=== PATIENT | male | born 1955 | race Asian ===

== ENCOUNTER 2017-03-20 09:06 | Outpatient (CLI) | payer MEDICARE, MEDICAID ==
--- NOTE | 2017-03-20 12:24 | CT ---
CT ABDOMEN WITH CONTRAST: Comparison: 03-24-13 History: Abdominal distention, right upper quadrant abdominal pain. Technique: Multiple contiguous axial images were obtained in a CT of the abdomen only with contrast. PO contrast was administered. Coronal reformats were performed. FINDINGS: The gallbladder is not overly distended but there are subtle stranding changes surrounding the gallbl adder. No calcified gallstones are seen in the gallbladder. The spleen is massively enlarged measurin g 24 cm in size. No focal liver lesions are seen. The kidneys, adrenal glands, and pancreas are unrem arkable. No free air or free fluid are seen in the abdomen. Scattered diverticula are seen in the colon. The small bowel and appendix are unremarkable. No abdomi nal adenopathy is seen. Degenerative changes are seen in the spine. The visualized inferior thorax and abdominal soft tissues are unremarkable. IMPRESSION: 1. There are possible stranding changes found in the gallbladder which could be secondary to acute ch olecystitis. A right upper quadrant abdominal ultrasound is recommended for further evaluation. 2. Massive splenomegaly. 3. Diverticulosis. POS: [facility]
[2017-03-20] MEDS ORDERED: ISOVUE-370 76%-LOCM 1 ML ONE (16:02)
== END 2017-03-20 09:07 | disposition home or self-care (01) ==
LOC: CT 09:06
PROVIDERS: ATTEND Internal Medicine Gastroenterology
DX: D56.8 Other thalassemias (principal); K74.60 Unspecified cirrhosis of liver; R10.11 Right upper quadrant pain; D50.0 Iron deficiency anemia secondary to blood loss (chronic); R16.1 Splenomegaly, not elsewhere classified; K57.30 Diverticulosis of large intestine without perforation or abscess without bleeding
CPT/HCPCS: 74160

== ENCOUNTER 2018-12-02 16:20 | Inpatient (IN) | payer MEDICARE, MEDICAID ==
[2018-12-02 17:23] LABS: Hemoglobin 7.8 g/dL (14.0-18.0); Mean Corpuscular HGB CONC 35.1 g/dL (32.0-36.0); Mean Corpuscular Hemoglobin 18.9 pg (27.0-31.0); Mean Corpuscular Volume 53.8 fL (78.0-98.0); RBC Distribution Width 19.2 % (11.5-14.5); Red Blood Cell (RBC) Count 4.13 mill/uL (4.70-6.10); White Blood Cell (WBC) Count 9.5 thou/uL (4.8-10.8)
[2018-12-02] MEDS ORDERED: Lidocaine 1% w/Epinephrine 1:100K 20 ML VIAL ONE (17:31)
[2018-12-02 17:36] LABS: Bilirubin Negative (Negative); Blood, Urine Negative (Negative); Clarity Clear (Clear); Glucose, Urine (Dipstick) Normal (Negative); Leukocyte Negative Leu/uL (Negative); Nitrite Negative (Negative); Protein, Urine (Dipstick) 20 mg/dL (Neg-Trace); Urobilinogen 6 mg/dL (Less than 2)
[2018-12-02 17:38] LABS: Anisocytosis SLIGHT = 6-15 cells (100X) (0-5/hpf); Band 1 % (5-11); Eosinophils 1 % (0-10); Hypochromia MODERATE=16-30 cells (100X) (0-5/hpf); Lymphocytes 31 % (21-51); MDiff Complete? YES; Mean Platelet Volume 7.2 fL (7.4-10.4); Microcytosis MODERATE=15-30 cells (100X) (0-5/hpf); Monocytes 5 % (0-10); Neutrophil 62 % (42-75); Platelet Count 99 thou/uL (130-400); Platelet Morphology Comment Appears Decreased; Poikilocytosis SLIGHT = 6-15 cells (100X) (0-5/hpf); Target Cells MODERATE= 6-15 cells (100X) (0-1/hpf)
[2018-12-02 17:47] LABS: ALT (SGPT) 16 U/L (8-55); AST (SGOT) 27 U/L (5-34); Albumin 3.1 g/dL (3.4-4.8); Alkaline Phosphatase 108 U/L (40-110); Anion Gap 11 mmol/L (10-20); BUN (Urea Nitrogen) 11 mg/dL (8.4-25.7); Bilirubin, Total 3.4 mg/dL (0.2-1.2); Calc. Creatinine Clearance 0 mL/min (70-130); Calcium 8.2 mg/dL (7.8-10.44); Carbon Dioxide 20 mmol/L (23-31); Chloride 104 mmol/L (98-107); Estimated GFR-MDRD Greater than 90; Globulin 3.5 g/dL (2.4-3.5); Glucose 182 mg/dL (80-115); Potassium 4.5 mmol/L (3.5-5.1); Protein, Total 6.6 g/dL (5.8-8.1); Sodium 130 mmol/L (136-145)
[2018-12-02 18:59] LABS: RBC Count-Automated (BF) 550 /cumm; WBC/Nucleated-Auto (BF) 356 uL
[2018-12-02 19:03] LABS: BF Color Yellow; Body Fluid Source Peritoneal Fluid; Clarity Clear (Clear); Tube # 1
[2018-12-02 19:37] LABS: BF Segmented Neutrophils 1 %; Cell Count Non Hematic 84 %; Lymphocytes 15 %
[2018-12-02] MEDS ORDERED: cefTRIAXone\\ROCEPHIN 2 GM VIAL ONE (20:10)
[2018-12-02] MEDS ORDERED: Ondansetron PF 4 MG/2 ML Vial IVP PRN (22:14)
[2018-12-02] MEDS ORDERED: Sodium Chloride 0.9% 1,000 ML IV SCH (22:14)
[2018-12-02] MEDS ORDERED: Ondansetron ODT 4 MG TAB SL PRN (22:14)
[2018-12-02] MEDS ORDERED: Dextrose 50% Abboject 50 ML SYRINGE SLOW IVP PRN (23:39)
[2018-12-02] MEDS ORDERED: Dextrose 5% in Water 1,000 ML IV PRN (23:39)
[2018-12-02] MEDS ORDERED: Acetaminophen 325 MG TAB PO PRN (23:40)
[2018-12-03] MEDS: cefOXitin 2 GM in Sodium Chloride 0.9% 100 ML IVPB SCH ×2 (01:52→09:52)
--- NOTE | 2018-12-03 02:50 | HP ---
CHIEF COMPLAINT: Abdominal pain. HISTORY OF PRESENT ILLNESS: This patient is a 63-year-old male with a history of alcoholic cirrhosis who quit drinking a number of years ago. The patient reports that he previously has had a paracentesis once and that he was previously following with Dr. Lepe. He is from [place] and he has been back in [place] and recently returned. He reports that he has had right upper quadrant abdominal pain for approximately 3 weeks. He reports during that time he has also had some fevers and chills and he ultimately presented to the emergency department today. He described the pain as a sharp in nature and had become as severe as 10/11 and was fairly constant. He had paracentesis performed in the emergency department and appears he may have some spontaneous bacterial peritonitis. REVIEW OF SYSTEMS: The above-mentioned fever for last couple of weeks. He has had some diarrhea during that time as well. He has had some generalized weakness, some numbness, and tingling in the lower extremities. All other systems reviewed. All pertinent positives and negatives listed in the history of present illness. PAST MEDICAL HISTORY: Cirrhosis, diagnosed in 2002. He has had one prior paracentesis. Diabetes mellitus with some peripheral neuropathy. History of splenomegaly, likely due to the cirrhosis and malaria in the childhood. PAST SURGICAL HISTORY: None. FAMILY HISTORY: Sister and brother with diabetes mellitus. SOCIAL HISTORY: The patient lives in [facility]. Has a history of significant alcohol use, but quit in 1995. Has a 33-hysa-rgte history of smoking. He is not currently smoking. ALLERGIES: NONE. MEDICATIONS: He reports, 1. Glimepiride 4 mg b.i.d. 2. Nadolol 80 mg daily. 3. Sotalol 80 mg daily. 4. Hydrochlorothiazide 50 mg daily. 5. Xifaxan 550 mg b.i.d. and another that he cannot recall. Looking at the medications in the computer, in September it appears he filled the glimepiride, sotalol, and Xifaxan. CODE STATUS: The patient is full code and his friend, Arley Saenz, #[phone] would be his surrogate decision maker. PHYSICAL EXAMINATION: VITAL SIGNS: Temperature is 98.3, pulse 84, respirations 20, O2 saturations 100% on room air, BP 127/58. GENERAL APPEARANCE: Age-appropriate male, in no distress. He is awake, alert, oriented, pleasant, cooperative. HEENT: OLIVIA, has no OP lesions. Multiple severely carious teeth. NECK: Supple and symmetric. HEART: Regular rate and rhythm without murmurs, gallops, or rubs. LUNGS: Clear to auscultation bilaterally with good chest wall expansion and air exchange. ABDOMEN: Soft, nontender. It is generally distended and has positive bowel sounds. Currently, he is nontender to palpation. EXTREMITIES: No cyanosis, clubbing, or edema. Pulses are palpable. NEURO: The patient appears to be cognitively intact. Moves all extremities spontaneously. PSYCH: Normal affect and behavior. LABORATORY DATA: White count 9.5, hemoglobin 7.8, MCV is 53.8, platelets 99. Sodium 130, potassium 4.5, chloride 104, CO2 is 20, BUN 11, creatinine 0.76, glucose 182, lactic acid 1.5, calcium 8.2, total bilirubin 3.4, AST 27, ALT 16, alkaline phosphatase 108, albumin is 3.1. Urinalysis essentially negative. Fluid from a peritoneal tap shows clear yellow fluid with 356 white cells, 550 red cells. IMPRESSION AND PLAN: 1. Probable spontaneous bacterial peritonitis, and the patient with a history of cirrhosis presents with abdominal pain, fevers, and chills. Tap shows greater than 350 white blood cells. He has received a dose of Rocephin in the emergency department. We will continue with antibiotics. Consult GI. 2. Abdominal pain, again likely related to the spontaneous bacterial peritonitis and ascites. He actually feels better after the tap. 3. History of alcoholic cirrhosis. Continue with chronic medications including nadolol and Xifaxan. 4. History of splenomegaly, likely secondary to cirrhosis. 5. History of coagulopathy. We will recheck those now. We will avoid giving him blood thinners for DVT prophylaxis and just treat with SCDs. 6. Anemia and thrombocytopenia. Anemia appears to be chronic and he is about at his baseline, but his MCV is extremely low. We will check iron studies. The thrombocytopenia is likely due to sequestration due to the splenomegaly. 7. Hyponatremia, chronic, related to his liver disease. No specific intervention indicated. 8. Diabetes mellitus. We will continue with his usual home medications. Give sliding-scale insulin. Job ID: [id number]
[2018-12-03 04:53] LABS: INR-International Normal Ratio 1.5; PTT 40.1 SEC (22.9-36.1); Prothrombin Time 18.3 SEC (12.0-14.7)
[2018-12-03 05:11] LABS: Iron 40 ug/dL (65-175); Iron Binding Capacity, Total 149 mcg/dL (261-462)
[2018-12-03 05:12] LABS: ALT (SGPT) 12 U/L (8-55); AST (SGOT) 19 U/L (5-34); Albumin 2.8 g/dL (3.4-4.8); Alkaline Phosphatase 105 U/L (40-110); Anion Gap 9 mmol/L (10-20); BUN (Urea Nitrogen) 10 mg/dL (8.4-25.7); Bilirubin, Total 2.2 mg/dL (0.2-1.2); Calc. Creatinine Clearance 0 mL/min (70-130); Calcium 7.9 mg/dL (7.8-10.44); Carbon Dioxide 24 mmol/L (23-31); Chloride 106 mmol/L (98-107); Estimated GFR-MDRD Greater than 90; Globulin 3.2 g/dL (2.4-3.5); Glucose 265 mg/dL (80-115); Iron 40 ug/dL (65-175); Iron Binding Capacity, Total 153 mcg/dL (261-462); Potassium 4.6 mmol/L (3.5-5.1); Sodium 134 mmol/L (136-145)
[2018-12-03] MEDS: HumaLOG 300 UNITS/3 ML VIAL SC PRN ×2 (05:35→23:46)
[2018-12-03 05:39] LABS: Band 1 % (5-11); Eosinophils 5 % (0-10); Hemoglobin 7.1 g/dL (14.0-18.0); Hemoglobin C Crystals SLIGHT (None Seen); Lymphocytes 35 % (21-51); MDiff Complete? YES; Mean Corpuscular HGB CONC 36.4 g/dL (32.0-36.0); Mean Corpuscular Hemoglobin 19.3 pg (27.0-31.0); Mean Platelet Volume 6.6 fL (7.4-10.4); Microcytosis MODERATE=15-30 cells (100X) (0-5/hpf); Monocytes 3 % (0-10); Neutrophil 56 % (42-75); Platelet Count 95 thou/uL (130-400); Platelet Morphology Comment Appears Decreased; RBC Distribution Width 18.9 % (11.5-14.5); Red Blood Cell (RBC) Count 3.69 mill/uL (4.70-6.10); Target Cells MARKED = >16 cells (100X) (0-1/hpf); White Blood Cell (WBC) Count 5.9 thou/uL (4.8-10.8)
--- NOTE | 2018-12-03 12:27 | PDOC.HOSPP ---
- Subjective Encounter Date: 12/03/18 Encounter Time: 11:00 Subjective: has abd distention, no pain or nausea ate his breakfast, is amb in room - Objective Vital Signs & Weight: Vital Signs (12 hours) Temp Pulse Resp BP BP Pulse Ox 12/03/18 09:50 98 12/03/18 08:00 98.2 F 96 18 110/58 L 98 12/03/18 04:00 98.2 F 89 16 109/58 L 94 L Weight Weight 2.787 oz Result Diagrams: 12/03/18 04:09 12/03/18 04:09 Additional Labs: Accuchecks 12/03/18 11:23 POC Glucose 125 H Hospitalist ROS - Medication Medications: Active Medications Generic Name Dose Route Start Last Admin Trade Name Freq PRN Reason Stop Dose Admin Cefoxitin Sodium 2 gm/ Sodium 100 mls @ 100 mls/hr 12/03/18 01:00 12/03/18 09 :52 Chloride IVPB 100 mls 0100,[id number],1700 LAWRENCE Administration Insulin Human Lispro 0 units 12/02/18 23:39 12/03/18 05:35 Humalog SC 4 unit .MILD SLIDING SCALE PRN Administration Mild Correctional Scale - Exam General Appearance: awake alert, ill appearing Eye: PERRL, scleral icterus ENT: no oropharyngeal lesions, dry oral mucosa Neck: supple, no JVD Heart: RRR, no murmur Respiratory: no wheezes, no rales Gastrointestinal: soft, normal bowel sounds, distended Gastrointestinal - other findings: ascites+++ Extremities: no cyanosis, 1+ LE edema Neurological: cranial nerve grossly intact, no focal deficits Psychiatric: normal affect, A&O x 3 Hosp A/P (1) Ascites Code(s): R18.8 - OTHER ASCITES Status: Acute Qualifiers: Ascites type: due to alcoholic cirrhosis Qualified Code(s): K70.31 - Alcoholic cirrhosis of liver with ascites (2) DM type 2 (diabetes mellitus, type 2) Status: Chronic Qualifiers: Diabetes mellitus watcher [employer] insulin use: without group home use (3) Anemia Code(s): D64.9 - ANEMIA, UNSPECIFIED Status: Chronic (4) Hypoalbuminemia Code(s): E88.09 - OTH DISORDERS OF PLASMA-PROTEIN METABOLISM, NEC Status: Chronic (5) Coagulopathy Status: Chronic Plan: due to liver disease (6) Thrombocytopenia Code(s): D69.6 - THROMBOCYTOPENIA, UNSPECIFIED Status: Chronic Plan: due to cirrhosis/splenic sequestration - Plan is on cefoxitin for suspected sbp, unlikely for usg guided paracentesis, not sure how much fluid was removed yesterday ( likely diagnostic tap) dc iv fluids continue home dose of nadolol, add lasix low dose bid has chronic anemia with microcytic indices continue glimepride for dm#2 to ambulate as tolerated in hallway
[2018-12-03] MEDS ORDERED: Sodium Bicarbonate 2.5 MEQ/5 ML VIAL ONE (13:10)
[2018-12-03] MEDS ORDERED: Furosemide 20 MG TAB PO SCH (14:00)
--- NOTE | 2018-12-03 14:39 | ULT ---
ULTRASOUND GUIDED ABDOMINAL PARACENTESIS: INDICATIONS: Cirrhosis with symptomatic ascites. FINDINGS: Yellowish-clear acidic fluid, 3800 mL, is removed from the left lower quadrant. Post procedure ultras ound shows minimal residual ascites. PROCEDURE IN DETAIL: Four quadrant limited ultrasound shows moderate volume ascites at all quadrants. The left lower quadr ant was chosen for puncture. The overlying skin was prepped and draped in a sterile manner. Local ane sthesia was administered with Lidocaine. A tiny skin lindsey was made with a scalpel. A 5 [employer] theter and needle was introduced into the fluid of the left lower quadrant with ultrasound guidance. The catheter was advanced as the needle was removed. The catheter was attached to suction drainage an d 3800 mL of acidic fluid was removed. There were no problems or complications. POS: OFF
[2018-12-03] MEDS: Glimepiride 4 MG TAB PO SCH (17:31)
--- NOTE | 2018-12-03 19:33 | CON ---
DATE OF CONSULTATION: 12/03/2018 REASON FOR CONSULTATION: Abdominal pain and possible SBP. CONSULTING PROVIDER: Victor Hugo Garcia MD HISTORY OF PRESENT ILLNESS: The patient is a 63-year-old male with past medical history of alcoholic cirrhosis complicated by esophageal varices, ascites with SBP and hepatic encephalopathy along with a diagnosis of diabetes, presenting with complaints of right upper quadrant abdominal pain. The patient states that he was in his usual state of health until approximately 1 week ago when he began to have the acute onset of increased right upper quadrant abdominal pain. The pain was characterized as a sharp type sensation, was nonradiating, but he did indicate to some possible generalized abdominal soreness. The pain was constant with waxing/waning severity, and reached a severity of 8/10. The pain was worse with lying flat and drinking water and was ultimately better with repeated paracentesis that was performed during this admission. In addition to increased abdominal pain, he also endorsed increased abdominal distention, subjective fevers and chills. However, he denied any nausea, vomiting, hematemesis, melena, hematochezia, dysphagia, odynophagia, or weight loss. With increased abdominal pain, it prompted him to seek healthcare assistance at the [facility] ER and while in the ER, he did have a paracentesis done with approximately 2.8 L removed. Earlier today, he had a repeat paracentesis performed with approximately 3 L removed at that time as well. At this point, he states that his pain has significantly improved with his current pain being approximately 1 to 2/10. Of note, the patient had been followed by our clinic until approximately March 2017. Per patient, he had moved back to [facility] over the last 6 months and had been taking all of his medications as prescribed during his stay there, but upon returning to the [facility], may have had some lapse in his medications. REVIEW OF SYSTEMS: A 10-category review of systems was obtained with all responses negative except for the pertinent positives as listed in HPI. PAST MEDICAL HISTORY: As per HPI. PAST SURGICAL HISTORY: None. FAMILY HISTORY: Stated that his cousin was diagnosed with cirrhosis of the liver, but no first-degree relatives with GI malignancies or liver disease. SOCIAL HISTORY: Denies any tobacco, alcohol, or illicit drug use. OUTPATIENT MEDICATIONS: 1. Glimepiride 4 mg b.i.d. 2. Nadolol 80 mg daily. 3. Sotalol 80 mg daily. 4. Hydrochlorothiazide 50 mg daily. 5. Xifaxan 550 mg b.i.d. 6. Spironolactone 50 mg daily. ALLERGIES: NO KNOWN DRUG ALLERGIES. PHYSICAL EXAMINATION: VITAL SIGNS: Temperature 98.2, pulse 96, blood pressure 117/62, respiratory rate 18, and saturating 98% on room air. GENERAL: The patient was lying in bed, in no acute distress. Alert and oriented x4. HEENT: Normocephalic and atraumatic. NECK: Supple. No JVD noted, but did have mild scleral icterus. CARDIOVASCULAR: Regular rate and rhythm with no discernible murmurs, gallops, or rubs. RESPIRATORY: Clear to auscultation bilaterally with no discernible wheezes or rales. ABDOMEN: Normoactive bowel sounds. Soft. Moderate abdominal distention. Tenderness to palpation in all abdominal quadrants especially over the recent paracentesis sites. EXTREMITIES: No cyanosis or clubbing or edema. LABORATORY DATA: CBC with a white blood cell count of 5.9, hemoglobin 7.1, hematocrit 19.5, and platelets 95. INR 1.5. Chemistry with a sodium of 134, potassium 4.6, chloride 106, CO2 of 24, BUN 10, creatinine 0.84, glucose 265, AST 19, ALT 12, alkaline phosphatase 105, total bilirubin 2.2, and albumin 2.8. Iron 40, ferritin 85, and TIBC 149. Analysis of the ascitic fluid yielded a white blood cell count of 356 with approximately 1% of that being segmented neutrophils. IMAGING DATA: Most recent CT abdomen and pelvis were obtained on March 20, 2017, which showed splenomegaly, diverticulosis, and a possible portal vein thrombosis. Last EGD was performed on April 03, 2017, which showed grade 2 esophageal varices as well as enlarged gastric folds, but no evidence of bleeding. Paracentesis was performed on December 03, 2018, with approximately 3.8 L removed at that time. ASSESSMENT AND PLAN: The patient is a 63-year-old male with past medical history of diabetes and alcoholic cirrhosis complicated by esophageal varices, ascites, spontaneous bacterial peritonitis, and hepatic encephalopathy, presenting with right upper quadrant abdominal pain consistent with worsening ascites. Right upper quadrant abdominal pain/worsening ascites: The patient is presenting with the acute onset of increased right upper quadrant abdominal pain that had been present for the last week and characterized as a sharp, constant type sensation, reaching a severity of 8/10. With the removal approximately 5 to 6 L of fluid within the last 12 to 24 hours, he has had significant reduction of his abdominal pain in the process. Analysis of the ascitic fluid does not indicate spontaneous bacterial peritonitis with ascitic fluid culture still pending at this time, the preliminary read shows no evidence of organisms/bacteria. At this time, the cell count on the ascitic fluid is not indicative of spontaneous bacterial peritonitis, although it is unclear if he was receiving antibiotics prior to obtaining his paracentesis. Given his history of spontaneous bacterial peritonitis in the past, antibiotic administration is not unreasonable. However, he is currently on an IV second generation cephalosporin, which does not provide adequate coverage for the enteric pathogens normally causing spontaneous bacterial peritonitis. Recommendations; 1. We transfer the patient from cefoxitin to ceftriaxone 2 g daily. If the patient is to be transferred to oral antibiotics, I would recommend ciprofloxacin 500 mg b.i.d. x5 days, then 500 mg daily as part of spontaneous bacterial peritonitis prophylaxis. 2. Would continue to monitor the patient for worsening of his abdominal pain and follow up on the culture for possible bacteria ascites. Cirrhosis: The patient was diagnosed with cirrhosis of the liver in 2013 when he presented with increased abdominal distention and noted on imaging to have enlarged spleen, small liver, and thrombocytopenia. The most likely etiology for his cirrhosis is chronic alcohol abuse prior to his diagnosis, but there was some mention in his chart about possible autoimmune hepatitis as well. Currently presenting with decompensated disease with a model for end-stage liver disease score of 18 and Child-Duque classification B/C. His most recent upper endoscopy was performed on April 03, 2017 with the findings of grade 2 esophageal varices and subsequently was placed on nadolol as part of primary prophylaxis for esophageal varix bleeding, although he does have a history of variceal bleeding in the past. At the current time, he is on both sotalol and nadolol as an outpatient and it is unclear why he is on both of these medications concurrently. Concerning his ascites, he had been relatively adherent to a low-sodium diet as an outpatient and had been taking spironolactone approximately 50 mg daily, but did experience sudden reaccumulation prompting this admission. Therefore, his diuretic regimen may need to be adjusted. Lastly, concerning his hepatic encephalopathy, it was controlled as an outpatient with rifaximin 550 mg b.i.d., which could be continued. Recommendations; 1. Would continue the spironolactone 50 mg daily, but add furosemide 20 mg daily to his regimen. 2. Encouraged a low-sodium diet with intake of less than 2000 mg daily. 3. We will continue nadolol 20 mg daily as part of prophylaxis of variceal bleeding. Given the patient's significant reduction and pain, that was most likely due to increased abdominal distention and lack of evidence of spontaneous bacterial peritonitis. The patient could be discharged on the above regimen with followup in the GI clinic within the next 2 to 3 weeks. We will follow peripherally for now. Please call with any questions. Job ID: [id number]
[2018-12-03] MEDS ORDERED: cefTRIAXone\\ROCEPHIN 2 GM in Sodium Chloride 0.9% 100 ML IVPB SCH (21:00)
[2018-12-04] MEDS: HumaLOG 300 UNITS/3 ML VIAL SC PRN ×3 (06:24→16:32)
[2018-12-04 07:57] LABS: ALT (SGPT) 13 U/L (8-55); AST (SGOT) 18 U/L (5-34); Albumin 2.9 g/dL (3.4-4.8); Alkaline Phosphatase 134 U/L (40-110); Anion Gap 9 mmol/L (10-20); BUN (Urea Nitrogen) 11 mg/dL (8.4-25.7); Bilirubin, Total 1.8 mg/dL (0.2-1.2); Calc. Creatinine Clearance 0 mL/min (70-130); Calcium 8.1 mg/dL (7.8-10.44); Carbon Dioxide 23 mmol/L (23-31); Chloride 105 mmol/L (98-107); Estimated GFR-MDRD 80; Globulin 3.6 g/dL (2.4-3.5); Glucose 187 mg/dL (80-115); Potassium 4.3 mmol/L (3.5-5.1); Protein, Total 6.5 g/dL (5.8-8.1); Sodium 133 mmol/L (136-145)
[2018-12-04] MEDS ORDERED: Nadolol 40 MG TAB PO SCH (09:00)
[2018-12-04] MEDS ORDERED: Spironolactone 25 MG TAB PO SCH (09:00)
[2018-12-04] MEDS ORDERED: Furosemide 20 MG TAB PO SCH (09:00)
[2018-12-04] MEDS: Glimepiride 4 MG TAB PO SCH ×2 (09:33→16:35)
[2018-12-04 10:17] VITALS: BP 118/61; TEMP 97.9
--- NOTE | 2018-12-04 19:53 | DIS ---
DATE OF ADMISSION: 12/02/2018 DATE OF DISCHARGE: 12/04/2018 DISCHARGE DISPOSITION: Home. PRIMARY DISCHARGE DIAGNOSES: Recurrent ascites with prior history of alcoholic cirrhosis, status post paracentesis with removal of 4 L; diabetes mellitus, type 2; chronic anemia; hypoalbuminemia due to cirrhosis; coagulopathy and thrombocytopenia, all due to cirrhosis and splenic sequestration. PROCEDURES DONE DURING HOSPITALIZATION: The patient has had a paracentesis done with removal of 3800 mL of yellow clear fluid. H and H 7 and 19, platelet count 95, MCV 53. PT and INR 18.3 and 1.5, PTT 40. Discharge total bilirubin 1.8, AST 18, ALT 13, alkaline phosphatase 134, albumin 2.9, BUN 11, creatinine 0.9, potassium 4.3 this morning. Serum iron 40, TIBC 153, percent saturation 27. Ferritin is 85. Ascitic fluid; wbc count was 356, red blood cells were 550, 1% segments, no malignant cells were seen. INPATIENT CONSULT: Dr. Angelito Crocker for Gastroenterology. DISCHARGE MEDICATIONS: 1. Glimepiride 4 mg twice daily. 2. Lasix 20 mg daily. 3. Nadolol 20 mg daily. 4. Spironolactone 50 mg daily. ALLERGIES: NO KNOWN DRUG ALLERGIES. DISCHARGE PLAN: The patient to follow up with primary care physician, Dr. Evelyn Mejia in 1 week. He also needs to follow up with Dr. Crocker in 4 weeks. BRIEF COURSE DURING HOSPITALIZATION: The patient initially got admitted on the with complaints of abdominal pain and fullness. He has known history of alcoholic cirrhosis and has had prior paracentesis. In view of abdominal pain, he has had initial diagnostic tap done, which did not reveal findings of SBP. He was placed on antibiotics initially, and this was discontinued. The patient has had paracentesis with ultrasound guidance and removal of 3800 mL of yellow fluid done on 12/03/2018. This has relieved his abdominal pain completely. He is tolerating oral solid diet. The patient's medications were optimized in view of recurrent ascites. The patient has completely stopped drinking alcohol now. He was evaluated by Dr. Angelito Crocker for Gastroenterology as well. He was counseled with regard to medication compliance and dietary compliance with low-salt diet. He needs to follow up with his primary care physician in 1 week. He also needs to follow up with Dr. Angelito Crocker for possible outpatient paracentesis appointments on a regular basis. Please note, I have seen and examined the patient on the day of discharge. He has been cleared by sand plant attendant, Dr. Crocker for discharge. Job ID: [id number]
== END 2018-12-04 18:49 | disposition home or self-care (01) | DRG 433 ==
LOC: ERS 16:20 → ONC 19:27
PROVIDERS: ADMIT Internal Medicine; ATTEND Internal Medicine
PROC: 0W9G3ZZ Drainage of Peritoneal Cavity, Percutaneous Approach (ICD-10-PCS; principal; 2018-12-03)
DX: K70.31 Alcoholic cirrhosis of liver with ascites (principal); I85.10 Secondary esophageal varices without bleeding; D68.4 Acquired coagulation factor deficiency; E87.1 Hypo-osmolality and hyponatremia; K72.90 Hepatic failure, unspecified without coma; D69.59 Other secondary thrombocytopenia; D50.9 Iron deficiency anemia, unspecified; E11.42 Type 2 diabetes mellitus with diabetic polyneuropathy; Z79.84 Long term (current) use of oral hypoglycemic drugs; Z79.899 Other long term (current) drug therapy
CPT/HCPCS: 36415; 36416; 49082; 49083; 80053; 81003; 82728; 83540; 83550; 83605; 85025; 85060; 85610; 85730; 87040; 87070; 87205; 89051; 96361; 96365; J0694; J0696; J2001; J3490

== ENCOUNTER 2019-01-08 10:28 | Outpatient (CLI) | payer MEDICARE, MEDICAID ==
--- NOTE | 2019-01-08 13:41 | CT ---
CT ABDOMEN WITH AND WITHOUT IV CONTRAST 01/08/2019 CLINICAL INFORMATION: Cirrhosis, esophageal varices, fever. COMPARISON: 03/20/2017 Technique: Multiple contiguous axial CT images are obtained through the abdomen and pelvis with IV contrast. Cor onal reformatted images are provided. FINDINGS: Lower Chest: An approximately 5 mm nodular density is seen at the posterior right lung base with ill- defined margins. This was not imaged on the prior exam. Vessels: The abdominal aorta is normal in caliber without evidence of an aortic dissection. Abdomen: Portal vein:The splenic and portal veins are dilated similar to the prior exam. In addition, there is residual nonocclusive thrombus within the main portal vein with calcification now present. This also small amount of nonocclusive thrombus in the splenic vein just proximal to the confluence.. Smal l varices are seen adjacent to the spleen. Gallbladder: Pericholecystic stranding and fluid is again seen. Liver: A few subcentimeter hypodense lesions are again seen in the left hepatic lobe similar to prior study which are too small to characterize Spleen: Massively enlarged measuring 20.2 cm in craniocaudal dimensions. Pancreas: within normal limits. Adrenals: within normal limits. Kidneys: Mild mass effect on the left kidney due to enlargement of the spleen. The kidneys otherwise have a normal CT appearance. Bowel: A few scattered colonic diverticula are seen in the descending colon. Loops of small bowel are normal in caliber Appendix: The appendix is visualized and normal in caliber. Peritoneum: There is a small amount of intraperitoneal free fluid adjacent to the liver and spleen wi th mild mesenteric edema seen. Mesentery and Retroperitoneum: No enlarged mesenteric or retroperitoneal lymph nodes. Abdominal Wall: within normal limits. Bones: No suspicious lytic or sclerotic osseous lesions are identified. IMPRESSION: 1. Massive splenomegaly also noted on prior exam with a few adjacent varices. In addition, there is n onocclusive thrombus involving the portal vein similar to the prior exam. Portal vein as well as splenic vein are dilated suggesting portal hypertension. 2. Subcentimeter too small to characterize hypodense lesions again noted in the liver. 3. Stable pericholecystic fluid and stranding which does appear mildly increased from the prior exam. Findings again could be related to cholecystitis in the correct clinical scenario. Findings could be related to edema secondary to portal hypertension and liver disease as well. Clinical correlation is recommended. Depending on clinical concern for cholecystitis, gallbladder ultrasound may be helpful for further evaluation. 4. Small amount of ascites and mesenteric edema. 5. Nonspecific ill-defined 5 mm nodular density right lung base which is too small to characterize.
[2019-01-08] MEDS ORDERED: Iopamidol-370 76% 500 ML 1 ML ONE (15:56)
== END 2019-01-08 10:29 | disposition home or self-care (01) ==
LOC: BICCT 10:28
PROVIDERS: ATTEND Internal Medicine
DX: K74.60 Unspecified cirrhosis of liver (principal); I85.00 Esophageal varices without bleeding; R50.9 Fever, unspecified; R16.1 Splenomegaly, not elsewhere classified; I81 Portal vein thrombosis; I86.8 Varicose veins of other specified sites; K76.9 Liver disease, unspecified; R18.8 Other ascites; R91.8 Other nonspecific abnormal finding of lung field
CPT/HCPCS: 74170; Q9967

== ENCOUNTER 2019-04-06 09:31 | Inpatient (IN) | payer MEDICARE, MEDICAID ==
[2019-04-06 10:35] LABS: Hemoglobin 8.3 g/dL (14.0-18.0); Mean Corpuscular Hemoglobin 19.4 pg (27.0-31.0); Mean Corpuscular Volume 57.2 fL (78.0-98.0); Mean Platelet Volume 8.1 fL (7.4-10.4); Platelet Count 80 thou/uL (130-400); RBC Distribution Width 17.8 % (11.5-14.5); Red Blood Cell (RBC) Count 4.26 mill/uL (4.70-6.10)
[2019-04-06 10:44] LABS: Acetaminophen Less than 6.0 mcg/mL (10.0-30.0); Alcohol Less than 10 mg/dL (Less than 10); Salicylate Less than 8.0 mg/dL (15.0-30.0)
[2019-04-06 10:52] LABS: ALT (SGPT) 33 U/L (8-55); AST (SGOT) 68 U/L (5-34); Albumin 3.8 g/dL (3.4-4.8); Alkaline Phosphatase 81 U/L (40-110); Anion Gap 17 mmol/L (10-20); BUN (Urea Nitrogen) 63 mg/dL (8.4-25.7); Bilirubin, Total 9.4 mg/dL (0.2-1.2); Calc. Creatinine Clearance 0 mL/min (70-130); Calcium 8.7 mg/dL (7.8-10.44); Carbon Dioxide 18 mmol/L (23-31); Chloride 112 mmol/L (98-107); Estimated GFR-MDRD 73; Globulin 3.1 g/dL (2.4-3.5); Glucose 166 mg/dL (80-115); Lipase 29 U/L (8-78); Potassium 4.1 mmol/L (3.5-5.1); Protein, Total 6.9 g/dL (5.8-8.1); Sodium 143 mmol/L (136-145)
[2019-04-06 10:58] LABS: Band 2 % (5-11); Hemoglobin C Crystals SLIGHT (None Seen); Lymphocytes 15 % (21-51); MDiff Complete? YES; Microcytosis MARKED = >30 cells (100X) (0-5/hpf); Monocytes 6 % (0-10); Neutrophil 77 % (42-75); Nucleated RBC 1 % (0); Platelet Morphology Comment Appears Decreased; Polychromasia SLIGHT = 2-3 cells (100X) (0-2/hpf); Spherocytes SLIGHT = 1-5 cells (100X) (None Seen); Target Cells MARKED = >16 cells (100X) (0-1/hpf)
--- NOTE | 2019-04-06 11:16 | CT ---
Exam: Head CT without contrast HISTORY: Altered mental status COMPARISON: none FINDINGS: Hemorrhage: No intraparenchymal hemorrhage or extra-axial hematoma. Brain parenchyma: Cortical shafer-white matter differentiation is preserved. No mass effect or midline shift. Basilar cisterns are patent. Ventricular system: Ventricles and sulci are patent and symmetric. Calvarium: Intact. Sinuses and mastoid air cells: Adequate aeration. IMPRESSION: No acute intracranial process.
--- NOTE | 2019-04-06 11:44 | RAD ---
Exam: Chest one view HISTORY:Altered mental status. Comparison: 03/23/2013 FINDINGS: Cardiac silhouette: Normal Aorta: Unremarkable Pulmonary vessels: Normal Costophrenic angles: Clear LUNGS: Scattered reticular nodular opacities. Pneumothorax: None Osseous abnormalities: None IMPRESSION: Scattered reticular nodular opacities. Continued surveillance if clinically warranted.
[2019-04-06 11:55] LABS: Bilirubin 1+ (Negative); Blood, Urine 2+ (Negative); Clarity Clear (Clear); Glucose, Urine (Dipstick) Normal (Negative); Leukocyte Negative Leu/uL (Negative); Nitrite Negative (Negative); Protein, Urine (Dipstick) 30 mg/dL (Neg-Trace); Squamous Epithelial 0-3 HPF (0-3); Urobilinogen 3 mg/dL (Less than 2); WBC/HPF 0-3 HPF (0-3)
[2019-04-06 11:58] LABS: Bacteria/HPF 1+ HPF (None Seen)
[2019-04-06 12:01] LABS: Amphetamine Not Detected (NotDetected); Barbiturates Screen Not Detected (NotDetected); Benzodiazepine Screen Not Detected (NotDetected); Cocaine Metabolite Screen Not Detected (NotDetected); Medtox Control Line Valid? VALID (VALID); Medtox Reader # READER 4; Methadone Not Detected (NotDetected); Methamphetamine Not Detected (NotDetected); Opiate Screen Not Detected (NotDetected); Oxycodone Screen Not Detected (NotDetected); Phencyclidine (PCP) Not Detected (NotDetected); THC/Cannabinoid Screen Not Detected (NotDetected); Tricyclic Screen Not Detected (NotDetected)
[2019-04-06] MEDS ORDERED: HYDROcodone/Acetaminophen 5/325 mg Tablet PO PRN (13:23)
[2019-04-06] MEDS ORDERED: Acetaminophen 325 MG TAB PO PRN (13:23)
[2019-04-06] MEDS ORDERED: HYDROcodone/Acetaminophen 7.5/325 mg Tablet PO PRN (13:23)
[2019-04-06] MEDS ORDERED: Ondansetron PF 4 MG/2 ML Vial IVP PRN (13:23)
[2019-04-06] MEDS ORDERED: Bisacodyl 5 MG TAB PO PRN (13:23)
[2019-04-06] MEDS ORDERED: Ondansetron ODT 4 MG TAB PO PRN (13:23)
[2019-04-06] MEDS ORDERED: Benzonatate 100 MG CAP PO PRN (13:26)
[2019-04-06] MEDS ORDERED: Docusate 100 MG CAP PO PRN (13:26)
[2019-04-06] MEDS ORDERED: Labetalol HCl 100 MG/20 ML VIAL SLOW IVP PRN (13:26)
--- NOTE | 2019-04-06 14:28 | ULT ---
EXAM: US Abdominal CLINICAL HISTORY: Abdominal pain. Cirrhosis. Splenomegaly. COMPARISON: 03/30/2013, 11/09/2013 FINDINGS: Pancreas: Pancreatic duct appears be dilated measuring 0.8 cm. The head of the pancreas has a grossl y normal echotexture. The remaining pancreas is obscured by bowel gas IVC: Incompletely evaluated Aorta: Poorly defined. Mid aorta appears to be normal in caliber measuring 1.4 cm Liver:Normal hepatic parenchymal echotexture. No hepatic masses or intrahepatic biliary dilatation. T he contour of the hepatic margins maintained. Right hepatic lobe measures 13.5 cm. Gallbladder: No sonographic evidence of cholelithiasis, gallbladder wall thickening or pericholecysti c fluid. Kline's sign:Negative CBD: Common bile duct diameter 0.5 cm Portal vein: Patent. Appropriate directional flow. Right kidney: Normal cortical echotexture. No hydronephrosis. Right kidney measuring 5.7 x 5.0 x 9.1 cm in length. Left kidney: Normal cortical echotexture. No hydronephrosis . Left kidney measuring 4.1 x 4.9 x 10.6 cm in length Spleen: Splenomegaly. Spleen measures 20.3 x 15.6 x 14.5 cm IMPRESSION: 1. Limited evaluation due to combative nature of the patient as well as altered mental status. 2. Marked splenomegaly. 3. Dilatation of the pancreatic duct measuring 0.8 cm
--- NOTE | 2019-04-06 14:39 | PDOC.HHP ---
Hospitalist HPI - History of Present Illness AMS History of Present Illness: 63 year old with PMHx of Etoh abuse, cirrhosis with recent paracentesis in december 2018, DM, HTN, and HLD presents with AMS. Patient alert and oriented to name only. Patient is uncooperative and restrained at the time of interview. Patient will answer yes and no to simple questions though he dose not know any of his past medical history and cannot elaborate on why he is here. Does not know where he is. Does not know why he is here. Does not know the year. Knows his name. Patient denies cirrhosis, denies alcohol use. Patient denies pain. No family available at bedside. Will attempt to get ahold of family to verify history. Hospitalist ROS - Review of Systems ROS unobtainable: due to mental status Hospitalist History - Past Medical History Source: old records Cardiac: reports: HTN Pulmonary: reports: high cholesterol Hepatobiliary: reports: Cirrhosis Endocrine: reports: Diabetes - Past Surgical History Past Surgical History: reports: Other (Paracentesis) - Social History Smoking Status: Unknown if ever smoked Alcohol: reports: Heavy Drugs: reports: none Living Situation: With Family Domestic Violence: Negative Activity level: independent ambulation - Exam General Appearance: NAD, awake alert Eye: PERRL, anicteric sclera ENT: normocephalic atraumatic, moist mucosa Neck: supple, symmetric, no lymphadenopathy Heart: no murmur, no gallops, no rubs Respiratory: CTAB, no wheezes, no rales, no ronchi, normal chest expansion, no tachypnea Gastrointestinal: soft, non-tender, non-distended, normal bowel sounds, no guarding, no rigidity Extremities: no edema Skin: no lesions, no rashes Neurological: cranial nerve grossly intact, no focal deficits Musculoskeletal: generalized weakness Psychiatric: oriented to person. negative: oriented to place, oriented to time Hospitalist Results - Labs Result Diagrams: 04/06/19 10:20 04/06/19 10:20 Lab results: WBC 8.0 thou/uL (4.8-10.8) 04/06/19 10:20 Hgb 8.3 g/dL (14.0-18.0) L 04/06/19 10:20 Hct 24.4 % (42.0-52.0) L 04/06/19 10:20 MCV 57.2 fL (78.0-98.0) L 04/06/19 10:20 Plt Count 80 thou/uL (130-400) L 04/06/19 10:20 Band Neuts % (Manual) 2 % (5-11) L 04/06/19 10:20 Sodium 143 mmol/L (136-145) 04/06/19 10:20 Potassium 4.1 mmol/L (3.5-5.1) 04/06/19 10:20 Chloride 112 mmol/L (98-107) H 04/06/19 10:20 Carbon Dioxide 18 mmol/L (23-31) L 04/06/19 10:20 BUN 63 mg/dL (8.4-25.7) H 04/06/19 10:20 Creatinine 1.03 mg/dL (0.7-1.3) 04/06/19 10:20 Glucose 166 mg/dL (80-115) H 04/06/19 10:20 Lactic Acid 1.9 mmol/L (0.5-2.2) 04/06/19 10:19 Calcium 8.7 mg/dL (7.8-10.44) 04/06/19 10:20 Total Bilirubin 9.4 mg/dL (0.2-1.2) H 04/06/19 10:20 AST 68 U/L (5-34) H 04/06/19 10:20 ALT 33 U/L (8-55) 04/06/19 10:20 Alkaline Phosphatase 81 U/L (40-110) 04/06/19 10:20 Ammonia 32 umol/L (18-72) 04/06/19 10:19 Creatine Kinase 850 U/L (30-200) H 04/06/19 10:20 Serum Total Protein 6.9 g/dL (5.8-8.1) 04/06/19 10:20 Albumin 3.8 g/dL (3.4-4.8) 04/06/19 10:20 Lipase 29 U/L (8-78) 04/06/19 10:20 Urine Ketones 10 mg/dL (Negative) A 04/06/19 11:27 Urine Blood 2+ (Negative) A 04/06/19 11:27 Urine Nitrite Negative (Negative) 04/06/19 11:27 Ur Leukocyte Esterase Negative Mary/uL (Negative) 04/06/19 11:27 Urine RBC 4-6 HPF (0-3) A 04/06/19 11:27 Urine WBC 0-3 HPF (0-3) 04/06/19 11:27 Ur Squamous Epith Cells 0-3 HPF (0-3) 04/06/19 11:27 Urine Bacteria 1+ HPF (None Seen) A 04/06/19 11:27 - Radiology Interpretation CT scan - head Status: image reviewed by nm Hospitalist H&P A/P - Problem (1) AMS (altered mental status) Code(s): R41.82 - ALTERED MENTAL STATUS, UNSPECIFIED Status: Acute (2) Cirrhosis Code(s): K74.60 - UNSPECIFIED CIRRHOSIS OF LIVER Status: Acute (3) Elevated bilirubin Code(s): R17 - UNSPECIFIED JAUNDICE Status: Acute (4) Anemia Code(s): D64.9 - ANEMIA, UNSPECIFIED Status: Chronic (5) Coagulopathy Status: Chronic (6) DM type 2 (diabetes mellitus, type 2) Status: Chronic Qualifiers: Diabetes mellitus termite treater helper insulin use: without termite treater helper use (7) Hypoalbuminemia Code(s): E88.09 - OTH DISORDERS OF PLASMA-PROTEIN METABOLISM, NEC Status: Chronic (8) Thrombocytopenia Code(s): D69.6 - THROMBOCYTOPENIA, UNSPECIFIED Status: Chronic - Plan Plan: Plan: Admit to medical unit with telemetry GI consultation, recommendations appreciated No signs of sepsis CT head negative Normal ammonia UTOX Blood alcohol level US abdomen reviewed - no signs of biliary obstruction Elevated bilirubin Hx of cirrhosis Add CT chest/ abdomen/ pelvis CXR with scattered nodules, eval for metastatic disease Monitor for signs of alcohol withdrawl ASE protocol Folic acid Thiamine Continue Cirrhosis meds GI PPX DVT PPX
[2019-04-06] MEDS ORDERED: Iopamidol-370 76% 500 ML 1 ML ONE (14:41)
[2019-04-06] MEDS ORDERED: Haloperidol Lactate 5 MG/ML VIAL IM PRN (14:48)
[2019-04-06] MEDS ORDERED: Lorazepam 2 MG/ML VIAL ONE (16:14)
[2019-04-06] MEDS: Lorazepam 2 MG/ML VIAL SLOW IVP PRN (16:21)
[2019-04-06] MEDS: Multivitamins, Adult 10 ML, Folic Acid 1 MG, Thiamine HCl 100 MG in Dextrose 5 %-0.45 %... IV SCH (17:02)
--- NOTE | 2019-04-06 17:21 | CT ---
Exam: Chest CT with contrast Abdomen CT with contrast Pelvic CT with contrast HISTORY: Evaluate for metastatic disease. Patient appears to be jaundice. Correlation: None COMPARISON: Abdomen and pelvic CT 01/08/2019 FINDINGS: Chest CT: Mediastinum: No mass, lymphadenopathy or hematoma. Aorta: Normal caliber aorta. No periaortic fat stranding. Heart: Normal heart size. No significant pericardial fluid. Trachea and central bronchi: Patent Pleural spaces: No significant pleural fluid Right lung: Dependent atelectatic change. No suspicious masses, nodules or consolidation. Left lung:Atelectatic change. No suspicious nodules, masses, or consolidation Pneumothorax: None Abdomen CT: Gallbladder: Gallbladder is prominent and there is pericholecystic fluid.Portal vein: Patent Liver: Nodularity of the liver, compatible with cirrhosis.. Spleen: Markedly enlarged spleen, measuring 17.7 cm. Splenic varices are redemonstrated. Pancreas: Mild atrophy of the pancreas is noted. Visualized short segment of the pancreatic duct appe ars to be 0.3 cm. Adrenal glands: Appropriate enhancement Lymphadenopathy: No gastrohepatic, retrocrural or periportal lymphadenopathy Kidneys: Symmetric enhancement kidneys. Bilaterally no uropathy. Mesentery: Diffuse edema of the mesentery with. There is free fluid along the perihepatic and perispl enic region. Fluid tracks along both pericolic gutters. Alimentary canal: Limited evaluation of the alimentary canal by the absence of oral contrast. Gastric mucosa is unremarkable. Multiple normal caliber small bowel loops. Ileocecal junction is normal. Normal caliber appendix. Scattered fecal material in a nondistended, nondilated colon. Diverticulosis , without evidence of diverticulitis Vasculature: There is partial thrombus of the right portal vein and main portal vein, extending into the splenic vein. As mentioned above, there are splenic varices. Additionally, gastric varices are noted. Pelvis CT: No pelvic mass, nephropathy, free air or free fluid. Urinary bladder is unremarkable. Osseous structures:No lytic or blastic lesions in the osseous structures IMPRESSION: 1. Redemonstration of splenomegaly. 2. Redemonstration of gastric varices and splenic varices. 3. Recent ultrasound suggested dilatation of the pancreatic duct. However, there does not appear to b e a CT correlate. There is fluid in the gallbladder fossa. Correlate clinically for cholecystitis. 4. Cirrhotic changes of the liver. 5. Redemonstration of partial thrombosis of the splenic vein and portal vein. 5. Scattered diverticulosis, without evidence of diverticulitis. Normal caliber appendix. There is co ncern for mucosal pathology in the colon, consider colonoscopy. Transcribed Date/Time: 04/06/2019 6:13 PM
[2019-04-06] MEDS: Famotidine/PF 20 mg/2ml Vial SLOW IVP SCH (20:47)
[2019-04-07 04:37] LABS: ALT (SGPT) 28 U/L (8-55); AST (SGOT) 44 U/L (5-34); Albumin 3.3 g/dL (3.4-4.8); Alkaline Phosphatase 68 U/L (40-110); Anion Gap 12 mmol/L (10-20); BUN (Urea Nitrogen) 50 mg/dL (8.4-25.7); Bilirubin, Total 7.4 mg/dL (0.2-1.2); Calc. Creatinine Clearance 0 mL/min (70-130); Calcium 8.5 mg/dL (7.8-10.44); Carbon Dioxide 21 mmol/L (23-31); Chloride 116 mmol/L (98-107); Estimated GFR-MDRD Greater than 90; Globulin 2.9 g/dL (2.4-3.5); Glucose 140 mg/dL (80-115); Potassium 3.5 mmol/L (3.5-5.1); Protein, Total 6.2 g/dL (5.8-8.1); Sodium 145 mmol/L (136-145)
[2019-04-07 05:31] LABS: Band 3 % (5-11); Eosinophils 4 % (0-10); Hemoglobin 7.4 g/dL (14.0-18.0); Hemoglobin C Crystals SLIGHT (None Seen); Lymphocytes 31 % (21-51); MDiff Complete? YES; Mean Corpuscular Hemoglobin 19.4 pg (27.0-31.0); Mean Platelet Volume 7.1 fL (7.4-10.4); Microcytosis MODERATE=15-30 cells (100X) (0-5/hpf); Monocytes 4 % (0-10); Neutrophil 58 % (42-75); Nucleated RBC 2 % (0); Platelet Count 71 thou/uL (130-400); Platelet Morphology Comment Appears Decreased; RBC Distribution Width 17.4 % (11.5-14.5); Red Blood Cell (RBC) Count 3.81 mill/uL (4.70-6.10); Target Cells MODERATE= 6-15 cells (100X) (0-1/hpf); White Blood Cell (WBC) Count 7.3 thou/uL (4.8-10.8)
[2019-04-07] MEDS: Nadolol 40 MG TAB PO SCH (08:21)
[2019-04-07] MEDS: Spironolactone 25 MG TAB PO SCH (08:21)
[2019-04-07] MEDS: Furosemide 20 MG TAB PO SCH (08:21)
[2019-04-07] MEDS: Famotidine/PF 20 mg/2ml Vial SLOW IVP SCH ×2 (08:58→20:07)
[2019-04-07 09:05] VITALS: BMI 23.8
[2019-04-07] MEDS: Lorazepam 2 MG/ML VIAL SLOW IVP PRN (09:24)
[2019-04-07] MEDS: Multivitamins, Adult 10 ML, Folic Acid 1 MG, Thiamine HCl 100 MG in Dextrose 5 %-0.45 %... IV SCH (16:46)
[2019-04-07 17:23] LABS: Amphetamine Not Detected (NotDetected); Barbiturates Screen Not Detected (NotDetected); Benzodiazepine Screen Not Detected (NotDetected); Cocaine Metabolite Screen Not Detected (NotDetected); Medtox Control Line Valid? VALID (VALID); Medtox Reader # READER 4; Methadone Not Detected (NotDetected); Methamphetamine Not Detected (NotDetected); Opiate Screen Not Detected (NotDetected); Oxycodone Screen Not Detected (NotDetected); Phencyclidine (PCP) Not Detected (NotDetected); THC/Cannabinoid Screen Not Detected (NotDetected); Tricyclic Screen Not Detected (NotDetected)
--- NOTE | 2019-04-07 17:57 | PDOC.HOSPP ---
- Subjective Encounter Date: 04/07/19 Encounter Time: 09:00 Subjective: Pt seen for followup re: acute metabolic encephalopathy. Pt drowsy, not answering questions, could not complete ROS. - Objective Vital Signs & Weight: Vital Signs (12 hours) Temp Pulse Resp BP BP BP Pulse Ox 04/07/19 16:00 98.3 F 97 19 128/67 97 04/07/19 12:00 98.0 F 89 14 135/64 135/64 93 L 04/07/19 08:09 97.7 F 79 12 108/59 L 98 04/07/19 08:00 108/59 L Weight Weight 156 lb 6 oz Result Diagrams: 04/07/19 03:57 04/07/19 03:57 Additional Labs: Labs and MARs reviewed by me EKG Reviewed by me: Yes (Tele: NSR) Hospitalist ROS - Review of Systems ROS unobtainable: due to mental status - Medication Medications: Active Medications Generic Name Dose Route Start Last Admin Trade Name Freq PRN Reason Stop Dose Admin Famotidine 20 mg 04/06/19 21:00 04/07/19 08:58 Pepcid SLOW IVP Not Given Q12HR [facility]WRENCE Furosemide 20 mg 04/07/19 09:00 04/07/19 08:21 Lasix PO Not Given DAILY LAWRENCE Multivitamins 10 ml/ Folic 1,011.2 mls @ 75 mls/hr 04/06/19 15:00 04/07/19 16 :46 Acid 1 mg/ Thiamine HCl 100 mg IV 04/08/19 15:01 1,011.2 mls / Dextrose/Sodium Chloride Q24HR LAWRENCE Administration Lorazepam 1 mg 04/06/19 14:46 04/07/19 09:24 Ativan SLOW IVP 1 mg Q4H PRN Administration Anxiety/Agitation Nadolol 20 mg 04/07/19 09:00 04/07/19 08:21 Corgard PO Not Given DAILY LAWRENCE Pantoprazole Sodium 40 mg 04/07/19 09:00 04/07/19 08:21 Protonix PO Not Given DAILY LAWRENCE Spironolactone 50 mg 04/07/19 09:00 04/07/19 08:21 Aldactone PO Not Given DAILY LAWRENCE - Exam General - other findings: drowsy Eye: scleral icterus ENT: normocephalic atraumatic, moist mucosa Neck: supple, no thyromegaly, no lymphadenopathy Heart: RRR, no rubs Respiratory: CTAB, no rales Gastrointestinal: soft, non-tender, normal bowel sounds Extremities: no cyanosis Skin: no rashes Psychiatric: lethargic Hosp A/P - Plan - Assessment: (1) Acute metabolic encephalopathy Status: Acute (2) Cirrhosis Code(s): K74.60 - UNSPECIFIED CIRRHOSIS OF LIVER Status: Chronic (3) Elevated bilirubin Code(s): R17 - UNSPECIFIED JAUNDICE Status: Chronic (4) Anemia Code(s): D64.9 - ANEMIA, UNSPECIFIED Status: Chronic (5) Coagulopathy Status: Chronic (6) DM type 2 (diabetes mellitus, type 2) Status: Chronic Qualifiers: Diabetes mellitus rat exterminator insulin use: without rat exterminator use (7) Hypoalbuminemia Code(s): E88.09 - OTH DISORDERS OF PLASMA-PROTEIN METABOLISM, NEC Status: Chronic (8) Thrombocytopenia Code(s): D69.6 - THROMBOCYTOPENIA, UNSPECIFIED Status: Chronic (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 Ammonia level normal, CT brain unremarkable. Pericholecystic fluid + but no leucocytosis/fever, phys exam unreliable due to pt's altered mental status, start empiric antibiotic (Zosyn) and observe. Check HIDA scan and follow blood cultures. Monitor for signs of alcohol withdrawal by ASE protocol Folic acid Thiamine
[2019-04-07] MEDS: Piperacillin/Tazobactam 4.5 GM in Sodium Chloride 0.9% 100 ML IVPB SCH (19:07)
[2019-04-07] MEDS: Rifaximin 550 MG TAB PO SCH (20:07)
[2019-04-07] MEDS: diphenhydrAMINE 25 MG CAP PO PRN (20:07)
[2019-04-07] MEDS: Melatonin 3 MG TAB PO PRN (20:08)
--- NOTE | 2019-04-07 21:53 | CON ---
DATE OF CONSULTATION: 04/07/2019 CHIEF COMPLAINT: Confusion. HISTORY OF PRESENT ILLNESS: Mr. Jimenes is a 63-year-old man with a history of cirrhosis, who was admitted through the emergency room today with altered mental status. He is currently sitting up on the side of his bed, awake and eating some peanut butter crackers, but he is unable really contribute at all to his history. He is unable to tell me why he is in the hospital or any details of his history. He has had no bowel movement today. He has had no abdominal pain. No diarrhea, constipation, or blood in the stool. 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 There is also some history of alcohol abuse in the past. Hypertension, hyperlipidemia, diabetes mellitus, thalassemia. PAST SURGICAL HISTORY: Paracentesis. FAMILY HISTORY: He had a cousin with cirrhosis. His family history is negative for GI malignancy. SOCIAL HISTORY: No alcohol, tobacco, or drugs recently. His last alcohol use has been over 20 years ago. ALLERGIES: NO KNOWN DRUG ALLERGIES. OUTPATIENT MEDICATIONS: 1. Spironolactone. 2. Rifaximin. 3. Sotalol. 4. Nadolol 20 mg daily. 5. Hydrochlorothiazide. 6. Glimepiride. 7. Furosemide. REVIEW OF SYSTEMS: Negative x10 systems reviewed except as stated in history of present illness. However, the patient is slow to answer and confused. PHYSICAL EXAMINATION: VITAL SIGNS: Temperature 98.3, pulse 97, blood pressure 128/67. GENERAL: He is in no acute distress. He is oriented to his name and that he is in the hospital, but not the year. He does not follow instructions well such as bending his knees and trying to comply with asterixis. Ultimately on neurological exam, he does have no asterixis. HEENT: His eyes have scleral icterus. He is jaundice. There is no cervical or supraclavicular lymphadenopathy. LUNGS: Clear to auscultation bilaterally. HEART: Regular rate and rhythm without murmur. ABDOMEN: Soft and nondistended. Bowel sounds are present. No hepatomegaly. Oropharynx is clear without lesions, and he has dry mucous membranes. EXTREMITIES: No lower extremity edema. LABORATORY DATA: White blood cell count 7.3, hemoglobin 7.4, MCV 57, platelets 71. INR 1.4 back in January, creatinine 0.5, BUN 50, bilirubin 7.4, AST 44, ALT 28, alkaline phosphatase 68. Alpha fetoprotein was 2.6 back in January. IgG in 2014 was over 3000. Smooth muscle antibody was 45, back in 2013. Viral hepatitis panel has been negative in the past. IMAGING: CT scan of the chest, abdomen and pelvis yesterday which showed splenomegaly and gastric varices and splenic varices. Cirrhotic changes of the liver were seen. Partial thrombosis of the splenic and portal vein were noted. IMPRESSION: 1. Cirrhosis of the liver, which is decompensated with significant hyperbilirubinemia and hepatic encephalopathy with the last hospitalization ascites requiring paracentesis. He appears to have cirrhosis from autoimmune hepatitis based on labs from 2014, however, this has not been specifically treated. His globulin is now not significantly elevated and his transaminases are not significantly elevated indicating that he may just have burnout cirrhosis without ongoing acute autoimmune hepatitis such that immune suppression may not be of help at this point. 2. Hepatic encephalopathy. He has had worsening altered mental status, which led to this hospitalization. He is awake enough to interact, but is confused on his history. He is slow to answer questions. Slow to follow commands. He does not have asterixis. He had an ammonia level, which was normal yesterday at 32. Maybe altered mental status is not actually due to hepatic encephalopathy. Still I would cover him with lactulose and Xifaxan at this point. 3. Elevated BUN with normal creatinine. He does not have melena on rectal exam. In fact, he has light yellow stool on rectal exam currently. He does have microcytosis consistent with thalassemia. 4. Evidence of varices, gastric and splenic varices and splenomegaly. He has been on nadolol empirically for that. 5. 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 RECOMMENDATIONS: 1. We will schedule lactulose. The patient is awake and alert enough to swallow safely. However, he is slow to answer questions. He does not have asterixis. His ammonia was normal, so his mental status may be an etiology other than hepatic encephalopathy. I will restart the Xifaxan as well. 2. He will maintain his outpatient beta asad for varicella prophylaxis. He will eventually need upper endoscopy for esophageal varices screening. 3. We will continue the current diuretics. He does not have significant ascites by exam today to indicate paracentesis currently. 4. Dr. Crocker will be back tomorrow. Job ID: [id number]
[2019-04-08] MEDS: Piperacillin/Tazobactam 4.5 GM in Sodium Chloride 0.9% 100 ML IVPB SCH ×3 (01:35→17:27)
[2019-04-08 04:56] LABS: ALT (SGPT) 24 U/L (8-55); AST (SGOT) 37 U/L (5-34); Albumin 2.9 g/dL (3.4-4.8); Alkaline Phosphatase 82 U/L (40-110); Anion Gap 12 mmol/L (10-20); BUN (Urea Nitrogen) 35 mg/dL (8.4-25.7); Bilirubin, Total 7.4 mg/dL (0.2-1.2); Calc. Creatinine Clearance 100 mL/min (70-130); Calcium 8.3 mg/dL (7.8-10.44); Carbon Dioxide 20 mmol/L (23-31); Chloride 116 mmol/L (98-107); Estimated GFR-MDRD Greater than 90; Globulin 2.8 g/dL (2.4-3.5); Glucose 321 mg/dL (80-115); Potassium 3.7 mmol/L (3.5-5.1); Protein, Total 5.7 g/dL (5.8-8.1); Sodium 144 mmol/L (136-145)
[2019-04-08 07:51] LABS: Anisocytosis MODERATE=16-30 cells (100X) (0-5/hpf); Eosinophils 1 % (0-10); Hemoglobin 7.2 g/dL (14.0-18.0); Hypochromia MODERATE=16-30 cells (100X) (0-5/hpf); Lymphocytes 27 % (21-51); MDiff Complete? YES; Mean Corpuscular HGB CONC 34.9 g/dL (32.0-36.0); Mean Corpuscular Hemoglobin 20.1 pg (27.0-31.0); Mean Corpuscular Volume 57.5 fL (78.0-98.0); Mean Platelet Volume 6.5 fL (7.4-10.4); Metamyelocyte 1 % (0-0); Monocytes 4 % (0-10); Neutrophil 66 % (42-75); Nucleated RBC 4 % (0); Platelet Count 65 thou/uL (130-400); Platelet Morphology Comment Appears Decreased; Polychromasia SLIGHT = 2-3 cells (100X) (0-2/hpf); RBC Distribution Width 17.7 % (11.5-14.5); Reactive Lymphocytes 1 % (0-10); Red Blood Cell (RBC) Count 3.58 mill/uL (4.70-6.10); Reflex for Review?? YES; Spherocytes SLIGHT = 1-5 cells (100X) (None Seen); Target Cells MODERATE= 6-15 cells (100X) (0-1/hpf); White Blood Cell (WBC) Count 4.4 thou/uL (4.8-10.8)
[2019-04-08] MEDS: Famotidine/PF 20 mg/2ml Vial SLOW IVP SCH ×2 (11:39→21:21)
[2019-04-08] MEDS ORDERED: Dextrose 50% Abboject 50 ML SYRINGE SLOW IVP PRN (12:06)
[2019-04-08] MEDS ORDERED: Dextrose 5% in Water 1,000 ML IV PRN (12:06)
[2019-04-08] MEDS: Rifaximin 550 MG TAB PO SCH ×2 (15:20→21:20)
[2019-04-08] MEDS: Furosemide 20 MG TAB PO SCH (15:23)
[2019-04-08] MEDS: Spironolactone 25 MG TAB PO SCH (15:23)
[2019-04-08] MEDS: Nadolol 40 MG TAB PO SCH (15:24)
[2019-04-08] MEDS: Multivitamins, Adult 10 ML, Folic Acid 1 MG, Thiamine HCl 100 MG in Dextrose 5 %-0.45 %... IV SCH (15:39)
--- NOTE | 2019-04-08 15:47 | NM ---
HEPATOBILIARY SCAN: HISTORY:Abdominal pain. No gallstones on ultrasound of 05/22/2019. RADIOPHARMACEUTICAL: 4.5 mCi Technetium 99m Mebrofenin injected intravenously CCK-8:1.4 mcg slowly infused intravenously over 30 minutes for pretreatment and subsequently for gall bladder ejection fraction calculation. FINDINGS: There is normal tracer extraction by the liver with normal excretion into the biliary tracts and smal l bowel loops and normal filling of the gallbladder. The calculated gallbladder ejection fraction following an oral fatty meal measures 76%. IMPRESSION:Normal exam.
--- NOTE | 2019-04-08 16:20 | PDOC.HOSPP ---
- Subjective Encounter Date: 04/08/19 Encounter Time: 09:00 Subjective: pt up in bed more awake and oriented x3. He is asking for water. - Objective Vital Signs & Weight: Vital Signs (12 hours) Temp Pulse Resp BP BP BP Pulse Ox 04/08/19 15:20 97.9 F 77 16 133/59 L 97 04/08/19 11:11 97.5 F L 78 16 113/59 L 113/59 L 97 04/08/19 07:35 97.7 F 87 16 131/60 97 Weight Weight 156 lb 6 oz I&O: 04/07/19 04/08/19 04/09/19 06:59 06:59 06:59 Intake Total 1460 Output Total 450 Balance 1010 Result Diagrams: 04/08/19 06:00 04/08/19 04:10 Additional Labs: Accuchecks 04/08/19 11:09 POC Glucose 205 H Hospitalist ROS - Review of Systems Respiratory: denies: cough, dry, shortness of breath, hemoptysis, SOB with excertion, pleuritic pain, sputum, wheezing, other Cardiovascular: denies: chest pain, palpitations, orthopnea, paroxysmal noc. dyspnea, edema, light headedness, other Gastrointestinal: denies: nausea, vomiting, abdominal pain, diarrhea, constipation, melena, hematochezia, other - Medication Medications: Active Medications Generic Name Dose Route Start Last Admin Trade Name Freq PRN Reason Stop Dose Admin Diphenhydramine HCl 25 mg 04/06/19 13:26 04/07/19 20:07 Benadryl PO 25 mg Q6H PRN Administration Itching & Insomnia Famotidine 20 mg 04/06/19 21:00 04/08/19 11:39 Pepcid SLOW IVP Not Given Q12HR [facility] Furosemide 20 mg 04/07/19 09:00 04/08/19 15:23 Lasix PO 20 mg DAILY LA[facility]ENCE Administration Piperacillin Sod/Tazobactam 100 mls @ 200 mls/hr 04/07/19 18:00 04/08/19 09: 26 Sod 4.5 gm/ Sodium Chloride IVPB 100 mls 0200,1000,1800 LAWRENCE Administration Lactulose 20 gm 04/08/19 09:00 04/08/19 15:23 Lactulose PO 20 gm DAILY [facility]WRENCE Administration Lorazepam 1 mg 04/06/19 14:46 04/07/19 09:24 Ativan SLOW IVP 1 mg Q4H PRN Administration Anxiety/Agitation Melatonin 3 mg 04/06/19 13:26 04/07/19 20:08 Melatonin PO 3 mg HS PRN Administration Insomnia Nadolol 20 mg 04/07/19 09:00 04/08/19 15:24 Corgard PO 20 mg DAILY LAWRENCE Administration Pantoprazole Sodium 40 mg 04/07/19 09:00 04/08/19 15:23 Protonix PO 40 mg DAILY LAWRENCE Administration Rifaximin 550 mg 04/07/19 21:00 04/08/19 15:20 Xifaxan PO Not Given BID LA[facility]ENCE Spironolactone 50 mg 04/07/19 09:00 04/08/19 15:23 Aldactone PO 50 mg DAILY [facility]WRENCE Administration - Exam Eye: scleral icterus Heart: negative: RRR, no murmur, no gallops, no rubs, normal peripheral pulses, irregular, diminshed peripheral pulses, murmur present, II/IV, III/IV Respiratory: negative: CTAB, no wheezes, no rales, no ronchi, normal chest expansion, no tachypnea, normal percussion, rales, rhonchi, tachypneic, wheezes Gastrointestinal: negative: soft, non-tender, non-distended, normal bowel sounds , no palpable masses, no hepatomegaly, no splenomegaly, no bruit, no guarding, no rigidity, tender to palpation, distended, diminished bowl sounds, voluntary guarding Hosp A/P - Plan (1) Acute metabolic encephalopathy Status: Acute (2) Cirrhosis Code(s): K74.60 - UNSPECIFIED CIRRHOSIS OF LIVER Status: Chronic (3) Elevated bilirubin Code(s): R17 - UNSPECIFIED JAUNDICE Status: Chronic (4) Anemia Code(s): D64.9 - ANEMIA, UNSPECIFIED Status: Chronic (5) Coagulopathy Status: Chronic (6) DM type 2 (diabetes mellitus, type 2) Status: Chronic Qualifiers: Diabetes mellitus remote computer terminal operator insulin use: without remote computer terminal operator use (7) Hypoalbuminemia Code(s): E88.09 - OTH DISORDERS OF PLASMA-PROTEIN METABOLISM, NEC Status: Chronic (8) Thrombocytopenia Code(s): D69.6 - THROMBOCYTOPENIA, UNSPECIFIED Status: Chronic (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 Ammonia level normal, CT brain unremarkable. Pericholecystic fluid + but no leucocytosis/fever, phys exam unreliable due to pt's altered mental status, start empiric antibiotic (Zosyn) and observe. Check HIDA scan and follow blood cultures. Monitor for signs of alcohol withdrawal by ASE protocol Folic acid Thiamine 2/5 pt going for HIDA scan, he is more awake and off restraints.
[2019-04-08] MEDS: HumaLOG 300 UNITS/3 ML VIAL SC PRN (17:25)
[2019-04-08] MEDS: diphenhydrAMINE 25 MG CAP PO PRN (21:20)
[2019-04-08] MEDS: Melatonin 3 MG TAB PO PRN (21:20)
--- NOTE | 2019-04-09 02:14 | PRG ---
DATE OF SERVICE: 04/08/2019 REASON FOR CONSULTATION: Cirrhosis with altered mental status. SUBJECTIVE: Per nursing staff and per patient, there were no acute events or problems overnight. Today, the patient is exhibiting clearing of his sensorium when compared to on admission and was alert and oriented x4 at the time of this interview. He states that he continues to have generalized fatigue and weakness, but otherwise states that he is feeling better. He has had approximately 3 to 4 semi-solid bowel movements today with the administration of lactulose. He also describes mildly increased abdominal distention and pedal edema prior to admission, but seems to have resolved somewhat during this admission. Otherwise, he denies any nausea, vomiting, fevers, chills, hematemesis, melena, or hematochezia. Per nursing staff, when being changed earlier today, he had greenish-colored stools without the presence of melena. OBJECTIVE: VITAL SIGNS: Temperature 98.5, pulse 83, blood pressure 146/66, respiratory rate 16, and saturating 100% on room air. GENERAL: The patient was sitting in a chair at bedside, in no acute distress. Alert and oriented x4. CARDIOVASCULAR: Regular rate and rhythm. RESPIRATORY: Clear to auscultation bilaterally. ABDOMEN: Normoactive bowel sounds. Soft. [id number] abdominal distention. Tender to palpation in the right upper quadrant. EXTREMITIES: No cyanosis, clubbing, or edema. LABORATORY DATA: CBC with white blood cell count of 4.4, hemoglobin 7.2, hematocrit 20.6, and platelets 65. Chemistry with a sodium of 144, potassium 3.7, chloride 116, CO2 of 20, BUN 35, creatinine 0.78, glucose 321, AST 37, ALT 24, alkaline phosphatase 82, total bilirubin 7.4, and albumin 2.9. IMAGING DATA: HIDA scan was obtained on April 08, 2019, which showed normal tracer extraction by the liver and normal excretion into the biliary tracts with a calculated gallbladder ejection fraction measuring 76%, indicative of a normal exam without evidence of cholecystitis. ASSESSMENT AND PLAN: The patient is a 63-year-old male with past medical history of hypertension, hyperlipidemia, diabetes, thalassemia, and cirrhosis complicated by a prior history of ascites, esophageal varices (nonbleeding), lower extremity edema, and hepatic encephalopathy, presenting with altered mental status concerning for worsening liver disease and hepatic encephalopathy. Cirrhosis: The patient is presenting with a prior diagnosis of cirrhosis with testing in the past concerning for the presence of either autoimmune hepatitis or alcoholic cirrhosis contributing to this particular diagnosis (the autoimmune hepatitis diagnosis relegated because of an elevated ED, ASMA, and immunoglobulin). These labs were initially drawn in 2013, but the patient was never ultimately placed on immunosuppression due to lack of significant transaminitis. However, the patient is now presenting with mild transaminitis but significant hyperbilirubinemia, which is concerning for possible decompensation of the liver disease. At this time, I am unable to calculate MELD score or Child-Duque classification due to lack of recent INR for further evaluation, but currently with good renal function and normal sodium, which relegates a lower score. At this time, repeating prior testing for possible autoimmune hepatitis may be indicated and if continues to be positive, we would confirm the diagnosis with a liver biopsy. The patient also does have multiple subcentimeter lesions that have been difficult to characterize within the liver, which could be concerning for the presence of HCC; however, none of these lesions are large enough for further characterization and will require serial imaging. RECOMMENDATIONS: 1. We would obtain an INR for further classification/stratification of his current liver disease with MELD score and Child-Duque classification. 2. Given that the patient's most recent upper endoscopy was in 2018, we would consider repeating for screening/surveillance of esophageal varices. Anemia: The patient is presenting with a longstanding history of chronic microcytic anemia with a significantly decreased MCV and elevated RDW. Prior testing in the past has showed a mildly low iron, low TIBC, and normal-high ferritin, consistent with anemia of chronic disease or thalassemia. However, on this admission, the patient is presenting with a significantly elevated BUN to creatinine ratio and when coupled with a microcytic anemia, it is concerning for the presence of acute or chronic gastrointestinal blood loss. Given his prior history of esophageal varices in the past and concurrent diagnosis of cirrhosis, an upper gastrointestinal origin is suspected. RECOMMENDATIONS: 1. We would continue to trend his H and H and transfuse as necessary to maintain an H and H of 7/21. 2. Continue to monitor him clinically for signs of active GI bleeding. 3. We would make the patient n.p.o. at midnight in anticipation for EGD tomorrow and intraluminal evaluation. 4. We would update his iron indices for further characterization of his anemia. 5. Given the review of the peripheral smear, a leukoerythroblastic picture is possible. If the upper endoscopy is negative, I would consider non-GI origin of his anemia. Hepatic encephalopathy/altered mental status: The patient initially presented to the hospital with altered mental status and was ultimately brought by family members for further evaluation. With administration of lactulose and rifaximin, he has had significant improvement in his sensorium and is currently alert and oriented x4. At this point, it is mildly unclear as to what may have caused his altered mental status to begin with given the fact that the patient had relatively normal labs except for the hyperbilirubinemia in addition to a normal ammonia, making the diagnosis of hepatic encephalopathy less likely. However, given his good response to lactulose administration, they cannot be ruled out at this time. RECOMMENDATIONS: 1. We will continue the patient on lactulose 20 g daily in addition to rifaximin 550 mg b.i.d. 2. We will continue to monitor the patient clinically for derangements in mental status. I would consider trail testing if he exhibits any worsening of his sensorium. 3. We would consider discontinuation of his diuretic management if he continues to have worsening of his altered mental status as sometimes it can precipitate hepatic encephalopathy. 4. We will plan for EGD tomorrow for possible upper GI bleed, which could then contribute to hepatic encephalopathy. Esophageal varices: The patient is presenting with a history of esophageal varices with large (grade 2) varices seen on upper endoscopy performed on April 03, 2017. He has not had any further evaluation with upper endoscopy since then and was placed on nadolol therapy as an outpatient for primary prophylaxis of esophageal varix bleeding. He had been doing well on this therapy, but more recently has had decompensation in his liver status, which could indicate worsening of these esophageal varices despite nonselective beta-blockade. RECOMMENDATIONS: 1. We will plan for upper endoscopy tomorrow for intraluminal evaluation of possible esophageal varices. 2. We would continue with nadolol 20 mg daily with goal of achieving a heart rate between 55 and 65 beats per minute while maintaining a systolic blood pressure greater than 100. 3. Continue to monitor H and H as stated above for possible variceal bleeding. We will continue to follow. Please call with any questions. Job ID: [id number]
[2019-04-09] MEDS: Piperacillin/Tazobactam 4.5 GM in Sodium Chloride 0.9% 100 ML IVPB SCH ×2 (02:21→09:13)
[2019-04-09 05:10] LABS: Hemoglobin 7.2 g/dL (14.0-18.0); Iron 54 ug/dL (65-175); Iron Binding Capacity, Total 203 mcg/dL (261-462); Mean Corpuscular HGB CONC 33.2 g/dL (32.0-36.0); Mean Corpuscular Hemoglobin 19.2 pg (27.0-31.0); Mean Corpuscular Volume 57.9 fL (78.0-98.0); Mean Platelet Volume 6.4 fL (7.4-10.4); Platelet Count 65 thou/uL (130-400); RBC Distribution Width 18.2 % (11.5-14.5); Red Blood Cell (RBC) Count 3.74 mill/uL (4.70-6.10); White Blood Cell (WBC) Count 5.6 thou/uL (4.8-10.8)
[2019-04-09 05:11] LABS: Anisocytosis MODERATE=16-30 cells (100X) (0-5/hpf); Band 2 % (5-11); Eosinophils 3 % (0-10); Hemoglobin C Crystals SLIGHT (None Seen); Hypochromia SLIGHT = 6-15 cells (100X) (0-5/hpf); Lymphocytes 39 % (21-51); MDiff Complete? YES; Microcytosis MODERATE=15-30 cells (100X) (0-5/hpf); Monocytes 3 % (0-10); Neutrophil 53 % (42-75); Nucleated RBC 1 % (0); Target Cells MODERATE= 6-15 cells (100X) (0-1/hpf)
[2019-04-09 05:14] LABS: ALT (SGPT) 26 U/L (8-55); AST (SGOT) 30 U/L (5-34); Alkaline Phosphatase 77 U/L (40-110); Anion Gap 11 mmol/L (10-20); BUN (Urea Nitrogen) 22 mg/dL (8.4-25.7); Bilirubin, Total 6.9 mg/dL (0.2-1.2); Calc. Creatinine Clearance 96 mL/min (70-130); Calcium 7.8 mg/dL (7.8-10.44); Carbon Dioxide 22 mmol/L (23-31); Chloride 111 mmol/L (98-107); Estimated GFR-MDRD Greater than 90; Globulin 2.8 g/dL (2.4-3.5); Glucose 252 mg/dL (80-115); Iron 53 ug/dL (65-175); Iron Binding Capacity, Total 203 mcg/dL (261-462); Potassium 3.5 mmol/L (3.5-5.1); Protein, Total 5.8 g/dL (5.8-8.1); Sodium 140 mmol/L (136-145)
[2019-04-09] MEDS: Famotidine/PF 20 mg/2ml Vial SLOW IVP SCH ×2 (09:13→21:05)
[2019-04-09] MEDS ORDERED: PROPOFOL 200 MG/20 ML VIAL ONE (11:31)
[2019-04-09] MEDS ORDERED: Ketamine 50 MG/ML (10ML VIAL) ONE (11:46)
[2019-04-09] MEDS: Rifaximin 550 MG TAB PO SCH ×2 (13:16→21:05)
[2019-04-09] MEDS: Spironolactone 25 MG TAB PO SCH (13:18)
[2019-04-09] MEDS: Insulin Glargine 6 UNITS in Pre-Filled Syringe 1 EACH SC SCH (13:18)
[2019-04-09] MEDS: Furosemide 20 MG TAB PO SCH (13:18)
[2019-04-09] MEDS: Nadolol 40 MG TAB PO SCH (14:23)
--- NOTE | 2019-04-09 15:56 | OP ---
DATE OF PROCEDURE: 04/09/2019 PROCEDURE PERFORMED: Esophagogastroduodenoscopy (diagnostic). INDICATIONS FOR PROCEDURE: Anemia, possible GI bleeding, altered mental status, history of esophageal varices. DESCRIPTION OF PROCEDURE: After the risks and benefits of the procedure were explained to the patient including risks of bleeding, infection, perforation, reactions to anesthesia, aspiration, and/or pain, informed consent was obtained. The patient was then taken to the endoscopy suite, and after being placed in the left lateral decubitus position, deep sedation was administered via propofol and anesthesia support. Once adequate sedation was achieved, the standard gastroscope was introduced into the mouth with intubation of the esophagus, stomach, and the proximal small intestines with the findings listed below. The patient tolerated the procedure well with no immediate perioperative complications. Upon conclusion of the procedure, all equipment was removed from the patient and he was transferred to PACU in satisfactory condition. FINDINGS: Esophagus: Normal-appearing mucosa was seen in the proximal and mid esophagus; however, large esophageal varices were seen in the distal esophagus (grade 2/3), but did not exhibit any evidence of active or recent bleeding. There may have been the presence of one small red aisha sign along the varix at the 1 o'clock position, but again did not exhibit any further high-risk stigmata of active or recent bleeding. Otherwise normal-appearing mucosa was seen at the gastroesophageal junction. There was no evidence of erosions, ulcerations, mass lesions, or active/recent bleeding. Stomach: Mild mucosal erythema was seen in the gastric cardia, fundus, and body in a mosaic type pattern, consistent with portal hypertensive gastropathy. There was no increased associated erythema, ulceration, or bleeding associated with this finding. Otherwise, normal-appearing mucosa was seen in the distal gastric body, antrum, and incisura. There was no evidence of erosions, ulcerations, mass lesions, or active/recent bleeding. Duodenum: Normal-appearing mucosa was seen in both the duodenal bulb and second portion of the duodenum. There was no evidence of erosions, ulcerations, mass lesions, or active/recent bleeding. IMPRESSION: 1. Mild portal hypertensive gastropathy without evidence of bleeding. 2. No presence of gastric varices. 3. Large distal esophageal varices (grade 2/3) seen in the distal esophagus without any high-risk stigmata of bleeding. RECOMMENDATIONS: 1. Would continue to trend the patient's hemoglobin and hematocrit and transfuse as necessary to maintain the hemoglobin and hematocrit of 7/21. 2. Continue with nonselective beta-blockade with nadolol for primary prophylaxis for variceal bleeding. 3. Would follow up on iron indices for further characterization of this anemia, and if not iron-deficiency anemia, would pursue other non-GI sources of anemia. 4. Continue with lactulose and rifaximin administration given the higher probability of hepatic encephalopathy. 5. Continue with advancing the patient's diet and gentle IV fluid support given possible dehydration as evidenced by an elevated BUN. We will continue to follow. Please call with any questions. Job ID: [id number]
--- NOTE | 2019-04-09 17:36 | PDOC.HOSPP ---
- Subjective Encounter Date: 04/09/19 Encounter Time: 10:15 Subjective: pt up in bed no complains. - Objective Vital Signs & Weight: Vital Signs (12 hours) Temp Pulse Pulse Pulse Resp BP BP 04/09/19 15:46 97.6 F 81 18 04/09/19 13:25 83 88 163/68 H 04/09/19 12:45 98.3 F 87 18 04/09/19 07:58 98.0 F 87 16 125/60 BP BP BP Pulse Ox 04/09/19 15:46 155/75 H 100 04/09/19 13:25 156/67 H 04/09/19 12:45 147/63 H 100 04/09/19 07:58 125/60 98 Weight Weight 156 lb 6 oz I&O: 04/08/19 04/09/19 04/10/19 06:59 06:59 06:59 Intake Total 1460 3170 Output Total 450 550 Balance 1010 2620 Result Diagrams: 04/09/19 04:18 04/09/19 04:18 Additional Labs: Accuchecks 04/09/19 04/09/19 04/08/19 12:53 05:54 20:53 POC Glucose 169 H 282 H 121 H 04/08/19 15:49 POC Glucose 175 H Hospitalist ROS - Review of Systems Respiratory: denies: cough, dry, shortness of breath, hemoptysis, SOB with excertion, pleuritic pain, sputum, wheezing, other Cardiovascular: denies: chest pain, palpitations, orthopnea, paroxysmal noc. dyspnea, edema, light headedness, other Gastrointestinal: denies: nausea, vomiting, abdominal pain, diarrhea, constipation, melena, hematochezia, other Genitourinary: denies: dysuria, frequency, incontinence, hematuria, retention, other - Medication Medications: Active Medications Generic Name Dose Route Start Last Admin Trade Name Freq PRN Reason Stop Dose Admin Diphenhydramine HCl 25 mg 04/06/19 13:26 04/07/19 20:07 Benadryl PO 25 mg Q6H PRN Administration Itching & Insomnia Famotidine 20 mg 04/06/19 21:00 04/09/19 09:13 Pepcid SLOW IVP Not Given Q12HR [facility]ENCE Furosemide 20 mg 04/07/19 09:00 04/09/19 13:18 Lasix PO 20 mg DAILY LA[facility]ENCE Administration Insulin Glargine 6 units/ 0.06 mls @ 0 mls/hr 04/09/19 09:00 04/09/19 13:18 Miscellaneous Medication SC 0.06 mls QAM [facility]ENCE Administration Insulin Human Lispro 0 units 04/08/19 12:06 04/08/19 17:25 Humalog SC 2 unit .MILD SLIDING SCALE PRN Administration Mild Correctional Scale Lactulose 20 gm 04/08/19 09:00 04/09/19 14:22 Lactulose PO 20 gm DAILY [facility]ENCE Administration Lorazepam 1 mg 04/06/19 14:46 04/07/19 09:24 Ativan SLOW IVP 1 mg Q4H PRN Administration Anxiety/Agitation Melatonin 3 mg 04/06/19 13:26 04/07/19 20:08 Melatonin PO 3 mg HS PRN Administration Insomnia Nadolol 20 mg 04/07/19 09:00 04/09/19 14:23 Corgard PO 20 mg DAILY LA[facility]ENCE Administration Pantoprazole Sodium 40 mg 04/07/19 09:00 04/09/19 13:17 Protonix PO 40 mg DAILY [facility]ENCE Administration Rifaximin 550 mg 04/07/19 21:00 04/09/19 13:16 Xifaxan PO 550 mg BID LAWRENCE Administration Sodium Chloride 10 ml 04/08/19 21:00 04/09/19 09:14 Flush - Normal Saline IVF 10 ml Q12HR [facility]ENCE Administration Spironolactone 50 mg 04/07/19 09:00 04/09/19 13:18 Aldactone PO 50 mg DAILY LAWRENCE Administration - Exam ENT: negative: normocephalic atraumatic, no oropharyngeal lesions, moist mucosa , dry oral mucosa Neck: negative: supple, symmetric, no JVD, no thyromegaly, no lymphadenopathy, no carotid bruit, JVD Heart: negative: RRR, no murmur, no gallops, no rubs, normal peripheral pulses, irregular, diminshed peripheral pulses, murmur present, II/IV, III/IV Respiratory: negative: CTAB, no wheezes, no rales, no ronchi, normal chest expansion, no tachypnea, normal percussion, rales, rhonchi, tachypneic, wheezes Hosp A/P - Plan (1) Acute metabolic encephalopathy Status: Acute (2) Cirrhosis Code(s): K74.60 - UNSPECIFIED CIRRHOSIS OF LIVER Status: Chronic (3) Elevated bilirubin Code(s): R17 - UNSPECIFIED JAUNDICE Status: Chronic (4) Anemia Code(s): D64.9 - ANEMIA, UNSPECIFIED Status: Chronic (5) Coagulopathy Status: Chronic (6) DM type 2 (diabetes mellitus, type 2) Status: Chronic Qualifiers: Diabetes mellitus retirement insulin use: without retirement use (7) Hypoalbuminemia Code(s): E88.09 - OTH DISORDERS OF PLASMA-PROTEIN METABOLISM, NEC Status: Chronic (8) Thrombocytopenia Code(s): D69.6 - THROMBOCYTOPENIA, UNSPECIFIED Status: Chronic (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 Ammonia level normal, CT brain unremarkable. Pericholecystic fluid + but no leucocytosis/fever, phys exam unreliable due to pt's altered mental status, start empiric antibiotic (Zosyn) and observe. Check HIDA scan and follow blood cultures. Monitor for signs of alcohol withdrawal by ASE protocol Folic acid Thiamine 2/5 pt going for HIDA scan, he is more awake and off restraints. 2/6 pt to go for egd today, will trend hh and monitor. possible discharge in am.
[2019-04-09] MEDS: HumaLOG 300 UNITS/3 ML VIAL SC PRN ×2 (18:10→21:24)
[2019-04-10 04:24] LABS: Reticulocyte Count 2.5 % (0.5-1.5)
[2019-04-10 04:27] LABS: Hemoglobin A1c 5.1 % (4.0-6.0)
[2019-04-10] MEDS: Furosemide 20 MG TAB PO SCH (09:28)
[2019-04-10] MEDS: Spironolactone 25 MG TAB PO SCH (09:29)
[2019-04-10] MEDS: Rifaximin 550 MG TAB PO SCH (09:29)
[2019-04-10] MEDS: Nadolol 40 MG TAB PO SCH (09:29)
[2019-04-10] MEDS: Famotidine/PF 20 mg/2ml Vial SLOW IVP SCH (09:29)
[2019-04-10] MEDS: Insulin Glargine 6 UNITS in Pre-Filled Syringe 1 EACH SC SCH (09:33)
[2019-04-10 09:53] LABS: ALT (SGPT) 26 U/L (8-55); AST (SGOT) 25 U/L (5-34); Albumin 3.3 g/dL (3.4-4.8); Alkaline Phosphatase 83 U/L (40-110); Anion Gap 9 mmol/L (10-20); BUN (Urea Nitrogen) 20 mg/dL (8.4-25.7); Bilirubin, Total 5.2 mg/dL (0.2-1.2); Calc. Creatinine Clearance 102 mL/min (70-130); Calcium 8.4 mg/dL (7.8-10.44); Carbon Dioxide 25 mmol/L (23-31); Chloride 106 mmol/L (98-107); Estimated GFR-MDRD Greater than 90; Globulin 3.1 g/dL (2.4-3.5); Glucose 208 mg/dL (80-115); Potassium 3.8 mmol/L (3.5-5.1); Protein, Total 6.4 g/dL (5.8-8.1); Sodium 136 mmol/L (136-145)
[2019-04-10 10:37] LABS: Hemoglobin 8.2 g/dL (14.0-18.0); Mean Corpuscular HGB CONC 34.6 g/dL (32.0-36.0); Mean Platelet Volume 6.7 fL (7.4-10.4); Platelet Count 66 thou/uL (130-400); RBC Distribution Width 18.9 % (11.5-14.5); Red Blood Cell (RBC) Count 4.07 mill/uL (4.70-6.10); White Blood Cell (WBC) Count 7.1 thou/uL (4.8-10.8)
[2019-04-10 11:03] LABS: Anisocytosis MODERATE=16-30 cells (100X) (0-5/hpf); Eosinophils 1 % (0-10); Hemoglobin C Crystals SLIGHT (None Seen); Lymphocytes 34 % (21-51); MDiff Complete? YES; Microcytosis MARKED = >30 cells (100X) (0-5/hpf); Monocytes 7 % (0-10); Neutrophil 58 % (42-75); Nucleated RBC 2 % (0); Platelet Morphology Comment Appears Decreased; Target Cells MARKED = >16 cells (100X) (0-1/hpf)
[2019-04-10] MEDS: HumaLOG 300 UNITS/3 ML VIAL SC PRN ×2 (13:16→18:17)
[2019-04-10 15:56] VITALS: BP 141/61; TEMP 97.4
[2019-04-11] MEDS ORDERED: Glimepiride 4 MG TAB PO SCH (08:00)
--- NOTE | 2019-04-13 09:44 | DIS ---
DATE OF ADMISSION: 04/06/2019 DATE OF DISCHARGE: 04/10/2019 DISCHARGE DIAGNOSES: 1. Acute metabolic encephalopathy, most likely secondary to cirrhosis. 2. Cirrhosis. 3. Acute on chronic decompensated cirrhosis. 4. Diabetes. 5. Possible autoimmune hepatitis. 6. Esophageal and splenic varices. 7. Splenomegaly. 8. Partial thrombosis of the splenic vein and portal vein. HOSPITAL COURSE: The patient is a very pleasant 63-year-old male, who presents to the hospital with altered mental status. At this time, his ammonia was normal. He had no overt signs of sepsis; however, he was treated with broad-spectrum antibiotics. He did have an abdominal ultrasound, chest x-ray, and a brain CT. Brain CT was negative. Chest x-ray showed initially some reticular opacities. His ultrasound did indicate marked splenomegaly with dilation of the pancreatic duct. At this time, he underwent a CT chest, abdomen, pelvis, given his abnormal chest x-ray findings and also his abdominal ultrasound findings. The CT chest, abdomen, and pelvis indicated splenomegaly, indicated gastric and splenic varices. There was no dilation of the pancreatic duct. Cirrhotic liver was noted and also partial thrombosis of the splenic vein and the portal vein was noted. At this time, he was seen by GI and he underwent a hepatobiliary scan, HIDA scan, which indicated a normal exam and EF of 76%. His antibiotics were stopped. His mentation improved with lactulose. Upon further talking to the patient, the patient stated that he had been off his medications for a couple of weeks. He did undergo an EGD, which indicated mild portal hypertensive gastropathy without any evidence of bleeding. No gastric varices, but he did have large distal esophageal varices, grade 2/3 in the distal esophagus without any high-risk stigmata of bleeding. He also was found to be pancytopenic. His leukocytes improved, however his MCV was pretty significantly low. There was mention in the history that he has a history of thalassemia; however, I do not see any testing for this. The patient also was noted to be on sotalol. While in the hospital, I did call the primary care doctor, who stated that it was I believe prescribed by the primary and not by any Cardiology. At this time, I have discontinued the sotalol. He is currently on nadolol, which I will continue. The patient will be discharged home. HOME MEDICATIONS: Will be: 1. Lactulose 20 g daily. 2. Nadolol 20 mg daily. 3. Lasix 20 mg daily. 4. Glimepiride 4 mg daily. 5. Rifaximin 550 mg b.i.d. 6. Spironolactone 25 mg p.o. b.i.d. PHYSICAL EXAMINATION: VITAL SIGNS: Temperature 98.0, pulse 67, respirations 16, 100% on room air, blood pressure 130/63. GENERAL: He is awake, alert, and oriented x3. Does not appear in distress. CV: S1 and S2 present. No murmurs, rubs, or gallops. ABDOMEN: Soft and nontender. Bowel sounds present x2. LUNGS: Clear to auscultation. No rhonchi or wheezes noted. DISCHARGE INSTRUCTIONS: Again, he will be discharged home. He will follow up with his primary and also with GI. I did speak with Dr. Crocker about the partial thrombosis. Again, there is no treatment, just to monitor given the history of cirrhosis. Job ID: [id number]
== END 2019-04-10 19:00 | disposition home or self-care (01) | DRG 441 ==
LOC: ERS 09:31 → ERHOLD 13:23 → 2NO 19:50
PROVIDERS: ADMIT Internal Medicine; ATTEND Internal Medicine
PROC: 0DJ08ZZ Inspection of Upper Intestinal Tract, Via Natural or Artificial Opening Endoscopic (ICD-10-PCS; principal; 2019-04-09)
DX: K72.00 Acute and subacute hepatic failure without coma (principal); G93.41 Metabolic encephalopathy; I81 Portal vein thrombosis; D68.9 Coagulation defect, unspecified; K76.6 Portal hypertension; I85.10 Secondary esophageal varices without bleeding; K74.60 Unspecified cirrhosis of liver; D73.5 Infarction of spleen; K75.4 Autoimmune hepatitis; E78.5 Hyperlipidemia, unspecified; E11.9 Type 2 diabetes mellitus without complications; D50.9 Iron deficiency anemia, unspecified; K31.89 Other diseases of stomach and duodenum; Z79.899 Other long term (current) drug therapy; Z79.84 Long term (current) use of oral hypoglycemic drugs
CPT/HCPCS: 36415; 36416; 51701; 70450; 71045; 71260; 74177; 78227; 80053; 80306; 80307; 81003; 81015; 82140; 82274; 82550; 82728; 83036; 83540; 83550; 83605; 83690; 85025; 85046; 85060; 87040; 87804; 93005; 93975; 96360; 96361; A9537; J1815; J2060; J2543; J2704; J3411; J3490; J7042; Q0163; Q9967; S0028

== ENCOUNTER 2019-04-22 16:58 | Inpatient (IN) | payer MEDICARE, MEDICAID ==
--- NOTE | 2019-04-22 17:44 | RAD ---
XR Chest 1 View Portable HISTORY: Altered mental status COMPARISON: 04/06/2019 FINDINGS: The heart size is normal. The lungs are well expanded without focal areas of consolidation, pneumothorax or pleural effusions. IMPRESSION: No radiographic evidence of acute cardiopulmonary process.
[2019-04-22 17:55] LABS: ALT (SGPT) 26 U/L (8-55); AST (SGOT) 32 U/L (5-34); Albumin 4.4 g/dL (3.4-4.8); Alkaline Phosphatase 143 U/L (40-110); Anion Gap 13 mmol/L (10-20); BUN (Urea Nitrogen) 32 mg/dL (8.4-25.7); Bilirubin, Total 7.1 mg/dL (0.2-1.2); Calc. Creatinine Clearance 0 mL/min (70-130); Calcium 9.7 mg/dL (7.8-10.44); Carbon Dioxide 24 mmol/L (23-31); Chloride 103 mmol/L (98-107); Estimated GFR-MDRD 77; Globulin 4.3 g/dL (2.4-3.5); Glucose 246 mg/dL (80-115); Hemoglobin 10.7 g/dL (14.0-18.0); Lipase 56 U/L (8-78); Mean Corpuscular HGB CONC 34.8 g/dL (32.0-36.0); Mean Corpuscular Hemoglobin 19.8 pg (27.0-31.0); Mean Platelet Volume 7.5 fL (7.4-10.4); Platelet Count 131 thou/uL (130-400); Potassium 4.4 mmol/L (3.5-5.1); Protein, Total 8.7 g/dL (5.8-8.1); RBC Distribution Width 18.9 % (11.5-14.5); Red Blood Cell (RBC) Count 5.38 mill/uL (4.70-6.10); Sodium 136 mmol/L (136-145)
--- NOTE | 2019-04-22 17:57 | CT ---
CT BRAIN WITHOUT CONTRAST: HISTORY:Altered mental status COMPARISON:04/06/2019 FINDINGS: No evidence of acute infarct, hemorrhage, midline shift or abnormal extra-axial fluid collections is seen. The ventricular size is appropriate and the basilar cisterns are patent. The bony calvarium is intact. The visualized paranasal sinuses and mastoid air cells are well aerated. IMPRESSION: No CT evidence of acute intracranial process.
[2019-04-22 18:43] LABS: Band 13 % (5-11); Eosinophils 3 % (0-10); Hypochromia SLIGHT = 6-15 cells (100X) (0-5/hpf); Lymphocytes 21 % (21-51); MDiff Complete? YES; Microcytosis MODERATE=15-30 cells (100X) (0-5/hpf); Monocytes 6 % (0-10); Neutrophil 49 % (42-75); Platelet Morphology Comment Appears Adequate; Polychromasia SLIGHT = 2-3 cells (100X) (0-2/hpf); Reactive Lymphocytes 8 % (0-10); Target Cells MARKED = >16 cells (100X) (0-1/hpf); Tear Drops SLIGHT = 2-5 cells (100X) (0-1/hpf)
[2019-04-22 18:44] LABS: White Blood Cell (WBC) Count 12.1 thou/uL (4.8-10.8)
[2019-04-22 19:34] LABS: Bacteria/HPF None Seen HPF (None Seen); Bilirubin Negative (Negative); Blood, Urine Trace (Negative); Clarity Clear (Clear); Glucose, Urine (Dipstick) Greater than 1000 mg/dL (Negative); Leukocyte Negative Leu/uL (Negative); Nitrite Negative (Negative); Protein, Urine (Dipstick) Negative (Neg-Trace); RBC/HPF 0-3 HPF (0-3); Squamous Epithelial None Seen HPF (0-3); Urobilinogen Normal mg/dL (Less than 2); WBC/HPF 0-3 HPF (0-3)
[2019-04-22 20:19] LABS: Hemoglobin 9.3 g/dL (14.0-18.0); Mean Corpuscular HGB CONC 35.8 g/dL (32.0-36.0); Mean Corpuscular Hemoglobin 20.3 pg (27.0-31.0); Mean Corpuscular Volume 56.8 fL (78.0-98.0); Mean Platelet Volume 6.6 fL (7.4-10.4); Platelet Count 100 thou/uL (130-400); RBC Distribution Width 18.5 % (11.5-14.5); Red Blood Cell (RBC) Count 4.57 mill/uL (4.70-6.10); White Blood Cell (WBC) Count 7.8 thou/uL (4.8-10.8)
[2019-04-22 20:36] LABS: ALT (SGPT) 21 U/L (8-55); AST (SGOT) 23 U/L (5-34); Albumin 3.9 g/dL (3.4-4.8); Alkaline Phosphatase 124 U/L (40-110); Anion Gap 12 mmol/L (10-20); BUN (Urea Nitrogen) 32 mg/dL (8.4-25.7); Bilirubin, Total 6.5 mg/dL (0.2-1.2); Calc. Creatinine Clearance 0 mL/min (70-130); Calcium 9.5 mg/dL (7.8-10.44); Carbon Dioxide 25 mmol/L (23-31); Chloride 106 mmol/L (98-107); Estimated GFR-MDRD 78; Globulin 3.7 g/dL (2.4-3.5); Glucose 171 mg/dL (80-115); Potassium 4.3 mmol/L (3.5-5.1); Protein, Total 7.6 g/dL (5.8-8.1); Sodium 139 mmol/L (136-145)
[2019-04-22 20:45] LABS: Anisocytosis SLIGHT = 6-15 cells (100X) (0-5/hpf); Band 6 % (5-11); Eosinophils 5 % (0-10); Hypochromia SLIGHT = 6-15 cells (100X) (0-5/hpf); Lymphocytes 25 % (21-51); MDiff Complete? YES; Microcytosis MODERATE=15-30 cells (100X) (0-5/hpf); Monocytes 6 % (0-10); Neutrophil 55 % (42-75); Platelet Morphology Comment Appears Decreased; Polychromasia MODERATE = 3-4 cells (100X) (0-2/hpf); Reactive Lymphocytes 3 % (0-10); Schistocytes SLIGHT = 2-5 cells (100X) (0-1/hpf); Target Cells MARKED = >16 cells (100X) (0-1/hpf); Tear Drops SLIGHT = 2-5 cells (100X) (0-1/hpf)
[2019-04-23 00:28] LABS: INR-International Normal Ratio 1.4; Prothrombin Time 16.7 SEC (12.0-14.7)
[2019-04-23] MEDS ORDERED: Ondansetron PF 4 MG/2 ML Vial IVP PRN (00:34)
--- NOTE | 2019-04-23 00:44 | PDOC.HHP ---
Hospitalist HPI - History of Present Illness Altered mental status History of Present Illness: 63 yo male with history of alcohol cirrhosis with prior admissions for encephalopathy, diabetes mellitus was brought to the ER by family due to altered mental status. Patient is currently talking to himself in the room and is unable to provide any history or review of systems due to his encephalopathy. Information was obtained from review of old medical records and discussion with the ER physician. Apparently, patient was brought by family member who stated that patient had been taking the lactulose daily and he started getting confused recently. He hasn't had any fevers in the ER. He was recently discharged from this hospital after a similar stay. At that time , he underwent EGD with esophageal varices. Whole body CT scan showed cirrhosis with splenomegaly. ED Course: Bloodwork revealed normal ammonia levels and elevated bilirubin levels. Hospitalist ROS - Review of Systems ROS unobtainable: due to mental status Hospitalist History - Past Medical History Source: old records Gastrointestinal: reports: Other (Cirrhosis with esophageal varices) Hepatobiliary: reports: Cirrhosis Endocrine: reports: Diabetes - Past Surgical History Past Surgical History: reports: Other (Paracentesis) - Family History Family History: reports: Other (unable to obtain due to mental status) - Social History Alcohol: reports: Heavy Drugs: reports: none Living Situation: With Family - Exam General Appearance: NAD General - other findings: talking to himself Eye: PERRL, scleral icterus ENT: normocephalic atraumatic, no oropharyngeal lesions, moist mucosa Neck: supple, symmetric, no thyromegaly, no lymphadenopathy Heart: no murmur, no gallops, no rubs Heart - other findings: tachycardia present Respiratory: CTAB, no wheezes, no rales, no ronchi, normal chest expansion, no tachypnea Gastrointestinal: soft, non-tender, non-distended, normal bowel sounds Extremities: no cyanosis, no clubbing, no edema Skin: normal turgor, no lesions, no rashes Neurological: no weakness (moving all 4 extremities spontaneously). negative: facial droop, speech deficit Musculoskeletal: normal tone, normal strength Psychiatric: negative: oriented to person, oriented to place, oriented to time Psychiatric - other findings: talking to himself in the room; possible confabulation Hospitalist Results - Labs Result Diagrams: 04/22/19 20:06 04/22/19 20:06 Lab results: WBC 7.8 thou/uL (4.8-10.8) 04/22/19 20:06 Hgb 9.3 g/dL (14.0-18.0) L 04/22/19 20:06 Hct 26.0 % (42.0-52.0) L 04/22/19 20:06 MCV 56.8 fL (78.0-98.0) L 04/22/19 20:06 Plt Count 100 thou/uL (130-400) L 04/22/19 20:06 Band Neuts % (Manual) 6 % (5-11) 04/22/19 20:06 Sodium 139 mmol/L (136-145) 04/22/19 20:06 Potassium 4.3 mmol/L (3.5-5.1) 04/22/19 20:06 Chloride 106 mmol/L (98-107) 04/22/19 20:06 Carbon Dioxide 25 mmol/L (23-31) 04/22/19 20:06 BUN 32 mg/dL (8.4-25.7) H 04/22/19 20:06 Creatinine 0.98 mg/dL (0.7-1.3) 04/22/19 20:06 Glucose 171 mg/dL (80-115) H 04/22/19 20:06 Calcium 9.5 mg/dL (7.8-10.44) 04/22/19 20:06 Total Bilirubin 6.5 mg/dL (0.2-1.2) H 04/22/19 20:06 AST 23 U/L (5-34) 04/22/19 20:06 ALT 21 U/L (8-55) 04/22/19 20:06 Alkaline Phosphatase 124 U/L (40-110) H 04/22/19 20:06 Ammonia 26 umol/L (18-72) 04/22/19 21:50 Troponin I Less than 0.010 ng/mL (< 0.028) 04/22/19 20:06 Serum Total Protein 7.6 g/dL (5.8-8.1) 04/22/19 20:06 Albumin 3.9 g/dL (3.4-4.8) 04/22/19 20:06 Lipase 56 U/L (8-78) 04/22/19 17:18 Urine Ketones Negative mg/dL (Negative) 04/22/19 19:21 Urine Blood Trace (Negative) A 04/22/19 19:21 Urine Nitrite Negative (Negative) 04/22/19 19:21 Ur Leukocyte Esterase Negative Mary/uL (Negative) 04/22/19 19:21 Urine RBC 0-3 HPF (0-3) 04/22/19 19:21 Urine WBC 0-3 HPF (0-3) 04/22/19 19:21 Ur Squamous Epith Cells None Seen HPF (0-3) 04/22/19 19:21 Urine Bacteria None Seen HPF (None Seen) 04/22/19 19:21 - EKG Interpretation EKG: Personally reviewed - Sinus rhythm; No ST-T changes concerning for ischemia - Radiology Interpretation CT scan - head Status: image reviewed by me (no acute abnormality) Hospitalist H&P A/P - Problem (1) Encephalopathy acute Code(s): G93.40 - ENCEPHALOPATHY, UNSPECIFIED Status: Acute Assessment and Plan: Concern for hepatic encephalopathy vs Wernicke's encephalopathy Admit to inpatient status. Expected to stay at least 2 midnights High risk due to risk of decompensation Lactulose and xifaxan PO Neurology consult and MRI brain Monitor mental status and adjust meds accordingly (2) Jaundice Code(s): R17 - UNSPECIFIED JAUNDICE Status: Chronic Assessment and Plan: Likely related to cirrhosis Will obtain direct and indirect components (3) Cirrhosis Code(s): K74.60 - UNSPECIFIED CIRRHOSIS OF LIVER Status: Chronic Qualifiers: Hepatic cirrhosis type: alcoholic cirrhosis Ascites presence: with ascites Qualified Code(s): K70.31 - Alcoholic cirrhosis of liver with ascites Assessment and Plan: Complicated by encephalopathy Recent SBP diagnosis Patient needs detention antibiotic prophylaxis with cipro Will start the same Continue nadolol and spironolactone Eventual lasix (4) DM type 2 (diabetes mellitus, type 2) Status: Chronic Qualifiers: Diabetes mellitus termite treater insulin use: without termite treater use Diabetes mellitus complication status: without complication Qualified Code(s): E11.9 - Type 2 diabetes mellitus without complications Assessment and Plan: Recent A1C of 5.2 SSI Diabetic diet Will monitor sugars and adjust regimen accordingly (5) Anemia Code(s): D64.9 - ANEMIA, UNSPECIFIED Status: Chronic Qualifiers: Anemia type: iron deficiency Iron deficiency anemia type: unspecified iron deficiency Qualified Code(s): D50.9 - Iron deficiency anemia, unspecified Assessment and Plan: Iron supplementation Check B12 & folate levels - Plan Plan: Unable to obtain code status due to the patient's mental status
[2019-04-23] MEDS ORDERED: Rifaximin 550 MG TAB PO SCH (00:45)
[2019-04-23 02:09] VITALS: BMI 23.3
[2019-04-23 05:06] LABS: INR-International Normal Ratio 1.3; Prothrombin Time 16.4 SEC (12.0-14.7)
[2019-04-23 05:13] LABS: ALT (SGPT) 22 U/L (8-55); AST (SGOT) 25 U/L (5-34); Alkaline Phosphatase 119 U/L (40-110); Anion Gap 14 mmol/L (10-20); BUN (Urea Nitrogen) 32 mg/dL (8.4-25.7); Bilirubin, Total 7.7 mg/dL (0.2-1.2); Calc. Creatinine Clearance 85 mL/min (70-130); Calcium 9.8 mg/dL (7.8-10.44); Carbon Dioxide 20 mmol/L (23-31); Chloride 108 mmol/L (98-107); Estimated GFR-MDRD Greater than 90; Globulin 3.9 g/dL (2.4-3.5); Glucose 144 mg/dL (80-115); Potassium 3.9 mmol/L (3.5-5.1); Protein, Total 7.9 g/dL (5.8-8.1); Sodium 138 mmol/L (136-145)
[2019-04-23 07:51] LABS: Band 3 % (5-11); Eosinophils 4 % (0-10); Hemoglobin 10.7 g/dL (14.0-18.0); Hypochromia SLIGHT = 6-15 cells (100X) (0-5/hpf); Lymphocytes 22 % (21-51); MDiff Complete? YES; Mean Corpuscular HGB CONC 34.6 g/dL (32.0-36.0); Mean Corpuscular Volume 57.6 fL (78.0-98.0); Mean Platelet Volume 7.3 fL (7.4-10.4); Microcytosis MARKED = >30 cells (100X) (0-5/hpf); Monocytes 1 % (0-10); Neutrophil 70 % (42-75); Nucleated RBC 2 % (0); Platelet Count 122 thou/uL (130-400); Platelet Morphology Comment Appears Decreased; Poikilocytosis MARKED = >30 cells (100X) (0-5/hpf); Polychromasia MODERATE = 3-4 cells (100X) (0-2/hpf); RBC Distribution Width 18.8 % (11.5-14.5); Red Blood Cell (RBC) Count 5.36 mill/uL (4.70-6.10); Target Cells MODERATE= 6-15 cells (100X) (0-1/hpf)
--- NOTE | 2019-04-23 09:17 | MRI ---
EXAM: MRI Brain WO Con PROVIDED CLINICAL HISTORY: Altered mental status. Question Wernicke encephalopathy. COMPARISON: CT head ON 04/22/2019 FINDINGS: There is significant patient motion which does degrade image quality. FLAIR images are nondiagnostic on this exam. There are no definitive signal abnormalities appreciated on the T2-weighted images. There is no evidence of an acute infarction. There is mild symmetric increased T1 weighted signal int ensity in the basal ganglia bilaterally likely reflective of patient's liver disease. The septum pellucidum and third ventricle are in the midline. There is mild cerebral and cerebellar v olume loss. Appropriate flow voids are demonstrated in the large intracranial vessels at the base of the brain. Elem lenses are not visualized bilaterally. The paranasal sinuses and remainder of skull base have a normal MRI appearance. IMPRESSION: 1. Limited exam due to significant patient motion, and the FLAIR images are nondiagnostic. However, n o definitive signal abnormalities are seen on the T2-weighted images, and there is no evidence of an acute infarction.
[2019-04-23] MEDS: Thiamine 100 MG TAB PO SCH (10:31)
[2019-04-23] MEDS: Folic Acid 1 MG TAB PO SCH (10:31)
[2019-04-23] MEDS: Rifaximin 550 MG TAB PO SCH ×2 (10:31→20:47)
[2019-04-23] MEDS: Spironolactone 25 MG TAB PO SCH ×2 (10:32→17:29)
[2019-04-23] MEDS: Ciprofloxacin 500 MG TAB PO SCH (10:32)
[2019-04-23] MEDS: Heparin 5,000 UNITS/ML VIAL SC SCH ×3 (10:32→20:47)
[2019-04-23] MEDS: Ferrous Sulfate 325 MG TAB PO SCH ×2 (10:32→17:29)
[2019-04-23] MEDS: Pantoprazole 40 MG GRANULES PACKET PO SCH (10:32)
[2019-04-23] MEDS: Nadolol 40 MG TAB PO SCH (10:32)
--- NOTE | 2019-04-23 16:21 | PDOC.HOSPP ---
- Subjective Encounter Date: 04/23/19 Encounter Time: 16:15 Subjective: f/u for encephalopathy of unclear etiology. Hx of cirrhosis but ammonia level normal. Nursing reports pt talking erratically, did not sleep all night and rambles on topics that seem unconnected. CT/MRI brain grossly unremarkable. - Objective Vital Signs & Weight: Vital Signs (12 hours) Temp Pulse Pulse Pulse Resp BP BP 04/23/19 15:32 97.4 F L 68 17 04/23/19 13:20 80 82 123/62 175/70 H 04/23/19 11:12 98.4 F 81 22 H 04/23/19 08:00 BP Pulse Ox 04/23/19 15:32 161/67 H 100 04/23/19 13:20 04/23/19 11:12 159/70 H 98 04/23/19 08:00 100 Weight Weight 144 lb 9 oz I&O: 04/22/19 04/23/19 04/24/19 06:59 06:59 06:59 Intake Total 25 Output Total 0 Balance 25 Result Diagrams: 04/23/19 04:21 04/23/19 04:21 Additional Labs: Accuchecks 04/23/19 02:10 POC Glucose 121 H Laboratory Tests 04/22/19 04/22/19 04/22/19 17:18 17:18 17:41 WBC 12.1 H Hgb 10.7 L Plt Count 131 Band Neuts % (Manual) 13 H Total Bilirubin 7.1 H Ammonia 32 Vitamin B12 Folate 04/22/19 04/22/19 04/22/19 20:06 20:06 21:50 WBC 7.8 Hgb 9.3 L Plt Count 100 L Band Neuts % (Manual) 6 Total Bilirubin 6.5 H Ammonia 26 Vitamin B12 Folate 04/23/19 04/23/19 04/23/19 04:10 04:10 04:21 WBC Hgb Plt Count Band Neuts % (Manual) Total Bilirubin 7.7 H Ammonia Vitamin B12 906 Folate 10.00 Radiology Reviewed by me: Yes (CT/MRI brain - grossly unremarkable) EKG Reviewed by me: Yes (Tele - SR) Hospitalist ROS - Medication Medications: Active Medications Generic Name Dose Route Start Last Admin Trade Name Freq PRN Reason Stop Dose Admin Ciprofloxacin 500 mg 04/23/19 09:00 04/23/19 10:32 Cipro PO 500 mg DAILY LAWRENCE Administration Ferrous Sulfate 325 mg 04/23/19 08:00 04/23/19 10:32 Feosol PO 325 mg BID-WM LAWRENCE Administration Folic Acid 1 mg 04/23/19 09:00 04/23/19 10:31 Folvite PO 1 mg DAILY LAWRENCE Administration Heparin Sodium (Porcine) 5,000 units 04/23/19 09:00 04/23/19 14:31 Heparin SC 5,000 units TID LAWRENCE Administration Lactulose 30 gm 04/23/19 09:00 04/23/19 14:31 Lactulose PO 30 gm TID LAWRENCE Administration Nadolol 40 mg 04/23/19 09:00 04/23/19 10:32 Corgard PO 40 mg DAILY LAWRENCE Administration Pantoprazole Sodium 40 mg 04/23/19 09:00 04/23/19 10:32 Protonix PO 40 mg DAILY LAWRENCE Administration Rifaximin 550 mg 04/23/19 09:00 04/23/19 10:31 Xifaxan PO 550 mg BID LAWRENCE Administration Spironolactone 25 mg 04/23/19 08:00 04/23/19 10:32 Aldactone PO 25 mg BID-WM LAWRENCE Administration Thiamine HCl 100 mg 04/23/19 09:00 04/23/19 10:31 Thiamine PO 100 mg DAILY LAWRENCE Administration - Exam General Appearance: NAD, awake alert General - other findings: talkative, animated Eye: PERRL, scleral icterus ENT: normocephalic atraumatic, no oropharyngeal lesions Neck: supple, symmetric, no JVD, no thyromegaly, no lymphadenopathy Heart: RRR, no murmur, no gallops, no rubs, normal peripheral pulses Heart - other findings: S1, S2 Respiratory: CTAB, no wheezes, no rales, no ronchi, normal chest expansion, no tachypnea Gastrointestinal: soft, non-tender, non-distended, normal bowel sounds, no palpable masses Extremities: no cyanosis, no clubbing, no edema Skin: normal turgor, no lesions Neurological: cranial nerve grossly intact Neurological - other findings: speech clear, confabulates Psychiatric: oriented to person Psychiatric - other findings: A x O x 1 to person, animated, confabulates Hosp A/P (1) Encephalopathy acute Code(s): G93.40 - ENCEPHALOPATHY, UNSPECIFIED Status: Acute Plan: Likely due to Wernicke's/Korsakoff syndrome with component of cirrhosis, supportive care, anxiolytics prn (2) Cirrhosis Code(s): K74.60 - UNSPECIFIED CIRRHOSIS OF LIVER Status: Chronic Qualifiers: Hepatic cirrhosis type: alcoholic cirrhosis Ascites presence: with ascites Qualified Code(s): K70.31 - Alcoholic cirrhosis of liver with ascites Plan: Appears stable currently, no evidence of fulminant failure, Ammonia level normal (3) Jaundice Code(s): R17 - UNSPECIFIED JAUNDICE Status: Chronic Plan: Supportive mgmt (4) Coagulopathy Status: Chronic Plan: Mild coagulopathy due to cirrhosis (5) Thrombocytopenia Code(s): D69.6 - THROMBOCYTOPENIA, UNSPECIFIED Status: Chronic Plan: Secondary to cirrhosis, no evidence of active blood loss - Plan PT/OT, social service assistant, DVT proph w/SCDs Continue supportive mgmt Sitter 1:1 Trial Ativan 0.5mg po q6h prn Continue Lactulose/Xifaxan CM for dispo options Continue Spironolactone/Thiamine AM lab: BMP, CBC
--- NOTE | 2019-04-23 17:26 | CON ---
DATE OF CONSULTATION: 04/23/2019 CONSULTING PHYSICIAN: Hospitalist Service. 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 PLAN: There is no particular treatment for this condition. He will likely need some type of placement. HISTORY OF PRESENT ILLNESS: Mr. Jimenes is a 63-year-old man who had been admitted in the past with hyperammonemia and delirium. He was treated with lactulose and apparently improved. There is no family with him at this time. He was brought back to the hospital with altered mental status. He had an MRI of the brain done, which was unremarkable. His ammonia level is 26. His B12 and folate levels are normal. He was given a dose of thiamine. He has no other particular complaints at this point. PAST HISTORY: Otherwise unknown. ALLERGIES: NONE. SOCIAL HISTORY: Unknown. FAMILY HISTORY: Unknown. REVIEW OF SYSTEMS: Ten-system review of systems was negative, but not very reliable. PHYSICAL EXAMINATION: GENERAL: He is a thin, middle-aged man, sitting up in a chair, in no distress. VITAL SIGNS: Stable. He is afebrile. HEENT: Pupils equal. Conjunctivae clear. Oropharynx clear. Eyes are conjugate. NECK: Supple. EXTREMITIES: No cyanosis, clubbing, or edema. NEUROLOGIC: He is awake and cooperative. Followed commands appropriately. He was oriented to person and time. He could not tell me where he lived. He talked about the and other family members, which the nursing staff have no proof that these exist. He kept thinking that he was currently in a intermediate, reorientation did not seem to give him any persistent recollection of his current location. Speech is fluent and clear. His neurologic exam is otherwise nonfocal. SUMMARY: A middle-aged man with no evidence of delirium, but he does confabulate and has memory difficulties, consistent with Korsakoff syndrome. There is no treatment available. Job ID: [id number]
[2019-04-23] MEDS ORDERED: FLU VACC QS2019-20(6MOS UP)/PF 60 MCG/0.5 ML SYRINGE IM ONE (21:00)
[2019-04-24] MEDS: Lorazepam 0.5 MG TAB PO PRN (02:58)
[2019-04-24 05:07] LABS: Band 4 % (5-11); Eosinophils 2 % (0-10); Hypochromia SLIGHT = 6-15 cells (100X) (0-5/hpf); Lymphocytes 45 % (21-51); MDiff Complete? YES; Mean Corpuscular HGB CONC 34.2 g/dL (32.0-36.0); Mean Corpuscular Hemoglobin 19.6 pg (27.0-31.0); Mean Corpuscular Volume 57.3 fL (78.0-98.0); Microcytosis MODERATE=15-30 cells (100X) (0-5/hpf); Monocytes 8 % (0-10); Neutrophil 41 % (42-75); Nucleated RBC 2 % (0); Platelet Count 104 thou/uL (130-400); Platelet Morphology Comment Appears Decreased; RBC Distribution Width 18.5 % (11.5-14.5); Red Blood Cell (RBC) Count 4.62 mill/uL (4.70-6.10); Target Cells MARKED = >16 cells (100X) (0-1/hpf); White Blood Cell (WBC) Count 10.4 thou/uL (4.8-10.8)
[2019-04-24] MEDS: Thiamine 100 MG TAB PO SCH (09:38)
[2019-04-24] MEDS: Pantoprazole 40 MG GRANULES PACKET PO SCH (09:38)
[2019-04-24] MEDS: Ciprofloxacin 500 MG TAB PO SCH (09:38)
[2019-04-24] MEDS: Rifaximin 550 MG TAB PO SCH ×2 (09:39→20:47)
[2019-04-24] MEDS: Ferrous Sulfate 325 MG TAB PO SCH ×2 (09:39→16:44)
[2019-04-24] MEDS: Folic Acid 1 MG TAB PO SCH (09:40)
[2019-04-24] MEDS: Spironolactone 25 MG TAB PO SCH ×2 (09:40→16:44)
[2019-04-24] MEDS: Nadolol 40 MG TAB PO SCH (10:40)
[2019-04-24] MEDS: Heparin 5,000 UNITS/ML VIAL SC SCH ×2 (10:41→16:46)
--- NOTE | 2019-04-24 16:00 | PDOC.HOSPP ---
- Subjective Encounter Date: 04/24/19 Encounter Time: 15:55 Subjective: f/u for AMS, encephalopathy likely due to Wernicke's/Korsakoff Syndrome in conjunction with sleep deprivation. Overall mentally clearer today. - Objective Vital Signs & Weight: Vital Signs (12 hours) Temp Pulse Pulse Pulse Resp BP BP 04/24/19 13:49 97.9 F 76 20 04/24/19 11:04 98.2 F 82 20 04/24/19 10:04 81 75 136/60 140/63 04/24/19 09:19 74 76 128/59 L 141/61 H 04/24/19 08:00 97.4 F L 69 18 BP Pulse Ox 04/24/19 13:49 108/66 100 04/24/19 11:04 128/65 100 04/24/19 10:04 04/24/19 09:19 04/24/19 08:00 112/58 L 98 Weight Weight 144 lb 2 oz I&O: 04/23/19 04/24/19 04/25/19 06:59 06:59 06:59 Intake Total 25 1100 Output Total 0 Balance 25 1100 Result Diagrams: 04/24/19 04:13 04/23/19 04:21 Additional Labs: Laboratory Tests 04/22/19 04/22/19 04/22/19 17:18 17:18 17:41 WBC 12.1 H Hgb 10.7 L Plt Count 131 Band Neuts % (Manual) 13 H Total Bilirubin 7.1 H Ammonia 32 Vitamin B12 Folate 04/22/19 04/22/19 04/22/19 20:06 20:06 21:50 WBC 7.8 Hgb 9.3 L Plt Count 100 L Band Neuts % (Manual) 6 Total Bilirubin 6.5 H Ammonia 26 Vitamin B12 Folate 04/23/19 04/23/19 04/23/19 04:10 04:10 04:21 WBC Hgb Plt Count Band Neuts % (Manual) Total Bilirubin 7.7 H Ammonia Vitamin B12 906 Folate 10.00 Hospitalist ROS - Medication Medications: Active Medications Generic Name Dose Route Start Last Admin Trade Name Freq PRN Reason Stop Dose Admin Ciprofloxacin 500 mg 04/23/19 09:00 04/24/19 09:38 Cipro PO 500 mg DAILY LAWRENCE Administration Ferrous Sulfate 325 mg 04/23/19 08:00 04/24/19 09:39 Feosol PO 325 mg BID-WM LAWRENCE Administration Folic Acid 1 mg 04/23/19 09:00 04/24/19 09:40 Folvite PO 1 mg DAILY LAWRENCE Administration Lactulose 30 gm 04/23/19 09:00 04/24/19 09:35 Lactulose PO 30 gm TID LAWRENCE Administration Lorazepam 0.5 mg 04/23/19 16:23 04/24/19 02:58 Ativan PO 0.5 mg Q6H PRN Administration Anxiety Nadolol 40 mg 04/23/19 09:00 04/24/19 10:40 Corgard PO 40 mg DAILY LAWRENCE Administration Pantoprazole Sodium 40 mg 04/23/19 09:00 04/24/19 09:38 Protonix PO 40 mg DAILY LAWRENCE Administration Rifaximin 550 mg 04/23/19 09:00 04/24/19 09:39 Xifaxan PO 550 mg BID LAWRENCE Administration Spironolactone 25 mg 04/23/19 08:00 04/24/19 09:40 Aldactone PO 25 mg BID-WM LAWRENCE Administration Thiamine HCl 100 mg 04/23/19 09:00 04/24/19 09:38 Thiamine PO 100 mg DAILY LAWRENCE Administration - Exam General Appearance: NAD, awake alert Eye: PERRL, scleral icterus ENT: normocephalic atraumatic, no oropharyngeal lesions Neck: supple, symmetric, no JVD, no thyromegaly, no lymphadenopathy Heart: RRR, no gallops, no rubs, normal peripheral pulses Heart - other findings: S1, S2 Respiratory: CTAB, no wheezes, no rales, no ronchi, normal chest expansion Gastrointestinal: soft, non-distended, normal bowel sounds, no palpable masses, no guarding Extremities: no cyanosis, no clubbing, no edema Skin: normal turgor, no lesions Neurological: cranial nerve grossly intact, no new deficit Musculoskeletal: normal tone, normal strength Psychiatric: oriented to person, oriented to place, oriented to time Hosp A/P (1) Encephalopathy acute Code(s): G93.40 - ENCEPHALOPATHY, UNSPECIFIED Status: Acute Plan: Likely due to Wernicke's/Korsakoff syndrome, continue supportive mgmt, Lactulose for underlying cirrhosis (2) Cirrhosis Code(s): K74.60 - UNSPECIFIED CIRRHOSIS OF LIVER Status: Chronic Qualifiers: Hepatic cirrhosis type: alcoholic cirrhosis Ascites presence: with ascites Qualified Code(s): K70.31 - Alcoholic cirrhosis of liver with ascites Plan: Continue Lactulose, Spironolactone, Xifaxan, B-asad (3) Jaundice Code(s): R17 - UNSPECIFIED JAUNDICE Status: Chronic (4) Coagulopathy Status: Chronic (5) Thrombocytopenia Code(s): D69.6 - THROMBOCYTOPENIA, UNSPECIFIED Status: Chronic - Plan plan discussed w/ family, marriage and family social worker, out of bed/ambulate Continue supportive mgmt Trial Ativan 0.5mg po q6h prn Continue Lactulose/Xifaxan CM for dispo options, ?Home health Continue Spironolactone/Thiamine Likey d/c in 24-48h
[2019-04-25] MEDS: Acetaminophen 325 MG TAB PO PRN ×2 (02:02→16:26)
[2019-04-25] MEDS: Lorazepam 0.5 MG TAB PO PRN ×2 (02:02→17:53)
[2019-04-25] MEDS: Ferrous Sulfate 325 MG TAB PO SCH ×2 (08:17→16:24)
[2019-04-25] MEDS: Nadolol 40 MG TAB PO SCH (08:17)
[2019-04-25] MEDS: Ciprofloxacin 500 MG TAB PO SCH (08:17)
[2019-04-25] MEDS: Folic Acid 1 MG TAB PO SCH (08:17)
[2019-04-25] MEDS: Rifaximin 550 MG TAB PO SCH ×2 (08:17→21:17)
[2019-04-25] MEDS: Spironolactone 25 MG TAB PO SCH ×2 (08:17→16:25)
[2019-04-25] MEDS: Pantoprazole 40 MG GRANULES PACKET PO SCH (08:17)
[2019-04-25] MEDS: Thiamine 100 MG TAB PO SCH (08:18)
--- NOTE | 2019-04-25 14:55 | PDOC.HOSPP ---
- Subjective Encounter Date: 04/25/19 Encounter Time: 10:55 Subjective: pt quite confused, but stable; states that this is his home. - Objective Vital Signs & Weight: Vital Signs (12 hours) Temp Pulse Resp BP Pulse Ox 04/25/19 07:21 97.5 F L 84 18 110/61 100 Weight Weight 144 lb 4.928 oz I&O: 04/24/19 04/25/19 04/26/19 06:59 06:59 06:59 Intake Total 1100 Balance 1100 Result Diagrams: 04/24/19 04:13 04/23/19 04:21 Hospitalist ROS - Medication Medications: Active Medications Generic Name Dose Route Start Last Admin Trade Name Freq PRN Reason Stop Dose Admin Acetaminophen 650 mg 04/23/19 00:34 04/25/19 02:02 Tylenol PO 650 mg Q4H PRN Administration Headache/Fever/Mild Pain (1-3) Ciprofloxacin 500 mg 04/23/19 09:00 04/25/19 08:17 Cipro PO 500 mg DAILY LAWRENCE Administration Ferrous Sulfate 325 mg 04/23/19 08:00 04/25/19 08:17 Feosol PO 325 mg BID-WM LAWRENCE Administration Folic Acid 1 mg 04/23/19 09:00 04/25/19 08:17 Folvite PO 1 mg DAILY LAWRENCE Administration Lactulose 30 gm 04/23/19 09:00 04/25/19 14:47 Lactulose PO 30 gm TID LAWRENCE Administration Lorazepam 0.5 mg 04/23/19 16:23 04/25/19 02:02 Ativan PO 0.5 mg Q6H PRN Administration Anxiety Nadolol 40 mg 04/23/19 09:00 04/25/19 08:17 Corgard PO 40 mg DAILY LAWRENCE Administration Pantoprazole Sodium 40 mg 04/23/19 09:00 04/25/19 08:17 Protonix PO 40 mg DAILY LAWRENCE Administration Rifaximin 550 mg 04/23/19 09:00 04/25/19 08:17 Xifaxan PO 550 mg BID LAWRENCE Administration Spironolactone 25 mg 04/23/19 08:00 04/25/19 08:17 Aldactone PO 25 mg BID-WM LAWRENCE Administration Thiamine HCl 100 mg 04/23/19 09:00 04/25/19 08:18 Thiamine PO 100 mg DAILY LAWRENCE Administration - Exam General Appearance: NAD, awake alert Eye: PERRL ENT: normocephalic atraumatic Neck: supple, symmetric Heart: RRR Respiratory: CTAB Gastrointestinal: soft, non-distended, normal bowel sounds Extremities: no cyanosis Neurological: cranial nerve grossly intact, no focal deficits Hosp A/P - Plan Encephalopathy acute Code(s): G93.40 - ENCEPHALOPATHY, UNSPECIFIED Status: Acute Plan: Likely due to Wernicke's/Korsakoff syndrome, continue supportive mgmt, Lactulose for underlying cirrhosis (2) Cirrhosis Code(s): K74.60 - UNSPECIFIED CIRRHOSIS OF LIVER Status: Chronic Qualifiers: Hepatic cirrhosis type: alcoholic cirrhosis Ascites presence: with ascites Qualified Code(s): K70.31 - Alcoholic cirrhosis of liver with ascites Plan: Continue Lactulose, Spironolactone, Xifaxan, B-asad (3) Jaundice Code(s): R17 - UNSPECIFIED JAUNDICE Status: Chronic (4) Coagulopathy Status: Chronic (5) Thrombocytopenia Code(s): D69.6 - THROMBOCYTOPENIA, UNSPECIFIED Status: Chronic - Plan plan discussed w/ family, social media intern, out of bed/ambulate Continue supportive mgmt Trial Ativan 0.5mg po q6h prn Continue Lactulose/Xifaxan CM for dispo options, ?Home health Continue Spironolactone/Thiamine pt not yet baseline, not sure, he would be back to baseline. SNF vs..[facility].
[2019-04-25] MEDS: traMADol HCl 50 MG TAB PO PRN (18:01)
[2019-04-26] MEDS: Rifaximin 550 MG TAB PO SCH ×2 (08:04→21:08)
[2019-04-26] MEDS: Nadolol 40 MG TAB PO SCH (08:04)
[2019-04-26] MEDS: Thiamine 100 MG TAB PO SCH (08:05)
[2019-04-26] MEDS: Pantoprazole 40 MG GRANULES PACKET PO SCH (08:05)
[2019-04-26] MEDS: Ferrous Sulfate 325 MG TAB PO SCH ×2 (08:05→16:21)
[2019-04-26] MEDS: Folic Acid 1 MG TAB PO SCH (08:05)
[2019-04-26] MEDS: Ciprofloxacin 500 MG TAB PO SCH (08:05)
[2019-04-26] MEDS: Spironolactone 25 MG TAB PO SCH ×2 (08:05→16:21)
--- NOTE | 2019-04-26 15:55 | PDOC.HOSPP ---
- Subjective Encounter Date: 04/26/19 Encounter Time: 10:55 Subjective: pt is sleeping soundly. talk to RN and he was oriented today, much better than y'day. his friend or family member was visiting him y'day. - Objective Vital Signs & Weight: Vital Signs (12 hours) Temp Pulse Resp BP Pulse Ox 04/26/19 08:07 98 04/26/19 08:04 97.9 F 79 20 119/74 98 Weight Weight 141 lb 4.8 oz I&O: 04/25/19 04/26/19 04/27/19 06:59 06:59 06:59 Intake Total 1500 Balance 1500 Result Diagrams: 04/24/19 04:13 04/23/19 04:21 Hospitalist ROS - Medication Medications: Active Medications Generic Name Dose Route Start Last Admin Trade Name Freq PRN Reason Stop Dose Admin Acetaminophen 650 mg 04/23/19 00:34 04/25/19 16:26 Tylenol PO 650 mg Q4H PRN Administration Headache/Fever/Mild Pain (1-3) Ciprofloxacin 500 mg 04/23/19 09:00 04/26/19 08:05 Cipro PO 500 mg DAILY LAWRENCE Administration Ferrous Sulfate 325 mg 04/23/19 08:00 04/26/19 08:05 Feosol PO 325 mg BID-WM LARWENCE Administration Folic Acid 1 mg 04/23/19 09:00 04/26/19 08:05 Folvite PO 1 mg DAILY LAWRENCE Administration Lactulose 30 gm 04/23/19 09:00 04/26/19 15:46 Lactulose PO 30 gm TID LAWRENCE Administration Lorazepam 0.5 mg 04/23/19 16:23 04/25/19 17:53 Ativan PO 0.5 mg Q6H PRN Administration Anxiety Nadolol 40 mg 04/23/19 09:00 04/26/19 08:04 Corgard PO 40 mg DAILY LAWRENCE Administration Pantoprazole Sodium 40 mg 04/23/19 09:00 04/26/19 08:05 Protonix PO 40 mg DAILY LAWRENCE Administration Rifaximin 550 mg 04/23/19 09:00 04/26/19 08:04 Xifaxan PO 550 mg BID LAWRENCE Administration Spironolactone 25 mg 04/23/19 08:00 04/26/19 08:05 Aldactone PO 25 mg BID-WM LAWRENCE Administration Thiamine HCl 100 mg 04/23/19 09:00 04/26/19 08:05 Thiamine PO 100 mg DAILY LAWRENCE Administration Tramadol HCl 50 mg 04/25/19 17:56 04/25/19 18:01 Ultram PO 50 mg Q8H PRN Administration Pain - Exam General - other findings: sleeping soundly. ENT: normocephalic atraumatic Neck: supple Heart: RRR Respiratory: CTAB Gastrointestinal: normal bowel sounds Hosp A/P - Plan Encephalopathy acute Code(s): G93.40 - ENCEPHALOPATHY, UNSPECIFIED Status: Acute Plan: Likely due to Wernicke's/Korsakoff syndrome, continue supportive mgmt, Lactulose for underlying cirrhosis (2) Cirrhosis Code(s): K74.60 - UNSPECIFIED CIRRHOSIS OF LIVER Status: Chronic Qualifiers: Hepatic cirrhosis type: alcoholic cirrhosis Ascites presence: with ascites Qualified Code(s): K70.31 - Alcoholic cirrhosis of liver with ascites Plan: Continue Lactulose, Spironolactone, Xifaxan, B-asad (3) Jaundice Code(s): R17 - UNSPECIFIED JAUNDICE Status: Chronic (4) Coagulopathy Status: Chronic (5) Thrombocytopenia Code(s): D69.6 - THROMBOCYTOPENIA, UNSPECIFIED Status: Chronic - Plan plan discussed w/ family, administrator social welfare, out of bed/ambulate Continue supportive mgmt Trial Ativan 0.5mg po q6h prn Continue Lactulose/Xifaxan CM for dispo options, ?Home health Continue Spironolactone/Thiamine pt not yet baseline, not sure, he would be back to baseline. SNF vs..[facility]. If he is more stable and AOx3, plan for dc after knowing his home situation. will talk to CM.
[2019-04-26] MEDS: traMADol HCl 50 MG TAB PO PRN (16:19)
[2019-04-26] MEDS: Lorazepam 0.5 MG TAB PO PRN (21:08)
[2019-04-27] MEDS: Ciprofloxacin 500 MG TAB PO SCH (08:08)
[2019-04-27] MEDS: Thiamine 100 MG TAB PO SCH (08:08)
[2019-04-27] MEDS: Folic Acid 1 MG TAB PO SCH (08:08)
[2019-04-27] MEDS: Ferrous Sulfate 325 MG TAB PO SCH ×2 (08:08→16:14)
[2019-04-27] MEDS: Rifaximin 550 MG TAB PO SCH ×2 (08:08→20:02)
[2019-04-27] MEDS: Nadolol 40 MG TAB PO SCH (08:08)
[2019-04-27] MEDS: Spironolactone 25 MG TAB PO SCH ×2 (08:08→16:15)
--- NOTE | 2019-04-27 13:23 | PDOC.HOSPP ---
- Subjective Encounter Date: 04/27/19 Encounter Time: 10:40 Subjective: very conversationlist today, dressed up, that he knows that "i am his doctor and he has an appt w.. me tomorrow and he will be there. whereever he was, they are not giving him any food, children are screaming". 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 Likely this is his new baseline. d/w CM and he would benefit with SNF placement. - Objective Vital Signs & Weight: Vital Signs (12 hours) Temp Pulse Resp BP Pulse Ox 04/27/19 09:00 99 04/27/19 07:27 98.1 F 67 16 109/70 99 Weight Weight 143 lb 3.326 oz I&O: 04/26/19 04/27/19 04/28/19 06:59 06:59 06:59 Intake Total 1500 1450 Balance 1500 1450 Result Diagrams: 04/24/19 04:13 04/23/19 04:21 Hospitalist ROS - Medication Medications: Active Medications Generic Name Dose Route Start Last Admin Trade Name Freq PRN Reason Stop Dose Admin Acetaminophen 650 mg 04/23/19 00:34 04/25/19 16:26 Tylenol PO 650 mg Q4H PRN Administration Headache/Fever/Mild Pain (1-3) Ciprofloxacin 500 mg 04/23/19 09:00 04/27/19 08:08 Cipro PO 500 mg DAILY LAWRENCE Administration Ferrous Sulfate 325 mg 04/23/19 08:00 04/27/19 08:08 Feosol PO 325 mg BID-WM LAWRENCE Administration Folic Acid 1 mg 04/23/19 09:00 04/27/19 08:08 Folvite PO 1 mg DAILY LAWRENCE Administration Lactulose 30 gm 04/23/19 09:00 04/27/19 08:07 Lactulose PO Not Given TID LAWRENCE Lorazepam 0.5 mg 04/23/19 16:23 04/26/19 21:08 Ativan PO 0.5 mg Q6H PRN Administration Anxiety Nadolol 40 mg 04/23/19 09:00 04/27/19 08:08 Corgard PO 40 mg DAILY LAWRENCE Administration Pantoprazole Sodium 40 mg 04/27/19 09:00 04/27/19 08:07 Protonix PO 40 mg DAILY LAWRENCE Administration Rifaximin 550 mg 02/20/20 09:00 04/27/19 08:08 Xifaxan PO 550 mg BID LAWRENCE Administration Spironolactone 25 mg 04/23/19 08:00 04/27/19 08:08 Aldactone PO 25 mg BID-WM LAWRENCE Administration Thiamine HCl 100 mg 04/23/19 09:00 04/27/19 08:08 Thiamine PO 100 mg DAILY LAWRENCE Administration Tramadol HCl 50 mg 04/25/19 17:56 04/26/19 16:19 Ultram PO 50 mg Q8H PRN Administration Pain - Exam General Appearance: NAD Eye: PERRL ENT: normocephalic atraumatic, no oropharyngeal lesions Neck: supple Heart: RRR Respiratory: CTAB Gastrointestinal: normal bowel sounds Neurological: no focal deficits Neurological - other findings: korsakoff syndrome Hosp A/P - Plan Encephalopathy acute Code(s): G93.40 - ENCEPHALOPATHY, UNSPECIFIED Status: Acute Plan: Likely due to Wernicke's/Korsakoff syndrome, continue supportive mgmt, Lactulose for underlying cirrhosis (2) Cirrhosis Code(s): K74.60 - UNSPECIFIED CIRRHOSIS OF LIVER Status: Chronic Qualifiers: Hepatic cirrhosis type: alcoholic cirrhosis Ascites presence: with ascites Qualified Code(s): K70.31 - Alcoholic cirrhosis of liver with ascites Plan: Continue Lactulose, Spironolactone, Xifaxan, B-asad (3) Jaundice Code(s): R17 - UNSPECIFIED JAUNDICE Status: Chronic (4) Coagulopathy Status: Chronic (5) Thrombocytopenia Code(s): D69.6 - THROMBOCYTOPENIA, UNSPECIFIED Status: Chronic - Plan plan discussed w/ family, social director, out of bed/ambulate Continue supportive mgmt folic, thiamin, lactulose, spironolactone. will get cmp as 20th showed hyperbilirubinemia, make sure it is trending down. very conversationlist today, dressed up, that he knows that "i am his doctor and he has an appt w.. me tomorrow and he will be there. whereever he was, they are not giving him any food, children are screaming". 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 Likely this is his new baseline. d/w CM and he would benefit with SNF placement.
[2019-04-27 14:11] LABS: Hemoglobin A2 5.1 % (1.8-3.2); Hemoglobin F 3.7 % (0.0-2.0); Hemoglonin C Window 91.2 % (0.0); Interpretation Note: (.)
[2019-04-27 14:31] LABS: ALT (SGPT) 27 U/L (8-55); AST (SGOT) 27 U/L (5-34); Albumin 3.8 g/dL (3.4-4.8); Alkaline Phosphatase 114 U/L (40-110); Anion Gap 11 mmol/L (10-20); BUN (Urea Nitrogen) 20 mg/dL (8.4-25.7); Bilirubin, Total 4.9 mg/dL (0.2-1.2); Calc. Creatinine Clearance 84 mL/min (70-130); Carbon Dioxide 23 mmol/L (23-31); Chloride 102 mmol/L (98-107); Estimated GFR-MDRD Greater than 90; Globulin 3.4 g/dL (2.4-3.5); Glucose 269 mg/dL (80-115); Potassium 4.1 mmol/L (3.5-5.1); Protein, Total 7.2 g/dL (5.8-8.1); Sodium 132 mmol/L (136-145)
[2019-04-28] MEDS: traMADol HCl 50 MG TAB PO PRN (04:50)
[2019-04-28] MEDS: Acetaminophen 325 MG TAB PO PRN (04:51)
[2019-04-28] MEDS: Ferrous Sulfate 325 MG TAB PO SCH ×2 (09:03→16:14)
[2019-04-28] MEDS: Spironolactone 25 MG TAB PO SCH ×2 (09:06→16:15)
[2019-04-28] MEDS: Nadolol 40 MG TAB PO SCH (09:09)
[2019-04-28] MEDS: Folic Acid 1 MG TAB PO SCH (09:10)
[2019-04-28] MEDS: Ciprofloxacin 500 MG TAB PO SCH (09:10)
[2019-04-28] MEDS: Rifaximin 550 MG TAB PO SCH ×2 (09:10→19:22)
[2019-04-28] MEDS: Thiamine 100 MG TAB PO SCH (09:11)
--- NOTE | 2019-04-28 13:23 | PDOC.HOSPP ---
- Subjective Encounter Date: 04/28/19 Encounter Time: 11:00 Subjective: mumbling by himself. stable. - Objective Vital Signs & Weight: Vital Signs (12 hours) Temp Pulse Resp BP Pulse Ox 04/28/19 08:32 97.4 F L 81 18 115/66 97 04/28/19 08:00 97 Weight Weight 143 lb 3.326 oz I&O: 04/27/19 04/28/19 04/29/19 06:59 06:59 06:59 Intake Total 1450 1410 Output Total 2 Balance 1450 1408 Result Diagrams: 04/24/19 04:13 04/27/19 13:47 Hospitalist ROS - Medication Medications: Active Medications Generic Name Dose Route Start Last Admin Trade Name Freq PRN Reason Stop Dose Admin Acetaminophen 650 mg 04/23/19 00:34 04/28/19 04:51 Tylenol PO 650 mg Q4H PRN Administration Headache/Fever/Mild Pain (1-3) Ciprofloxacin 500 mg 04/23/19 09:00 04/28/19 09:10 Cipro PO 500 mg DAILY [facility]ENCE Administration Ferrous Sulfate 325 mg 04/23/19 08:00 04/28/19 09:03 Feosol PO 325 mg BID-WM LAWRENCE Administration Folic Acid 1 mg 04/23/19 09:00 04/28/19 09:10 Folvite PO 1 mg DAILY LAWRENCE Administration Lactulose 30 gm 04/23/19 09:00 04/28/19 09:11 Lactulose PO 30 gm TID LAWRENCE Administration Lorazepam 0.5 mg 04/23/19 16:23 04/26/19 21:08 Ativan PO 0.5 mg Q6H PRN Administration Anxiety Nadolol 40 mg 04/23/19 09:00 04/28/19 09:09 Corgard PO 40 mg DAILY LAWRENCE Administration Pantoprazole Sodium 40 mg 04/27/19 09:00 04/28/19 09:05 Protonix PO 40 mg DAILY LAWRENCE Administration Rifaximin 550 mg 04/23/19 09:00 04/28/19 09:10 Xifaxan PO 550 mg BID LAWRENCE Administration Spironolactone 25 mg 04/23/19 08:00 04/28/19 09:06 Aldactone PO 25 mg BID-WM LAWRENCE Administration Thiamine HCl 100 mg 04/23/19 09:00 04/28/19 09:11 Thiamine PO 100 mg DAILY [facility]WRENCE Administration Tramadol HCl 50 mg 04/25/19 17:56 04/28/19 04:50 Ultram PO 50 mg Q8H PRN Administration Pain - Exam General Appearance: NAD, awake alert General - other findings: confusion -baseline Eye: PERRL ENT: normocephalic atraumatic Respiratory: CTAB Gastrointestinal: soft, normal bowel sounds Hosp A/P - Plan Encephalopathy acute Code(s): G93.40 - ENCEPHALOPATHY, UNSPECIFIED Status: Acute Plan: Likely due to Wernicke's/Korsakoff syndrome, continue supportive mgmt, Lactulose for underlying cirrhosis (2) Cirrhosis Code(s): K74.60 - UNSPECIFIED CIRRHOSIS OF LIVER Status: Chronic Qualifiers: Hepatic cirrhosis type: alcoholic cirrhosis Ascites presence: with ascites Qualified Code(s): K70.31 - Alcoholic cirrhosis of liver with ascites Plan: Continue Lactulose, Spironolactone, Xifaxan, B-asad (3) Jaundice Code(s): R17 - UNSPECIFIED JAUNDICE Status: Chronic (4) Coagulopathy Status: Chronic (5) Thrombocytopenia Code(s): D69.6 - THROMBOCYTOPENIA, UNSPECIFIED Status: Chronic - Plan plan discussed w/ family, social worker clinical, out of bed/ambulate Continue supportive mgmt folic, thiamin, lactulose, spironolactone. will get cmp as 20th showed hyperbilirubinemia, make sure it is trending down. very conversationlist today, dressed up, that he knows that "i am his doctor and he has an appt w.. me tomorrow and he will be there. whereever he was, they are not giving him any food, children are screaming". 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 Likely this is his new baseline. d/w CM and he would benefit with SNF placement. mgmt - mostly supportive. no active medical intervention at this time. pending placement.
[2019-04-28] MEDS: Lorazepam 0.5 MG TAB PO PRN (19:19)
[2019-04-29] MEDS: Lorazepam 0.5 MG TAB PO PRN ×2 (02:06→20:03)
[2019-04-29] MEDS: Ciprofloxacin 500 MG TAB PO SCH (09:17)
[2019-04-29] MEDS: Rifaximin 550 MG TAB PO SCH ×2 (09:18→20:03)
[2019-04-29] MEDS: Spironolactone 25 MG TAB PO SCH ×2 (09:18→17:52)
[2019-04-29] MEDS: Folic Acid 1 MG TAB PO SCH (09:19)
[2019-04-29] MEDS: Nadolol 40 MG TAB PO SCH (09:19)
[2019-04-29] MEDS: Ferrous Sulfate 325 MG TAB PO SCH ×2 (09:19→17:52)
[2019-04-29] MEDS: Thiamine 100 MG TAB PO SCH (09:19)
--- NOTE | 2019-04-29 15:59 | PDOC.HOSPP ---
- Subjective Encounter Date: 04/29/19 Encounter Time: 10:00 Subjective: no acuity, comfortable, awake. - Objective Vital Signs & Weight: Vital Signs (12 hours) Temp Pulse Resp BP Pulse Ox 04/29/19 07:56 98.0 F 93 20 112/65 98 Weight Weight 143 lb 3.326 oz I&O: 04/28/19 04/29/19 04/30/19 06:59 06:59 06:59 Intake Total 1410 500 Output Total 2 3 Balance 1408 497 Result Diagrams: 04/24/19 04:13 04/27/19 13:47 Hospitalist ROS - Medication Medications: Active Medications Generic Name Dose Route Start Last Admin Trade Name Freq PRN Reason Stop Dose Admin Acetaminophen 650 mg 04/23/19 00:34 04/28/19 04:51 Tylenol PO 650 mg Q4H PRN Administration Headache/Fever/Mild Pain (1-3) Ciprofloxacin 500 mg 04/23/19 09:00 04/29/19 09:17 Cipro PO 500 mg DAILY [facility]WRENCE Administration Ferrous Sulfate 325 mg 04/23/19 08:00 04/29/19 09:19 Feosol PO 325 mg BID-WM LAWRENCE Administration Folic Acid 1 mg 04/23/19 09:00 04/29/19 09:19 Folvite PO 1 mg DAILY LAWRENCE Administration Lactulose 30 gm 04/23/19 09:00 04/29/19 14:29 Lactulose PO 30 gm TID LAWRENCE Administration Lorazepam 0.5 mg 04/23/19 16:23 04/29/19 02:06 Ativan PO 0.5 mg Q6H PRN Administration Anxiety Nadolol 40 mg 04/23/19 09:00 04/29/19 09:19 Corgard PO 40 mg DAILY LA[facility]ENCE Administration Pantoprazole Sodium 40 mg 04/27/19 09:00 04/29/19 09:23 Protonix PO 40 mg DAILY LAWRENCE Administration Rifaximin 550 mg 04/23/19 09:00 04/29/19 09:18 Xifaxan PO 550 mg BID LAWRENCE Administration Spironolactone 25 mg 04/23/19 08:00 04/29/19 09:18 Aldactone PO 25 mg BID-WM LAWRENCE Administration Thiamine HCl 100 mg 04/23/19 09:00 04/29/19 09:19 Thiamine PO 100 mg DAILY LAWRENCE Administration Tramadol HCl 50 mg 04/25/19 17:56 04/28/19 04:50 Ultram PO 50 mg Q8H PRN Administration Pain - Exam General Appearance: NAD, awake alert Eye: PERRL ENT: normocephalic atraumatic Neck: supple Heart: RRR Respiratory: CTAB, normal chest expansion Gastrointestinal: soft, normal bowel sounds Neurological: cranial nerve grossly intact, no focal deficits Hosp A/P - Plan Encephalopathy acute Code(s): G93.40 - ENCEPHALOPATHY, UNSPECIFIED Status: Acute Plan: Likely due to Wernicke's/Korsakoff syndrome, continue supportive mgmt, Lactulose for underlying cirrhosis (2) Cirrhosis Code(s): K74.60 - UNSPECIFIED CIRRHOSIS OF LIVER Status: Chronic Qualifiers: Hepatic cirrhosis type: alcoholic cirrhosis Ascites presence: with ascites Qualified Code(s): K70.31 - Alcoholic cirrhosis of liver with ascites Plan: Continue Lactulose, Spironolactone, Xifaxan, B-asad (3) Jaundice Code(s): R17 - UNSPECIFIED JAUNDICE Status: Chronic (4) Coagulopathy Status: Chronic (5) Thrombocytopenia Code(s): D69.6 - THROMBOCYTOPENIA, UNSPECIFIED Status: Chronic - Plan plan discussed w/ family, social studies teacher, out of bed/ambulate Continue supportive mgmt folic, thiamin, lactulose, spironolactone. will get cmp as 20th showed hyperbilirubinemia, make sure it is trending down. very conversationlist today, dressed up, that he knows that "i am his doctor and he has an appt w.. me tomorrow and he will be there. whereever he was, they are not giving him any food, children are screaming". 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 Likely this is his new baseline. d/w CM and he would benefit with SNF placement. mgmt - mostly supportive. no active medical intervention at this time. pending placement. --as above.
[2019-04-30] MEDS: Lorazepam 0.5 MG TAB PO PRN (02:43)
[2019-04-30] MEDS: Nadolol 40 MG TAB PO SCH (08:39)
[2019-04-30] MEDS: Spironolactone 25 MG TAB PO SCH (08:39)
[2019-04-30] MEDS: Ciprofloxacin 500 MG TAB PO SCH (08:39)
[2019-04-30] MEDS: Rifaximin 550 MG TAB PO SCH (08:40)
[2019-04-30] MEDS: Folic Acid 1 MG TAB PO SCH (08:40)
[2019-04-30] MEDS: Thiamine 100 MG TAB PO SCH (08:40)
[2019-04-30] MEDS: Ferrous Sulfate 325 MG TAB PO SCH (08:40)
[2019-04-30 15:05] VITALS: BP 112/73; TEMP 97.6
--- NOTE | 2019-05-01 00:36 | DIS ---
DATE OF ADMISSION: 04/23/2019 DATE OF DISCHARGE: 04/30/2019 DISCHARGE DIAGNOSES: 1. Acute metabolic encephalopathy. 2. Jaundice. 3. Cirrhosis. 4. Type 2 diabetes mellitus. 5. Anemia. 6. Alcohol-induced encephalopathy. 7. Korsakoff syndrome. DISCHARGE MEDICATIONS: 1. Thiamine 100 mg daily. 2. Spironolactone 25 mg twice a day. 3. Sotalol 80 mg daily. 4. Rifaximin 550 mg twice a day. 5. Nadolol 20 mg daily. 6. Lactulose 30 mL daily. 7. Glimepiride 4 mg twice a day. 8. Lasix 20 mg daily. PHYSICAL EXAMINATION: VITAL SIGNS: On the day of discharge, his temp is 98.2, pulse 82, blood pressure 117/64, saturating 100% on room air. GENERAL: The patient is pleasantly confused, which is his baseline. No agitations. He appears comfortable. CARDIOVASCULAR: Regular rate and rhythm without murmurs, rubs, or gallops. LUNGS: Clear to auscultation bilaterally without wheezing, rales, or rhonchi. ABDOMEN: Soft, nontender, and nondistended. Good bowel sounds. EXTREMITIES: No pitting edema. CONSULT: Neurologist with Sushant Nichols MD HOSPITAL COURSE: Please refer to history and physical, as well as daily progress notes for more details. Briefly, 63-year-old male presented with altered mentation, brought by the family. According to the family members, he is compliant in taking his lactulose daily. However, he was quite confused. Neurology evaluated him and based on the clinical findings, he did not have any evidence of delirium or alcohol induced withdrawal , but he has heavy confabulation and has some memory difficulties, which is consistent with Korsakoff's syndrome. There is no any treatment available. Because of his ongoing confusion and unsteadiness with his gait which require ongoing therapy and close supervision, decided to place him in a safe environment with supervision, at senior living facility/swing bed. Availability was delayed. He would be likely to be discharged today to the swing bed in hemodynamically stable condition. DISCHARGE INSTRUCTIONS: 1. Activity with supervision only. 2. Regular diet. 3. Followup recommended with primary care physician in one week. TIME SPENT: Discharge time took over 30 minutes. Job ID: [id number] [facility]
== END 2019-04-30 15:44 | disposition swing bed (61) | DRG 896 ==
LOC: ERS 16:58 → 2NO 04-23 00:27 → T4-A 04-24 13:27
PROVIDERS: ADMIT Internal Medicine Sleep Medicine; ATTEND Internal Medicine
DX: F10.959 Alcohol use, unspecified with alcohol-induced psychotic disorder, unspecified (principal); G93.41 Metabolic encephalopathy; D68.4 Acquired coagulation factor deficiency; E11.9 Type 2 diabetes mellitus without complications; K70.31 Alcoholic cirrhosis of liver with ascites; D50.9 Iron deficiency anemia, unspecified; D69.59 Other secondary thrombocytopenia; G31.2 Degeneration of nervous system due to alcohol; Z79.899 Other long term (current) drug therapy; Z79.84 Long term (current) use of oral hypoglycemic drugs
CPT/HCPCS: 36415; 36416; 51701; 70450; 70551; 71045; 80053; 81003; 81015; 82140; 82248; 82607; 82746; 83021; 83690; 84484; 85007; 85025; 85027; 85610; 93005; J1644

== ENCOUNTER 2019-05-11 13:00 | Observation (INO) | payer MEDICARE, MEDICAID ==
[2019-05-11 13:57] LABS: Hemoglobin 6.6 g/dL (14.0-18.0); Mean Corpuscular HGB CONC 35.2 g/dL (32.0-36.0); Mean Corpuscular Hemoglobin 20.9 pg (27.0-31.0); Mean Corpuscular Volume 59.4 fL (78.0-98.0); RBC Distribution Width 18.7 % (11.5-14.5); Red Blood Cell (RBC) Count 3.15 mill/uL (4.70-6.10)
[2019-05-11 14:07] LABS: ALT (SGPT) 22 U/L (8-55); AST (SGOT) 29 U/L (5-34); Albumin 3.4 g/dL (3.4-4.8); Alkaline Phosphatase 159 U/L (40-110); Anion Gap 13 mmol/L (10-20); BUN (Urea Nitrogen) 27 mg/dL (8.4-25.7); Bilirubin, Total 4.9 mg/dL (0.2-1.2); Calc. Creatinine Clearance 0 mL/min (70-130); Carbon Dioxide 19 mmol/L (23-31); Chloride 105 mmol/L (98-107); Estimated GFR-MDRD 88; Globulin 2.9 g/dL (2.4-3.5); Glucose 406 mg/dL (80-115); Potassium 4.2 mmol/L (3.5-5.1); Protein, Total 6.3 g/dL (5.8-8.1); Sodium 133 mmol/L (136-145)
[2019-05-11 14:13] LABS: Mean Platelet Volume 6.7 fL (7.4-10.4); Platelet Count 63 thou/uL (130-400); White Blood Cell (WBC) Count 4.6 thou/uL (4.8-10.8)
[2019-05-11 14:14] LABS: Anisocytosis SLIGHT = 6-15 cells (100X) (0-5/hpf); Band 2 % (5-11); Eosinophils 1 % (0-10); Hypochromia SLIGHT = 6-15 cells (100X) (0-5/hpf); Lymphocytes 25 % (21-51); MDiff Complete? YES; Microcytosis MODERATE=15-30 cells (100X) (0-5/hpf); Neutrophil 71 % (42-75); Nucleated RBC 8 % (0); Platelet Morphology Comment Appears Decreased; Polychromasia MODERATE = 3-4 cells (100X) (0-2/hpf); Target Cells MODERATE= 6-15 cells (100X) (0-1/hpf)
[2019-05-11 19:30] VITALS: BMI 25.2
[2019-05-11] MEDS ORDERED: HYDROcodone/Acetaminophen 5/325 mg Tablet PO PRN ×2 (19:30)
[2019-05-11] MEDS ORDERED: Acetaminophen 325 MG TAB PO PRN (19:30)
[2019-05-11] MEDS ORDERED: Ondansetron PF 4 MG/2 ML Vial IVP PRN (19:30)
[2019-05-11] MEDS ORDERED: Ondansetron ODT 4 MG TAB SL PRN (19:30)
[2019-05-11] MEDS ORDERED: Sodium Chloride 0.9% 1,000 ML IV SCH (19:31)
[2019-05-11] MEDS ORDERED: Dextrose 50% Abboject 50 ML SYRINGE SLOW IVP PRN (19:54)
[2019-05-11] MEDS ORDERED: Dextrose 5% in Water 1,000 ML IV PRN (19:54)
[2019-05-11] MEDS: Rifaximin 550 MG TAB PO SCH (20:19)
[2019-05-11] MEDS: HumaLOG 300 UNITS/3 ML VIAL SC PRN (20:26)
[2019-05-11] MEDS: Insulin Glargine 8 UNITS in Pre-Filled Syringe 1 EACH SC SCH (20:27)
[2019-05-11 21:32] LABS: Hemoglobin 8.2 g/dL (14.0-18.0)
[2019-05-12] MEDS ORDERED: Lorazepam 0.5 MG TAB PO SCH (01:15)
[2019-05-12 01:45] LABS: Magnesium 1.8 mg/dL (1.6-2.6)
--- NOTE | 2019-05-12 02:28 | HP ---
CHIEF COMPLAINT: Abnormal labs. HISTORY OF PRESENT ILLNESS: Patient is a 63-year-old male, with a history of alcohol abuse and cirrhosis who came from swing bed with low H and H. Patient's H and H were checked today with hemoglobin of 5.2 and hematocrit of 15.9. At this time, he was transferred here for further evaluation. Patient recently left the hospital on May 06 and he was treated for complication of cirrhosis, ascites requiring paracentesis and also acute metabolic encephalopathy. He was evaluated by Neurology. Patient currently denies any abdominal pain, nausea, vomiting, or diarrhea. However, he is confused and is confabulating. PAST MEDICAL HISTORY: Patient's past medical history is as of the followin. He has a history of alcohol abuse. 2. Cirrhosis. 3. Diabetes. 4. Esophageal varices. PAST SURGICAL HISTORY: He has had paracentesis. SOCIAL HISTORY: He does not smoke. Alcohol use heavy. Currently, he is not drinking. Denies any drug use. He currently lives in a sling bed. CODE STATUS: Unable to obtain. REVIEW OF SYSTEMS: Unable to obtain. Patient is confabulating. PHYSICAL EXAMINATION: VITAL SIGNS: Temperature 97.9, 100% on room air, 75 pulse, and 101/58. GENERAL: He is awake, alert, and oriented x2. Does not appear in distress. HEENT: He does have some icteric sclerae. CV: S1, S2 present. No murmurs, rubs, or gallops. LUNGS: Clear to auscultation. No rhonchi or wheezes noted. ABDOMEN: Soft and nontender. Bowel sounds are present x2. EXTREMITIES: No edema. Pedal pulses are present x2. NEUROVASCULAR: No focal deficits noted. SKIN: No cuts, lesions, or bruises noted. LABORATORIES: WBCs of 4.6, hemoglobin of 6.6, hematocrit of 18.7, and his platelets are 63. Chemistry; sodium of 133, potassium of 4.2, BUN of 27, creatinine 0.88, and his sugar was high at 406. His total bilirubin was 4.9. ASSESSMENT AND PLAN: The patient is a very pleasant 63-year-old male, who presents to the hospital with low H and H. 1. Anemia, most likely multifactorial. Patient's MCV is significantly low. His iron studies last time were also low. He also is a chronic drinker, which could be contributing to his anemia. He did have an endoscopy and this was back in April of 2019, which indicated that he did have a large distal esophageal varices, grade 2/3. However, there was no stigmata of recent bleeding. We will check stool for occult blood and we will check a CBC in the morning. 2. Alcohol abuse. Again, he has been off alcohol since he has been in the hospital in swing. We will continue his home medications. However, we will hold off on some of his blood pressure medications for now and may be restarted in the morning. 3. Diabetes, uncontrolled. We will put him on sliding scale and start him on some low-dose Lantus tonight. 4. Deep venous thrombosis prophylaxis. We will put patient on SCDs. Job ID: [id number]
[2019-05-12] MEDS: HumaLOG 300 UNITS/3 ML VIAL SC PRN ×2 (05:19→12:39)
[2019-05-12 05:46] LABS: ALT (SGPT) 19 U/L (8-55); AST (SGOT) 26 U/L (5-34); Albumin 3.1 g/dL (3.4-4.8); Alkaline Phosphatase 119 U/L (40-110); Anion Gap 10 mmol/L (10-20); BUN (Urea Nitrogen) 20 mg/dL (8.4-25.7); Bilirubin, Total 4.9 mg/dL (0.2-1.2); Calc. Creatinine Clearance 114 mL/min (70-130); Calcium 8.2 mg/dL (7.8-10.44); Carbon Dioxide 20 mmol/L (23-31); Chloride 108 mmol/L (98-107); Estimated GFR-MDRD Greater than 90; Globulin 2.8 g/dL (2.4-3.5); Glucose 184 mg/dL (80-115); Potassium 4.2 mmol/L (3.5-5.1); Protein, Total 5.9 g/dL (5.8-8.1); Sodium 134 mmol/L (136-145)
[2019-05-12 05:53] LABS: Band 2 % (5-11); Eosinophils 2 % (0-10); Hemoglobin 7.3 g/dL (14.0-18.0); Hypochromia MODERATE=16-30 cells (100X) (0-5/hpf); Lymphocytes 28 % (21-51); MDiff Complete? YES; Mean Corpuscular HGB CONC 35.3 g/dL (32.0-36.0); Mean Corpuscular Hemoglobin 22.5 pg (27.0-31.0); Mean Corpuscular Volume 63.7 fL (78.0-98.0); Mean Platelet Volume 6.8 fL (7.4-10.4); Monocytes 6 % (0-10); Neutrophil 62 % (42-75); Nucleated RBC 5 % (0); Ovalocytes SLIGHT = 2-5 cells (100X) (0-1/hpf); Platelet Count 51 thou/uL (130-400); Platelet Morphology Comment Appears Decreased; RBC Distribution Width 23.4 % (11.5-14.5); Red Blood Cell (RBC) Count 3.26 mill/uL (4.70-6.10); Target Cells MODERATE= 6-15 cells (100X) (0-1/hpf); White Blood Cell (WBC) Count 7.3 thou/uL (4.8-10.8)
[2019-05-12] MEDS: Glimepiride 4 MG TAB PO SCH ×2 (08:10→16:35)
[2019-05-12] MEDS: Thiamine 100 MG TAB PO SCH (08:11)
[2019-05-12] MEDS: Rifaximin 550 MG TAB PO SCH ×2 (08:11→19:53)
--- NOTE | 2019-05-12 15:17 | PDOC.HOSPP ---
- Subjective Encounter Date: 05/12/19 Encounter Time: 09:00 Subjective: Pt seen for followup re: anemia. Confused, denies any complaints. - Objective Vital Signs & Weight: Vital Signs (12 hours) Temp Pulse Resp BP BP Pulse Ox 05/12/19 12:00 97.9 F 70 16 125/73 100 05/12/19 08:00 97.8 F 86 16 137/75 100 05/12/19 04:58 98 F 87 18 107/70 97 Weight Weight 160 lb 14.999 oz I&O: 05/11/19 05/12/19 05/13/19 06:59 06:59 06:59 Intake Total 650 Balance 650 Result Diagrams: 05/12/19 05:00 05/12/19 05:00 Additional Labs: Accuchecks 05/12/19 05/12/19 05/11/19 11:25 05:00 19:27 POC Glucose 242 H 216 H 313 H Labs and MARs reviewed by in Hospitalist ROS - Review of Systems Constitutional: denies: fever, chills, sweats, weakness, malaise Cardiovascular: denies: chest pain, palpitations, orthopnea, paroxysmal noc. dyspnea, edema, light headedness Gastrointestinal: denies: nausea, vomiting, abdominal pain, diarrhea, constipation, melena, hematochezia Genitourinary: denies: dysuria, frequency, incontinence, hematuria, retention Skin: denies: rash, lesions, peña, bruising - Medication Medications: Active Medications Generic Name Dose Route Start Last Admin Trade Name Freq PRN Reason Stop Dose Admin Glimepiride 4 mg 05/12/19 08:00 05/12/19 08:10 Amaryl PO 4 mg BID-WM LAWRENCE Administration Insulin Glargine 8 units/ 0.08 mls @ 0 mls/hr 05/11/19 21:00 05/11/19 20:27 Miscellaneous Medication SC 0.08 mls HS LAWRENCE Administration Insulin Human Lispro 0 units 05/11/19 19:54 05/12/19 12:39 Humalog SC 3 unit .MILD SLIDING SCALE PRN Administration Mild Correctional Scale Lactulose 20 gm 05/12/19 09:00 05/12/19 08:12 Lactulose PO 20 gm DAILY LAWRENCE Administration Rifaximin 550 mg 05/11/19 21:00 05/12/19 08:11 Xifaxan PO 550 mg BID LAWRENCE Administration Sodium Chloride 10 ml 05/11/19 21:00 05/12/19 08:14 Flush - Normal Saline IVF Not Given Q12HR [facility] Thiamine HCl 100 mg 05/12/19 09:00 05/12/19 08:11 Thiamine PO 100 mg DAILY LAWRENCE Administration - Exam General Appearance: awake alert Eye: scleral icterus ENT: normocephalic atraumatic, moist mucosa Neck: supple, symmetric, no thyromegaly, no lymphadenopathy Heart: RRR, no gallops, no rubs, normal peripheral pulses Respiratory: CTAB, no wheezes, no rales, no ronchi Gastrointestinal: soft, non-tender, normal bowel sounds, distended Extremities: no cyanosis Psychiatric: oriented to person Psychiatric - other findings: Pt confabulating Hosp A/P (1) Anemia Code(s): D64.9 - ANEMIA, UNSPECIFIED Status: Acute Qualifiers: Anemia type: iron deficiency Iron deficiency anemia type: unspecified iron deficiency Qualified Code(s): D50.9 - Iron deficiency anemia, unspecified (2) Encephalopathy acute Code(s): G93.40 - ENCEPHALOPATHY, UNSPECIFIED Status: Acute (3) Cirrhosis Code(s): K74.60 - UNSPECIFIED CIRRHOSIS OF LIVER Status: Chronic Qualifiers: Hepatic cirrhosis type: alcoholic cirrhosis Ascites presence: with ascites Qualified Code(s): K70.31 - Alcoholic cirrhosis of liver with ascites (4) DM type 2 (diabetes mellitus, type 2) Status: Chronic Qualifiers: Diabetes mellitus assisted insulin use: without ocean transportation intermediary use Diabetes mellitus complication status: without complication Qualified Code(s): E11.9 - Type 2 diabetes mellitus without complications - Plan Acute anemia, most likely secondary to GI blood loss. Consult GI. Continue rifaximin and lactulose. Continue thiamine. Switch to moderate insulin sliding scale. s/p 2 units pRBC transfusion.
[2019-05-12] MEDS ORDERED: HumaLOG 300 UNITS/3 ML VIAL SC PRN (15:20)
--- NOTE | 2019-05-12 15:43 | CON ---
DATE OF CONSULTATION: 05/12/2019 REASON FOR CONSULTATION: Anemia, worsening acutely. HISTORY OF PRESENT ILLNESS: Mr. Jimenes is a pleasant 63-year-old gentleman, known history of cirrhosis, presumptively from a component of autoimmune liver disease as well as previous alcohol abuse. He was recently in this hospital with an episode of what was felt to be Korsakoff's syndrome. He has some confabulation and confusion with a normal ammonia level. He was seen by Neurology at that time. He had normal B12 and folate. Ultimately at admission, he was discharged to rehab. He had a hemoglobin of 9 at that time. Apparently yesterday on lab check at rehab, he had a hemoglobin of 5.5, he was transferred here, it was 6.6, today at 7.3. His MCV has been low. He has been had no known microcytosis for some time with iron levels being as low as 19, dating back to 2013. In talking with the patient and the nursing staff, he has had no signs of bleeding. He reports that he has had brown stool. He has had no hematemesis or melena. Last admission on 04/06/2019, he had stool negative for occult blood. Previous evaluations for his anemia have included upper and lower endoscopies in March of 2013 for similar findings. He had grade 1 to 2 varices with no stigmata of bleeding. He had a normal colonoscopy at that time. More recently on 04/09/2019, the patient had upper endoscopy by Dr. Angelito Crocker. At that time, he had grade 2 to 3 varices were seen in the distal esophagus with no stigmata of active or recent bleeding. There was mild mucosal erythema in the stomach. At that time, consistent with portal hypertensive gastropathy. There was normal duodenum. It was felt that he should be on beta blockers for primary prophylaxis of his portal hypertension. PAST MEDICAL HISTORY: 1. Prior history of alcohol abuse. 2. History of cirrhosis with the serology consistent with autoimmune component. LFTs have been normal. More recently, he has decompensated with findings of varices with no prior bleeding, ascites, some mental status changes, but no overt hyperammonemia. 3. Diabetes. 4. History is grade 2 esophageal varices and ascites. 5. 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 PAST SURGICAL HISTORY: Previous paracentesis. FAMILY HISTORY: Notable for a cousin with cirrhosis. Negative for GI malignancy. PHYSICAL EXAMINATION: VITAL SIGNS: Temperature 97, pulse 70, blood pressure 125/73, and respirations 16. GENERAL: The patient is alert and oriented. He knows where he is. He actually can relate most of this history. HEENT: Conjunctivae and sclerae clear. NECK: Supple. No adenopathy. LUNGS: Clear. HEART: Regular rate and rhythm without murmurs. ABDOMEN: Notable for ascites without severe distention. EXTREMITIES: Reveal trace edema. RECTAL: Stool on rectal examination is bright brown. LABORATORY DATA: Bilirubin 4.9, AST 26, ALT 19, alkaline phosphatase 119, phosphorus 2, magnesium 1.8, and albumin 3. B12 and folate last admission were 906 and 10. Last iron on 04/09 was 54, ferritin was 37, TIBC was 203, which is also low. AFP was 2.6 on 01/2019. The hemoglobin electrophoresis was checked 04/2019 and 03/2013, both are consistent with C/beta zero thalassemia. ASSESSMENT: This is a 63-year-old gentleman with cirrhosis, presumptively from previous alcohol use and autoimmune liver disease. He shows no evidence of autoimmune hepatitis. Presently, he is admitted for anemia. There was no overt bleeding, but his hemoglobin just steadily had dropped. Stool here shows no signs of overt bleeding to account for a significant drop in hemoglobin. He did not have a paracentesis on his last admission here. He does have other factors that could contribute to his anemia including thalassemia, which accounts for his chronic microcytosis. He did have some varices noted on his last esophagogastroduodenoscopy with possible red aisha sign, but no overt findings. He has had a colonoscopy about six years ago in 2013. RECOMMENDATIONS: 1. We will proceed with an upper and lower endoscopy tomorrow. 2. If there are signs of acute blood loss with no signs of bleeding as we were seeing presently, then it may be reasonable to do CAT scan to make sure he has no retroperitoneal bleeding. 3. He is going to have some degree of anemia over time related to thalassemia that may be reasonable to give him some IV iron on this admission, would defer that to his primary physician. Job ID: [id number]
[2019-05-12] MEDS ORDERED: GoLYTELY 4,000 ml Bottle PO SCH (18:00)
[2019-05-12] MEDS: Insulin Glargine 8 UNITS in Pre-Filled Syringe 1 EACH SC SCH (20:01)
[2019-05-13 06:48] LABS: Eosinophils 3 % (0-10); Hemoglobin 9.1 g/dL (14.0-18.0); Hemoglobin C Crystals MODERATE (None Seen); Hypochromia SLIGHT = 6-15 cells (100X) (0-5/hpf); Lymphocytes 12 % (21-51); MDiff Complete? YES; Mean Corpuscular HGB CONC 34.7 g/dL (32.0-36.0); Mean Corpuscular Hemoglobin 22.7 pg (27.0-31.0); Mean Corpuscular Volume 65.4 fL (78.0-98.0); Mean Platelet Volume 7.9 fL (7.4-10.4); Neutrophil 85 % (42-75); Platelet Count 50 thou/uL (130-400); Platelet Morphology Comment Appears Decreased; Polychromasia MODERATE = 3-4 cells (100X) (0-2/hpf); RBC Distribution Width 24.1 % (11.5-14.5); Target Cells MODERATE= 6-15 cells (100X) (0-1/hpf); White Blood Cell (WBC) Count 7.1 thou/uL (4.8-10.8)
[2019-05-13] MEDS ORDERED: Iron Sucrose Complex 200 MG in Sodium Chloride 0.9% 250 ML 250 ML IVPB SCH (08:15)
[2019-05-13] MEDS ORDERED: Iron, Sodium Ferric Gluconate 250 MG in Sodium Chloride 0.9% 250 ML 250 ML IVPB SCH (08:30)
[2019-05-13] MEDS: Thiamine 100 MG TAB PO SCH (08:36)
[2019-05-13] MEDS: Rifaximin 550 MG TAB PO SCH (08:36)
[2019-05-13] MEDS: Glimepiride 4 MG TAB PO SCH ×3 (08:36→17:11)
[2019-05-13] MEDS ORDERED: EPHEDRINE 25 MG/5 ML SYRINGE ONE (11:13)
[2019-05-13] MEDS ORDERED: PROPOFOL 200 MG/20 ML VIAL ONE (11:13)
--- NOTE | 2019-05-13 15:47 | OP ---
DATE OF PROCEDURE: 05/13/2019 PROCEDURES PERFORMED: Esophagogastroduodenoscopy with banding of esophageal varices and colonoscopy with biopsy and snare polypectomy. PREOPERATIVE DIAGNOSES: Acute anemia with apparent iron deficiency. He has not had overt bleeding. He has cirrhosis. DESCRIPTION OF PROCEDURE: Informed consent was obtained. The patient was sedated with total intravenous anesthesia. The bite block was placed, and the endoscope was advanced easily to the second portion of the duodenum, and retroflexion was performed in the stomach. The esophagus had 3 columns of varices. He had 1 grade 3 large varix with small red aisha sign. This varix was banded x1 in the distal esophagus. There were 2 small grade 1 varices, that flattened completely without red signs. The stomach had 1 prominent fold in the fundus closer to the lesser curvature, which appeared to be a gastric varix. The stomach was otherwise normal including retroflexed views. The pylorus and first and second portions of the duodenum were normal. The patient was turned around. Rectal exam was performed and was normal. The colonoscope was advanced to the cecum, where the ileocecal valve and appendiceal orifice were clearly identified. The preparation quality was adequate. I removed a 2 mm polyp from the cecum with cold biopsy forceps. I removed a 5 mm polyp from the ascending colon by cold snare. He had [id number] diverticulosis scattered throughout the colon. Retroflexed views in the rectum revealed internal hemorrhoids, that were moderate. No bleeding source was identified. IMPRESSION: 1. Grade 3 esophageal varix with red signs banded x1 in the distal esophagus. There were 2 columns small grade 1 varices, which were left alone. 2. Gastric varix in the fundus. 3. A 2 mm polyp in the cecum removed by cold biopsy forceps. 4. A 5 mm polyp was removed from the ascending colon by cold snare. 5. Moderate diverticulosis scattered throughout the colon. 6. Internal hemorrhoids. 7. Otherwise, normal esophagogastroduodenoscopy and colonoscopy. RECOMMENDATIONS: 1. Await histopathology. 2. Follow trend of the hemoglobin. Job ID: [id number]
[2019-05-13 19:13] VITALS: BP 134/75; TEMP 98.1
--- NOTE | 2019-05-13 20:36 | PDOC.HOSPP ---
- Subjective Encounter Date: 05/13/19 Encounter Time: 20:35 Subjective: Pt seen for followup re: anemia. Rambling, not making sense. - Objective Vital Signs & Weight: Vital Signs (12 hours) Temp Pulse Resp BP Pulse Ox 05/13/19 19:12 98.1 F 98 14 134/75 98 05/13/19 18:44 97.4 F L 88 18 137/77 99 Weight Weight 160 lb 14.999 oz I&O: 05/12/19 05/13/19 05/14/19 06:59 06:59 06:59 Intake Total 650 1999 Balance 650 1999 Result Diagrams: 05/13/19 05:50 05/12/19 05:00 Additional Labs: Accuchecks 05/13/19 05/13/19 16:11 03:45 POC Glucose 82 102 Hospitalist ROS - Review of Systems ROS unobtainable: due to mental status - Medication Medications: Active Medications Generic Name Dose Route Start Last Admin Trade Name Freq PRN Reason Stop Dose Admin Glimepiride 4 mg 05/12/19 08:00 05/13/19 17:11 Amaryl PO Not Given BID-WM LAWRENCE Insulin Glargine 8 units/ 0.08 mls @ 0 mls/hr 05/11/19 21:00 05/12/19 20:01 Miscellaneous Medication SC 0.08 mls HS LAWRENCE Administration Insulin Human Lispro 0 units 05/12/19 15:20 05/12/19 16:37 Humalog SC 2 unit .MODERATE SLIDING SC PRN Administration Moderate Correctional Scale Lactulose 20 gm 05/12/19 09:00 05/13/19 08:36 Lactulose PO 20 gm DAILY LAWRENCE Administration Rifaximin 550 mg 05/11/19 21:00 05/13/19 08:36 Xifaxan PO 550 mg BID LAWRENCE Administration Sodium Chloride 10 ml 05/11/19 21:00 05/13/19 08:36 Flush - Normal Saline IVF 10 ml Q12HR LAWRENCE Administration Thiamine HCl 100 mg 05/12/19 09:00 05/13/19 08:36 Thiamine PO 100 mg DAILY LAWRENCE Administration - Exam General Appearance: awake alert Eye: scleral icterus ENT: normocephalic atraumatic Neck: supple Heart: RRR Respiratory: CTAB Gastrointestinal: soft, non-tender Extremities: no edema Psychiatric - other findings: Unable to assess Hosp A/P (1) Anemia Code(s): D64.9 - ANEMIA, UNSPECIFIED Status: Acute Qualifiers: Anemia type: iron deficiency Iron deficiency anemia type: unspecified iron deficiency Qualified Code(s): D50.9 - Iron deficiency anemia, unspecified (2) Encephalopathy acute Code(s): G93.40 - ENCEPHALOPATHY, UNSPECIFIED Status: Acute (3) Cirrhosis Code(s): K74.60 - UNSPECIFIED CIRRHOSIS OF LIVER Status: Chronic Qualifiers: Hepatic cirrhosis type: alcoholic cirrhosis Ascites presence: with ascites Qualified Code(s): K70.31 - Alcoholic cirrhosis of liver with ascites (4) DM type 2 (diabetes mellitus, type 2) Status: Chronic 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 Pt is on rifaximin and lactulose. Continue thiamine. Switch to moderate insulin sliding scale. s/p 2 units pRBC transfusion during this admission. Discharge back to [facility] today.
--- NOTE | 2019-05-14 13:18 | DIS ---
DATE OF ADMISSION: 05/11/2019 DATE OF DISCHARGE: 05/13/2019 PRIMARY CARE PROVIDER: Susana Jones MD DISCHARGE DIAGNOSES: 1. Symptomatic anemia. 2. Acute metabolic encephalopathy. 3. Hyponatremia. 4. Hypophosphatemia. CONDITION OF PATIENT ON THE DAY OF DISCHARGE: Stable. I assessed Mr. Jimenes on the day of discharge. Please refer to my daily hospitalist progress note for details regarding this [id number] encounter. CONSULTATIONS DURING THIS HOSPITALIZATION: Gastroenterology, Dr. Zhu. DISCHARGE MEDICATIONS: No change was made to his pre-admission home medications. POST-ACUTE CARE FOLLOWUP: With primary care provider in 3 days and with Gastroenterology Service, Dr. Zhang in 2 weeks. DIET: Low-sodium, diabetic, and heart healthy. ACTIVITY: As tolerated. DISCHARGE DESTINATION: Long-term Care Facility, from where the patient was admitted to the hospital. HOSPITAL COURSE: Mr. Jimenes is a pleasant 63-year-old gentleman, who was admitted to [facility] on May 11, 2019 for symptomatic anemia. Please refer to Dr. Son's history and physical note dated May 11, 2019 for further details. He received 2 units of packed RBC transfusion. He was seen by Gastroenterology Service. He underwent EGD with banding of esophageal varices and colonoscopy with biopsy and snare polypectomy. He has been cleared for discharge by Gastroenterology Service. He is being discharged back to his long-term care facility. Many thanks for allowing me to participate in your patient's care. Please feel free to contact me with any questions or concerns. Job ID: [id number]
== END 2019-05-13 20:40 ==
LOC: ERS 13:00 → T4-B 17:14 → INTOOBSV 17:14 → UNDOADMOB 17:14 → T4-B 17:27
PROVIDERS: ADMIT Internal Medicine; ATTEND Internal Medicine
PROC: 0W3P8ZZ Control Bleeding in Gastrointestinal Tract, Via Natural or Artificial Opening Endoscopic (ICD-10-PCS; principal; 2019-05-13)
DX: D62 Acute posthemorrhagic anemia (principal); K74.60 Unspecified cirrhosis of liver; I85.10 Secondary esophageal varices without bleeding; Z79.4 Long term (current) use of insulin; Z79.899 Other long term (current) drug therapy; K57.50 Diverticulosis of both small and large intestine without perforation or abscess without bleeding; D12.0 Benign neoplasm of cecum
CPT/HCPCS: 36430; 43244; 45385; 80053 ×2; 82140; 82962 ×3; 83735; 84100; 84484; 85014; 85018; 85025 ×3; 86850; 86900; 86901; 86920; 88304; 88305; 97139 ×2; 99285; G0378 ×4; P9016; 36415; 36416; J1815; J2704

== ENCOUNTER 2019-05-22 07:48 | Day surgery (SDC) | payer MEDICARE, MEDICAID ==
[2019-05-22] MEDS ORDERED: Lidocaine 1% PF 5 ML VIAL ONE (08:47)
[2019-05-22] MEDS ORDERED: Sodium Bicarbonate 2.5 MEQ/5 ML VIAL ONE (08:47)
--- NOTE | 2019-05-22 09:56 | ULT ---
Ultrasound-guided paracentesis: HISTORY: Cirrhosis and recurrent ascites. FINDINGS: Informed consent obtained prior to the procedure. Preprocedural imaging demonstrated intrap eritoneal free fluid. An area was marked in the left lower quadrant, and then meticulously prepped and draped in normal meredith rile fashion and anesthetized with 1% buffered lidocaine. With direct sonographic guidance, a 19-gauge needle and 5 Belarusian Yueh catheter were advanced into the abdomen. After the return of fluid, the catheter was advanced, and the needle was removed. Approximately 3 L of clear straw-colored fluid was aspirated. The introducer sheath was removed, and hemostasis was achieved with direct pressure. A dry sterile dressing was placed. The patient tolerated the procedure well and without immediate complication. IMPRESSION: Technically successful ultrasound-guided paracentesis.
[2019-05-22 13:55] VITALS: BP 125/68; TEMP 97.8
== END 2019-05-22 09:25 ==
LOC: ULT 07:48
PROVIDERS: ATTEND Family Medicine
PROC: 0W9G3ZZ Drainage of Peritoneal Cavity, Percutaneous Approach (ICD-10-PCS; principal; 2019-05-22)
PROC: BW40ZZZ Ultrasonography of Abdomen (ICD-10-PCS; 2019-05-22)
DX: K74.60 Unspecified cirrhosis of liver (principal); R18.8 Other ascites; E11.9 Type 2 diabetes mellitus without complications
CPT/HCPCS: 49083; J2001

== ENCOUNTER 2019-06-15 11:06 | Day surgery (SDC) | payer MEDICARE, MEDICAID ==
[2019-06-15] MEDS ORDERED: Lidocaine 1% PF 5 ML VIAL ONE ×2 (11:18→11:47)
[2019-06-15] MEDS ORDERED: Sodium Bicarbonate 2.5 MEQ/5 ML VIAL ONE (11:18)
[2019-06-15 11:22] LABS: INR-International Normal Ratio 1.3; PTT 37.7 SEC (22.9-36.1); Prothrombin Time 16.1 SEC (12.0-14.7)
[2019-06-15 11:23] LABS: Hemoglobin 8.1 g/dL (14.0-18.0); Mean Corpuscular HGB CONC 34.5 g/dL (32.0-36.0); Mean Corpuscular Volume 60.9 fL (78.0-98.0); Mean Platelet Volume 6.1 fL (7.4-10.4); Platelet Count 73 thou/uL (130-400); RBC Distribution Width 21.7 % (11.5-14.5); Red Blood Cell (RBC) Count 3.84 mill/uL (4.70-6.10); White Blood Cell (WBC) Count 8.9 thou/uL (4.8-10.8)
[2019-06-15 11:44] LABS: Anisocytosis MODERATE=16-30 cells (100X) (0-5/hpf); Band 4 % (5-11); Eosinophils 5 % (0-10); Hemoglobin C Crystals MODERATE (None Seen); Hypochromia MODERATE=16-30 cells (100X) (0-5/hpf); Lymphocytes 13 % (21-51); MDiff Complete? YES; Microcytosis MODERATE=15-30 cells (100X) (0-5/hpf); Monocytes 14 % (0-10); Neutrophil 62 % (42-75); Nucleated RBC 3 % (0); Platelet Morphology Comment Appears Decreased; Poikilocytosis MARKED = >30 cells (100X) (0-5/hpf); Polychromasia MODERATE = 3-4 cells (100X) (0-2/hpf); Target Cells MODERATE= 6-15 cells (100X) (0-1/hpf)
--- NOTE | 2019-06-15 12:36 | ULT ---
ULTRASOUND-GUIDED PARACENTESIS THERAPEUTIC: DATE: 06/15/2019 HISTORY: 63-year-old male with symptomatic ascites: Abdominal distention TECHNIQUE: Signed informed consent obtained. A four-quadrant survey of abdomen performed. Site selected for puncture: Left lower quadrant Overlying skin prepared and draped in usual sterile fashion. 25-gauge needle used to apply buffered lidocaine superficially and deeply. 5 [place] Yueh catheter with stylette advanced into the pocket of free intraperitoneal fluid. After drainage, the Yueh catheter was removed. Patient tolerated the procedure well. No complications. FINDINGS: Volume of ascites prior to procedure:moderate. Volume of ascites fluid in the drainage pocket after drainage:small. Volume of ascites fluid drained:5300 mL Appearance of ascites fluid:Nonhemorrhagic, straw-colored IMPRESSION: Successful therapeutic paracentesis, with drainage of 5.3 L of ascites fluid.
[2019-06-15 12:44] VITALS: BMI 25.0
[2019-06-15 12:49] VITALS: BP 124/65; TEMP 98
== END 2019-06-15 12:28 | disposition home or self-care (01) ==
LOC: ULT 11:06
PROVIDERS: ATTEND Family Medicine
PROC: 0W9G3ZZ Drainage of Peritoneal Cavity, Percutaneous Approach (ICD-10-PCS; principal; 2019-06-15)
DX: K74.60 Unspecified cirrhosis of liver (principal); R18.8 Other ascites; I10 Essential (primary) hypertension; E11.9 Type 2 diabetes mellitus without complications; F10.10 Alcohol abuse, uncomplicated; F04 Amnestic disorder due to known physiological condition
CPT/HCPCS: 49083; 85025; 85610; 85730; J2001

== ENCOUNTER 2019-06-22 18:04 | Emergency (ER) | payer MEDICARE, MEDICAID ==
[2019-06-22 19:02] LABS: Hemoglobin 8.2 g/dL (14.0-18.0); Mean Corpuscular HGB CONC 34.6 g/dL (32.0-36.0); Mean Corpuscular Hemoglobin 20.6 pg (27.0-31.0); Mean Corpuscular Volume 59.6 fL (78.0-98.0); Mean Platelet Volume 6.1 fL (7.4-10.4); Platelet Count 77 thou/uL (130-400); RBC Distribution Width 20.9 % (11.5-14.5); Red Blood Cell (RBC) Count 3.98 mill/uL (4.70-6.10)
[2019-06-22 19:11] LABS: ALT (SGPT) 23 U/L (8-55); AST (SGOT) 26 U/L (5-34); Albumin 3.5 g/dL (3.4-4.8); Alkaline Phosphatase 174 U/L (40-110); Anion Gap 11 mmol/L (10-20); BUN (Urea Nitrogen) 20 mg/dL (8.4-25.7); Bilirubin, Total 3.9 mg/dL (0.2-1.2); Calc. Creatinine Clearance 0 mL/min (70-130); Calcium 8.9 mg/dL (7.8-10.44); Carbon Dioxide 22 mmol/L (23-31); Chloride 106 mmol/L (98-107); Estimated GFR-MDRD Greater than 90; Globulin 3.4 g/dL (2.4-3.5); Glucose 138 mg/dL (80-115); Potassium 4.4 mmol/L (3.5-5.1); Protein, Total 6.9 g/dL (5.8-8.1); Sodium 135 mmol/L (136-145)
[2019-06-22 19:30] LABS: Anisocytosis MODERATE=16-30 cells (100X) (0-5/hpf); Band 4 % (5-11); Blister Cells SLIGHT = 2-5 cells (100X) (0-1/hpf); Eosinophils 5 % (0-10); Hemoglobin C Crystals MODERATE (None Seen); Hypochromia SLIGHT = 6-15 cells (100X) (0-5/hpf); Lymphocytes 25 % (21-51); MDiff Complete? YES; Microcytosis MODERATE=15-30 cells (100X) (0-5/hpf); Monocytes 3 % (0-10); Neutrophil 59 % (42-75); Nucleated RBC 1 % (0); Ovalocytes SLIGHT = 2-5 cells (100X) (0-1/hpf); Platelet Morphology Comment Appears Decreased; Poikilocytosis MARKED = >30 cells (100X) (0-5/hpf); Polychromasia MODERATE = 3-4 cells (100X) (0-2/hpf); Reactive Lymphocytes 2 % (0-10); Schistocytes SLIGHT = 2-5 cells (100X) (0-1/hpf); Spherocytes SLIGHT = 1-5 cells (100X) (None Seen); Target Cells MODERATE= 6-15 cells (100X) (0-1/hpf); White Blood Cell (WBC) Count 6.2 thou/uL (4.8-10.8)
== END 2019-06-22 20:26 ==
LOC: ERS 18:04
DX: D64.9 Anemia, unspecified (principal); E11.9 Type 2 diabetes mellitus without complications; E51.2 Wernicke's encephalopathy; D69.6 Thrombocytopenia, unspecified; K70.30 Alcoholic cirrhosis of liver without ascites; Z79.4 Long term (current) use of insulin; Z79.899 Other long term (current) drug therapy
CPT/HCPCS: 80053; 85025; 86850; 86900; 86901; 94760

== ENCOUNTER 2019-06-24 08:08 | Day surgery (SDC) | payer MEDICARE, MEDICAID ==
[2019-06-23 14:17] VITALS: BMI 25.0
[2019-06-24] MEDS ORDERED: Sodium Bicarbonate 2.5 MEQ/5 ML VIAL ONE (08:12)
[2019-06-24] MEDS ORDERED: Lidocaine 1% PF 5 ML VIAL ONE (08:12)
[2019-06-24 10:26] VITALS: BP 129/55; TEMP 97.9
--- NOTE | 2019-06-24 10:37 | ULT ---
Ultrasound-guided paracentesis: HISTORY: Cirrhosis and ascites FINDINGS: Informed consent obtained prior to the procedure. Preprocedural imaging demonstrated intrap eritoneal free fluid. An area was marked in the right mid abdomen in the mid axillary line, and then meticulously prepped a nd draped in normal sterile fashion and anesthetized with 1% buffered lidocaine. With direct sonographic guidance, a 19-gauge needle and 5 Mexican Yueh catheter were advanced into the abdomen. After the return of fluid, the catheter was advanced, and the needle was removed. Approximately 5.6 L of clear straw-colored fluid was aspirated. The introducer sheath was removed, a nd hemostasis was achieved with direct pressure. A dry sterile dressing was placed. The patient tolerated the procedure well and without immediate complication. IMPRESSION: Technically successful ultrasound-guided paracentesis.
== END 2019-06-24 09:25 | disposition home or self-care (01) ==
LOC: ULT 08:08
PROVIDERS: ATTEND Family Medicine
PROC: 0W9G3ZZ Drainage of Peritoneal Cavity, Percutaneous Approach (ICD-10-PCS; principal; 2019-06-24)
DX: K74.60 Unspecified cirrhosis of liver (principal); R18.8 Other ascites; I12.9 Hypertensive chronic kidney disease with stage 1 through stage 4 chronic kidney disease, or unspecified chronic kidney disease; E11.22 Type 2 diabetes mellitus with diabetic chronic kidney disease; N18.9 Chronic kidney disease, unspecified; Z79.4 Long term (current) use of insulin; Z79.899 Other long term (current) drug therapy
CPT/HCPCS: 49083; J2001

== ENCOUNTER 2019-07-01 08:34 | Day surgery (SDC) | payer MEDICARE, MEDICAID ==
[2019-07-01] MEDS ORDERED: Sodium Bicarbonate 2.5 MEQ/5 ML VIAL ONE (08:39)
[2019-07-01] MEDS ORDERED: Lidocaine 1% PF 5 ML VIAL ONE ×2 (08:39)
[2019-07-01 10:04] VITALS: BP 128/71; TEMP 97.9
--- NOTE | 2019-07-01 10:31 | ULT ---
Exam: Ultrasound guided paracentesis HISTORY: Ascites COMPARISON: 06/24/2019 FINDINGS: Successful ultrasound-guided paracentesis. Total of 5500 mL of yellow color ascites was asp irated. TECHNIQUE: Consent obtained reformatory ultrasound-guided paracentesis. Right lower quadrant was deem ed appropriate. Skin was prepped and draped in a sterile fashion. 1% lidocaine, buffered with sodium bicarbonate was used for local anesthesia. Under ultrasound guidance, a 5 Zimbabwean 7 cm Yueh cat heter is advanced in the peritoneal space. A total of 5500 mL of yellow color ascites was aspirated. No immediate or postprocedural complications IMPRESSION: Successful ultrasound-guided paracentesis.
== END 2019-07-01 09:37 | disposition home or self-care (01) ==
LOC: ULT 08:34
PROVIDERS: ATTEND Family Medicine
PROC: 0W9G3ZZ Drainage of Peritoneal Cavity, Percutaneous Approach (ICD-10-PCS; principal; 2019-07-01)
DX: K70.31 Alcoholic cirrhosis of liver with ascites (principal); I12.9 Hypertensive chronic kidney disease with stage 1 through stage 4 chronic kidney disease, or unspecified chronic kidney disease; E11.22 Type 2 diabetes mellitus with diabetic chronic kidney disease; N18.9 Chronic kidney disease, unspecified; D63.1 Anemia in chronic kidney disease; Z79.4 Long term (current) use of insulin; Z79.899 Other long term (current) drug therapy
CPT/HCPCS: 49083; J2001

== ENCOUNTER → 2019-07-22 | Day surgery (SDC) | payer MEDICARE, MEDICAID ==
[2019-07-22 08:15] LABS: INR-International Normal Ratio 1.2; Prothrombin Time 15.3 sec (12.0-14.7)
[2019-07-22 08:16] LABS: PTT 40.5 SEC (22.9-36.1)
[2019-07-22 08:48] LABS: Anisocytosis SLIGHT = 6-15 cells (100X) (0-5/hpf); Band 13 % (5-11); Eosinophils 1 % (0-10); Hemoglobin 8.2 g/dL (14.0-18.0); Hemoglobin C Crystals SLIGHT (None Seen); Lymphocytes 18 % (21-51); MDiff Complete? YES; Mean Corpuscular HGB CONC 33.9 g/dL (32.0-36.0); Mean Corpuscular Hemoglobin 19.2 pg (27.0-31.0); Mean Corpuscular Volume 56.6 fL (78.0-98.0); Mean Platelet Volume 5.8 fL (7.4-10.4); Metamyelocyte 1 % (0-0); Microcytosis MODERATE=15-30 cells (100X) (0-5/hpf); Monocytes 4 % (0-10); Neutrophil 60 % (42-75); Ovalocytes SLIGHT = 2-5 cells (100X) (0-1/hpf); Platelet Count 88 thou/uL (130-400); Platelet Morphology Comment Appears Decreased; Poikilocytosis MODERATE=16-30 cells (100X) (0-5/hpf); RBC Distribution Width 18.9 % (11.5-14.5); Reactive Lymphocytes 3 % (0-10); Red Blood Cell (RBC) Count 4.27 mill/uL (4.70-6.10); Sickle Cells SLIGHT = 1-5 cells (100X) (None Seen); Target Cells MODERATE= 6-15 cells (100X) (0-1/hpf); Tear Drops SLIGHT = 2-5 cells (100X) (0-1/hpf); White Blood Cell (WBC) Count 9.7 thou/uL (4.8-10.8)
--- NOTE | 2019-07-22 09:16 | ULT ---
Ultrasound-guided paracentesis: HISTORY: Cirrhosis and recurrent ascites FINDINGS: Informed consent obtained prior to the procedure. Preprocedural imaging demonstrated intrap eritoneal free fluid. An area was marked in the right mid abdomen in the mid axillary line, and then meticulously prepped a nd draped in normal sterile fashion and anesthetized with 1% buffered lidocaine. With direct sonographic guidance, a 19-gauge needle and 5 Libyan WireImageeh catheter were advanced into the abdomen. After the return of fluid, the catheter was advanced, and the needle was removed. Approximately 6 L of clear straw-colored fluid was aspirated. The introducer sheath was removed, and hemostasis was achieved with direct pressure. A dry sterile dressing was placed. The patient tolerated the procedure well and without immediate complication. IMPRESSION: Technically successful ultrasound-guided paracentesis.
[2019-07-22 13:06] VITALS: BP 121/64; TEMP 98.6
== END ==
LOC: ULT 07:59
PROVIDERS: ATTEND Family Medicine
PROC: 0W9G3ZZ Drainage of Peritoneal Cavity, Percutaneous Approach (ICD-10-PCS; principal; 2019-07-22)
DX: K70.31 Alcoholic cirrhosis of liver with ascites (principal); E11.22 Type 2 diabetes mellitus with diabetic chronic kidney disease; N18.9 Chronic kidney disease, unspecified; D63.1 Anemia in chronic kidney disease; Z79.4 Long term (current) use of insulin; Z79.899 Other long term (current) drug therapy
CPT/HCPCS: 36415; 49083; 85025; 85610; 85730

== ENCOUNTER 2019-08-05 09:23 | Day surgery (SDC) | payer MEDICARE, MEDICAID ==
[2019-08-04 12:00] VITALS: BMI 25.0
[2019-08-05] MEDS ORDERED: Lidocaine 1% PF 5 ML VIAL ONE (09:48)
[2019-08-05] MEDS ORDERED: Sodium Bicarbonate 2.5 MEQ/5 ML VIAL ONE (09:48)
--- NOTE | 2019-08-05 11:04 | ULT ---
Ultrasound-guided paracentesis: HISTORY: Cirrhosis and recurrent ascites FINDINGS: Informed consent obtained prior to the procedure. Preprocedural imaging demonstrated intrap eritoneal free fluid. An area was marked in the Right lower quadrant , and then meticulously prepped and draped in normal s terile fashion and anesthetized with 1% buffered lidocaine. With direct sonographic guidance, a 19-gauge needle and 5 Trinidadian Yueh catheter were advanced into the abdomen. After the return of fluid, the catheter was advanced, and the needle was removed. Approximately 3.9 L of clear straw-colored fluid was aspirated. The introducer sheath was removed, a nd hemostasis was achieved with direct pressure. A dry sterile dressing was placed. The patient tolerated the procedure well and without immediate complication. IMPRESSION: Technically successful ultrasound-guided paracentesis.
[2019-08-05 13:14] VITALS: BP 107/54; TEMP 98.1
== END 2019-08-05 10:55 | disposition home or self-care (01) ==
LOC: ULT 09:23
PROVIDERS: ATTEND Family Medicine
PROC: 0W9G3ZZ Drainage of Peritoneal Cavity, Percutaneous Approach (ICD-10-PCS; principal; 2019-08-05)
DX: K70.31 Alcoholic cirrhosis of liver with ascites (principal); I12.9 Hypertensive chronic kidney disease with stage 1 through stage 4 chronic kidney disease, or unspecified chronic kidney disease; E11.22 Type 2 diabetes mellitus with diabetic chronic kidney disease; N18.9 Chronic kidney disease, unspecified; D63.1 Anemia in chronic kidney disease; F04 Amnestic disorder due to known physiological condition; Z79.4 Long term (current) use of insulin; Z79.899 Other long term (current) drug therapy
CPT/HCPCS: 49083; J2001

== ENCOUNTER 2019-08-12 08:30 | Day surgery (SDC) | payer MEDICARE, MEDICAID ==
[2019-08-11 12:28] VITALS: BMI 25.0
[2019-08-12] MEDS ORDERED: Sodium Bicarbonate 2.5 MEQ/5 ML VIAL ONE (08:36)
[2019-08-12] MEDS ORDERED: Lidocaine 1% PF 5 ML VIAL ONE (08:36)
--- NOTE | 2019-08-12 09:39 | ULT ---
ULTRASOUND-GUIDED PARACENTESIS THERAPEUTIC: DATE: 08/12/2019 HISTORY: 63-year-old male with cirrhosis causing symptomatic ascites: Abdominal distention TECHNIQUE: Signed informed consent obtained. A four-quadrant survey of abdomen performed. Site selected for puncture: Left lower quadrant Overlying skin prepared and draped in usual sterile fashion. 25-gauge needle used to apply buffered lidocaine superficially and deeply. 5 Kuwaiti Yueh catheter with stylette advanced into the pocket of free intraperitoneal fluid. After drainage, the Yueh catheter was removed. Patient tolerated the procedure well. No complications. FINDINGS: Volume of ascites prior to procedure:moderate. Volume of ascites fluid in the drainage pocket after drainage:Minimal. Volume of ascites fluid drained:3200 mL Appearance of ascites fluid:nonhemorrhagic, straw-colored. IMPRESSION: Successful therapeutic paracentesis, with drainage of 3.2 L of ascites fluid.
[2019-08-12 10:17] VITALS: BP 114/59; TEMP 98
== END 2019-08-12 09:40 | disposition home or self-care (01) ==
LOC: ULT 08:30
PROVIDERS: ATTEND Family Medicine
PROC: 0W9G3ZZ Drainage of Peritoneal Cavity, Percutaneous Approach (ICD-10-PCS; principal; 2019-08-12)
DX: K74.60 Unspecified cirrhosis of liver (principal); R18.8 Other ascites; I12.9 Hypertensive chronic kidney disease with stage 1 through stage 4 chronic kidney disease, or unspecified chronic kidney disease; E11.22 Type 2 diabetes mellitus with diabetic chronic kidney disease; N18.9 Chronic kidney disease, unspecified; D64.9 Anemia, unspecified; F04 Amnestic disorder due to known physiological condition; Z79.4 Long term (current) use of insulin; Z79.899 Other long term (current) drug therapy
CPT/HCPCS: 49083; J2001

== ENCOUNTER 2019-08-19 09:05 | Day surgery (SDC) | payer MEDICARE, MEDICAID ==
[2019-08-18 16:22] VITALS: BMI 25.0
[2019-08-19] MEDS ORDERED: Lidocaine 1% PF 5 ML VIAL ONE (09:35)
[2019-08-19] MEDS ORDERED: Sodium Bicarbonate 2.5 MEQ/5 ML VIAL ONE (09:35)
[2019-08-19 12:27] VITALS: TEMP 98.6
--- NOTE | 2019-08-19 16:04 | ULT ---
ULTRASOUND-GUIDED PARACENTESIS THERAPEUTIC: DATE: 08/19/2019 HISTORY: 63-year-old male with alcoholic cirrhosis causing symptomatic ascites: Abdominal distention TECHNIQUE: Signed informed consent obtained. A four-quadrant survey of abdomen performed. Site selected for puncture: Left lower quadrant Overlying skin prepared and draped in usual sterile fashion. 25-gauge needle used to apply buffered lidocaine superficially and deeply. 5 Fijian Yueh catheter with stylette advanced into the pocket of free intraperitoneal fluid. After drainage, the Yueh catheter was removed. Patient tolerated the procedure well. No complications. FINDINGS: Volume of ascites prior to procedure:moderate. Volume of ascites fluid in the drainage pocket after drainage:Little or none. Volume of ascites fluid drained:3700 mL Appearance of ascites fluid:nonhemorrhagic, straw-colored. IMPRESSION: Successful therapeutic paracentesis, with drainage of 3.7 L of ascites fluid.
== END 2019-08-19 10:30 ==
LOC: ULT 09:05
PROVIDERS: ATTEND Family Medicine
PROC: 0W9G3ZZ Drainage of Peritoneal Cavity, Percutaneous Approach (ICD-10-PCS; principal; 2019-08-19)
DX: K70.31 Alcoholic cirrhosis of liver with ascites (principal); E11.22 Type 2 diabetes mellitus with diabetic chronic kidney disease; N18.9 Chronic kidney disease, unspecified; D63.1 Anemia in chronic kidney disease; Z79.4 Long term (current) use of insulin; Z79.899 Other long term (current) drug therapy
CPT/HCPCS: 49083; J2001

== ENCOUNTER 2019-08-26 08:39 | Day surgery (SDC) | payer MEDICARE, MEDICAID ==
[2019-08-25 10:05] VITALS: BMI 25.0
[2019-08-26 08:47] LABS: INR-International Normal Ratio 1.3; PTT 39.3 sec (22.9-36.1)
[2019-08-26 08:50] LABS: Hemoglobin 8.5 g/dL (14.0-18.0); Mean Corpuscular HGB CONC 35.3 g/dL (32.0-36.0); Mean Corpuscular Hemoglobin 19.9 pg (27.0-31.0); Mean Corpuscular Volume 56.4 fL (78.0-98.0); Platelet Count 80 thou/uL (130-400); RBC Distribution Width 18.2 % (11.5-14.5); Red Blood Cell (RBC) Count 4.28 mill/uL (4.70-6.10); White Blood Cell (WBC) Count 18.8 thou/uL (4.8-10.8)
[2019-08-26] MEDS ORDERED: Lidocaine 1% PF 5 ML VIAL ONE (09:13)
[2019-08-26] MEDS ORDERED: Sodium Bicarbonate 2.5 MEQ/5 ML VIAL ONE (09:13)
[2019-08-26 09:47] LABS: Band 5 % (5-11); Eosinophils 2 % (0-10); Hemoglobin C Crystals MODERATE (None Seen); Hypochromia MODERATE=16-30 cells (100X) (0-5/hpf); Lymphocytes 24 % (21-51); MDiff Complete? YES; Microcytosis MARKED = >30 cells (100X) (0-5/hpf); Monocytes 5 % (0-10); Neutrophil 63 % (42-75); Ovalocytes MODERATE= 6-15 cells (100X) (0-1/hpf); Platelet Morphology Comment Appears Decreased; Polychromasia MODERATE = 3-4 cells (100X) (0-2/hpf); Schistocytes SLIGHT = 2-5 cells (100X) (0-1/hpf); Target Cells MODERATE= 6-15 cells (100X) (0-1/hpf)
--- NOTE | 2019-08-26 10:08 | ULT ---
Exam: Ultrasound guided paracentesis HISTORY: Ascites COMPARISON: 08/19/2019 FINDINGS: Successful ultrasound-guided paracentesis. Total of 5600 mL of yellow color ascites was asp irated. TECHNIQUE: Consent obtained reformatory ultrasound-guided paracentesis. Right lower quadrant was deem ed appropriate. Skin was prepped and draped in a sterile fashion. 1% lidocaine, buffered with sodium bicarbonate was used for local anesthesia. Under ultrasound guidance, a 5 Luxembourger 7 cm Yueh cat heter is advanced in the peritoneal space. A total of 5600 mL of yellow color ascites was aspirated. No immediate or postprocedural complications IMPRESSION: Successful ultrasound-guided paracentesis.
[2019-08-26 10:22] VITALS: BP 109/64; TEMP 98
== END 2019-08-26 10:00 | disposition home or self-care (01) ==
LOC: ULT 08:39
PROVIDERS: ATTEND Family Medicine
PROC: 0W9G3ZZ Drainage of Peritoneal Cavity, Percutaneous Approach (ICD-10-PCS; principal; 2019-08-26)
DX: K74.60 Unspecified cirrhosis of liver (principal); R18.8 Other ascites; I12.9 Hypertensive chronic kidney disease with stage 1 through stage 4 chronic kidney disease, or unspecified chronic kidney disease; E11.22 Type 2 diabetes mellitus with diabetic chronic kidney disease; N18.9 Chronic kidney disease, unspecified; D63.1 Anemia in chronic kidney disease; Z79.4 Long term (current) use of insulin; Z79.899 Other long term (current) drug therapy
CPT/HCPCS: 36415; 49083; 85025; 85610; 85730; J2001

== ENCOUNTER 2019-09-02 08:22 | Day surgery (SDC) | payer MEDICARE, MEDICAID ==
[2019-09-01 08:07] VITALS: BMI 25.0
[2019-09-02] MEDS ORDERED: Sodium Bicarbonate 2.5 MEQ/5 ML VIAL ONE (08:43)
[2019-09-02] MEDS ORDERED: Lidocaine 1% PF 5 ML VIAL ONE (08:43)
[2019-09-02 09:42] VITALS: BP 104/59; TEMP 98.5
--- NOTE | 2019-09-02 09:51 | ULT ---
Sonographic guided paracentesis HISTORY: Recurrent ascites. FINDINGS: After explaining the procedure and answering all questions, sonographic survey showed a lar ge amount of free fluid throughout the abdomen. Sterile technique, buffered local anesthesia, sonographic guidance, and a right lateral approach were used to carefully advance a 19-gauge Yueh needle and catheter into the free fluid. Catheter was left to drain a total volume of 4.4 L dark yellow liquid. Catheter was removed with minimal fluid rem aining. Patient tolerated the procedure well and was dismissed in good condition. IMPRESSION : Technically successful sonographic guided paracentesis.
== END 2019-09-02 09:20 ==
LOC: ULT 08:22
PROVIDERS: ATTEND Family Medicine
PROC: 0W9G3ZZ Drainage of Peritoneal Cavity, Percutaneous Approach (ICD-10-PCS; principal; 2019-09-02)
DX: K74.60 Unspecified cirrhosis of liver (principal); R18.8 Other ascites; E11.22 Type 2 diabetes mellitus with diabetic chronic kidney disease; N18.9 Chronic kidney disease, unspecified; D69.6 Thrombocytopenia, unspecified; E51.2 Wernicke's encephalopathy; Z79.4 Long term (current) use of insulin; Z79.899 Other long term (current) drug therapy
CPT/HCPCS: 49083; J2001

== ENCOUNTER 2019-09-16 08:25 | Day surgery (SDC) | payer MEDICARE, MEDICAID ==
[2019-09-15 07:00] VITALS: BMI 25.0
[2019-09-16] MEDS ORDERED: Sodium Bicarbonate 2.5 MEQ/5 ML VIAL ONE (08:42)
[2019-09-16] MEDS ORDERED: Lidocaine 1% PF 5 ML VIAL ONE (08:42)
[2019-09-16 10:11] VITALS: BP 110/60; TEMP 97.6
--- NOTE | 2019-09-16 13:01 | ULT ---
Sonographic guided paracentesis HISTORY: Recurrent ascites. FINDINGS: After explaining the procedure and answering all questions, sonographic survey showed a lar ge amount of free fluid. Sterile technique, buffered local anesthesia, sonographic guidance, and a right lateral approach were used to carefully a 19-gauge Yueh needle and catheter into the free fluid. Catheter was left to drain a total of 5.1 L slightly turbid yellow liquid. Catheter was removed with minimal fluid remaini ng. Patient tolerated the procedure well and was dismissed in good condition. IMPRESSION : Technically successful sonographic guided paracentesis. 5.1 L.
== END 2019-09-16 09:45 ==
LOC: ULT 08:25
PROVIDERS: ATTEND Family Medicine
PROC: 0W9G3ZZ Drainage of Peritoneal Cavity, Percutaneous Approach (ICD-10-PCS; principal; 2019-09-16)
DX: K74.60 Unspecified cirrhosis of liver (principal); R18.8 Other ascites; I12.9 Hypertensive chronic kidney disease with stage 1 through stage 4 chronic kidney disease, or unspecified chronic kidney disease; E11.22 Type 2 diabetes mellitus with diabetic chronic kidney disease; N18.9 Chronic kidney disease, unspecified; D63.1 Anemia in chronic kidney disease; D69.6 Thrombocytopenia, unspecified; Z79.4 Long term (current) use of insulin; Z79.899 Other long term (current) drug therapy
CPT/HCPCS: 49083

== ENCOUNTER 2019-09-23 08:42 | Day surgery (SDC) | payer MEDICARE, MEDICAID ==
[2019-09-22 10:26] VITALS: BMI 25.0
[2019-09-23 09:06] LABS: INR-International Normal Ratio 1.2; PTT 39.2 sec (22.9-36.1)
[2019-09-23 09:07] LABS: Hemoglobin 8.5 g/dL (14.0-18.0); Mean Corpuscular HGB CONC 34.2 g/dL (32.0-36.0); Mean Corpuscular Hemoglobin 19.5 pg (27.0-31.0); Mean Corpuscular Volume 56.9 fL (78.0-98.0); Mean Platelet Volume 5.8 fL (7.4-10.4); Platelet Count 81 thou/uL (130-400); RBC Distribution Width 17.7 % (11.5-14.5); Red Blood Cell (RBC) Count 4.36 mill/uL (4.70-6.10); White Blood Cell (WBC) Count 18.1 thou/uL (4.8-10.8)
[2019-09-23] MEDS ORDERED: Lidocaine 1% PF 5 ML VIAL ONE (09:15)
[2019-09-23] MEDS ORDERED: Sodium Bicarbonate 2.5 MEQ/5 ML VIAL ONE (09:15)
[2019-09-23 09:33] LABS: Eosinophils 2 % (0-10); Hypochromia MODERATE=16-30 cells (100X) (0-5/hpf); Lymphocytes 19 % (21-51); MDiff Complete? YES; Microcytosis MARKED = >30 cells (100X) (0-5/hpf); Monocytes 7 % (0-10); Neutrophil 72 % (42-75); Ovalocytes MODERATE= 6-15 cells (100X) (0-1/hpf); Platelet Morphology Comment Appears Decreased; Polychromasia MODERATE = 3-4 cells (100X) (0-2/hpf); Target Cells MARKED = >16 cells (100X) (0-1/hpf)
--- NOTE | 2019-09-23 10:10 | ULT ---
Exam: Ultrasound guided paracentesis HISTORY: Ascites COMPARISON: 09/16/2019 FINDINGS: Successful ultrasound-guided paracentesis. Total of 5.2 L of yellow color ascites was aspir ated. TECHNIQUE: Consent obtained reformatory ultrasound-guided paracentesis. Right lower quadrant was deem ed appropriate. Skin was prepped and draped in a sterile fashion. 1% lidocaine, buffered with sodium bicarbonate was used for local anesthesia. Under ultrasound guidance, a 5 Spanish 7 cm Yueh cat heter is advanced in the peritoneal space. A total of 5.2 L of yellow color ascites was aspirated. No immediate or postprocedural complications IMPRESSION: Successful ultrasound-guided paracentesis.
[2019-09-23 11:16] VITALS: BP 115/74; TEMP 98.1
== END 2019-09-23 10:05 | disposition home or self-care (01) ==
LOC: ULT 08:42
PROVIDERS: ATTEND Family Medicine
PROC: 0W9G3ZZ Drainage of Peritoneal Cavity, Percutaneous Approach (ICD-10-PCS; principal; 2019-09-23)
DX: K74.60 Unspecified cirrhosis of liver (principal); I12.9 Hypertensive chronic kidney disease with stage 1 through stage 4 chronic kidney disease, or unspecified chronic kidney disease; E11.22 Type 2 diabetes mellitus with diabetic chronic kidney disease; N18.9 Chronic kidney disease, unspecified; D64.9 Anemia, unspecified; E78.5 Hyperlipidemia, unspecified; F04 Amnestic disorder due to known physiological condition
CPT/HCPCS: 36415; 49083; 85025; 85610; 85730

== ENCOUNTER 2019-09-30 08:48 | Day surgery (SDC) | payer MEDICARE, MEDICAID ==
[2019-09-29 09:57] VITALS: BMI 25.0
[2019-09-30] MEDS ORDERED: Lidocaine 1% PF 5 ML VIAL ONE (09:43)
[2019-09-30] MEDS ORDERED: Sodium Bicarbonate 2.5 MEQ/5 ML VIAL ONE (09:43)
--- NOTE | 2019-09-30 10:56 | ULT ---
Exam: Ultrasound guided paracentesis HISTORY: Ascites COMPARISON: Prior exam dated September 23, 2019 FINDINGS: Successful ultrasound-guided paracentesis. Total of 5.7 L of normal appearingascites was as pirated. TECHNIQUE: Consent obtained reformatory ultrasound-guided paracentesis. Left lower quadrantwas deemed appropriate. Skin was prepped and draped in a sterile fashion. 1% lidocaine, buffered with sodium bicarbonate was used for local anesthesia. Under ultrasound guidance, a 5 Ugandan 7 cm Urban Matrixeh catheter i s advanced in the peritoneal space. A total of 5.7 L of normal appearingascites was aspirated. No immediate or postprocedural complications IMPRESSION: Successful ultrasound-guided paracentesis.
[2019-09-30 11:42] VITALS: BP 129/73; TEMP 98.3
== END 2019-09-30 11:05 ==
LOC: ULT 08:48
PROVIDERS: ATTEND Family Medicine
PROC: 0W9G3ZZ Drainage of Peritoneal Cavity, Percutaneous Approach (ICD-10-PCS; principal; 2019-09-30)
PROC: BW40ZZZ Ultrasonography of Abdomen (ICD-10-PCS; 2019-09-30)
DX: K70.31 Alcoholic cirrhosis of liver with ascites (principal); I12.9 Hypertensive chronic kidney disease with stage 1 through stage 4 chronic kidney disease, or unspecified chronic kidney disease; E11.22 Type 2 diabetes mellitus with diabetic chronic kidney disease; N18.9 Chronic kidney disease, unspecified; D63.1 Anemia in chronic kidney disease; D69.6 Thrombocytopenia, unspecified; E78.5 Hyperlipidemia, unspecified; Z79.4 Long term (current) use of insulin; Z79.899 Other long term (current) drug therapy
CPT/HCPCS: 49083

== ENCOUNTER 2019-10-07 08:54 | Day surgery (SDC) | payer MEDICARE, MEDICAID ==
[2019-10-06 09:38] VITALS: BMI 25.0
[~2019-10-07 08:54] MED LIST: Lidocaine 1% PF 5 ML VIAL ONE; Sodium Bicarbonate 2.5 MEQ/5 ML VIAL ONE
--- NOTE | 2019-10-07 10:27 | ULT ---
Ultrasound-guided paracentesis: HISTORY: Cirrhosis and recurrent ascites FINDINGS: Informed consent obtained prior to the procedure. Preprocedural imaging demonstrated intrap eritoneal free fluid. An area was marked in the Right lower quadrant , and then meticulously prepped and draped in normal s terile fashion and anesthetized with 1% buffered lidocaine. With direct sonographic guidance, a 19-gauge needle and 5 Zambian Yueh catheter were advanced into the abdomen. After the return of fluid, the catheter was advanced, and the needle was removed. Approximately 5.2 L of clear orange fluid was aspirated. The introducer sheath was removed, and hemos tasis was achieved with direct pressure. A dry sterile dressing was placed. The patient tolerated the procedure well and without immediate complication. IMPRESSION: Technically successful ultrasound-guided paracentesis.
[2019-10-07 11:05] VITALS: BP 121/60; TEMP 98.2
== END 2019-10-07 10:25 | disposition home or self-care (01) ==
LOC: ULT 08:54
PROVIDERS: ATTEND Family Medicine
PROC: 0W9G3ZZ Drainage of Peritoneal Cavity, Percutaneous Approach (ICD-10-PCS; principal; 2019-10-07)
DX: K74.60 Unspecified cirrhosis of liver (principal); R18.8 Other ascites; D64.9 Anemia, unspecified; I12.9 Hypertensive chronic kidney disease with stage 1 through stage 4 chronic kidney disease, or unspecified chronic kidney disease; E11.22 Type 2 diabetes mellitus with diabetic chronic kidney disease; N18.9 Chronic kidney disease, unspecified; E78.5 Hyperlipidemia, unspecified
CPT/HCPCS: 49083

== ENCOUNTER 2019-10-28 08:53 | Day surgery (SDC) | payer MEDICARE, MEDICAID ==
[2019-10-27 15:26] VITALS: BMI 26.7
--- NOTE | 2019-10-28 10:05 | ULT ---
Exam: Ultrasound guided paracentesis HISTORY: Ascites COMPARISON: 10/21/2019 FINDINGS: Successful ultrasound-guided paracentesis. Total of 5 L of yellow color ascites was aspirat ed. TECHNIQUE: Consent obtained reformatory ultrasound-guided paracentesis. Right lower quadrant was deem ed appropriate. Skin was prepped and draped in a sterile fashion. 1% lidocaine, buffered with sodium bicarbonate was used for local anesthesia. Under ultrasound guidance, a 5 Korean 7 cm Yueh cat heter is advanced in the peritoneal space. A total of 5 L of yellow color ascites was aspirated. No immediate or postprocedural complications IMPRESSION: Successful ultrasound-guided paracentesis.
[2019-10-28 10:09] VITALS: BP 129/67; TEMP 98.4
[2019-10-28 11:26] LABS: RBC Count-Automated (BF) 381 /cu.mm; WBC/Nucleated-Auto (BF) 504 uL
[2019-10-28 12:51] LABS: BF Color Yellow; Body Fluid Source Ascites Body Fluid; Clarity Hazy (Clear); Tube # EDTA
[2019-10-28 12:54] LABS: BF Segmented Neutrophils 5 %; Cell Count Non Hematic 69 %; Lymphocytes 26 %
== END 2019-10-28 09:40 | disposition home or self-care (01) ==
LOC: ULT 08:53
PROVIDERS: ATTEND Family Medicine
PROC: 0W9G3ZX Drainage of Peritoneal Cavity, Percutaneous Approach, Diagnostic (ICD-10-PCS; principal; 2019-10-28)
PROC: BW40ZZZ Ultrasonography of Abdomen (ICD-10-PCS; 2019-10-28)
DX: K70.31 Alcoholic cirrhosis of liver with ascites (principal); I12.9 Hypertensive chronic kidney disease with stage 1 through stage 4 chronic kidney disease, or unspecified chronic kidney disease; E11.22 Type 2 diabetes mellitus with diabetic chronic kidney disease; N18.9 Chronic kidney disease, unspecified; D63.1 Anemia in chronic kidney disease; E78.5 Hyperlipidemia, unspecified; Z79.4 Long term (current) use of insulin; Z79.899 Other long term (current) drug therapy
CPT/HCPCS: 49083; 85060; 87070; 87205; 88112; 88305; 89051

== ENCOUNTER 2019-11-05 13:05 | Day surgery (SDC) | payer MEDICARE, MEDICAID ==
[2019-11-03 10:07] VITALS: BMI 25.0
[2019-11-05] MEDS ORDERED: Sodium Bicarbonate 2.5 MEQ/5 ML VIAL ONE (13:31)
[2019-11-05] MEDS ORDERED: Lidocaine 1% PF 5 ML VIAL ONE (13:31)
[2019-11-05 14:52] VITALS: BP 110/68; TEMP 98.6
--- NOTE | 2019-11-05 15:28 | ULT ---
Sonographic guided paracentesis HISTORY: Symptomatic ascites. FINDINGS: After explaining the procedure and answering all questions, sonographic survey showed a lar ge amount of free fluid throughout the abdomen. Sterile technique, buffered local anesthesia, sonographic guidance, and a left lateral approach were used to carefully advance a 19-gauge Yueh needle and catheter into the free fluid. Catheter was left to drain a total volume of 8.1 L clear yellow liquid. Catheter was removed with min imal fluid remaining. Patient tolerated the procedure well and was dismissed in good condition. IMPRESSION : Technically successful sonographic guided paracentesis 8.1 L.
== END 2019-11-05 14:15 ==
LOC: ULT 13:05
PROVIDERS: ATTEND Family Medicine
PROC: 0W9G3ZZ Drainage of Peritoneal Cavity, Percutaneous Approach (ICD-10-PCS; principal; 2019-11-05)
DX: K70.31 Alcoholic cirrhosis of liver with ascites (principal); I12.9 Hypertensive chronic kidney disease with stage 1 through stage 4 chronic kidney disease, or unspecified chronic kidney disease; E11.22 Type 2 diabetes mellitus with diabetic chronic kidney disease; N18.9 Chronic kidney disease, unspecified; D64.9 Anemia, unspecified; E78.5 Hyperlipidemia, unspecified; E51.2 Wernicke's encephalopathy; F10.959 Alcohol use, unspecified with alcohol-induced psychotic disorder, unspecified; Z79.4 Long term (current) use of insulin; Z79.899 Other long term (current) drug therapy
CPT/HCPCS: 49083

== ENCOUNTER 2019-11-11 08:58 | Day surgery (SDC) | payer MEDICARE, MEDICAID ==
[2019-11-11] MEDS ORDERED: Prevnar 13-Val Conj/PF 0.5 ML SYRINGE IM ONE (09:00)
--- NOTE | 2019-11-11 10:06 | ULT ---
Paracentesis sonographic guided HISTORY: Recurrent ascites. Symptomatic. FINDINGS: After explaining the procedure and answering all questions, sonographic survey showed a lar ge amount of free fluid throughout the abdomen. Sterile technique, buffered local anesthesia, sonographic guidance, and a right lateral approach were used to carefully advance a 19-gauge Yueh needle and catheter into the free fluid. Catheter was left to drain a total volume of 5.0 L slightly cloudy yellow liquid. Catheter was removed with small amount of fluid remaining. Patient tolerated the procedure well and w as dismissed in improved condition. IMPRESSION : Technically successful sonographic guided paracentesis 5.0 L.
[2019-11-11 10:19] VITALS: BMI 28.1
[2019-11-11 10:21] VITALS: BP 126/59; TEMP 98.4
== END 2019-11-11 10:00 | disposition home or self-care (01) ==
LOC: ULT 08:58
PROVIDERS: ATTEND Family Medicine
PROC: 0W9G3ZX Drainage of Peritoneal Cavity, Percutaneous Approach, Diagnostic (ICD-10-PCS; principal; 2019-11-11)
PROC: BW40ZZZ Ultrasonography of Abdomen (ICD-10-PCS; 2019-11-11)
DX: K70.31 Alcoholic cirrhosis of liver with ascites (principal); I12.9 Hypertensive chronic kidney disease with stage 1 through stage 4 chronic kidney disease, or unspecified chronic kidney disease; E11.22 Type 2 diabetes mellitus with diabetic chronic kidney disease; N18.9 Chronic kidney disease, unspecified; D63.1 Anemia in chronic kidney disease; E78.5 Hyperlipidemia, unspecified
CPT/HCPCS: 49083; 87070; 87205; 88112; 88305

== ENCOUNTER 2019-11-25 09:04 | Day surgery (SDC) | payer MEDICARE, MEDICAID ==
[2019-11-24 13:09] VITALS: BMI 25.0
[2019-11-25] MEDS ORDERED: Lidocaine 1% PF 5 ML VIAL ONE (09:17)
[2019-11-25] MEDS ORDERED: Sodium Bicarbonate 2.5 MEQ/5 ML VIAL ONE (09:17)
[2019-11-25 09:22] LABS: INR-International Normal Ratio 1.2; PTT 40.2 sec (22.9-36.1); Prothrombin Time 15.1 sec (12.0-14.7)
[2019-11-25 09:26] LABS: Mean Corpuscular HGB CONC 35.8 g/dL (32.0-36.0); Mean Corpuscular Hemoglobin 20.6 pg (27.0-31.0); Mean Corpuscular Volume 57.6 fL (78.0-98.0); Mean Platelet Volume 5.5 fL (7.4-10.4); Platelet Count 86 thou/uL (130-400); RBC Distribution Width 18.5 % (11.5-14.5); Red Blood Cell (RBC) Count 4.36 mill/uL (4.70-6.10)
[2019-11-25 09:39] LABS: Band 1 % (5-11); Eosinophils 6 % (0-10); Lymphocytes 18 % (21-51); MDiff Complete? YES; Microcytosis MARKED = >30 cells (100X) (0-5/hpf); Monocytes 3 % (0-10); Neutrophil 70 % (42-75); Platelet Morphology Comment Appears Decreased; Polychromasia MODERATE = 3-4 cells (100X) (0-2/hpf); Schistocytes SLIGHT = 2-5 cells (100X) (0-1/hpf); Target Cells MODERATE= 6-15 cells (100X) (0-1/hpf)
--- NOTE | 2019-11-25 10:26 | ULT ---
Exam: Ultrasound guided paracentesis HISTORY: Ascites COMPARISON: 11/18/2019 FINDINGS: Successful ultrasound-guided paracentesis. Total of 7 L of yellow color ascites was aspirat ed. TECHNIQUE: Consent obtained reformatory ultrasound-guided paracentesis. Right lower quadrant was deem ed appropriate. Skin was prepped and draped in a sterile fashion. 1% lidocaine, buffered with sodium bicarbonate was used for local anesthesia. Under ultrasound guidance, a 5 Czech 7 cm Yueh cat heter is advanced in the peritoneal space. A total of 7 L of yellow color ascites was aspirated. No immediate or postprocedural complications IMPRESSION: Successful ultrasound-guided paracentesis.
== END 2019-11-25 10:20 ==
LOC: ULT 09:04
PROVIDERS: ATTEND Family Medicine
PROC: 0W9G3ZZ Drainage of Peritoneal Cavity, Percutaneous Approach (ICD-10-PCS; principal; 2019-11-25)
PROC: BW40ZZZ Ultrasonography of Abdomen (ICD-10-PCS; 2019-11-25)
DX: K74.60 Unspecified cirrhosis of liver (principal); R18.8 Other ascites; I12.9 Hypertensive chronic kidney disease with stage 1 through stage 4 chronic kidney disease, or unspecified chronic kidney disease; E11.22 Type 2 diabetes mellitus with diabetic chronic kidney disease; N18.9 Chronic kidney disease, unspecified; D63.1 Anemia in chronic kidney disease; E78.5 Hyperlipidemia, unspecified; Z79.4 Long term (current) use of insulin; Z79.899 Other long term (current) drug therapy
CPT/HCPCS: 36415; 49083; 85025; 85610; 85730

== ENCOUNTER 2019-12-02 08:38 | Day surgery (SDC) | payer MEDICARE, MEDICAID ==
[2019-12-02] MEDS ORDERED: Lidocaine 1% PF 5 ML VIAL ONE (08:46)
[2019-12-02] MEDS ORDERED: Sodium Bicarbonate 2.5 MEQ/5 ML VIAL ONE (08:46)
[2019-12-02 10:00] VITALS: BMI 22.5
--- NOTE | 2019-12-02 10:00 | ULT ---
US Paracentesis with Imaging History: Ascites Comparison: Paracentesis November 25, 2019 Findings: Patient was brought to the ultrasound suite. All questions were answered. Informed consent obtained. Timeout performed. Patient's left lower quadrant was prepped and draped in normal sterile fashion. Using ultrasound guid ance after adequate local anesthesia the peritoneal space was accessed with a 5 Frisian Yueh needle. 9 L of straw-colored fluid was removed. Patient tolerated the procedure well without complication. Impression: Technically successful ultrasound-guided paracentesis.
[2019-12-02 10:08] VITALS: BP 122/61; TEMP 98.4
== END 2019-12-02 10:10 | disposition home or self-care (01) ==
LOC: ULT 08:38
PROVIDERS: ATTEND Family Medicine
PROC: 0W9G3ZZ Drainage of Peritoneal Cavity, Percutaneous Approach (ICD-10-PCS; principal; 2019-12-02)
PROC: BW40ZZZ Ultrasonography of Abdomen (ICD-10-PCS; 2019-12-02)
DX: K74.60 Unspecified cirrhosis of liver (principal); R18.8 Other ascites; E78.5 Hyperlipidemia, unspecified; I12.9 Hypertensive chronic kidney disease with stage 1 through stage 4 chronic kidney disease, or unspecified chronic kidney disease; E11.22 Type 2 diabetes mellitus with diabetic chronic kidney disease; N18.9 Chronic kidney disease, unspecified; D63.1 Anemia in chronic kidney disease; Z79.4 Long term (current) use of insulin; Z79.899 Other long term (current) drug therapy
CPT/HCPCS: 49083

== ENCOUNTER 2019-12-09 07:57 | Day surgery (SDC) | payer MEDICARE, MEDICAID ==
[2019-12-09] MEDS ORDERED: Lidocaine 1% PF 5 ML VIAL ONE (08:31)
[2019-12-09] MEDS ORDERED: Sodium Bicarbonate 2.5 MEQ/5 ML VIAL ONE (08:32)
[2019-12-09 09:12] VITALS: BMI 25.0
[2019-12-09 09:15] VITALS: BP 122/68; TEMP 97.8
--- NOTE | 2019-12-09 11:56 | ULT ---
Sonographic guided paracentesis HISTORY: Symptomatic ascites. FINDINGS: After explaining the procedure and obtaining informed consent, sonographic survey showed a large amount of free fluid throughout the abdomen. Sterile technique, buffered local anesthesia, sonographic guidance, and a left lateral approach were used to carefully advance a 19-gauge Yueh needle and catheter into the free fluid. Catheter was left to drain a total volume of 6.9 L slightly cloudy yellow liquid. Catheter was removed with minimal fluid remaining. Patient tolerated the procedure well and was dismi ssed in good condition. IMPRESSION : Technically successful sonographic guided paracentesis. 6.9 L.
== END 2019-12-09 10:00 | disposition home or self-care (01) ==
LOC: ULT 07:57
PROVIDERS: ATTEND Family Medicine
PROC: 0W9G3ZZ Drainage of Peritoneal Cavity, Percutaneous Approach (ICD-10-PCS; principal; 2019-12-09)
DX: K70.31 Alcoholic cirrhosis of liver with ascites (principal); I85.10 Secondary esophageal varices without bleeding; E51.2 Wernicke's encephalopathy; E11.65 Type 2 diabetes mellitus with hyperglycemia; I10 Essential (primary) hypertension; F10.96 Alcohol use, unspecified with alcohol-induced persisting amnestic disorder; D64.9 Anemia, unspecified; D69.6 Thrombocytopenia, unspecified; D72.829 Elevated white blood cell count, unspecified
CPT/HCPCS: 49083

== ENCOUNTER 2019-12-16 08:30 | Day surgery (SDC) | payer MEDICARE, MEDICAID ==
[2019-12-15 12:01] VITALS: BMI 25.0
[2019-12-16] MEDS ORDERED: Lidocaine 1% PF 5 ML VIAL ONE (08:44)
[2019-12-16] MEDS ORDERED: Sodium Bicarbonate 2.5 MEQ/5 ML VIAL ONE (08:44)
[2019-12-16 12:07] VITALS: BP 115/65; TEMP 98
--- NOTE | 2019-12-16 12:35 | ULT ---
Ultrasound-guided paracentesis: 12/16/2019 HISTORY: Symptomatic ascites FINDINGS: Informed consent obtained prior to the procedure. Preprocedural imaging demonstrated signif icant ascites throughout the abdomen and pelvis. Left lower quadrantprepped and draped in normal sterile fashion and anesthetized with 1% buffered lid ocaine. With direct sonographic guidance, 5 Ukrainian Yueh catheter is advanced into the ascites and removal of the stylet yielded yellow fluid. 7.3 L were removed. The patient tolerated the procedure well. No postprocedural complications. IMPRESSION: Successful ultrasound-guided paracentesis yielding 7.3 L of yellow fluid.
== END 2019-12-16 09:48 | disposition home or self-care (01) ==
LOC: ULT 08:30
PROVIDERS: ATTEND Family Medicine
PROC: 0W9G3ZZ Drainage of Peritoneal Cavity, Percutaneous Approach (ICD-10-PCS; principal; 2019-12-16)
PROC: BW40ZZZ Ultrasonography of Abdomen (ICD-10-PCS; 2019-12-16)
DX: K70.31 Alcoholic cirrhosis of liver with ascites (principal); I12.9 Hypertensive chronic kidney disease with stage 1 through stage 4 chronic kidney disease, or unspecified chronic kidney disease; E11.22 Type 2 diabetes mellitus with diabetic chronic kidney disease; N18.9 Chronic kidney disease, unspecified; D63.1 Anemia in chronic kidney disease; Z79.4 Long term (current) use of insulin; Z79.899 Other long term (current) drug therapy
CPT/HCPCS: 49083

== ENCOUNTER → 2019-12-23 | Day surgery (SDC) | payer MEDICARE, MEDICAID ==
--- NOTE | 2019-12-23 09:08 | RAD ---
EXAM: 3 views of the lumbosacral spine HISTORY: Low back pain COMPARISON: None FINDINGS: 3 views of the lumbosacral spine shows normal height and alignment of the vertebral bodies and intervertebral discs without fracture or subluxation. A small osteophyte is seen extending off the superior endplate of L4. The sacroiliac joints are unremarkable. IMPRESSION: No evidence of acute osseous abnormality.
--- NOTE | 2019-12-23 09:22 | ULT ---
Paracentesis sonographic guided HISTORY: Symptomatic ascites. FINDINGS: After explaining the procedure and answering all questions, sonographic survey showed a lar ge amount of free fluid throughout the abdomen. Sterile technique, buffered local anesthesia, sonographic guidance, and a right lateral approach were used to carefully advance a 19-gauge Yueh needle and catheter into the free fluid. Catheter was left to drain a total volume of 6.6 L clear yellow liquid. Catheter was removed with minimal fluid remaining. Patient tolerated the procedure well and was dismi ssed in good condition. IMPRESSION : Technically successful sonographic guided paracentesis. Pathology is pending.
== END ==
LOC: ULT 07:59
PROVIDERS: ATTEND Family Medicine
PROC: 0W9G3ZZ Drainage of Peritoneal Cavity, Percutaneous Approach (ICD-10-PCS; principal; 2019-12-23)
PROC: BW40ZZZ Ultrasonography of Abdomen (ICD-10-PCS; 2019-12-23)
DX: K70.31 Alcoholic cirrhosis of liver with ascites (principal); M25.78 Osteophyte, vertebrae; I12.9 Hypertensive chronic kidney disease with stage 1 through stage 4 chronic kidney disease, or unspecified chronic kidney disease; E11.22 Type 2 diabetes mellitus with diabetic chronic kidney disease; N18.9 Chronic kidney disease, unspecified; D63.1 Anemia in chronic kidney disease; Z79.4 Long term (current) use of insulin; Z79.899 Other long term (current) drug therapy
CPT/HCPCS: 49083; 72100

== ENCOUNTER 2019-12-30 07:48 | Day surgery (SDC) | payer MEDICARE, MEDICAID ==
[2019-12-30 08:43] LABS: Platelet Count 97 thou/uL (130-400)
[2019-12-30] MEDS ORDERED: Sodium Bicarbonate 2.5 MEQ/5 ML VIAL ONE (08:43)
[2019-12-30] MEDS ORDERED: Lidocaine 1% PF 5 ML VIAL ONE (08:43)
[2019-12-30 08:44] LABS: Hemoglobin 9.3 g/dL (14.0-18.0); INR-International Normal Ratio 1.2; Mean Corpuscular HGB CONC 34.6 g/dL (32.0-36.0); Mean Corpuscular Hemoglobin 20.1 pg (27.0-31.0); Mean Platelet Volume 6.8 fL (7.4-10.4); PTT 41.8 sec (22.9-36.1); Prothrombin Time 15.4 sec (12.0-14.7); RBC Distribution Width 19.1 % (11.5-14.5); Red Blood Cell (RBC) Count 4.62 mill/uL (4.70-6.10); White Blood Cell (WBC) Count 11.9 thou/uL (4.8-10.8)
--- NOTE | 2019-12-30 09:34 | ULT ---
Sonographic guided paracentesis HISTORY: Symptomatic ascites. FINDINGS: After explaining the procedure and answering all questions, sonographic survey showed a lar ge amount of free fluid throughout the abdomen. Sterile technique, buffered local anesthesia, sonographic guidance, and a right lateral approach were used to carefully advance a 19-gauge Yueh needle and catheter into the free fluid. Catheter was left to drain a total volume of 3.0 L clear yellow liquid. Catheter was removed with small amount of fluid remaining. Patient tolerated the procedure well and w as dismissed in good condition. IMPRESSION : Technically successful sonographic guided paracentesis. 3.0 L.
[2019-12-30 09:57] VITALS: BP 115/68; TEMP 98.5; BMI 25.0
== END 2019-12-30 09:30 | disposition home or self-care (01) ==
LOC: ULT 07:48
PROVIDERS: ATTEND Family Medicine
PROC: 0W9G3ZZ Drainage of Peritoneal Cavity, Percutaneous Approach (ICD-10-PCS; principal; 2019-12-30)
PROC: BW40ZZZ Ultrasonography of Abdomen (ICD-10-PCS; 2019-12-30)
DX: K70.31 Alcoholic cirrhosis of liver with ascites (principal); I12.9 Hypertensive chronic kidney disease with stage 1 through stage 4 chronic kidney disease, or unspecified chronic kidney disease; E11.22 Type 2 diabetes mellitus with diabetic chronic kidney disease; N18.9 Chronic kidney disease, unspecified; D63.1 Anemia in chronic kidney disease; Z79.4 Long term (current) use of insulin; Z79.899 Other long term (current) drug therapy
CPT/HCPCS: 49083; 82140; 85027; 85610; 85730

== ENCOUNTER 2020-01-06 07:58 | Day surgery (SDC) | payer MEDICARE, MEDICAID ==
[2020-01-06] MEDS ORDERED: Lidocaine 1% PF 5 ML VIAL ONE (08:08)
[2020-01-06] MEDS ORDERED: Sodium Bicarbonate 2.5 MEQ/5 ML VIAL ONE (08:08)
--- NOTE | 2020-01-06 10:12 | ULT ---
Exam: Ultrasound guided paracentesis HISTORY: Ascites COMPARISON: December 22, 2019 FINDINGS: Successful ultrasound-guided paracentesis. Total of 8.2 L of normal appearingascites was as pirated. TECHNIQUE: Consent obtained reformatory ultrasound-guided paracentesis. Left lower quadrantwas deemed appropriate. Skin was prepped and draped in a sterile fashion. 1% lidocaine, buffered with sodium bicarbonate was used for local anesthesia. Under ultrasound guidance, a 5 Ukrainian 7 cm [employer] catheter i s advanced in the peritoneal space. A total of 8.2 L of normal appearingascites was aspirated. No immediate or postprocedural complications IMPRESSION: Successful ultrasound-guided paracentesis.
[2020-01-06 11:14] VITALS: BP 120/76; TEMP 98.6
== END 2020-01-06 09:30 ==
LOC: ULT 07:58
PROVIDERS: ATTEND Family Medicine
PROC: 0W9G3ZZ Drainage of Peritoneal Cavity, Percutaneous Approach (ICD-10-PCS; principal; 2020-01-06)
PROC: BW40ZZZ Ultrasonography of Abdomen (ICD-10-PCS; 2020-01-06)
DX: K70.31 Alcoholic cirrhosis of liver with ascites (principal); I12.9 Hypertensive chronic kidney disease with stage 1 through stage 4 chronic kidney disease, or unspecified chronic kidney disease; E11.22 Type 2 diabetes mellitus with diabetic chronic kidney disease; N18.9 Chronic kidney disease, unspecified; D63.1 Anemia in chronic kidney disease; Z79.4 Long term (current) use of insulin; Z79.899 Other long term (current) drug therapy
CPT/HCPCS: 49083

== ENCOUNTER 2020-01-13 07:54 | Day surgery (SDC) | payer MEDICARE, MEDICAID ==
[2020-01-12 14:25] VITALS: BMI 25.0
[2020-01-13] MEDS ORDERED: Sodium Bicarbonate 2.5 MEQ/5 ML VIAL ONE (08:02)
[2020-01-13] MEDS ORDERED: Lidocaine 1% PF 5 ML VIAL ONE (08:02)
[2020-01-13 09:14] VITALS: BP 126/67; TEMP 98.2
--- NOTE | 2020-01-13 11:30 | ULT ---
Ultrasound-guided paracentesis: HISTORY: Cirrhosis and recurrent ascites. FINDINGS: Informed consent obtained prior to the procedure. Preprocedural imaging demonstrated intrap eritoneal free fluid. An area was marked in the left lower quadrant, and then meticulously prepped and draped in normal meredith rile fashion and anesthetized with 1% buffered lidocaine. With direct sonographic guidance, a 19-gauge needle and 5 [place]ib[place] Yueh catheter were advanced into the abdomen. After the return of fluid, the catheter was advanced, and the needle was removed. Approximately 6 L of clear straw-colored fluid was aspirated. The introducer sheath was removed, and hemostasis was achieved with direct pressure. A dry sterile dressing was placed. The patient tolerated the procedure well and without immediate complication. IMPRESSION: Technically successful ultrasound-guided paracentesis.
== END 2020-01-13 08:55 | disposition home or self-care (01) ==
LOC: ULT 07:54
PROVIDERS: ATTEND Family Medicine
PROC: 0W9G3ZZ Drainage of Peritoneal Cavity, Percutaneous Approach (ICD-10-PCS; principal; 2020-01-13)
PROC: BW40ZZZ Ultrasonography of Abdomen (ICD-10-PCS; 2020-01-13)
DX: K70.31 Alcoholic cirrhosis of liver with ascites (principal); I12.9 Hypertensive chronic kidney disease with stage 1 through stage 4 chronic kidney disease, or unspecified chronic kidney disease; E11.22 Type 2 diabetes mellitus with diabetic chronic kidney disease; N18.9 Chronic kidney disease, unspecified; D63.1 Anemia in chronic kidney disease; Z79.4 Long term (current) use of insulin; Z79.899 Other long term (current) drug therapy
CPT/HCPCS: 49083

== ENCOUNTER 2020-01-20 08:48 | Day surgery (SDC) | payer MEDICARE, MEDICAID ==
[2020-01-19 12:17] VITALS: BMI 25.1
[2020-01-20] MEDS ORDERED: Lidocaine 1% PF 5 ML VIAL ONE (08:59)
[2020-01-20] MEDS ORDERED: Sodium Bicarbonate 2.5 MEQ/5 ML VIAL ONE (08:59)
--- NOTE | 2020-01-20 09:59 | ULT ---
Exam: Ultrasound guided paracentesis HISTORY: Ascites COMPARISON: 01/13/2020 FINDINGS: Successful ultrasound-guided paracentesis. Total of 3.8 L of yellow color ascites was aspir ated. TECHNIQUE: Consent obtained reformatory ultrasound-guided paracentesis. Right lower quadrant was deem ed appropriate. Skin was prepped and draped in a sterile fashion. 1% lidocaine, buffered with sodium bicarbonate was used for local anesthesia. Under ultrasound guidance, a 5 Slovenian 7 cm Yueh cat heter is advanced in the peritoneal space. A total of 3.8 L of yellow color ascites was aspirated. No immediate or postprocedural complications IMPRESSION: Successful ultrasound-guided paracentesis.
[2020-01-20 10:11] VITALS: BP 122/70; TEMP 97.7
[2020-01-20] MEDS ORDERED: FLU VACC QS2020-21(6MOS UP)/PF 60 MCG/0.5 ML SYRINGE IM ONE (12:30)
== END 2020-01-20 09:55 | disposition home or self-care (01) ==
LOC: ULT 08:48
PROVIDERS: ATTEND Family Medicine
PROC: 0W9G3ZZ Drainage of Peritoneal Cavity, Percutaneous Approach (ICD-10-PCS; principal; 2020-01-20)
PROC: BW40ZZZ Ultrasonography of Abdomen (ICD-10-PCS; 2020-01-20)
DX: K70.31 Alcoholic cirrhosis of liver with ascites (principal); I12.9 Hypertensive chronic kidney disease with stage 1 through stage 4 chronic kidney disease, or unspecified chronic kidney disease; E11.22 Type 2 diabetes mellitus with diabetic chronic kidney disease; N18.9 Chronic kidney disease, unspecified; D63.1 Anemia in chronic kidney disease; Z79.4 Long term (current) use of insulin; Z79.899 Other long term (current) drug therapy
CPT/HCPCS: 49083; 90471; 90662; G0008

== ENCOUNTER 2020-01-27 08:23 | Day surgery (SDC) | payer MEDICARE, MEDICAID ==
[2020-01-26 08:12] VITALS: BMI 25.0
[2020-01-27 09:15] LABS: INR-International Normal Ratio 1.2; Prothrombin Time 15.5 sec (12.0-14.7)
[2020-01-27 09:16] LABS: PTT 44.1 sec (22.9-36.1)
[2020-01-27 09:20] LABS: Hemoglobin 9.1 g/dL (14.0-18.0); Mean Corpuscular HGB CONC 33.4 g/dL (32.0-36.0); Mean Corpuscular Hemoglobin 19.7 pg (27.0-31.0); Mean Corpuscular Volume 58.9 fL (78.0-98.0); Mean Platelet Volume 5.4 fL (7.4-10.4); Platelet Count 109 thou/uL (130-400); RBC Distribution Width 19.2 % (11.5-14.5); Red Blood Cell (RBC) Count 4.62 mill/uL (4.70-6.10); White Blood Cell (WBC) Count 14.8 thou/uL (4.8-10.8)
[2020-01-27 09:39] LABS: Band 4 % (5-11); Eosinophils 6 % (0-10); Hemoglobin C Crystals MODERATE (None Seen); Hypochromia SLIGHT = 6-15 cells (100X) (0-5/hpf); Lymphocytes 19 % (21-51); MDiff Complete? YES; Microcytosis MARKED = >30 cells (100X) (0-5/hpf); Monocytes 5 % (0-10); Neutrophil 66 % (42-75); Nucleated RBC 2 % (0); Platelet Morphology Comment Appears Decreased; Poikilocytosis MODERATE=16-30 cells (100X) (0-5/hpf); Polychromasia MODERATE = 3-4 cells (100X) (0-2/hpf); Reflex for Review?? NO; Target Cells MARKED = >16 cells (100X) (0-1/hpf)
[2020-01-27] MEDS ORDERED: Sodium Bicarbonate 2.5 MEQ/5 ML VIAL ONE (09:50)
[2020-01-27] MEDS ORDERED: Lidocaine 1% PF 5 ML VIAL ONE (09:50)
--- NOTE | 2020-01-27 10:24 | ULT ---
Ultrasound-guided paracentesis: HISTORY: Cirrhosis and recurrent ascites FINDINGS: Informed consent obtained prior to the procedure. Preprocedural imaging demonstrated intrap eritoneal free fluid. An area was marked in the mid axillary line in the right mid abdomen, and then meticulously prepped a nd draped in normal sterile fashion and anesthetized with 1% buffered lidocaine. With direct sonographic guidance, a 19-gauge needle and 5 [place] [employer] catheter were advanced into the abdomen. After the return of fluid, the catheter was advanced, and the needle was removed. Approximately 6 L of clear straw-colored fluid was aspirated. The introducer sheath was removed, and hemostasis was achieved with direct pressure. A dry sterile dressing was placed. The patient tolerated the procedure well and without immediate complication. IMPRESSION: Technically successful ultrasound-guided paracentesis.
[2020-01-27 10:30] VITALS: BP 119/71; TEMP 97.7
== END 2020-01-27 10:30 | disposition home or self-care (01) ==
LOC: ULT 08:23
PROVIDERS: ATTEND Family Medicine
PROC: 0W9G3ZZ Drainage of Peritoneal Cavity, Percutaneous Approach (ICD-10-PCS; principal; 2020-01-27)
DX: K70.31 Alcoholic cirrhosis of liver with ascites (principal); I12.9 Hypertensive chronic kidney disease with stage 1 through stage 4 chronic kidney disease, or unspecified chronic kidney disease; E11.22 Type 2 diabetes mellitus with diabetic chronic kidney disease; N18.9 Chronic kidney disease, unspecified; D63.1 Anemia in chronic kidney disease; Z79.4 Long term (current) use of insulin; Z79.899 Other long term (current) drug therapy
CPT/HCPCS: 36415; 49083; 85025; 85610; 85730

== ENCOUNTER 2020-02-03 08:12 | Day surgery (SDC) | payer MEDICARE, MEDICAID ==
[2020-02-02 10:12] VITALS: BMI 25.0
[2020-02-03] MEDS ORDERED: Lidocaine 1% PF 5 ML VIAL ONE (08:22)
[2020-02-03] MEDS ORDERED: Sodium Bicarbonate 2.5 MEQ/5 ML VIAL ONE (08:22)
[2020-02-03 10:24] VITALS: BP 131/71; TEMP 97.9
--- NOTE | 2020-02-03 10:25 | ULT ---
Exam: Ultrasound guided paracentesis HISTORY: Ascites COMPARISON: 01/27/2020 FINDINGS: Successful ultrasound-guided paracentesis. Total of 5.9 L of yellow color ascites was aspir ated. TECHNIQUE: Consent obtained reformatory ultrasound-guided paracentesis. Left lower quadrantwas deemed appropriate. Skin was prepped and draped in a sterile fashion. 1% lidocaine, buffered with sodium bicarbonate was used for local anesthesia. Under ultrasound guidance, a 5 Frisian 7 cm [employer] catheter i s advanced in the peritoneal space. A total of 5.9 L of yellow color ascites was aspirated. No immediate or postprocedural complications IMPRESSION: Successful ultrasound-guided paracentesis.
== END 2020-02-03 09:50 | disposition home or self-care (01) ==
LOC: ULT 08:12
PROVIDERS: ATTEND Family Medicine
PROC: 0W9G3ZZ Drainage of Peritoneal Cavity, Percutaneous Approach (ICD-10-PCS; principal; 2020-02-03)
DX: K70.31 Alcoholic cirrhosis of liver with ascites (principal); I12.9 Hypertensive chronic kidney disease with stage 1 through stage 4 chronic kidney disease, or unspecified chronic kidney disease; E11.22 Type 2 diabetes mellitus with diabetic chronic kidney disease; N18.9 Chronic kidney disease, unspecified; D63.1 Anemia in chronic kidney disease; Z79.4 Long term (current) use of insulin; Z79.899 Other long term (current) drug therapy
CPT/HCPCS: 49083

== ENCOUNTER 2020-02-10 08:25 | Day surgery (SDC) | payer MEDICARE, MEDICAID ==
[2020-02-09 08:07] VITALS: BMI 25.0
[2020-02-10] MEDS ORDERED: Lidocaine 1% PF 5 ML VIAL ONE (08:30)
[2020-02-10] MEDS ORDERED: Sodium Bicarbonate 2.5 MEQ/5 ML VIAL ONE (08:30)
[2020-02-10 10:25] VITALS: BP 120/72; TEMP 98.3
[2020-02-10] MEDS ORDERED: Albumin 25% 100 ML ONE (12:10)
--- NOTE | 2020-02-10 18:50 | ULT ---
Ultrasound-guided paracentesis: HISTORY: Recurrent ascites. FINDINGS: Informed consent obtained prior to the procedure. Preprocedural imaging demonstrated intrap eritoneal free fluid. An area was marked in the left lower quadrant, and then meticulously prepped and draped in normal meredith rile fashion and anesthetized with 1% buffered lidocaine. With direct sonographic guidance, a 19-gauge needle and 5 Irish Yueh catheter were advanced into the abdomen. After the return of fluid, the catheter was advanced, and the needle was removed. Approximately 5.1 L of clear straw-colored fluid was aspirated. The introducer sheath was removed, a nd hemostasis was achieved with direct pressure. A dry sterile dressing was placed. The patient tolerated the procedure well and without immediate complication. IMPRESSION: Technically successful ultrasound-guided paracentesis.
== END 2020-02-10 09:45 | disposition home or self-care (01) ==
LOC: ULT 08:25
PROVIDERS: ATTEND Family Medicine
PROC: 0W9G3ZZ Drainage of Peritoneal Cavity, Percutaneous Approach (ICD-10-PCS; principal; 2020-02-10)
DX: K70.31 Alcoholic cirrhosis of liver with ascites (principal); I12.9 Hypertensive chronic kidney disease with stage 1 through stage 4 chronic kidney disease, or unspecified chronic kidney disease; E11.22 Type 2 diabetes mellitus with diabetic chronic kidney disease; N18.9 Chronic kidney disease, unspecified; D63.1 Anemia in chronic kidney disease; Z79.1 Long term (current) use of non-steroidal anti-inflammatories (NSAID); Z79.4 Long term (current) use of insulin; Z79.899 Other long term (current) drug therapy
CPT/HCPCS: 49083; P9047

== ENCOUNTER 2020-02-17 08:22 | Day surgery (SDC) | payer MEDICARE, MEDICAID ==
[2020-02-16 10:06] VITALS: BMI 25.0
[2020-02-17] MEDS ORDERED: Sodium Bicarbonate 2.5 MEQ/5 ML VIAL ONE (08:32)
[2020-02-17] MEDS ORDERED: Albumin 25% 100 ML ONE (08:32)
[2020-02-17] MEDS ORDERED: Lidocaine 1% PF 5 ML VIAL ONE (08:32)
[2020-02-17 10:36] VITALS: BP 124/74; TEMP 97.1
--- NOTE | 2020-02-17 11:36 | ULT ---
Exam: Ultrasound guided paracentesis HISTORY: Ascites COMPARISON: February 10, 2020 FINDINGS: Successful ultrasound-guided paracentesis. Total of 5.6 L of normal appearingascites was as pirated. TECHNIQUE: Consent obtained reformatory ultrasound-guided paracentesis. Left lower quadrantwas deemed appropriate. Skin was prepped and draped in a sterile fashion. 1% lidocaine, buffered with sodium bicarbonate was used for local anesthesia. Under ultrasound guidance, a 5 Slovak 7 cm [employer] catheter i s advanced in the peritoneal space. A total of 5.6 L of normal appearingascites was aspirated. No immediate or postprocedural complications IMPRESSION: Successful ultrasound-guided paracentesis.
== END 2020-02-17 10:10 | disposition home or self-care (01) ==
LOC: ULT 08:22
PROVIDERS: ATTEND Family Medicine
DX: K74.60 Unspecified cirrhosis of liver (principal); R18.8 Other ascites; I12.9 Hypertensive chronic kidney disease with stage 1 through stage 4 chronic kidney disease, or unspecified chronic kidney disease; E11.22 Type 2 diabetes mellitus with diabetic chronic kidney disease; N18.9 Chronic kidney disease, unspecified; E51.2 Wernicke's encephalopathy; D64.9 Anemia, unspecified; Z79.2 Long term (current) use of antibiotics; Z79.4 Long term (current) use of insulin; Z79.899 Other long term (current) drug therapy
CPT/HCPCS: 49083; P9047

== ENCOUNTER 2020-02-24 08:26 | Day surgery (SDC) | payer MEDICARE, MEDICAID ==
[2020-02-23 12:16] VITALS: BMI 25.0
[2020-02-24] MEDS ORDERED: Albumin 25% 100 ML ONE (08:47)
--- NOTE | 2020-02-24 09:49 | ULT ---
Paracentesis sonographic guided HISTORY: Symptomatic ascites. FINDINGS: After explaining the procedure and answering all questions, sonographic survey showed a mod erate amount of free fluid throughout the abdomen. Sterile technique, buffered local anesthesia, sonographic guidance, and a right lateral approach were used to carefully advance a 19-gauge Yueh needle and catheter into the free fluid. Catheter was left to drain a total volume of 3.2 L clear yellow liquid. Catheter was removed with min imal fluid remaining. Patient tolerated the procedure well and was dismissed in good condition. IMPRESSION : Technically successful sonographic guided paracentesis. 3.2 L.
[2020-02-24 09:52] VITALS: BP 104/63; TEMP 97.4
== END 2020-02-24 09:30 | disposition home or self-care (01) ==
LOC: ULT 08:26
PROVIDERS: ATTEND Family Medicine
PROC: 0W9G3ZZ Drainage of Peritoneal Cavity, Percutaneous Approach (ICD-10-PCS; principal; 2020-02-24)
DX: K74.60 Unspecified cirrhosis of liver (principal); R18.8 Other ascites; E51.2 Wernicke's encephalopathy; I12.9 Hypertensive chronic kidney disease with stage 1 through stage 4 chronic kidney disease, or unspecified chronic kidney disease; E11.22 Type 2 diabetes mellitus with diabetic chronic kidney disease; N18.9 Chronic kidney disease, unspecified; D64.9 Anemia, unspecified; D69.6 Thrombocytopenia, unspecified; Z79.4 Long term (current) use of insulin; Z79.899 Other long term (current) drug therapy
CPT/HCPCS: 49083; P9047

== ENCOUNTER 2020-03-02 09:01 | Day surgery (SDC) | payer MEDICARE, MEDICAID ==
[2020-03-01 15:26] VITALS: BMI 25.0
[2020-03-02 08:55] LABS: INR-International Normal Ratio 1.2; PTT 38.7 sec (22.9-36.1); Prothrombin Time 15.1 sec (12.0-14.7)
[2020-03-02] MEDS ORDERED: Albumin 25% 100 ML ONE (09:14)
[2020-03-02] MEDS ORDERED: Sodium Bicarbonate 2.5 MEQ/5 ML VIAL ONE (09:14)
[2020-03-02] MEDS ORDERED: Lidocaine 1% PF 5 ML VIAL ONE (09:14)
[2020-03-02] MEDS ORDERED: Sodium Chloride 0.9% 10 ML ONE (09:15)
[2020-03-02 09:24] LABS: Band 7 % (5-11); Eosinophils 5 % (0-10); Hemoglobin 8.2 g/dL (14.0-18.0); Hemoglobin C Crystals MARKED (None Seen); Hypochromia MODERATE=16-30 cells (100X) (0-5/hpf); Lymphocytes 24 % (21-51); MDiff Complete? YES; Mean Corpuscular HGB CONC 31.4 g/dL (32.0-36.0); Mean Corpuscular Hemoglobin 18.6 pg (27.0-31.0); Mean Corpuscular Volume 59.2 fL (78.0-98.0); Mean Platelet Volume 6.1 fL (7.4-10.4); Microcytosis MARKED = >30 cells (100X) (0-5/hpf); Monocytes 9 % (0-10); Neutrophil 55 % (42-75); Nucleated RBC 1 % (0); Platelet Count 95 thou/uL (130-400); Polychromasia MODERATE = 3-4 cells (100X) (0-2/hpf); RBC Distribution Width 18.3 % (11.5-14.5); Red Blood Cell (RBC) Count 4.43 mill/uL (4.70-6.10); Target Cells SLIGHT = 2-5 cells (100X) (0-1/hpf); White Blood Cell (WBC) Count 16.9 thou/uL (4.8-10.8)
[2020-03-02 10:38] VITALS: BP 114/66; TEMP 98.1
--- NOTE | 2020-03-02 10:43 | ULT ---
Sonographic guided paracentesis HISTORY: Symptomatic ascites. FINDINGS: After explaining the procedure and answering all questions, sonographic survey showed a lar ge amount of free fluid throughout the abdomen. Sterile technique, buffered local anesthesia, sonographic guidance, and a right lateral approach were used to carefully advance a 19-gauge Yueh needle and catheter into the free fluid. Catheter was left to drain a total volume of 5.6 L clear yellow liquid. Catheter was removed with small amount of fluid remaining. Patient tolerated the procedure well and w as dismissed in good condition. IMPRESSION : Technically successful sonographic guided paracentesis. 5.6 L.
== END 2020-03-02 10:15 | disposition home or self-care (01) ==
LOC: ULT 09:01
PROVIDERS: ATTEND Family Medicine
PROC: 0W9G3ZZ Drainage of Peritoneal Cavity, Percutaneous Approach (ICD-10-PCS; principal; 2020-03-02)
PROC: BW40ZZZ Ultrasonography of Abdomen (ICD-10-PCS; 2020-03-02)
DX: K74.60 Unspecified cirrhosis of liver (principal); R18.8 Other ascites; E51.2 Wernicke's encephalopathy; F04 Amnestic disorder due to known physiological condition; I12.9 Hypertensive chronic kidney disease with stage 1 through stage 4 chronic kidney disease, or unspecified chronic kidney disease; E11.22 Type 2 diabetes mellitus with diabetic chronic kidney disease; N18.9 Chronic kidney disease, unspecified; D64.9 Anemia, unspecified; D69.6 Thrombocytopenia, unspecified
CPT/HCPCS: 49083; 85025; 85610; 85730; P9047; 36415

== ENCOUNTER 2020-03-09 08:17 | Day surgery (SDC) | payer MEDICARE, MEDICAID ==
[2020-03-08 12:24] VITALS: BMI 25.0
[~2020-03-09 08:17] MED LIST changes: +FLU VACC QS2020-21(6MOS UP)/PF 60 MCG/0.5 ML SYRINGE IM ONE; -Lidocaine 1% PF 5 ML VIAL ONE; -Sodium Bicarbonate 2.5 MEQ/5 ML VIAL ONE
[2020-03-09] MEDS ORDERED: Sodium Bicarbonate 2.5 MEQ/5 ML VIAL ONE (08:21)
[2020-03-09] MEDS ORDERED: Lidocaine 1% PF 5 ML VIAL ONE (08:21)
[2020-03-09] MEDS ORDERED: Albumin 25% 100 ML ONE (08:21)
--- NOTE | 2020-03-09 10:12 | ULT ---
Sonographic guided paracentesis HISTORY: Symptomatic ascites. FINDINGS: After explaining the procedure and answering all questions, sonographic survey showed a lar ge amount of free fluid. Sterile technique, buffered local anesthesia, sonographic guidance, and a left lateral approach were used to carefully advance a 19-gauge Yueh needle and catheter into the free fluid. Catheter was left to drain a total volume of 7.3 L slightly cloudy yellow liquid. Catheter was remove d with minimal fluid remaining. Patient tolerated the procedure well and was dismissed in good condition. IMPRESSION : Technically successful sonographic guided paracentesis. 7.3 L.
[2020-03-09 10:20] VITALS: BP 114/63; TEMP 98.4
== END 2020-03-09 10:05 | disposition home or self-care (01) ==
LOC: ULT 08:17
PROVIDERS: ATTEND Family Medicine
PROC: 0W9G3ZZ Drainage of Peritoneal Cavity, Percutaneous Approach (ICD-10-PCS; principal; 2020-03-09)
DX: K74.60 Unspecified cirrhosis of liver (principal); R18.8 Other ascites; E51.2 Wernicke's encephalopathy; I12.9 Hypertensive chronic kidney disease with stage 1 through stage 4 chronic kidney disease, or unspecified chronic kidney disease; E11.22 Type 2 diabetes mellitus with diabetic chronic kidney disease; N18.9 Chronic kidney disease, unspecified; D64.9 Anemia, unspecified; Z79.4 Long term (current) use of insulin; Z79.899 Other long term (current) drug therapy
CPT/HCPCS: 49083; P9047

== ENCOUNTER 2020-03-16 08:08 | Day surgery (SDC) | payer MEDICARE, MEDICAID ==
[2020-03-16] MEDS ORDERED: Albumin 25% 100 ML ONE (08:14)
[2020-03-16] MEDS ORDERED: Sodium Chloride 0.9% 10 ML ONE (08:14)
[2020-03-16] MEDS ORDERED: Sodium Bicarbonate 2.5 MEQ/5 ML VIAL ONE (08:14)
[2020-03-16] MEDS ORDERED: Lidocaine 1% PF 5 ML VIAL ONE (08:14)
[2020-03-16 11:14] VITALS: BP 101/54; TEMP 98.9
--- NOTE | 2020-03-16 11:56 | ULT ---
Paracentesis sonographic guided HISTORY: Symptomatic ascites. FINDINGS: After explaining the procedure and answering all questions, sonographic survey showed a lar ge amount of free fluid throughout the abdomen. Sterile technique, buffered local anesthesia, sonographic guidance, and a right lateral approach were used to carefully advance a 19-gauge Yueh needle and catheter into the free fluid. Catheter was left to drain a total volume of 4.0 L of clear gilda liquid. Catheter was removed with s mall residual. Patient tolerated the procedure well and was dismissed in good condition. IMPRESSION : Technically successful sonographic guided paracentesis 4.0 L.
== END 2020-03-16 10:00 ==
LOC: ULT 08:08
PROVIDERS: ATTEND Family Medicine
PROC: 0W9G3ZZ Drainage of Peritoneal Cavity, Percutaneous Approach (ICD-10-PCS; principal; 2020-03-16)
DX: K74.60 Unspecified cirrhosis of liver (principal); R18.8 Other ascites; I12.9 Hypertensive chronic kidney disease with stage 1 through stage 4 chronic kidney disease, or unspecified chronic kidney disease; E11.22 Type 2 diabetes mellitus with diabetic chronic kidney disease; N18.9 Chronic kidney disease, unspecified; E51.2 Wernicke's encephalopathy; F04 Amnestic disorder due to known physiological condition; D64.9 Anemia, unspecified; D69.6 Thrombocytopenia, unspecified
CPT/HCPCS: 49083; P9047

== ENCOUNTER 2020-03-22 08:18 | Day surgery (SDC) | payer MEDICARE, MEDICAID ==
[2020-03-21 10:34] VITALS: BMI 25.0
[2020-03-22] MEDS ORDERED: Sodium Bicarbonate 2.5 MEQ/5 ML VIAL ONE (09:34)
[2020-03-22] MEDS ORDERED: Lidocaine 1% PF 5 ML VIAL ONE (09:34)
[2020-03-22] MEDS ORDERED: Albumin 25% 100 ML ONE (09:34)
--- NOTE | 2020-03-22 10:33 | ULT ---
Ultrasound-guided paracentesis: 03/22/2020 HISTORY: Symptomatic ascites FINDINGS: Informed consent obtained prior to the procedure. Preprocedural imaging demonstrated signif icant ascites throughout the abdomen and pelvis. Lateral mid right abdomenprepped and draped in normal sterile fashion and anesthetized with 1% buffer ed lidocaine. With direct sonographic guidance, 5 Uzbek Yueh catheter is advanced into the ascites and removal of the stylet yielded yellowfluid. 4.5 L were removed. The patient tolerated the procedure well. No postprocedural complications. IMPRESSION: Successful ultrasound-guided paracentesis yielding 4.5 L of yellow fluid.
[2020-03-22 13:06] VITALS: BP 133/69; TEMP 98
== END 2020-03-22 10:25 | disposition home or self-care (01) ==
LOC: ULT 08:18
PROVIDERS: ATTEND Family Medicine
PROC: 0W9G3ZZ Drainage of Peritoneal Cavity, Percutaneous Approach (ICD-10-PCS; principal; 2020-03-22)
DX: K74.60 Unspecified cirrhosis of liver (principal); R18.8 Other ascites; I12.9 Hypertensive chronic kidney disease with stage 1 through stage 4 chronic kidney disease, or unspecified chronic kidney disease; E11.22 Type 2 diabetes mellitus with diabetic chronic kidney disease; N18.9 Chronic kidney disease, unspecified; E51.2 Wernicke's encephalopathy; Z79.4 Long term (current) use of insulin; Z79.899 Other long term (current) drug therapy
CPT/HCPCS: 49083; P9047

== ENCOUNTER 2020-03-30 08:02 | Day surgery (SDC) | payer MEDICARE, MEDICAID ==
[2020-03-29 15:19] VITALS: BMI 25.0
[2020-03-30] MEDS ORDERED: Albumin 25% 100 ML ONE (08:32)
[2020-03-30] MEDS ORDERED: Sodium Bicarbonate 2.5 MEQ/5 ML VIAL ONE (08:33)
[2020-03-30] MEDS ORDERED: Sodium Chloride 0.9% 10 ML ONE (08:36)
--- NOTE | 2020-03-30 09:38 | ULT ---
Ultrasound-guided paracentesis: HISTORY: Cirrhosis and recurrent ascites. FINDINGS: Informed consent obtained prior to the procedure. Preprocedural imaging demonstrated intrap eritoneal free fluid. An area was marked in the mid axillary line in the mid right abdomen, and then meticulously prepped a nd draped in normal sterile fashion and anesthetized with 1% buffered lidocaine. With direct sonographic guidance, a 19-gauge needle and 5 Slovak 5 exampleseh catheter were advanced into the abdomen. After the return of fluid, the catheter was advanced, and the needle was removed. Approximately 6 L of clear straw-colored fluid was aspirated. The introducer sheath was removed, and hemostasis was achieved with direct pressure. A dry sterile dressing was placed. The patient tolerated the procedure well and without immediate complication. IMPRESSION: Technically successful ultrasound-guided paracentesis.
[2020-03-30] MEDS ORDERED: Lidocaine 1% PF 5 ML VIAL ONE (09:39)
[2020-03-30 09:54] VITALS: BP 116/58
[2020-03-31] MEDS ORDERED: FLU VACC QS2020-21(6MOS UP)/PF 60 MCG/0.5 ML SYRINGE IM ONE (10:00)
== END 2020-03-30 09:30 ==
LOC: ULT 08:02
PROVIDERS: ATTEND Family Medicine
PROC: 0W9G3ZZ Drainage of Peritoneal Cavity, Percutaneous Approach (ICD-10-PCS; principal; 2020-03-30)
DX: K74.60 Unspecified cirrhosis of liver (principal); R18.8 Other ascites; I12.9 Hypertensive chronic kidney disease with stage 1 through stage 4 chronic kidney disease, or unspecified chronic kidney disease; E11.22 Type 2 diabetes mellitus with diabetic chronic kidney disease; N18.9 Chronic kidney disease, unspecified; D64.9 Anemia, unspecified; D69.6 Thrombocytopenia, unspecified
CPT/HCPCS: 49083; P9047

== ENCOUNTER 2020-04-06 08:28 | Day surgery (SDC) | payer MEDICARE, MEDICAID ==
[2020-04-05 11:29] VITALS: BMI 25.0
[2020-04-06] MEDS ORDERED: Albumin 25% 100 ML ONE (08:33)
[2020-04-06] MEDS ORDERED: Sodium Bicarbonate 2.5 MEQ/5 ML VIAL ONE (08:33)
[2020-04-06] MEDS ORDERED: Lidocaine 1% PF 5 ML VIAL ONE (08:33)
[2020-04-06 08:57] LABS: Hemoglobin 8.9 g/dL (14.0-18.0); Mean Corpuscular HGB CONC 33.1 g/dL (32.0-36.0); Mean Corpuscular Hemoglobin 19.2 pg (27.0-31.0); Mean Corpuscular Volume 57.9 fL (78.0-98.0); Mean Platelet Volume 5.7 fL (7.4-10.4); Platelet Count 119 thou/uL (130-400); RBC Distribution Width 18.1 % (11.5-14.5); Red Blood Cell (RBC) Count 4.62 mill/uL (4.70-6.10); White Blood Cell (WBC) Count 14.1 thou/uL (4.8-10.8)
[2020-04-06 09:17] LABS: INR-International Normal Ratio 1.3
[2020-04-06 09:27] LABS: Band 4 % (5-11); Eosinophils 2 % (0-10); Hemoglobin C Crystals MODERATE (None Seen); Hypochromia SLIGHT = 6-15 cells (100X) (0-5/hpf); Lymphocytes 14 % (21-51); MDiff Complete? YES; Microcytosis MARKED = >30 cells (100X) (0-5/hpf); Monocytes 4 % (0-10); Neutrophil 69 % (42-75); Platelet Morphology Comment Appears Decreased; Poikilocytosis MARKED = >30 cells (100X) (0-5/hpf); Polychromasia MODERATE = 3-4 cells (100X) (0-2/hpf); Reactive Lymphocytes 7 % (0-10); Schistocytes SLIGHT = 2-5 cells (100X) (0-1/hpf)
--- NOTE | 2020-04-06 10:15 | ULT ---
Sonographic guided paracentesis HISTORY: Symptomatic ascites. FINDINGS: After explaining the procedure and answering all questions, sonographic survey showed a lar ge amount of free fluid throughout the abdomen. Sterile technique, buffered local anesthesia, sonographic guidance, and a left lateral approach were used to carefully advance a 19-gauge Yueh needle and catheter into the free fluid. Catheter was left to drain a total volume of 6.5 L clear yellow liquid. Catheter was removed with minimal fluid remaining. Patient tolerated the procedure well and was dismi ssed in good condition. IMPRESSION : Technically successful sonographic guided paracentesis 6.5 L.
[2020-04-06 10:41] VITALS: BP 122/63; TEMP 97.5
== END 2020-04-06 10:00 | disposition home or self-care (01) ==
LOC: ULT 08:28
PROVIDERS: ATTEND Family Medicine
PROC: 0W9G3ZZ Drainage of Peritoneal Cavity, Percutaneous Approach (ICD-10-PCS; principal; 2020-04-06)
DX: K74.60 Unspecified cirrhosis of liver (principal); R18.8 Other ascites; I12.9 Hypertensive chronic kidney disease with stage 1 through stage 4 chronic kidney disease, or unspecified chronic kidney disease; E11.22 Type 2 diabetes mellitus with diabetic chronic kidney disease; N18.9 Chronic kidney disease, unspecified; D64.9 Anemia, unspecified; D69.6 Thrombocytopenia, unspecified; F04 Amnestic disorder due to known physiological condition; Z79.4 Long term (current) use of insulin; Z79.899 Other long term (current) drug therapy
CPT/HCPCS: 49083; 85025; 85610; 85730; P9047; 36415

== ENCOUNTER 2020-04-13 07:57 | Day surgery (SDC) | payer MEDICARE, MEDICAID ==
[2020-04-13] MEDS ORDERED: Albumin 25% 100 ML ONE (08:20)
[2020-04-13] MEDS ORDERED: Sodium Bicarbonate 2.5 MEQ/5 ML VIAL ONE (08:20)
[2020-04-13] MEDS ORDERED: Lidocaine 1% PF 5 ML VIAL ONE (08:20)
--- NOTE | 2020-04-13 09:38 | ULT ---
Sonographic guided paracentesis HISTORY: Symptomatic ascites. FINDINGS: After explaining the procedure and answering all questions, sonographic survey showed a lar ge amount of free fluid throughout the abdomen. Sterile technique, buffered local anesthesia, sonographic guidance, and a right lateral approach were used to carefully advance a 19-gauge Yueh needle and catheter into the free fluid. Catheter was left to drain a total volume of 3.3 L clear yellow liquid. Catheter was removed with minimal fluid remaining. Patient tolerated the procedure well and was dismissed in good condition. IMPRESSION : Technically successful sonographic guided paracentesis. 3.3 L.
[2020-04-13 09:51] VITALS: BP 111/63; TEMP 97.9
== END 2020-04-13 09:33 ==
LOC: ULT 07:57
PROVIDERS: ATTEND Family Medicine
PROC: 0W9G3ZZ Drainage of Peritoneal Cavity, Percutaneous Approach (ICD-10-PCS; principal; 2020-04-13)
DX: K74.60 Unspecified cirrhosis of liver (principal); R18.8 Other ascites; I12.9 Hypertensive chronic kidney disease with stage 1 through stage 4 chronic kidney disease, or unspecified chronic kidney disease; E11.22 Type 2 diabetes mellitus with diabetic chronic kidney disease; N18.9 Chronic kidney disease, unspecified; D63.1 Anemia in chronic kidney disease; F04 Amnestic disorder due to known physiological condition; D69.6 Thrombocytopenia, unspecified
CPT/HCPCS: 49083; P9047

== ENCOUNTER 2020-04-25 12:53 | Day surgery (SDC) | payer MEDICARE, MEDICAID ==
[2020-04-22 15:45] VITALS: BMI 25.0
[2020-04-25] MEDS ORDERED: Albumin 25% 100 ML ONE (13:05)
[2020-04-25] MEDS ORDERED: Lidocaine 1% PF 5 ML VIAL ONE (13:06)
[2020-04-25] MEDS ORDERED: Sodium Bicarbonate 2.5 MEQ/5 ML VIAL ONE (13:06)
[2020-04-25 14:43] VITALS: BP 111/67; TEMP 98
--- NOTE | 2020-04-25 14:43 | ULT ---
US Paracentesis with Imaging History: Ascites Comparison: Paracentesis of April 13, 2020 Findings: Patient was brought to the ultrasound suite. All questions were answered. Informed consent obtained. Timeout performed. Patient's right lower quadrant was prepped and draped in normal sterile fashion. After adequate local anesthesia with lidocaine, the right lower quadrant peritoneal space was accessed. 6700 mL of straw-colored fluid was removed. Patient tolerated the procedure well without complication. Impression: Technically successful ultrasound guided paracentesis.
[2020-04-25] MEDS ORDERED: FLU VACC QS2020-21(6MOS UP)/PF 60 MCG/0.5 ML SYRINGE IM ONE (16:00)
== END 2020-04-25 14:30 ==
LOC: ULT 12:53
PROVIDERS: ATTEND Family Medicine
PROC: 0W9G3ZZ Drainage of Peritoneal Cavity, Percutaneous Approach (ICD-10-PCS; principal; 2020-04-25)
DX: K74.60 Unspecified cirrhosis of liver (principal); R18.8 Other ascites; I12.9 Hypertensive chronic kidney disease with stage 1 through stage 4 chronic kidney disease, or unspecified chronic kidney disease; E11.22 Type 2 diabetes mellitus with diabetic chronic kidney disease; N18.9 Chronic kidney disease, unspecified; D63.1 Anemia in chronic kidney disease; D69.6 Thrombocytopenia, unspecified; Z79.4 Long term (current) use of insulin; Z79.899 Other long term (current) drug therapy
CPT/HCPCS: 49083; P9047; 90471; 90662; G0008

== ENCOUNTER → 2020-05-04 | Day surgery (SDC) | payer MEDICARE, MEDICAID ==
[~2020-05-04] MED LIST changes: +Albumin 25% 100 ML ONE; -FLU VACC QS2020-21(6MOS UP)/PF 60 MCG/0.5 ML SYRINGE IM ONE; +Sodium Chloride 0.9% 10 ML ONE
[2020-05-04 09:45] LABS: Band 2 % (5-11); Eosinophils 6 % (0-10); Hemoglobin 9.2 g/dL (14.0-18.0); Hemoglobin C Crystals MODERATE (None Seen); Hypochromia MODERATE=16-30 cells (100X) (0-5/hpf); Lymphocytes 12 % (21-51); MDiff Complete? YES; Mean Corpuscular HGB CONC 32.8 g/dL (32.0-36.0); Mean Corpuscular Volume 60.8 fL (78.0-98.0); Mean Platelet Volume 5.8 fL (7.4-10.4); Metamyelocyte 1 % (0-0); Microcytosis MARKED = >30 cells (100X) (0-5/hpf); Monocytes 7 % (0-10); Neutrophil 72 % (42-75); Platelet Count 97 thou/uL (130-400); Polychromasia SLIGHT = 2-3 cells (100X) (0-2/hpf); RBC Distribution Width 17.9 % (11.5-14.5); Red Blood Cell (RBC) Count 4.59 mill/uL (4.70-6.10); Target Cells MODERATE= 6-15 cells (100X) (0-1/hpf); White Blood Cell (WBC) Count 20.3 thou/uL (4.8-10.8)
[2020-05-04 09:47] LABS: INR-International Normal Ratio 1.2; PTT 42.6 sec (22.9-36.1); Prothrombin Time 15.9 sec (12.0-14.7)
[2020-05-04 10:34] VITALS: BP 112/63; TEMP 98.1
--- NOTE | 2020-05-04 11:52 | ULT ---
Exam: Ultrasound guided paracentesis HISTORY: Ascites COMPARISON: 02/22/2021 FINDINGS: Successful ultrasound-guided paracentesis. Total of 6 L of yellow color ascites was aspirat ed. TECHNIQUE: Consent obtained reformatory ultrasound-guided paracentesis. Left lower quadrantwas deemed appropriate. Skin was prepped and draped in a sterile fashion. 1% lidocaine, buffered with sodium bicarbonate was used for local anesthesia. Under ultrasound guidance, a 5 [place]ian 7 cm [employer] catheter i s advanced in the peritoneal space. A total of 6 L of yellow color ascites was aspirated. No immediate or postprocedural complications IMPRESSION: Successful ultrasound-guided paracentesis.
== END ==
LOC: ULT 08:18
PROVIDERS: ATTEND Family Medicine
PROC: 0W9G3ZZ Drainage of Peritoneal Cavity, Percutaneous Approach (ICD-10-PCS; principal; 2020-05-04)
DX: K74.60 Unspecified cirrhosis of liver (principal); R18.8 Other ascites; I12.9 Hypertensive chronic kidney disease with stage 1 through stage 4 chronic kidney disease, or unspecified chronic kidney disease; E11.22 Type 2 diabetes mellitus with diabetic chronic kidney disease; N18.9 Chronic kidney disease, unspecified; D63.1 Anemia in chronic kidney disease
CPT/HCPCS: 49083; 85025; 85610; 85730; P9047

== ENCOUNTER 2020-05-11 08:15 | Day surgery (SDC) | payer MEDICARE, MEDICAID ==
[2020-05-11] MEDS ORDERED: Lidocaine 1% PF 5 ML VIAL ONE (08:22)
[2020-05-11] MEDS ORDERED: Sodium Bicarbonate 2.5 MEQ/5 ML VIAL ONE (08:22)
[2020-05-11] MEDS ORDERED: Albumin 25% 100 ML ONE (09:37)
[2020-05-11 09:44] VITALS: BP 102/72; TEMP 97.5; BMI 25.0
== END 2020-05-11 09:30 ==
LOC: ULT 08:15
PROVIDERS: ATTEND Family Medicine
PROC: 0W9G3ZZ Drainage of Peritoneal Cavity, Percutaneous Approach (ICD-10-PCS; principal; 2020-05-11)
DX: K74.60 Unspecified cirrhosis of liver (principal); R18.8 Other ascites; I12.9 Hypertensive chronic kidney disease with stage 1 through stage 4 chronic kidney disease, or unspecified chronic kidney disease; E11.22 Type 2 diabetes mellitus with diabetic chronic kidney disease; N18.9 Chronic kidney disease, unspecified; D64.9 Anemia, unspecified; D69.6 Thrombocytopenia, unspecified; F04 Amnestic disorder due to known physiological condition; Z79.4 Long term (current) use of insulin; Z79.899 Other long term (current) drug therapy
CPT/HCPCS: 49083; P9047

== ENCOUNTER 2020-05-18 08:05 | Day surgery (SDC) | payer MEDICARE, MEDICAID ==
[2020-05-17 11:08] VITALS: BMI 26.2
[~2020-05-18 08:05] MED LIST changes: -Albumin 25% 100 ML ONE; +FLU VACC QS2020-21(6MOS UP)/PF 60 MCG/0.5 ML SYRINGE IM ONE; -Sodium Chloride 0.9% 10 ML ONE
[2020-05-18] MEDS ORDERED: Lidocaine 1% PF 5 ML VIAL ONE (08:09)
[2020-05-18] MEDS ORDERED: Morphine 2 MG/ML VIAL ONE (08:09)
[2020-05-18] MEDS ORDERED: Albumin 25% 100 ML ONE (08:09)
[2020-05-18 10:13] VITALS: BP 112/57; TEMP 98
== END 2020-05-18 09:38 | disposition home or self-care (01) ==
LOC: ULT 08:05
PROVIDERS: ATTEND Family Medicine
PROC: 0W9G3ZZ Drainage of Peritoneal Cavity, Percutaneous Approach (ICD-10-PCS; principal; 2020-05-18)
DX: K74.60 Unspecified cirrhosis of liver (principal); R18.8 Other ascites; I12.9 Hypertensive chronic kidney disease with stage 1 through stage 4 chronic kidney disease, or unspecified chronic kidney disease; E11.22 Type 2 diabetes mellitus with diabetic chronic kidney disease; N18.9 Chronic kidney disease, unspecified; D64.9 Anemia, unspecified; F04 Amnestic disorder due to known physiological condition; D69.6 Thrombocytopenia, unspecified
CPT/HCPCS: 49083; 90662; G0008; P9047; 90471; J2270

== ENCOUNTER 2020-05-25 08:08 | Day surgery (SDC) | payer MEDICARE, MEDICAID ==
[2020-05-25] MEDS ORDERED: Albumin 25% 100 ML ONE (08:09)
[2020-05-25 09:46] VITALS: BMI 25.0
[2020-05-25 09:52] VITALS: BP 135/52; TEMP 97.9
== END 2020-05-25 09:15 | disposition home or self-care (01) ==
LOC: ULT 08:08
PROVIDERS: ATTEND Family Medicine
PROC: 0W9G3ZZ Drainage of Peritoneal Cavity, Percutaneous Approach (ICD-10-PCS; principal; 2020-05-25)
DX: K74.60 Unspecified cirrhosis of liver (principal); R18.8 Other ascites; I12.9 Hypertensive chronic kidney disease with stage 1 through stage 4 chronic kidney disease, or unspecified chronic kidney disease; E11.22 Type 2 diabetes mellitus with diabetic chronic kidney disease; N18.9 Chronic kidney disease, unspecified; D63.1 Anemia in chronic kidney disease; Z79.4 Long term (current) use of insulin; Z79.899 Other long term (current) drug therapy
CPT/HCPCS: 49083; P9047

== ENCOUNTER 2020-06-01 08:11 | Day surgery (SDC) | payer MEDICARE, MEDICAID ==
[2020-05-30 13:08] VITALS: BMI 25.0
[2020-06-01] MEDS ORDERED: Lidocaine 1% PF 5 ML VIAL ONE (09:07)
[2020-06-01] MEDS ORDERED: Sodium Bicarbonate 2.5 MEQ/5 ML VIAL ONE (09:07)
[2020-06-01] MEDS ORDERED: Albumin 25% 100 ML ONE (09:07)
[2020-06-01 10:47] VITALS: BP 121/73; TEMP 98
== END 2020-06-01 10:10 | disposition home or self-care (01) ==
LOC: ULT 08:11
PROVIDERS: ATTEND Family Medicine
PROC: 0W9G3ZZ Drainage of Peritoneal Cavity, Percutaneous Approach (ICD-10-PCS; principal; 2020-06-01)
DX: K74.60 Unspecified cirrhosis of liver (principal); R18.8 Other ascites; I12.9 Hypertensive chronic kidney disease with stage 1 through stage 4 chronic kidney disease, or unspecified chronic kidney disease; E11.22 Type 2 diabetes mellitus with diabetic chronic kidney disease; N18.9 Chronic kidney disease, unspecified; D63.1 Anemia in chronic kidney disease; D69.6 Thrombocytopenia, unspecified; E78.5 Hyperlipidemia, unspecified; Z79.4 Long term (current) use of insulin; Z79.899 Other long term (current) drug therapy
CPT/HCPCS: 49083; P9047

== ENCOUNTER 2020-06-08 08:26 | Day surgery (SDC) | payer MEDICARE, MEDICAID ==
[2020-06-08] MEDS ORDERED: Lidocaine 1% PF 5 ML VIAL ONE (08:28)
[2020-06-08] MEDS ORDERED: Albumin 25% 100 ML ONE (08:28)
[2020-06-08] MEDS ORDERED: Sodium Bicarbonate 2.5 MEQ/5 ML VIAL ONE (08:28)
[2020-06-08 09:11] VITALS: BP 96/50; TEMP 98.1
[2020-06-08 09:29] LABS: INR-International Normal Ratio 1.2; PTT 38.3 sec (22.9-36.1); Prothrombin Time 15.7 sec (12.0-14.7)
[2020-06-08 09:57] LABS: Anisocytosis MODERATE=16-30 cells (100X) (0-5/hpf); Eosinophils 3 % (0-10); Hemoglobin 8.3 g/dL (14.0-18.0); Lymphocytes 15 % (21-51); MDiff Complete? YES; Mean Corpuscular HGB CONC 34.7 g/dL (32.0-36.0); Mean Corpuscular Hemoglobin 20.4 pg (27.0-31.0); Mean Corpuscular Volume 58.8 fL (78.0-98.0); Mean Platelet Volume 5.6 fL (7.4-10.4); Microcytosis MODERATE=15-30 cells (100X) (0-5/hpf); Monocytes 9 % (0-10); Neutrophil 73 % (42-75); Platelet Count 101 thou/uL (130-400); Platelet Morphology Comment Appears Decreased; Poikilocytosis SLIGHT = 6-15 cells (100X) (0-5/hpf); RBC Distribution Width 18.6 % (11.5-14.5); Red Blood Cell (RBC) Count 4.05 mill/uL (4.70-6.10); Target Cells SLIGHT = 2-5 cells (100X) (0-1/hpf); White Blood Cell (WBC) Count 12.3 thou/uL (4.8-10.8)
[2020-06-08 12:36] LABS: RBC Count-Automated (BF) 3021 /cu.mm; WBC/Nucleated-Auto (BF) 192 uL
[2020-06-08 12:40] LABS: BF Color Yellow; Body Fluid Source Paracentesis Fluid; Clarity Clear (Clear); Tube # EDTA
[2020-06-08 13:52] LABS: BF Segmented Neutrophils 9 %; Cell Count Non Hematic 63 %; Eosinophils 1 %; Lymphocytes 27 %
== END 2020-06-08 10:37 | disposition home or self-care (01) ==
LOC: ULT 08:26
PROVIDERS: ATTEND Family Medicine
PROC: 0W9G3ZX Drainage of Peritoneal Cavity, Percutaneous Approach, Diagnostic (ICD-10-PCS; principal; 2020-06-08)
DX: K70.31 Alcoholic cirrhosis of liver with ascites (principal); I12.9 Hypertensive chronic kidney disease with stage 1 through stage 4 chronic kidney disease, or unspecified chronic kidney disease; E11.22 Type 2 diabetes mellitus with diabetic chronic kidney disease; N18.9 Chronic kidney disease, unspecified; D63.1 Anemia in chronic kidney disease; D69.6 Thrombocytopenia, unspecified; Z79.4 Long term (current) use of insulin; Z79.899 Other long term (current) drug therapy
CPT/HCPCS: 49083; 85025; 85610; 85730; 87070; 87205; 89051; P9047; 85060

== ENCOUNTER 2020-06-15 08:28 | Day surgery (SDC) | payer MEDICARE, MEDICAID ==
[2020-06-13 13:50] VITALS: BMI 25.0
[2020-06-15] MEDS ORDERED: Sodium Bicarbonate 2.5 MEQ/5 ML VIAL ONE (08:51)
[2020-06-15] MEDS ORDERED: Albumin 25% 100 ML ONE (08:51)
[2020-06-15] MEDS ORDERED: Lidocaine 1% PF 5 ML VIAL ONE (08:51)
[2020-06-15 09:35] VITALS: BP 104/63; TEMP 98
== END 2020-06-15 10:00 | disposition home or self-care (01) ==
LOC: ULT 08:28
PROVIDERS: ATTEND Family Medicine
PROC: 0W9G3ZZ Drainage of Peritoneal Cavity, Percutaneous Approach (ICD-10-PCS; principal; 2020-06-15)
DX: K70.31 Alcoholic cirrhosis of liver with ascites (principal); I12.9 Hypertensive chronic kidney disease with stage 1 through stage 4 chronic kidney disease, or unspecified chronic kidney disease; E11.22 Type 2 diabetes mellitus with diabetic chronic kidney disease; N18.9 Chronic kidney disease, unspecified; D63.1 Anemia in chronic kidney disease; F10.11 Alcohol abuse, in remission; Z79.4 Long term (current) use of insulin; Z79.899 Other long term (current) drug therapy
CPT/HCPCS: 49083; P9047

== ENCOUNTER 2020-06-22 09:40 | Day surgery (SDC) | payer MEDICARE, MEDICAID ==
[2020-06-20 13:45] VITALS: BMI 25.0
[~2020-06-22 09:40] MED LIST changes: +Albumin 25% 100 ML ONE; -FLU VACC QS2020-21(6MOS UP)/PF 60 MCG/0.5 ML SYRINGE IM ONE; +Lidocaine 1% PF 5 ML VIAL ONE; +Sodium Bicarbonate 2.5 MEQ/5 ML VIAL ONE
[2020-06-22 10:25] VITALS: BP 119/60; TEMP 98.7
[2020-06-22 13:47] LABS: RBC Count-Automated (BF) 4522 /cu.mm; WBC/Nucleated-Auto (BF) 192 uL
[2020-06-22 14:19] LABS: BF Color Yellow; Body Fluid Source Ascites Body Fluid; Clarity Hazy (Clear); Tube # EDTA
[2020-06-22 14:27] LABS: BF Segmented Neutrophils 3 %; Cell Count Non Hematic 72 %; Lymphocytes 24 %
== END 2020-06-22 11:00 ==
LOC: ULT 09:40
PROVIDERS: ATTEND Family Medicine
PROC: 0W9G3ZX Drainage of Peritoneal Cavity, Percutaneous Approach, Diagnostic (ICD-10-PCS; principal; 2020-06-22)
DX: K70.31 Alcoholic cirrhosis of liver with ascites (principal); K72.90 Hepatic failure, unspecified without coma; I12.9 Hypertensive chronic kidney disease with stage 1 through stage 4 chronic kidney disease, or unspecified chronic kidney disease; E11.22 Type 2 diabetes mellitus with diabetic chronic kidney disease; N18.9 Chronic kidney disease, unspecified; D63.1 Anemia in chronic kidney disease; Z79.4 Long term (current) use of insulin; Z79.899 Other long term (current) drug therapy
CPT/HCPCS: 49083; 87070; 87205; 89051; P9047; 85060

== ENCOUNTER 2020-06-29 07:57 | Day surgery (SDC) | payer MEDICARE, MEDICAID ==
[2020-06-28 14:48] VITALS: BMI 25.0
[2020-06-29] MEDS ORDERED: Albumin 25% 100 ML ONE (09:09)
[2020-06-29] MEDS ORDERED: Lidocaine 1% PF 5 ML VIAL ONE (09:09)
[2020-06-29] MEDS ORDERED: Sodium Bicarbonate 2.5 MEQ/5 ML VIAL ONE (09:09)
[2020-06-29 11:02] VITALS: BP 111/48; TEMP 98.3
== END 2020-06-29 09:10 | disposition home or self-care (01) ==
LOC: ULT 07:57
PROVIDERS: ATTEND Family Medicine
PROC: 0W9G3ZZ Drainage of Peritoneal Cavity, Percutaneous Approach (ICD-10-PCS; principal; 2020-06-29)
DX: K70.31 Alcoholic cirrhosis of liver with ascites (principal); K72.90 Hepatic failure, unspecified without coma; I12.9 Hypertensive chronic kidney disease with stage 1 through stage 4 chronic kidney disease, or unspecified chronic kidney disease; E11.22 Type 2 diabetes mellitus with diabetic chronic kidney disease; N18.9 Chronic kidney disease, unspecified; D63.1 Anemia in chronic kidney disease; F10.21 Alcohol dependence, in remission; Z79.4 Long term (current) use of insulin; Z79.899 Other long term (current) drug therapy
CPT/HCPCS: 49083; P9047

== ENCOUNTER 2020-07-06 08:03 | Day surgery (SDC) | payer MEDICARE, MEDICAID ==
[2020-07-06] MEDS ORDERED: Lidocaine 1% PF 5 ML VIAL ONE (08:25)
[2020-07-06] MEDS ORDERED: Sodium Bicarbonate 2.5 MEQ/5 ML VIAL ONE (08:25)
[2020-07-06] MEDS ORDERED: Albumin 25% 100 ML ONE (08:26)
[2020-07-06 09:56] VITALS: BMI 25.0
[2020-07-06 09:59] VITALS: BP 118/62; TEMP 97.9
== END 2020-07-06 09:40 | disposition home or self-care (01) ==
LOC: ULT 08:03
PROVIDERS: ATTEND Family Medicine
PROC: 0W9G3ZZ Drainage of Peritoneal Cavity, Percutaneous Approach (ICD-10-PCS; principal; 2020-07-06)
DX: K70.31 Alcoholic cirrhosis of liver with ascites (principal); I12.9 Hypertensive chronic kidney disease with stage 1 through stage 4 chronic kidney disease, or unspecified chronic kidney disease; E11.22 Type 2 diabetes mellitus with diabetic chronic kidney disease; N18.9 Chronic kidney disease, unspecified; D63.1 Anemia in chronic kidney disease; F10.20 Alcohol dependence, uncomplicated; Z79.4 Long term (current) use of insulin; Z79.899 Other long term (current) drug therapy
CPT/HCPCS: 49083; P9047

== ENCOUNTER 2020-07-13 08:01 | Day surgery (SDC) | payer MEDICARE, MEDICAID ==
[2020-07-11 08:33] VITALS: BMI 25.0
[2020-07-13] MEDS ORDERED: Sodium Bicarbonate 2.5 MEQ/5 ML VIAL ONE (09:02)
[2020-07-13] MEDS ORDERED: Albumin 25% 100 ML ONE (09:02)
[2020-07-13] MEDS ORDERED: Lidocaine 1% PF 5 ML VIAL ONE (09:02)
[2020-07-13 09:46] LABS: INR-International Normal Ratio 1.2; PTT 35.4 sec (22.9-36.1)
[2020-07-13 09:53] LABS: Hemoglobin 9.6 g/dL (14.0-18.0); Mean Corpuscular HGB CONC 32.9 g/dL (32.0-36.0); Mean Corpuscular Hemoglobin 19.6 pg (27.0-31.0); Mean Corpuscular Volume 59.6 fL (78.0-98.0); Mean Platelet Volume 5.6 fL (7.4-10.4); Platelet Count 110 thou/uL (130-400); RBC Distribution Width 18.4 % (11.5-14.5)
[2020-07-13 10:05] LABS: White Blood Cell (WBC) Count 15.3 thou/uL (4.8-10.8)
[2020-07-13 10:11] LABS: Band 1 % (5-11); Eosinophils 2 % (0-10); Hypochromia MARKED = >30 cells (100X) (0-5/hpf); Lymphocytes 16 % (21-51); MDiff Complete? YES; Microcytosis MARKED = >30 cells (100X) (0-5/hpf); Monocytes 9 % (0-10); Neutrophil 71 % (42-75); Nucleated RBC 1 % (0); Ovalocytes MODERATE= 6-15 cells (100X) (0-1/hpf); Platelet Morphology Comment Appears Decreased; Polychromasia MODERATE = 3-4 cells (100X) (0-2/hpf); Reactive Lymphocytes 1 % (0-10); Reflex for Review?? NO; Spherocytes SLIGHT = 1-5 cells (100X) (None Seen); Target Cells MODERATE= 6-15 cells (100X) (0-1/hpf)
[2020-07-13 11:01] VITALS: BP 113/59; TEMP 98
== END 2020-07-13 10:32 | disposition home or self-care (01) ==
LOC: ULT 08:01
PROVIDERS: ATTEND Family Medicine
PROC: 0W9G3ZZ Drainage of Peritoneal Cavity, Percutaneous Approach (ICD-10-PCS; principal; 2020-07-13)
DX: K74.60 Unspecified cirrhosis of liver (principal); R18.8 Other ascites; I12.9 Hypertensive chronic kidney disease with stage 1 through stage 4 chronic kidney disease, or unspecified chronic kidney disease; E11.22 Type 2 diabetes mellitus with diabetic chronic kidney disease; N18.9 Chronic kidney disease, unspecified; D63.1 Anemia in chronic kidney disease; Z79.4 Long term (current) use of insulin; Z79.899 Other long term (current) drug therapy
CPT/HCPCS: 49083; 85025; 85610; 85730; P9047

== ENCOUNTER → 2020-07-20 | Day surgery (SDC) | payer MEDICARE, MEDICAID ==
[2020-07-18 14:09] VITALS: BMI 25.0
[~2020-07-20] MED LIST changes: -Albumin 25% 100 ML ONE; -Lidocaine 1% PF 5 ML VIAL ONE
[2020-07-20 10:16] VITALS: BP 95/56; TEMP 97.8
[2020-07-20 12:58] LABS: RBC Count-Automated (BF) 860 /cu.mm; WBC/Nucleated-Auto (BF) 124 uL
[2020-07-20 13:04] LABS: BF Color Yellow; Body Fluid Source Ascites Body Fluid; Clarity Hazy (Clear); Tube # EDTA
[2020-07-20 13:46] LABS: BF Segmented Neutrophils 7 %; Cell Count Non Hematic 62 %; Lymphocytes 31 %
== END ==
LOC: ULT 08:00
PROVIDERS: ATTEND Family Medicine
PROC: 0W9G3ZZ Drainage of Peritoneal Cavity, Percutaneous Approach (ICD-10-PCS; principal; 2020-07-20)
DX: K70.31 Alcoholic cirrhosis of liver with ascites (principal); K72.90 Hepatic failure, unspecified without coma; I12.9 Hypertensive chronic kidney disease with stage 1 through stage 4 chronic kidney disease, or unspecified chronic kidney disease; E11.22 Type 2 diabetes mellitus with diabetic chronic kidney disease; N18.9 Chronic kidney disease, unspecified; D63.1 Anemia in chronic kidney disease; F10.20 Alcohol dependence, uncomplicated; Z79.4 Long term (current) use of insulin; Z79.899 Other long term (current) drug therapy
CPT/HCPCS: 49083; 85060; 87070; 87205; 89051

== ENCOUNTER 2020-07-27 08:09 | Day surgery (SDC) | payer MEDICARE, MEDICAID ==
[2020-07-26 10:34] VITALS: BMI 25.0
[2020-07-27 09:43] VITALS: BP 106/58; TEMP 97.7
== END 2020-07-27 09:22 | disposition home or self-care (01) ==
LOC: ULT 08:09
PROVIDERS: ATTEND Family Medicine
PROC: 0W9G3ZZ Drainage of Peritoneal Cavity, Percutaneous Approach (ICD-10-PCS; principal; 2020-07-27)
DX: K70.31 Alcoholic cirrhosis of liver with ascites (principal); I12.9 Hypertensive chronic kidney disease with stage 1 through stage 4 chronic kidney disease, or unspecified chronic kidney disease; E11.22 Type 2 diabetes mellitus with diabetic chronic kidney disease; N18.9 Chronic kidney disease, unspecified; D63.1 Anemia in chronic kidney disease; F10.20 Alcohol dependence, uncomplicated; Z79.4 Long term (current) use of insulin; Z79.899 Other long term (current) drug therapy
CPT/HCPCS: 49083

== ENCOUNTER 2020-08-03 07:44 | Day surgery (SDC) | payer MEDICARE, MEDICAID ==
[2020-07-28 08:23] VITALS: BMI 25.0
[2020-08-03] MEDS ORDERED: Albumin 25% 100 ML ONE (07:52)
[2020-08-03] MEDS ORDERED: Sodium Bicarbonate 2.5 MEQ/5 ML VIAL ONE (07:52)
[2020-08-03] MEDS ORDERED: Lidocaine 1% PF 5 ML VIAL ONE (07:52)
[2020-08-03 11:50] VITALS: BP 115/53; TEMP 98.1
== END 2020-08-03 09:35 | disposition home or self-care (01) ==
LOC: ULT 07:44
PROVIDERS: ATTEND Family Medicine
PROC: 0W9G3ZZ Drainage of Peritoneal Cavity, Percutaneous Approach (ICD-10-PCS; principal; 2020-08-03)
DX: K70.31 Alcoholic cirrhosis of liver with ascites (principal); I12.9 Hypertensive chronic kidney disease with stage 1 through stage 4 chronic kidney disease, or unspecified chronic kidney disease; E11.22 Type 2 diabetes mellitus with diabetic chronic kidney disease; N18.9 Chronic kidney disease, unspecified; D63.1 Anemia in chronic kidney disease; F10.10 Alcohol abuse, uncomplicated; Z79.4 Long term (current) use of insulin; Z79.899 Other long term (current) drug therapy
CPT/HCPCS: 49083; P9047

== ENCOUNTER 2020-08-10 08:15 | Day surgery (SDC) | payer MEDICARE, MEDICAID ==
[2020-08-08 11:37] VITALS: BMI 25.0
[2020-08-10] MEDS ORDERED: Lidocaine 1% PF 5 ML VIAL ONE (08:40)
[2020-08-10] MEDS ORDERED: Albumin 25% 100 ML ONE (08:40)
[2020-08-10] MEDS ORDERED: Sodium Bicarbonate 2.5 MEQ/5 ML VIAL ONE (08:40)
[2020-08-10 09:41] VITALS: BP 99/69; TEMP 97.4
== END 2020-08-10 09:15 ==
LOC: ULT 08:15
PROVIDERS: ATTEND Family Medicine
PROC: 0W9G3ZZ Drainage of Peritoneal Cavity, Percutaneous Approach (ICD-10-PCS; principal; 2020-08-10)
DX: K74.60 Unspecified cirrhosis of liver (principal); R18.8 Other ascites; I12.9 Hypertensive chronic kidney disease with stage 1 through stage 4 chronic kidney disease, or unspecified chronic kidney disease; E11.22 Type 2 diabetes mellitus with diabetic chronic kidney disease; N18.9 Chronic kidney disease, unspecified; D64.9 Anemia, unspecified; D69.6 Thrombocytopenia, unspecified; E78.5 Hyperlipidemia, unspecified; Z79.4 Long term (current) use of insulin; Z79.899 Other long term (current) drug therapy
CPT/HCPCS: 49083; P9047

== ENCOUNTER 2020-08-17 08:12 | Day surgery (SDC) | payer MEDICARE, MEDICAID ==
[2020-08-12 11:47] VITALS: BMI 25.0
[2020-08-17] MEDS ORDERED: Lidocaine 1% PF 5 ML VIAL ONE (08:25)
[2020-08-17] MEDS ORDERED: Sodium Bicarbonate 2.5 MEQ/5 ML VIAL ONE (08:25)
[2020-08-17] MEDS ORDERED: Albumin 25% 100 ML ONE (08:26)
[2020-08-17 09:08] LABS: Hemoglobin 8.6 g/dL (14.0-18.0); Mean Corpuscular HGB CONC 34.9 g/dL (32.0-36.0); Mean Corpuscular Hemoglobin 20.9 pg (27.0-31.0); Mean Corpuscular Volume 59.9 fL (78.0-98.0); Mean Platelet Volume 5.7 fL (7.4-10.4); Platelet Count 96 thou/uL (130-400); RBC Distribution Width 17.3 % (11.5-14.5); Red Blood Cell (RBC) Count 4.13 mill/uL (4.70-6.10); White Blood Cell (WBC) Count 14.3 thou/uL (4.8-10.8)
[2020-08-17 09:09] LABS: INR-International Normal Ratio 1.2; Prothrombin Time 15.6 sec (12.0-14.7)
[2020-08-17 09:26] LABS: Anisocytosis MODERATE=16-30 cells (100X) (0-5/hpf); Band 1 % (5-11); Eosinophils 4 % (0-10); Hemoglobin C Crystals MODERATE (None Seen); Hypochromia MODERATE=16-30 cells (100X) (0-5/hpf); Lymphocytes 21 % (21-51); MDiff Complete? YES; Microcytosis MARKED = >30 cells (100X) (0-5/hpf); Monocytes 3 % (0-10); Neutrophil 71 % (42-75); Nucleated RBC 2 % (0); Platelet Morphology Comment Appears Decreased; Polychromasia MODERATE = 3-4 cells (100X) (0-2/hpf); Target Cells MARKED = >16 cells (100X) (0-1/hpf)
[2020-08-17 09:58] VITALS: BP 110/59; TEMP 98.2
== END 2020-08-17 09:45 | disposition home or self-care (01) ==
LOC: ULT 08:12
PROVIDERS: ATTEND Family Medicine
PROC: 0W9G3ZZ Drainage of Peritoneal Cavity, Percutaneous Approach (ICD-10-PCS; principal; 2020-08-17)
DX: K70.31 Alcoholic cirrhosis of liver with ascites (principal); I12.9 Hypertensive chronic kidney disease with stage 1 through stage 4 chronic kidney disease, or unspecified chronic kidney disease; E11.22 Type 2 diabetes mellitus with diabetic chronic kidney disease; N18.9 Chronic kidney disease, unspecified; D63.1 Anemia in chronic kidney disease; F10.20 Alcohol dependence, uncomplicated; Z79.4 Long term (current) use of insulin; Z79.899 Other long term (current) drug therapy
CPT/HCPCS: 49083; 85025; 85610; 85730; P9047

== ENCOUNTER 2020-08-24 07:46 | Day surgery (SDC) | payer MEDICARE, MEDICAID ==
[2020-08-18 13:53] VITALS: BMI 25.0
[2020-08-24] MEDS ORDERED: Sodium Bicarbonate 2.5 MEQ/5 ML VIAL ONE (07:54)
[2020-08-24] MEDS ORDERED: Albumin 25% 100 ML ONE (07:54)
[2020-08-24] MEDS ORDERED: Lidocaine 1% PF 5 ML VIAL ONE (07:54)
[2020-08-24 10:33] VITALS: BP 90/53; TEMP 98.6
== END 2020-08-24 09:50 ==
LOC: ULT 07:46
PROVIDERS: ATTEND Family Medicine
PROC: 0W9G3ZZ Drainage of Peritoneal Cavity, Percutaneous Approach (ICD-10-PCS; principal; 2020-08-24)
DX: K70.31 Alcoholic cirrhosis of liver with ascites (principal); K72.90 Hepatic failure, unspecified without coma; I12.9 Hypertensive chronic kidney disease with stage 1 through stage 4 chronic kidney disease, or unspecified chronic kidney disease; E11.22 Type 2 diabetes mellitus with diabetic chronic kidney disease; N18.9 Chronic kidney disease, unspecified; D63.1 Anemia in chronic kidney disease; F10.10 Alcohol abuse, uncomplicated; Z79.4 Long term (current) use of insulin; Z79.899 Other long term (current) drug therapy
CPT/HCPCS: 49083; P9047

== ENCOUNTER 2020-08-31 08:18 | Day surgery (SDC) | payer MEDICARE, MEDICAID ==
[2020-08-31] MEDS ORDERED: Sodium Bicarbonate 2.5 MEQ/5 ML VIAL ONE (08:35)
[2020-08-31] MEDS ORDERED: Albumin 25% 100 ML ONE (08:35)
[2020-08-31] MEDS ORDERED: Lidocaine 1% PF 5 ML VIAL ONE (08:35)
[2020-08-31 09:48] VITALS: BP 108/51; TEMP 97.8
== END 2020-08-31 09:40 | disposition home or self-care (01) ==
LOC: ULT 08:18
PROVIDERS: ATTEND Family Medicine
PROC: 0W9G3ZZ Drainage of Peritoneal Cavity, Percutaneous Approach (ICD-10-PCS; principal; 2020-08-31)
DX: K74.60 Unspecified cirrhosis of liver (principal); R18.8 Other ascites; I12.9 Hypertensive chronic kidney disease with stage 1 through stage 4 chronic kidney disease, or unspecified chronic kidney disease; E11.22 Type 2 diabetes mellitus with diabetic chronic kidney disease; N18.9 Chronic kidney disease, unspecified; D63.1 Anemia in chronic kidney disease; Z87.891 Personal history of nicotine dependence; Z79.4 Long term (current) use of insulin; Z79.899 Other long term (current) drug therapy
CPT/HCPCS: 49083; P9047

== ENCOUNTER 2020-09-07 07:56 | Day surgery (SDC) | payer MEDICARE, MEDICAID ==
[2020-09-02 08:53] VITALS: BMI 25.0
[2020-09-07] MEDS ORDERED: Sodium Bicarbonate 2.5 MEQ/5 ML VIAL ONE (07:58)
[2020-09-07] MEDS ORDERED: Albumin 25% 100 ML ONE (07:58)
[2020-09-07] MEDS ORDERED: Lidocaine 1% PF 5 ML VIAL ONE (07:58)
[2020-09-07 10:29] VITALS: BP 105/51; TEMP 98
== END 2020-09-07 09:25 | disposition home or self-care (01) ==
LOC: ULT 07:56
PROVIDERS: ATTEND Family Medicine
PROC: 0W9G3ZZ Drainage of Peritoneal Cavity, Percutaneous Approach (ICD-10-PCS; principal; 2020-09-07)
DX: K70.31 Alcoholic cirrhosis of liver with ascites (principal); I12.9 Hypertensive chronic kidney disease with stage 1 through stage 4 chronic kidney disease, or unspecified chronic kidney disease; E11.22 Type 2 diabetes mellitus with diabetic chronic kidney disease; N18.9 Chronic kidney disease, unspecified; D63.1 Anemia in chronic kidney disease; Z79.4 Long term (current) use of insulin; Z79.899 Other long term (current) drug therapy
CPT/HCPCS: 49083; P9047

== ENCOUNTER 2020-09-21 10:40 | Emergency (ER) | payer MEDICARE, MEDICAID ==
[2020-09-21 12:19] LABS: ALT (SGPT) 22 U/L (8-55); AST (SGOT) 29 U/L (5-34); Albumin 3.1 g/dL (3.4-4.8); Alkaline Phosphatase 119 U/L (40-110); Anion Gap 13 mmol/L (10-20); BUN (Urea Nitrogen) 32 mg/dL (8.4-25.7); Bilirubin, Total 4.3 mg/dL (0.2-1.2); Calc. Creatinine Clearance 0 mL/min (70-130); Calcium 8.5 mg/dL (7.8-10.44); Carbon Dioxide 18 mmol/L (23-31); Chloride 107 mmol/L (98-107); Globulin 3.4 g/dL (2.4-3.5); Glucose 92 mg/dL (80-115); Potassium 4.8 mmol/L (3.5-5.1); Protein, Total 6.5 g/dL (5.8-8.1); Sodium 133 mmol/L (136-145)
[2020-09-21 12:33] LABS: Band 2 % (5-11); Hemoglobin 8.6 g/dL (14.0-18.0); Hemoglobin C Crystals SLIGHT (None Seen); Lymphocytes 9 % (21-51); MDiff Complete? YES; Macrocytosis MODERATE=16-30 cells (100X) (0-5/hpf); Mean Corpuscular HGB CONC 34.5 g/dL (32.0-36.0); Mean Corpuscular Hemoglobin 20.9 pg (27.0-31.0); Mean Corpuscular Volume 60.5 fL (78.0-98.0); Mean Platelet Volume 6.1 fL (7.4-10.4); Monocytes 7 % (0-10); Neutrophil 82 % (42-75); Ovalocytes MODERATE= 6-15 cells (100X) (0-1/hpf); Platelet Count 81 thou/uL (130-400); Platelet Morphology Comment Appears Decreased; Polychromasia MODERATE = 3-4 cells (100X) (0-2/hpf); RBC Distribution Width 17.3 % (11.5-14.5); Red Blood Cell (RBC) Count 4.12 mill/uL (4.70-6.10); Target Cells MODERATE= 6-15 cells (100X) (0-1/hpf); White Blood Cell (WBC) Count 12.4 thou/uL (4.8-10.8)
== END 2020-09-21 12:46 ==
LOC: ERS 10:40
DX: R11.2 Nausea with vomiting, unspecified (principal); Z79.899 Other long term (current) drug therapy; Z79.4 Long term (current) use of insulin; D64.9 Anemia, unspecified; E11.9 Type 2 diabetes mellitus without complications
CPT/HCPCS: 49083; 80053; 85025 ×2; 85610; 85730; P9047; 36415; 99283

== ENCOUNTER 2020-10-05 08:00 | Day surgery (SDC) | payer MEDICARE, MEDICAID ==
[2020-10-03 14:55] VITALS: BMI 25.0
[2020-10-05] MEDS ORDERED: Albumin 25% 100 ML ONE (08:03)
[2020-10-05] MEDS ORDERED: Sodium Bicarbonate 2.5 MEQ/5 ML VIAL ONE (08:03)
[2020-10-05] MEDS ORDERED: Lidocaine 1% PF 5 ML VIAL ONE (08:03)
[2020-10-05 09:49] VITALS: BP 108/54; TEMP 98.1
== END 2020-10-05 09:40 ==
LOC: ULT 08:00
PROVIDERS: ATTEND Family Medicine
PROC: 0W9G3ZZ Drainage of Peritoneal Cavity, Percutaneous Approach (ICD-10-PCS; principal; 2020-10-05)
DX: K70.31 Alcoholic cirrhosis of liver with ascites (principal); I12.9 Hypertensive chronic kidney disease with stage 1 through stage 4 chronic kidney disease, or unspecified chronic kidney disease; E11.22 Type 2 diabetes mellitus with diabetic chronic kidney disease; N18.9 Chronic kidney disease, unspecified; D63.1 Anemia in chronic kidney disease; E78.5 Hyperlipidemia, unspecified; F10.21 Alcohol dependence, in remission; Z79.4 Long term (current) use of insulin; Z79.899 Other long term (current) drug therapy
CPT/HCPCS: 49083; P9047

== ENCOUNTER → 2020-10-12 | Day surgery (SDC) | payer MEDICARE, MEDICAID ==
[2020-10-11 11:17] VITALS: BMI 25.0
[~2020-10-12] MED LIST changes: +Albumin 25% 100 ML ONE; +Lidocaine 1% PF 5 ML VIAL ONE; +Sodium Chloride 0.9% 10 ML ONE; +methylPREDNISolone Sod Succ/PF 125 MG/2 ML VIAL ONE
== END ==
LOC: ULT 08:29
PROVIDERS: ATTEND Family Medicine
PROC: 0W9G3ZZ Drainage of Peritoneal Cavity, Percutaneous Approach (ICD-10-PCS; principal; 2020-10-12)
DX: K70.31 Alcoholic cirrhosis of liver with ascites (principal); I12.9 Hypertensive chronic kidney disease with stage 1 through stage 4 chronic kidney disease, or unspecified chronic kidney disease; E11.22 Type 2 diabetes mellitus with diabetic chronic kidney disease; N18.9 Chronic kidney disease, unspecified; D63.1 Anemia in chronic kidney disease; F10.20 Alcohol dependence, uncomplicated
CPT/HCPCS: 49083; P9047; J2930

== ENCOUNTER → 2020-10-19 | Day surgery (SDC) | payer MEDICARE, MEDICAID ==
[2020-10-18 11:41] VITALS: BMI 25.0
[~2020-10-19] MED LIST changes: -Sodium Chloride 0.9% 10 ML ONE; -methylPREDNISolone Sod Succ/PF 125 MG/2 ML VIAL ONE
[2020-10-19 09:57] VITALS: BP 119/73
== END ==
LOC: ULT 08:08
PROVIDERS: ATTEND Family Medicine
PROC: 0W9G3ZZ Drainage of Peritoneal Cavity, Percutaneous Approach (ICD-10-PCS; principal; 2020-10-19)
DX: K70.31 Alcoholic cirrhosis of liver with ascites (principal); K72.90 Hepatic failure, unspecified without coma; E11.22 Type 2 diabetes mellitus with diabetic chronic kidney disease; N18.9 Chronic kidney disease, unspecified; D63.1 Anemia in chronic kidney disease; F10.20 Alcohol dependence, uncomplicated; Z79.4 Long term (current) use of insulin; Z79.899 Other long term (current) drug therapy
CPT/HCPCS: 49083; P9047

== ENCOUNTER 2020-10-26 08:57 | Day surgery (SDC) | payer MEDICARE, MEDICAID ==
[2020-10-26 09:11] LABS: INR-International Normal Ratio 1.2; PTT 39.3 sec (22.9-36.1)
[2020-10-26 09:18] LABS: Band 4 % (5-11); Eosinophils 5 % (0-10); Hemoglobin 8.4 g/dL (14.0-18.0); Hemoglobin C Crystals MODERATE (None Seen); Hypochromia SLIGHT = 6-15 cells (100X) (0-5/hpf); Lymphocytes 12 % (21-51); MDiff Complete? YES; Mean Corpuscular HGB CONC 34.5 g/dL (32.0-36.0); Mean Corpuscular Volume 60.9 fL (78.0-98.0); Mean Platelet Volume 6.5 fL (7.4-10.4); Metamyelocyte 1 % (0-0); Monocytes 10 % (0-10); Neutrophil 68 % (42-75); Platelet Count 104 thou/uL (130-400); Platelet Morphology Comment Appears Decreased; Polychromasia MARKED = >4 cells (100X) (0-2/hpf); RBC Distribution Width 17.1 % (11.5-14.5); Red Blood Cell (RBC) Count 4.02 mill/uL (4.70-6.10); Target Cells MARKED = >16 cells (100X) (0-1/hpf); White Blood Cell (WBC) Count 12.1 thou/uL (4.8-10.8)
[2020-10-26 11:40] VITALS: BP 112/55; TEMP 98.6
== END 2020-10-26 10:05 | disposition home or self-care (01) ==
LOC: ULT 08:57
PROVIDERS: ATTEND Family Medicine
PROC: 0W9G3ZZ Drainage of Peritoneal Cavity, Percutaneous Approach (ICD-10-PCS; principal; 2020-10-26)
DX: K70.31 Alcoholic cirrhosis of liver with ascites (principal); E11.9 Type 2 diabetes mellitus without complications; D50.9 Iron deficiency anemia, unspecified; E87.1 Hypo-osmolality and hyponatremia; D69.6 Thrombocytopenia, unspecified; I85.10 Secondary esophageal varices without bleeding; F10.21 Alcohol dependence, in remission; Z79.4 Long term (current) use of insulin; Z79.899 Other long term (current) drug therapy
CPT/HCPCS: 49083; 85025; 85610; 85730; P9047

== ENCOUNTER 2020-11-09 08:12 | Day surgery (SDC) | payer MEDICARE, MEDICAID ==
[2020-11-08 15:11] VITALS: BMI 25.0
[2020-11-09] MEDS ORDERED: Sodium Bicarbonate 2.5 MEQ/5 ML VIAL ONE (08:35)
[2020-11-09] MEDS ORDERED: Albumin 25% 100 ML ONE (08:35)
[2020-11-09] MEDS ORDERED: Lidocaine 1% PF 5 ML VIAL ONE (08:35)
[2020-11-09 12:20] VITALS: BP 114/67; TEMP 98.2
== END 2020-11-09 10:00 | disposition home or self-care (01) ==
LOC: ULT 08:12
PROVIDERS: ATTEND Family Medicine
PROC: 0W9G3ZZ Drainage of Peritoneal Cavity, Percutaneous Approach (ICD-10-PCS; principal; 2020-11-09)
DX: K70.31 Alcoholic cirrhosis of liver with ascites (principal); I12.9 Hypertensive chronic kidney disease with stage 1 through stage 4 chronic kidney disease, or unspecified chronic kidney disease; E11.22 Type 2 diabetes mellitus with diabetic chronic kidney disease; N18.9 Chronic kidney disease, unspecified; D63.1 Anemia in chronic kidney disease; E87.1 Hypo-osmolality and hyponatremia; Z79.4 Long term (current) use of insulin; Z79.899 Other long term (current) drug therapy
CPT/HCPCS: 49083; P9047

== ENCOUNTER 2020-11-16 08:11 | Day surgery (SDC) | payer MEDICARE, MEDICAID ==
[2020-11-16] MEDS ORDERED: Albumin 25% 100 ML ONE (08:14)
[2020-11-16] MEDS ORDERED: Lidocaine 1% PF 5 ML VIAL ONE (08:14)
[2020-11-16] MEDS ORDERED: Sodium Bicarbonate 2.5 MEQ/5 ML VIAL ONE (08:14)
[2020-11-16 08:34] VITALS: BMI 25.0
[2020-11-16 09:19] VITALS: TEMP 98.1
[2020-11-16 10:03] VITALS: BP 106/56
== END 2020-11-16 09:46 ==
LOC: ULT 08:11
PROVIDERS: ATTEND Family Medicine
PROC: 0W9G3ZZ Drainage of Peritoneal Cavity, Percutaneous Approach (ICD-10-PCS; principal; 2020-11-16)
DX: K70.31 Alcoholic cirrhosis of liver with ascites (principal); E11.9 Type 2 diabetes mellitus without complications; E87.1 Hypo-osmolality and hyponatremia; D53.9 Nutritional anemia, unspecified
CPT/HCPCS: 49083; P9047

== ENCOUNTER 2020-11-23 08:28 | Day surgery (SDC) | payer MEDICARE, MEDICAID ==
[2020-11-23] MEDS ORDERED: Lidocaine 1% PF 5 ML VIAL ONE (08:40)
[2020-11-23] MEDS ORDERED: Albumin 25% 100 ML ONE (08:40)
[2020-11-23] MEDS ORDERED: Sodium Bicarbonate 2.5 MEQ/5 ML VIAL ONE (08:40)
[2020-11-23 10:37] VITALS: BP 92/48
== END 2020-11-23 10:55 ==
LOC: ULT 08:28
PROVIDERS: ATTEND Family Medicine
PROC: 0W9G3ZZ Drainage of Peritoneal Cavity, Percutaneous Approach (ICD-10-PCS; principal; 2020-11-23)
DX: K70.31 Alcoholic cirrhosis of liver with ascites (principal); E11.9 Type 2 diabetes mellitus without complications; E87.1 Hypo-osmolality and hyponatremia; D53.9 Nutritional anemia, unspecified; D69.6 Thrombocytopenia, unspecified
CPT/HCPCS: 49083; P9047

== ENCOUNTER 2020-11-30 08:01 | Day surgery (SDC) | payer MEDICARE, MEDICAID ==
[2020-11-30] MEDS ORDERED: Sodium Bicarbonate 2.5 MEQ/5 ML VIAL ONE (08:05)
[2020-11-30] MEDS ORDERED: Albumin 25% 100 ML ONE (08:05)
[2020-11-30] MEDS ORDERED: Lidocaine 1% PF 5 ML VIAL ONE (08:05)
[2020-11-30] MEDS ORDERED: Sodium Chloride 0.9% 10 ML ONE (08:07)
[2020-11-30 09:52] VITALS: TEMP 98
[2020-11-30 09:58] VITALS: BP 91/40
== END 2020-11-30 09:32 ==
LOC: ULT 08:01
PROVIDERS: ATTEND Family Medicine
PROC: 0W9G3ZZ Drainage of Peritoneal Cavity, Percutaneous Approach (ICD-10-PCS; principal; 2020-11-30)
DX: K70.31 Alcoholic cirrhosis of liver with ascites (principal); E11.9 Type 2 diabetes mellitus without complications; E87.1 Hypo-osmolality and hyponatremia; D53.9 Nutritional anemia, unspecified; D69.6 Thrombocytopenia, unspecified
CPT/HCPCS: 49083; P9047

== ENCOUNTER 2020-12-07 08:09 | Day surgery (SDC) | payer MEDICARE, MEDICAID ==
[2020-12-05 12:18] VITALS: BMI 25.0
[2020-12-07] MEDS ORDERED: Albumin 25% 100 ML ONE (08:15)
[2020-12-07] MEDS ORDERED: Sodium Bicarbonate 2.5 MEQ/5 ML VIAL ONE (08:15)
[2020-12-07] MEDS ORDERED: Lidocaine 1% PF 5 ML VIAL ONE (08:15)
[2020-12-07 08:45] LABS: Mean Corpuscular HGB CONC 33.2 g/dL (32.0-36.0); Mean Corpuscular Hemoglobin 20.4 pg (27.0-31.0); Mean Corpuscular Volume 61.5 fL (78.0-98.0); Mean Platelet Volume 5.9 fL (7.4-10.4); Platelet Count 107 thou/uL (130-400); RBC Distribution Width 17.6 % (11.5-14.5); Red Blood Cell (RBC) Count 3.91 mill/uL (4.70-6.10); White Blood Cell (WBC) Count 13.5 thou/uL (4.8-10.8)
[2020-12-07 08:46] LABS: INR-International Normal Ratio 1.3; Prothrombin Time 16.4 sec (12.0-14.7)
[2020-12-07 08:47] LABS: PTT 39.8 sec (22.9-36.1)
[2020-12-07 09:22] VITALS: TEMP 97.7
[2020-12-07 09:47] LABS: Band 4 % (5-11); Eosinophils 2 % (0-10); Hypochromia MODERATE=16-30 cells (100X) (0-5/hpf); Lymphocytes 21 % (21-51); MDiff Complete? YES; Microcytosis MARKED = >30 cells (100X) (0-5/hpf); Monocytes 5 % (0-10); Neutrophil 68 % (42-75); Nucleated RBC 2 % (0); Platelet Morphology Comment Appears Decreased; Poikilocytosis MODERATE=16-30 cells (100X) (0-5/hpf); Polychromasia MODERATE = 3-4 cells (100X) (0-2/hpf); Reflex for Review?? NO
[2020-12-07 10:25] VITALS: BP 115/52
== END 2020-12-07 10:12 ==
LOC: ULT 08:09
PROVIDERS: ATTEND Family Medicine
PROC: 0W9G3ZZ Drainage of Peritoneal Cavity, Percutaneous Approach (ICD-10-PCS; principal; 2020-12-07)
DX: K70.31 Alcoholic cirrhosis of liver with ascites (principal); E11.9 Type 2 diabetes mellitus without complications; Z79.4 Long term (current) use of insulin; Z79.899 Other long term (current) drug therapy
CPT/HCPCS: 49083; 85025; 85610; 85730; P9047

== ENCOUNTER 2020-12-09 17:47 | Inpatient (IN) | payer MEDICARE, MEDICAID ==
[~2020-12-09 17:47] MED LIST changes: -Albumin 25% 100 ML ONE; +Iopamidol-370 76% 500 ML 1 ML ONE; -Lidocaine 1% PF 5 ML VIAL ONE; -Sodium Bicarbonate 2.5 MEQ/5 ML VIAL ONE
[2020-12-09 19:56] LABS: ALT (SGPT) 21 U/L (8-55); AST (SGOT) 22 U/L (5-34); Alkaline Phosphatase 151 U/L (40-110); Anion Gap 9 mmol/L (10-20); BUN (Urea Nitrogen) 33 mg/dL (8.4-25.7); Bilirubin, Total 2.8 mg/dL (0.2-1.2); Calc. Creatinine Clearance 0 mL/min (70-130); Calcium 8.3 mg/dL (7.8-10.44); Carbon Dioxide 23 mmol/L (23-31); Chloride 104 mmol/L (98-107); Globulin 2.8 g/dL (2.4-3.5); Glucose 86 mg/dL (80-115); Lipase 90 U/L (8-78); Potassium 4.2 mmol/L (3.5-5.1); Protein, Total 5.8 g/dL (5.8-8.1); Sodium 132 mmol/L (136-145)
[2020-12-09 20:30] LABS: Anisocytosis MODERATE=16-30 cells (100X) (0-5/hpf); Band 9 % (5-11); Eosinophils 2 % (0-10); Hemoglobin 7.1 g/dL (14.0-18.0); Lymphocytes 18 % (21-51); MDiff Complete? YES; Macrocytosis SLIGHT = 6-15 cells (100X) (0-5/hpf); Mean Corpuscular HGB CONC 35.3 g/dL (32.0-36.0); Mean Corpuscular Hemoglobin 21.2 pg (27.0-31.0); Mean Corpuscular Volume 60.1 fL (78.0-98.0); Mean Platelet Volume 6.4 fL (7.4-10.4); Monocytes 8 % (0-10); Neutrophil 63 % (42-75); Platelet Count 84 thou/uL (130-400); Platelet Morphology Comment Appears Decreased; RBC Distribution Width 16.6 % (11.5-14.5); Red Blood Cell (RBC) Count 3.35 mill/uL (4.70-6.10); Stomatocytes SLIGHT = 2-5 cells (100X) (0-1/hpf); Target Cells MODERATE= 6-15 cells (100X) (0-1/hpf); White Blood Cell (WBC) Count 9.4 thou/uL (4.8-10.8)
[2020-12-09] MEDS ORDERED: Pantoprazole 40 MG VIAL ONE (21:54)
[2020-12-09] MEDS ORDERED: cefTRIAXone\\ROCEPHIN 1 GM VIAL ONE (21:54)
[2020-12-09] MEDS ORDERED: Octreotide Acetate 100 MCG/ML VIAL ONE (21:54)
[2020-12-09] MEDS ORDERED: Ondansetron PF 4 MG/2 ML Vial IVP PRN (23:22)
[2020-12-09] MEDS ORDERED: Acetaminophen 325 MG TAB PO PRN (23:22)
[2020-12-09 23:25] VITALS: BMI 26.9
[2020-12-10] MEDS ORDERED: Dextrose 5% in Water 1,000 ML IV PRN (00:06)
[2020-12-10] MEDS ORDERED: Dextrose 50% Abboject 50 ML SYRINGE SLOW IVP PRN (00:06)
[2020-12-10] MEDS ORDERED: HumaLOG 300 UNITS/3 ML VIAL SC PRN ×2 (00:06)
[2020-12-10] MEDS ORDERED: Octreotide Acetate 1,250 MCG in Sodium Chloride 0.9% 250 ML 250 ML IVPB SCH (00:30)
[2020-12-10 06:03] LABS: ALT (SGPT) 20 U/L (8-55); AST (SGOT) 23 U/L (5-34); Alkaline Phosphatase 134 U/L (40-110); Anion Gap 10 mmol/L (10-20); BUN (Urea Nitrogen) 33 mg/dL (8.4-25.7); Bilirubin, Total 3.6 mg/dL (0.2-1.2); Calc. Creatinine Clearance 77 mL/min (70-130); Calcium 8.6 mg/dL (7.8-10.44); Carbon Dioxide 22 mmol/L (23-31); Chloride 106 mmol/L (98-107); Globulin 2.8 g/dL (2.4-3.5); Glucose 61 mg/dL (80-115); Potassium 5.1 mmol/L (3.5-5.1); Protein, Total 5.8 g/dL (5.8-8.1); Sodium 133 mmol/L (136-145)
[2020-12-10 06:06] LABS: INR-International Normal Ratio 1.3; PTT 40.8 sec (22.9-36.1)
[2020-12-10 08:08] LABS: Anisocytosis MARKED = >30 cells (100X) (0-5/hpf); Band 3 % (5-11); Eosinophils 3 % (0-10); Hemoglobin 8.6 g/dL (14.0-18.0); Lymphocytes 30 % (21-51); MDiff Complete? YES; Mean Corpuscular HGB CONC 35.5 g/dL (32.0-36.0); Mean Corpuscular Hemoglobin 22.4 pg (27.0-31.0); Mean Corpuscular Volume 63.1 fL (78.0-98.0); Monocytes 1 % (0-10); Neutrophil 63 % (42-75); Platelet Count 83 thou/uL (130-400); Platelet Morphology Comment Appears Decreased; Poikilocytosis MODERATE=16-30 cells (100X) (0-5/hpf); RBC Distribution Width 19.6 % (11.5-14.5); Red Blood Cell (RBC) Count 3.82 mill/uL (4.70-6.10); Target Cells MODERATE= 6-15 cells (100X) (0-1/hpf); White Blood Cell (WBC) Count 11.1 thou/uL (4.8-10.8)
[2020-12-10] MEDS: Dextrose 5% in Water 1,000 ML IV SCH ×2 (08:09→23:06)
[2020-12-10] MEDS: Spironolactone 25 MG TAB PO SCH ×2 (08:43→18:23)
[2020-12-10] MEDS: Pantoprazole 40 MG VIAL IVP SCH ×2 (08:44→20:37)
[2020-12-10] MEDS: Rifaximin 550 MG TAB PO SCH ×2 (08:44→20:37)
[2020-12-10] MEDS ORDERED: FLU VACC QS2021-22(6MOS UP)/PF 60 MCG/0.5 ML SYRINGE IM ONE (09:00)
[2020-12-10 09:30] LABS: Anisocytosis MARKED = >30 cells (100X) (0-5/hpf); Band 3 % (5-11); Eosinophils 2 % (0-10); Hemoglobin 8.6 g/dL (14.0-18.0); Lymphocytes 20 % (21-51); MDiff Complete? YES; Mean Corpuscular HGB CONC 35.5 g/dL (32.0-36.0); Mean Corpuscular Hemoglobin 22.1 pg (27.0-31.0); Mean Corpuscular Volume 62.3 fL (78.0-98.0); Mean Platelet Volume 5.5 fL (7.4-10.4); Metamyelocyte 1 % (0-0); Monocytes 3 % (0-10); Neutrophil 71 % (42-75); Platelet Count 80 thou/uL (130-400); Poikilocytosis MODERATE=16-30 cells (100X) (0-5/hpf); RBC Distribution Width 19.4 % (11.5-14.5); Red Blood Cell (RBC) Count 3.87 mill/uL (4.70-6.10); Target Cells MODERATE= 6-15 cells (100X) (0-1/hpf); White Blood Cell (WBC) Count 10.5 thou/uL (4.8-10.8)
[2020-12-10 10:14] LABS: Hemoglobin 9.6 g/dL (14.0-18.0)
[2020-12-10 17:18] LABS: SARS-CoV-2 PCR by NAA Not Detected (NotDetected)
[2020-12-10 18:35] LABS: Hemoglobin 8.5 g/dL (14.0-18.0)
[2020-12-10] MEDS: cefTRIAXone\\ROCEPHIN 1 GM in Sodium Chloride 0.9% 100 ML IVPB SCH (22:53)
[2020-12-11 06:20] LABS: ALT (SGPT) 18 U/L (8-55); AST (SGOT) 27 U/L (5-34); Albumin 2.8 g/dL (3.4-4.8); Alkaline Phosphatase 112 U/L (40-110); Anion Gap 11 mmol/L (10-20); BUN (Urea Nitrogen) 30 mg/dL (8.4-25.7); Bilirubin, Total 2.9 mg/dL (0.2-1.2); Calc. Creatinine Clearance 72 mL/min (70-130); Calcium 8.2 mg/dL (7.8-10.44); Carbon Dioxide 21 mmol/L (23-31); Chloride 104 mmol/L (98-107); Globulin 2.7 g/dL (2.4-3.5); Glucose 70 mg/dL (80-115); Potassium 4.8 mmol/L (3.5-5.1); Protein, Total 5.5 g/dL (5.8-8.1); Sodium 131 mmol/L (136-145)
[2020-12-11 06:40] LABS: Eosinophils 7 % (0-10); Hemoglobin 8.2 g/dL (14.0-18.0); Hemoglobin C Crystals SLIGHT (None Seen); Lymphocytes 19 % (21-51); MDiff Complete? YES; Mean Corpuscular HGB CONC 34.5 g/dL (32.0-36.0); Mean Corpuscular Hemoglobin 21.4 pg (27.0-31.0); Mean Platelet Volume 6.3 fL (7.4-10.4); Monocytes 11 % (0-10); Neutrophil 63 % (42-75); Nucleated RBC 3 % (0); Platelet Count 82 thou/uL (130-400); Platelet Morphology Comment Appears Decreased; RBC Distribution Width 19.3 % (11.5-14.5); Red Blood Cell (RBC) Count 3.82 mill/uL (4.70-6.10); Target Cells MODERATE= 6-15 cells (100X) (0-1/hpf); White Blood Cell (WBC) Count 9.2 thou/uL (4.8-10.8)
[2020-12-11 07:07] LABS: Bacteria/HPF None Seen HPF (None Seen); Bilirubin Negative (Negative); Blood, Urine Negative (Negative); Clarity Clear (Clear); Glucose, Urine (Dipstick) Normal (Negative); Ketone, Urine Negative (Negative); Leukocyte Negative Leu/uL (Negative); Nitrite Negative (Negative); Protein, Urine (Dipstick) Negative (Neg-Trace); RBC/HPF 0-3 HPF (0-3); Specific Gravity, Urine 1.036 (1.002-1.036); Squamous Epithelial None Seen HPF (0-3); Urobilinogen Normal mg/dL (Less than 2); WBC/HPF None Seen HPF (0-3); pH, Urine 5.5 (5.0-9.0)
[2020-12-11 07:46] LABS: Urine Culture Reflex No No
[2020-12-11] MEDS ORDERED: Lidocaine 1% PF 5 ML VIAL ONE (09:30)
[2020-12-11] MEDS ORDERED: PROPOFOL 200 MG/20 ML VIAL ONE (09:30)
[2020-12-11] MEDS: Rifaximin 550 MG TAB PO SCH (11:00)
[2020-12-11] MEDS: Spironolactone 25 MG TAB PO SCH ×2 (11:01→16:03)
[2020-12-11] MEDS: Pantoprazole 40 MG VIAL IVP SCH (11:03)
[2020-12-12] MEDS: cefTRIAXone\\ROCEPHIN 1 GM in Sodium Chloride 0.9% 100 ML IVPB SCH (00:11)
[2020-12-12] MEDS: Pantoprazole 40 MG VIAL IVP SCH ×2 (00:11→10:00)
[2020-12-12] MEDS: Rifaximin 550 MG TAB PO SCH ×2 (00:12→10:00)
[2020-12-12] MEDS: Dextrose 5% in Water 1,000 ML IV SCH (00:24)
[2020-12-12 06:30] LABS: Hemoglobin 8.7 g/dL (14.0-18.0); Mean Corpuscular HGB CONC 35.5 g/dL (32.0-36.0); Mean Corpuscular Hemoglobin 22.2 pg (27.0-31.0); Mean Corpuscular Volume 62.4 fL (78.0-98.0); Mean Platelet Volume 5.7 fL (7.4-10.4); Platelet Count 76 thou/uL (130-400); RBC Distribution Width 19.3 % (11.5-14.5); Red Blood Cell (RBC) Count 3.91 mill/uL (4.70-6.10); White Blood Cell (WBC) Count 9.7 thou/uL (4.8-10.8)
[2020-12-12 06:43] LABS: ALT (SGPT) 17 U/L (8-55); AST (SGOT) 22 U/L (5-34); Albumin 2.9 g/dL (3.4-4.8); Alkaline Phosphatase 118 U/L (40-110); Anion Gap 10 mmol/L (10-20); BUN (Urea Nitrogen) 34 mg/dL (8.4-25.7); Bilirubin, Total 3.2 mg/dL (0.2-1.2); Calc. Creatinine Clearance 64 mL/min (70-130); Calcium 8.4 mg/dL (7.8-10.44); Carbon Dioxide 22 mmol/L (23-31); Chloride 103 mmol/L (98-107); Globulin 2.8 g/dL (2.4-3.5); Glucose 189 mg/dL (80-115); Protein, Total 5.7 g/dL (5.8-8.1); Sodium 130 mmol/L (136-145)
[2020-12-12] MEDS ORDERED: Sodium Chloride 0.9% 500 ML IV SCH (08:15)
[2020-12-12 08:16] LABS: Anisocytosis MODERATE=16-30 cells (100X) (0-5/hpf); Band 3 % (5-11); Eosinophils 4 % (0-10); Hemoglobin C Crystals MODERATE (None Seen); Hypochromia MODERATE=16-30 cells (100X) (0-5/hpf); Lymphocytes 15 % (21-51); MDiff Complete? YES; Microcytosis MODERATE=15-30 cells (100X) (0-5/hpf); Monocytes 6 % (0-10); Neutrophil 72 % (42-75); Nucleated RBC 5 % (0); Platelet Morphology Comment Appears Decreased; Polychromasia MODERATE = 3-4 cells (100X) (0-2/hpf)
[2020-12-12] MEDS ORDERED: Sodium Bicarbonate 2.5 MEQ/5 ML VIAL ONE (09:59)
[2020-12-12] MEDS ORDERED: Lidocaine 1% PF 5 ML VIAL ONE (09:59)
[2020-12-12] MEDS: Spironolactone 25 MG TAB PO SCH ×2 (10:00→17:45)
[2020-12-12] MEDS ORDERED: Albumin 25% 25 GM/100 ML BOT IVPB SCH (11:45)
[2020-12-12 16:16] VITALS: BP 107/55; TEMP 98.4
== END 2020-12-12 18:55 | DRG 432 ==
LOC: ERS 17:47 → 3SE 21:58 → OBSVTOIN 12-12 11:52
PROVIDERS: ADMIT Internal Medicine; ATTEND Internal Medicine
PROC: 30233N1 Transfusion of Nonautologous Red Blood Cells into Peripheral Vein, Percutaneous Approach (ICD-10-PCS; 2020-12-09)
PROC: 06L38CZ Occlusion of Esophageal Vein with Extraluminal Device, Via Natural or Artificial Opening Endoscopic (ICD-10-PCS; 2020-12-11)
PROC: 0W9G3ZZ Drainage of Peritoneal Cavity, Percutaneous Approach (ICD-10-PCS; principal; 2020-12-12)
DX: K70.31 Alcoholic cirrhosis of liver with ascites (principal); I85.11 Secondary esophageal varices with bleeding; I81 Portal vein thrombosis; K72.00 Acute and subacute hepatic failure without coma; D62 Acute posthemorrhagic anemia; D68.9 Coagulation defect, unspecified; K76.6 Portal hypertension; Z20.822 Contact with and (suspected) exposure to COVID-19; E11.9 Type 2 diabetes mellitus without complications; F17.210 Nicotine dependence, cigarettes, uncomplicated; D69.59 Other secondary thrombocytopenia; K72.10 Chronic hepatic failure without coma; F10.10 Alcohol abuse, uncomplicated; E88.09 Other disorders of plasma-protein metabolism, not elsewhere classified; K31.89 Other diseases of stomach and duodenum; Z79.899 Other long term (current) drug therapy; Z79.4 Long term (current) use of insulin; Z90.49 Acquired absence of other specified parts of digestive tract
CPT/HCPCS: 36415; 36416; 36430; 49083; 74177; 80053; 81001; 82140; 82274; 83690; 85025; 85610; 85730; 86850; 86900; 86901; 90471; 90686; 93005; 96374; 96375; 96376; C9113; G0008; G0378; J0696; J1815; J2354; J2704; J3490; J7050; J7070; P9016; P9045; P9047; Q9967; U0003; U0005

== ENCOUNTER 2020-12-21 08:02 | Day surgery (SDC) | payer MEDICARE, MEDICAID ==
[2020-12-21] MEDS ORDERED: Lidocaine 1% PF 5 ML VIAL ONE (08:13)
[2020-12-21] MEDS ORDERED: Sodium Bicarbonate 2.5 MEQ/5 ML VIAL ONE (08:13)
[2020-12-21] MEDS ORDERED: Albumin 25% 100 ML ONE (08:13)
[2020-12-21 08:52] VITALS: TEMP 98
[2020-12-21 09:27] VITALS: BP 100/54
== END 2020-12-21 09:28 ==
LOC: ULT 08:02
PROVIDERS: ATTEND Family Medicine
PROC: 0W9G3ZZ Drainage of Peritoneal Cavity, Percutaneous Approach (ICD-10-PCS; principal; 2020-12-21)
DX: K74.60 Unspecified cirrhosis of liver (principal); R18.8 Other ascites
CPT/HCPCS: 49083; P9047

== ENCOUNTER 2020-12-28 09:31 | Day surgery (SDC) | payer MEDICARE, MEDICAID ==
[2020-12-27 11:11] VITALS: BMI 25.0
[2020-12-28] MEDS ORDERED: Sodium Chloride 0.9% 10 ML ONE (09:45)
[2020-12-28] MEDS ORDERED: Sodium Bicarbonate 2.5 MEQ/5 ML VIAL ONE (09:45)
[2020-12-28] MEDS ORDERED: Albumin 25% 100 ML ONE (09:45)
[2020-12-28] MEDS ORDERED: Lidocaine 1% PF 5 ML VIAL ONE (09:45)
[2020-12-28 10:46] VITALS: TEMP 97.8
[2020-12-28 13:08] VITALS: BP 101/51
== END 2020-12-28 10:52 ==
LOC: ULT 09:31
PROVIDERS: ATTEND Family Medicine
PROC: 0W9G3ZZ Drainage of Peritoneal Cavity, Percutaneous Approach (ICD-10-PCS; principal; 2020-12-28)
DX: K74.60 Unspecified cirrhosis of liver (principal); R18.8 Other ascites; I12.9 Hypertensive chronic kidney disease with stage 1 through stage 4 chronic kidney disease, or unspecified chronic kidney disease; E11.22 Type 2 diabetes mellitus with diabetic chronic kidney disease; N18.9 Chronic kidney disease, unspecified; D63.1 Anemia in chronic kidney disease
CPT/HCPCS: 49083; P9047

== ENCOUNTER 2021-01-04 08:02 | Day surgery (SDC) | payer MEDICARE, MEDICAID ==
[~2021-01-04 08:02] MED LIST changes: +FLU VACC QS2021-22(6MOS UP)/PF 60 MCG/0.5 ML SYRINGE IM ONE; -Iopamidol-370 76% 500 ML 1 ML ONE
[2021-01-04] MEDS ORDERED: Albumin 25% 100 ML ONE (08:08)
[2021-01-04] MEDS ORDERED: Sodium Bicarbonate 2.5 MEQ/5 ML VIAL ONE (08:08)
[2021-01-04] MEDS ORDERED: Lidocaine 1% PF 5 ML VIAL ONE (08:08)
[2021-01-04] MEDS ORDERED: Sodium Chloride 0.9% 10 ML ONE (08:08)
== END 2021-01-04 09:51 | disposition home or self-care (01) ==
LOC: ULT 08:02
PROVIDERS: ATTEND Family Medicine
PROC: 0W9G3ZZ Drainage of Peritoneal Cavity, Percutaneous Approach (ICD-10-PCS; principal; 2021-01-04)
DX: K74.60 Unspecified cirrhosis of liver (principal); R18.8 Other ascites; I12.9 Hypertensive chronic kidney disease with stage 1 through stage 4 chronic kidney disease, or unspecified chronic kidney disease; E11.22 Type 2 diabetes mellitus with diabetic chronic kidney disease; N18.9 Chronic kidney disease, unspecified; D63.1 Anemia in chronic kidney disease; Z23 Encounter for immunization
CPT/HCPCS: 49083; 90686; G0008; P9047; 90471

== ENCOUNTER 2021-01-11 08:04 | Day surgery (SDC) | payer MEDICARE, MEDICAID ==
[2021-01-10 14:38] VITALS: BMI 25.0
[2021-01-11] MEDS ORDERED: Lidocaine 1% PF 5 ML VIAL ONE (08:29)
[2021-01-11] MEDS ORDERED: Sodium Bicarbonate 2.5 MEQ/5 ML VIAL ONE (08:29)
[2021-01-11] MEDS ORDERED: Albumin 25% 100 ML ONE (08:29)
[2021-01-11 11:14] VITALS: BP 122/71; TEMP 98
[2021-01-11] MEDS ORDERED: FLU VACC QS2021-22(6MOS UP)/PF 60 MCG/0.5 ML SYRINGE IM ONE (14:45)
== END 2021-01-11 10:15 | disposition home or self-care (01) ==
LOC: ULT 08:04
PROVIDERS: ATTEND Family Medicine
PROC: 0W9G3ZZ Drainage of Peritoneal Cavity, Percutaneous Approach (ICD-10-PCS; principal; 2021-01-11)
DX: K74.60 Unspecified cirrhosis of liver (principal); R18.8 Other ascites; I12.9 Hypertensive chronic kidney disease with stage 1 through stage 4 chronic kidney disease, or unspecified chronic kidney disease; E11.22 Type 2 diabetes mellitus with diabetic chronic kidney disease; N18.9 Chronic kidney disease, unspecified; D63.1 Anemia in chronic kidney disease; Z79.2 Long term (current) use of antibiotics; Z79.4 Long term (current) use of insulin; Z79.899 Other long term (current) drug therapy
CPT/HCPCS: 49083; P9047; 90471; 90686; G0008

== ENCOUNTER 2021-01-18 09:22 | Emergency (ER) | payer MEDICARE, MEDICAID ==
[2021-01-18 10:43] LABS: Band 9 % (5-11); Eosinophils 2 % (0-10); Hemoglobin 9.5 g/dL (14.0-18.0); Hemoglobin C Crystals MODERATE (None Seen); Hypochromia SLIGHT = 6-15 cells (100X) (0-5/hpf); Lymphocytes 22 % (21-51); MDiff Complete? YES; Mean Corpuscular HGB CONC 34.1 g/dL (32.0-36.0); Mean Corpuscular Hemoglobin 21.9 pg (27.0-31.0); Mean Corpuscular Volume 64.3 fL (78.0-98.0); Mean Platelet Volume 5.2 fL (7.4-10.4); Microcytosis MARKED = >30 cells (100X) (0-5/hpf); Monocytes 4 % (0-10); Neutrophil 62 % (42-75); Nucleated RBC 13 % (0); Ovalocytes MODERATE= 6-15 cells (100X) (0-1/hpf); Platelet Count 125 thou/uL (130-400); Platelet Morphology Comment Appears Decreased; Polychromasia MODERATE = 3-4 cells (100X) (0-2/hpf); Red Blood Cell (RBC) Count 4.33 mill/uL (4.70-6.10); Target Cells MODERATE= 6-15 cells (100X) (0-1/hpf); White Blood Cell (WBC) Count 15.2 thou/uL (4.8-10.8)
[2021-01-18 10:45] LABS: ALT (SGPT) 23 U/L (8-55); AST (SGOT) 32 U/L (5-34); Albumin 3.3 g/dL (3.4-4.8); Alkaline Phosphatase 146 U/L (40-110); Anion Gap 12 mmol/L (10-20); BUN (Urea Nitrogen) 47 mg/dL (8.4-25.7); Bilirubin, Total 4.6 mg/dL (0.2-1.2); Calc. Creatinine Clearance 0 mL/min (70-130); Calcium 9.2 mg/dL (7.8-10.44); Carbon Dioxide 21 mmol/L (23-31); Chloride 102 mmol/L (98-107); Globulin 3.8 g/dL (2.4-3.5); Glucose 115 mg/dL (80-115); Potassium 4.2 mmol/L (3.5-5.1); Protein, Total 7.1 g/dL (5.8-8.1); Sodium 131 mmol/L (136-145)
== END 2021-01-18 18:03 ==
LOC: ERS 09:22
DX: S32.040A Wedge compression fracture of fourth lumbar vertebra, initial encounter for closed fracture (principal); E11.22 Type 2 diabetes mellitus with diabetic chronic kidney disease; N18.9 Chronic kidney disease, unspecified; Z79.4 Long term (current) use of insulin; Z79.84 Long term (current) use of oral hypoglycemic drugs; Z79.899 Other long term (current) drug therapy; W19.XXXA Unspecified fall, initial encounter
CPT/HCPCS: 36415; 72131; 80053; 85025

== ENCOUNTER 2021-01-20 09:53 | Day surgery (SDC) | payer MEDICARE, MEDICAID ==
[2021-01-17 12:43] VITALS: BMI 25.0
[2021-01-20] MEDS ORDERED: Sodium Bicarbonate 2.5 MEQ/5 ML VIAL ONE (10:41)
[2021-01-20] MEDS ORDERED: Lidocaine 1% PF 5 ML VIAL ONE (10:41)
[2021-01-20 12:23] VITALS: BP 122/51; TEMP 98.2
== END 2021-01-20 11:40 | disposition home or self-care (01) ==
LOC: ULT 09:53
PROVIDERS: ATTEND Family Medicine
PROC: 0W9G3ZZ Drainage of Peritoneal Cavity, Percutaneous Approach (ICD-10-PCS; principal; 2021-01-20)
DX: K74.60 Unspecified cirrhosis of liver (principal); R18.8 Other ascites; G30.9 Alzheimer's disease, unspecified; F02.80 Dementia in other diseases classified elsewhere, unspecified severity, without behavioral disturbance, psychotic disturbance, mood disturbance, and anxiety; Z79.4 Long term (current) use of insulin; Z79.84 Long term (current) use of oral hypoglycemic drugs; Z79.899 Other long term (current) drug therapy
CPT/HCPCS: 49083

== ENCOUNTER 2021-01-25 07:52 | Day surgery (SDC) | payer MEDICARE, MEDICAID ==
[2021-01-23 10:51] VITALS: BMI 25.0
[2021-01-25] MEDS ORDERED: Lidocaine 1% PF 5 ML VIAL ONE (08:46)
[2021-01-25] MEDS ORDERED: Sodium Bicarbonate 2.5 MEQ/5 ML VIAL ONE (08:46)
[2021-01-25 08:47] LABS: Hemoglobin 8.4 g/dL (14.0-18.0); Mean Corpuscular HGB CONC 33.2 g/dL (32.0-36.0); Mean Corpuscular Hemoglobin 21.4 pg (27.0-31.0); Mean Corpuscular Volume 64.4 fL (78.0-98.0); Mean Platelet Volume 5.2 fL (7.4-10.4); Platelet Count 135 thou/uL (130-400); RBC Distribution Width 21.4 % (11.5-14.5); Red Blood Cell (RBC) Count 3.91 mill/uL (4.70-6.10); White Blood Cell (WBC) Count 14.5 thou/uL (4.8-10.8)
[2021-01-25 08:59] LABS: INR-International Normal Ratio 1.2; Prothrombin Time 15.6 sec (12.0-14.7)
[2021-01-25 09:00] LABS: PTT 46.2 sec (22.9-36.1)
[2021-01-25 09:25] VITALS: TEMP 98
[2021-01-25 09:46] LABS: Anisocytosis MARKED = >30 cells (100X) (0-5/hpf); Band 1 % (5-11); Eosinophils 4 % (0-10); Hemoglobin C Crystals MODERATE (None Seen); Hypochromia SLIGHT = 6-15 cells (100X) (0-5/hpf); Lymphocytes 22 % (21-51); MDiff Complete? YES; Microcytosis MODERATE=15-30 cells (100X) (0-5/hpf); Monocytes 12 % (0-10); Neutrophil 61 % (42-75); Nucleated RBC 12 % (0); Platelet Morphology Comment Appears Adequate; Polychromasia MODERATE = 3-4 cells (100X) (0-2/hpf); Target Cells MODERATE= 6-15 cells (100X) (0-1/hpf)
[2021-01-25 09:47] LABS: Small Platelets MODERATE
[2021-01-25 10:04] VITALS: BP 108/59
== END 2021-01-25 10:14 ==
LOC: ULT 07:52
PROVIDERS: ATTEND Family Medicine
PROC: 0W9G3ZZ Drainage of Peritoneal Cavity, Percutaneous Approach (ICD-10-PCS; principal; 2021-01-25)
DX: K74.60 Unspecified cirrhosis of liver (principal); R18.8 Other ascites
CPT/HCPCS: 49083; 85025; 85610; 85730

== ENCOUNTER 2021-01-29 18:06 | Inpatient (IN) | payer MEDICARE, MEDICAID ==
[2021-01-29] MEDS ORDERED: D5 1/2 NS w/20 mEq KCL 1,000 ML IV SCH (18:30)
[2021-01-29] MEDS ORDERED: Dextrose 50% Abboject 50 ML SYRINGE IVP PRN (18:30)
[2021-01-29] MEDS ORDERED: Insulin Regular 300 UNITS/3 ML VIAL SC PRN (18:30)
[2021-01-29] MEDS ORDERED: Dextrose 5% in Water 1,000 ML IV PRN ×2 (18:30→19:46)
[2021-01-29] MEDS ORDERED: Ondansetron PF 4 MG/2 ML Vial IVP PRN (19:44)
[2021-01-29] MEDS ORDERED: Dextrose 50% Abboject 50 ML SYRINGE SLOW IVP PRN (19:46)
[2021-01-29 20:27] LABS: Lactic Acid 1.8 mmol/L (0.5-2.2)
[2021-01-29] MEDS: Rifaximin 550 MG TAB PO SCH (21:12)
[2021-01-29] MEDS: HumaLOG 300 UNITS/3 ML VIAL SC PRN (22:56)
[2021-01-30] MEDS ORDERED: Cefepime 2 GM in Sodium Chloride 0.9% 100 ML IVPB SCH (02:00)
[2021-01-30] MEDS: Cefepime 1 GM in Sodium Chloride 0.9% 100 ML IVPB SCH ×2 (02:23→15:10)
[2021-01-30 04:12] LABS: ALT (SGPT) 24 U/L (8-55); AST (SGOT) 21 U/L (5-34); Albumin 2.7 g/dL (3.4-4.8); Alkaline Phosphatase 150 U/L (40-110); Anion Gap 11 mmol/L (10-20); BUN (Urea Nitrogen) 44 mg/dL (8.4-25.7); Bilirubin, Total 2.6 mg/dL (0.2-1.2); Calc. Creatinine Clearance 50 mL/min (70-130); Calcium 8.4 mg/dL (7.8-10.44); Carbon Dioxide 20 mmol/L (23-31); Chloride 103 mmol/L (98-107); Glucose 160 mg/dL (80-115); Potassium 4.2 mmol/L (3.5-5.1); Protein, Total 5.7 g/dL (5.8-8.1); Sodium 130 mmol/L (136-145)
[2021-01-30 04:21] LABS: Band 2 % (5-11); Eosinophils 1 % (0-10); Hemoglobin 6.8 g/dL (14.0-18.0); Hypochromia SLIGHT = 6-15 cells (100X) (0-5/hpf); Lymphocytes 22 % (21-51); MDiff Complete? YES; Mean Corpuscular HGB CONC 35.8 g/dL (32.0-36.0); Mean Corpuscular Hemoglobin 22.9 pg (27.0-31.0); Mean Corpuscular Volume 63.8 fL (78.0-98.0); Mean Platelet Volume 5.5 fL (7.4-10.4); Microcytosis SLIGHT = 6-15 cells (100X) (0-5/hpf); Monocytes 14 % (0-10); Neutrophil 61 % (42-75); Nucleated RBC 6 % (0); Platelet Count 96 thou/uL (130-400); Platelet Morphology Comment Appears Decreased; Polychromasia SLIGHT = 2-3 cells (100X) (0-2/hpf); RBC Distribution Width 20.4 % (11.5-14.5); Red Blood Cell (RBC) Count 2.96 mill/uL (4.70-6.10); Target Cells SLIGHT = 2-5 cells (100X) (0-1/hpf); White Blood Cell (WBC) Count 11.2 thou/uL (4.8-10.8)
[2021-01-30] MEDS: HumaLOG 300 UNITS/3 ML VIAL SC PRN (06:27)
[2021-01-30] MEDS: Rifaximin 550 MG TAB PO SCH ×2 (08:25→20:43)
[2021-01-30 09:12] LABS: Anion Gap 10 mmol/L (10-20); BUN (Urea Nitrogen) 45 mg/dL (8.4-25.7); Calc. Creatinine Clearance 54 mL/min (70-130); Calcium 8.4 mg/dL (7.8-10.44); Carbon Dioxide 21 mmol/L (23-31); Chloride 103 mmol/L (98-107); Glucose 106 mg/dL (80-115); Potassium 4.2 mmol/L (3.5-5.1); Sodium 130 mmol/L (136-145)
[2021-01-30 09:14] LABS: Anisocytosis MODERATE=16-30 cells (100X) (0-5/hpf); Band 2 % (5-11); Eosinophils 5 % (0-10); Hemoglobin 7.1 g/dL (14.0-18.0); Hemoglobin C Crystals MODERATE (None Seen); Lymphocytes 20 % (21-51); MDiff Complete? YES; Mean Corpuscular HGB CONC 35.7 g/dL (32.0-36.0); Mean Corpuscular Hemoglobin 22.8 pg (27.0-31.0); Mean Platelet Volume 5.2 fL (7.4-10.4); Microcytosis SLIGHT = 6-15 cells (100X) (0-5/hpf); Monocytes 2 % (0-10); Neutrophil 71 % (42-75); Nucleated RBC 15 % (0); Platelet Count 75 thou/uL (130-400); Platelet Morphology Comment Appears Decreased; Polychromasia SLIGHT = 2-3 cells (100X) (0-2/hpf); RBC Distribution Width 20.5 % (11.5-14.5); Red Blood Cell (RBC) Count 3.09 mill/uL (4.70-6.10); Target Cells MODERATE= 6-15 cells (100X) (0-1/hpf); White Blood Cell (WBC) Count 8.7 thou/uL (4.8-10.8)
[2021-01-30 14:03] LABS: Glucose 122 mg/dL (80-115)
[2021-01-30] MEDS: Vancomycin 1.5 GRAM/300 ML BAG 1.5 GM in Premix Bag 1 BAG IVPB SCH (16:08)
[2021-01-30 18:20] LABS: Glucose 70 mg/dL (80-115)
[2021-01-31] MEDS: Cefepime 1 GM in Sodium Chloride 0.9% 100 ML IVPB SCH ×2 (03:23→16:06)
[2021-01-31 03:41] LABS: ALT (SGPT) 24 U/L (8-55); AST (SGOT) 26 U/L (5-34); Albumin 2.7 g/dL (3.4-4.8); Alkaline Phosphatase 138 U/L (40-110); Anion Gap 10 mmol/L (10-20); BUN (Urea Nitrogen) 42 mg/dL (8.4-25.7); Bilirubin, Total 2.8 mg/dL (0.2-1.2); Calc. Creatinine Clearance 56 mL/min (70-130); Calcium 8.5 mg/dL (7.8-10.44); Carbon Dioxide 22 mmol/L (23-31); Chloride 100 mmol/L (98-107); Glucose 168 mg/dL (80-115); Potassium 4.1 mmol/L (3.5-5.1); Protein, Total 5.7 g/dL (5.8-8.1); Sodium 128 mmol/L (136-145)
[2021-01-31 03:55] LABS: Band 2 % (5-11); Hemoglobin 6.6 g/dL (14.0-18.0); Hypochromia SLIGHT = 6-15 cells (100X) (0-5/hpf); Lymphocytes 19 % (21-51); MDiff Complete? YES; Macrocytosis SLIGHT = 6-15 cells (100X) (0-5/hpf); Mean Corpuscular HGB CONC 34.3 g/dL (32.0-36.0); Mean Corpuscular Volume 64.2 fL (78.0-98.0); Mean Platelet Volume 4.8 fL (7.4-10.4); Monocytes 9 % (0-10); Neutrophil 70 % (42-75); Platelet Count 85 thou/uL (130-400); Platelet Morphology Comment Appears Decreased; Polychromasia SLIGHT = 2-3 cells (100X) (0-2/hpf); RBC Distribution Width 20.6 % (11.5-14.5); Red Blood Cell (RBC) Count 2.99 mill/uL (4.70-6.10); Target Cells SLIGHT = 2-5 cells (100X) (0-1/hpf); White Blood Cell (WBC) Count 9.7 thou/uL (4.8-10.8)
[2021-01-31] MEDS: Rifaximin 550 MG TAB PO SCH ×2 (07:36→20:17)
[2021-01-31 09:09] LABS: Glucose 143 mg/dL (80-115)
[2021-01-31 15:21] LABS: Vancomycin, Trough 20.7 ug/mL
[2021-01-31] MEDS: Vancomycin 1.5 GRAM/300 ML BAG 1.5 GM in Premix Bag 1 BAG IVPB SCH (16:06)
[2021-01-31 17:00] LABS: Glucose 173 mg/dL (80-115)
[2021-01-31 21:28] LABS: SARS-CoV-2 NAA Rapid Test Not Detected (NotDetected)
[2021-02-01] MEDS: Cefepime 1 GM in Sodium Chloride 0.9% 100 ML IVPB SCH ×2 (03:22→15:31)
[2021-02-01 06:58] LABS: ALT (SGPT) 28 U/L (8-55); AST (SGOT) 27 U/L (5-34); Albumin 2.7 g/dL (3.4-4.8); Alkaline Phosphatase 152 U/L (40-110); Anion Gap 12 mmol/L (10-20); BUN (Urea Nitrogen) 37 mg/dL (8.4-25.7); Bilirubin, Total 4.6 mg/dL (0.2-1.2); Calc. Creatinine Clearance 72 mL/min (70-130); Calcium 8.7 mg/dL (7.8-10.44); Carbon Dioxide 19 mmol/L (23-31); Chloride 103 mmol/L (98-107); Globulin 3.1 g/dL (2.4-3.5); Glucose 128 mg/dL (80-115); Potassium 4.3 mmol/L (3.5-5.1); Protein, Total 5.8 g/dL (5.8-8.1); Sodium 130 mmol/L (136-145)
[2021-02-01 07:10] LABS: Hemoglobin 8.8 g/dL (14.0-18.0); Mean Corpuscular HGB CONC 35.6 g/dL (32.0-36.0); Mean Corpuscular Hemoglobin 24.9 pg (27.0-31.0); Mean Corpuscular Volume 69.8 fL (78.0-98.0); Mean Platelet Volume 5.2 fL (7.4-10.4); Platelet Count 60 thou/uL (130-400); RBC Distribution Width 25.2 % (11.5-14.5); Red Blood Cell (RBC) Count 3.55 mill/uL (4.70-6.10); White Blood Cell (WBC) Count 7.5 thou/uL (4.8-10.8)
[2021-02-01 08:00] LABS: Band 4 % (5-11); Eosinophils 4 % (0-10); Hemoglobin C Crystals MODERATE (None Seen); Lymphocytes 19 % (21-51); MDiff Complete? YES; Monocytes 6 % (0-10); Neutrophil 60 % (42-75); Nucleated RBC 7 % (0); Polychromasia MODERATE = 3-4 cells (100X) (0-2/hpf); Reactive Lymphocytes 6 % (0-10)
[2021-02-01] MEDS ORDERED: Lidocaine 1% PF 5 ML VIAL ONE (10:39)
[2021-02-01] MEDS ORDERED: PHENYLEPHRINE-NS 100 MCG/ML 10 ML SYRINGE ONE (10:39)
[2021-02-01] MEDS ORDERED: PROPOFOL 200 MG/20 ML VIAL ONE (10:39)
[2021-02-01] MEDS: Acetaminophen 500 MG TAB PO PRN ×2 (11:53→20:25)
[2021-02-01] MEDS: Rifaximin 550 MG TAB PO SCH ×2 (11:53→20:25)
[2021-02-01] MEDS: VANCOMYCIN 1.25 GM/250 ML BAG 1.25 GM in Premix Bag 1 BAG IVPB SCH (16:37)
[2021-02-01] MEDS: HumaLOG 300 UNITS/3 ML VIAL SC PRN (17:07)
[2021-02-02] MEDS: HumaLOG 300 UNITS/3 ML VIAL SC PRN ×3 (02:18→15:37)
[2021-02-02] MEDS: Cefepime 1 GM in Sodium Chloride 0.9% 100 ML IVPB SCH ×2 (03:12→15:29)
[2021-02-02] MEDS ORDERED: Lidocaine 1% PF 5 ML VIAL ONE (07:49)
[2021-02-02] MEDS ORDERED: Sodium Bicarbonate 2.5 MEQ/5 ML VIAL ONE (07:49)
[2021-02-02 08:03] LABS: ALT (SGPT) 24 U/L (8-55); AST (SGOT) 19 U/L (5-34); Albumin 2.8 g/dL (3.4-4.8); Alkaline Phosphatase 187 U/L (40-110); Anion Gap 12 mmol/L (10-20); BUN (Urea Nitrogen) 41 mg/dL (8.4-25.7); Bilirubin, Total 4.2 mg/dL (0.2-1.2); Calc. Creatinine Clearance 63 mL/min (70-130); Calcium 8.6 mg/dL (7.8-10.44); Carbon Dioxide 19 mmol/L (23-31); Chloride 105 mmol/L (98-107); Globulin 3.3 g/dL (2.4-3.5); Glucose 218 mg/dL (80-115); Potassium 4.1 mmol/L (3.5-5.1); Protein, Total 6.1 g/dL (5.8-8.1); Sodium 132 mmol/L (136-145)
[2021-02-02 08:56] VITALS: BMI 28.1
[2021-02-02 09:05] LABS: Hemoglobin 9.1 g/dL (14.0-18.0); Mean Corpuscular HGB CONC 34.1 g/dL (32.0-36.0); Mean Corpuscular Hemoglobin 24.1 pg (27.0-31.0); Mean Corpuscular Volume 70.7 fL (78.0-98.0); Mean Platelet Volume 6.1 fL (7.4-10.4); Platelet Count 66 thou/uL (130-400); RBC Distribution Width 25.4 % (11.5-14.5); Red Blood Cell (RBC) Count 3.75 mill/uL (4.70-6.10); White Blood Cell (WBC) Count 10.4 thou/uL (4.8-10.8)
[2021-02-02] MEDS: Rifaximin 550 MG TAB PO SCH ×2 (10:07→21:11)
[2021-02-02] MEDS ORDERED: Albumin 25% 25 GM/100 ML BOT IVPB SCH (10:30)
[2021-02-02 10:34] LABS: Band 2 % (5-11); Eosinophils 1 % (0-10); Hemoglobin C Crystals MODERATE (None Seen); Lymphocytes 13 % (21-51); MDiff Complete? YES; Microcytosis MODERATE=15-30 cells (100X) (0-5/hpf); Monocytes 6 % (0-10); Neutrophil 77 % (42-75); Nucleated RBC 2 % (0); Ovalocytes MODERATE= 6-15 cells (100X) (0-1/hpf); Polychromasia MODERATE = 3-4 cells (100X) (0-2/hpf); Reactive Lymphocytes 1 % (0-10); Target Cells SLIGHT = 2-5 cells (100X) (0-1/hpf)
[2021-02-02] MEDS: VANCOMYCIN 1.25 GM/250 ML BAG 1.25 GM in Premix Bag 1 BAG IVPB SCH (16:07)
[2021-02-02] MEDS: Albumin 25% 25 GM/100 ML BOT IVPB SCH (21:09)
[2021-02-03] MEDS: Cefepime 1 GM in Sodium Chloride 0.9% 100 ML IVPB SCH ×2 (02:48→14:43)
[2021-02-03 07:06] LABS: Hemoglobin 7.5 g/dL (14.0-18.0); Mean Corpuscular HGB CONC 34.2 g/dL (32.0-36.0); Mean Corpuscular Hemoglobin 24.5 pg (27.0-31.0); Mean Corpuscular Volume 71.5 fL (78.0-98.0); Mean Platelet Volume 5.2 fL (7.4-10.4); Platelet Count 41 thou/uL (130-400); RBC Distribution Width 25.5 % (11.5-14.5); Red Blood Cell (RBC) Count 3.04 mill/uL (4.70-6.10); White Blood Cell (WBC) Count 6.5 thou/uL (4.8-10.8)
[2021-02-03 07:13] LABS: Anion Gap 12 mmol/L (10-20); BUN (Urea Nitrogen) 32 mg/dL (8.4-25.7); Calc. Creatinine Clearance 71 mL/min (70-130); Calcium 9.1 mg/dL (7.8-10.44); Carbon Dioxide 20 mmol/L (23-31); Chloride 106 mmol/L (98-107); Glucose 164 mg/dL (80-115); Magnesium 2.5 mg/dL (1.6-2.6); Potassium 3.8 mmol/L (3.5-5.1); Sodium 134 mmol/L (136-145)
[2021-02-03 07:55] LABS: Anisocytosis MODERATE=16-30 cells (100X) (0-5/hpf); Band 3 % (5-11); Eosinophils 4 % (0-10); Hemoglobin C Crystals MODERATE (None Seen); Hypochromia MODERATE=16-30 cells (100X) (0-5/hpf); Lymphocytes 31 % (21-51); MDiff Complete? YES; Microcytosis MODERATE=15-30 cells (100X) (0-5/hpf); Monocytes 4 % (0-10); Neutrophil 58 % (42-75); Nucleated RBC 3 % (0); Platelet Morphology Comment Appears Decreased; Polychromasia MODERATE = 3-4 cells (100X) (0-2/hpf); Target Cells SLIGHT = 2-5 cells (100X) (0-1/hpf)
[2021-02-03] MEDS: Albumin 25% 25 GM/100 ML BOT IVPB SCH ×3 (08:27→19:38)
[2021-02-03] MEDS: Rifaximin 550 MG TAB PO SCH ×2 (08:27→19:38)
[2021-02-03] MEDS: HumaLOG 300 UNITS/3 ML VIAL SC PRN ×2 (12:04→16:25)
[2021-02-03] MEDS: Pantoprazole 40 MG VIAL IVP SCH (22:16)
[2021-02-04] MEDS: Cefepime 1 GM in Sodium Chloride 0.9% 100 ML IVPB SCH ×2 (03:11→14:49)
[2021-02-04] MEDS: Rifaximin 550 MG TAB PO SCH ×2 (08:22→19:57)
[2021-02-04] MEDS: Pantoprazole 40 MG VIAL IVP SCH (08:22)
[2021-02-04 09:14] LABS: INR-International Normal Ratio 1.4; Prothrombin Time 17.5 sec (12.0-14.7)
[2021-02-04 09:16] LABS: Anion Gap 12 mmol/L (10-20); BUN (Urea Nitrogen) 35 mg/dL (8.4-25.7); Calc. Creatinine Clearance 72 mL/min (70-130); Calcium 9.5 mg/dL (7.8-10.44); Carbon Dioxide 21 mmol/L (23-31); Chloride 107 mmol/L (98-107); Glucose 185 mg/dL (80-115); Potassium 4.1 mmol/L (3.5-5.1); Sodium 136 mmol/L (136-145)
[2021-02-04 09:29] LABS: Anisocytosis MODERATE=16-30 cells (100X) (0-5/hpf); Band 4 % (5-11); Eosinophils 4 % (0-10); Hemoglobin 7.1 g/dL (14.0-18.0); Hemoglobin C Crystals SLIGHT (None Seen); Hypochromia MODERATE=16-30 cells (100X) (0-5/hpf); Lymphocytes 20 % (21-51); MDiff Complete? YES; Mean Corpuscular HGB CONC 34.7 g/dL (32.0-36.0); Mean Corpuscular Hemoglobin 24.6 pg (27.0-31.0); Mean Platelet Volume 5.4 fL (7.4-10.4); Microcytosis MODERATE=15-30 cells (100X) (0-5/hpf); Monocytes 9 % (0-10); Neutrophil 61 % (42-75); Nucleated RBC 6 % (0); Platelet Count 33 thou/uL (130-400); Polychromasia MODERATE = 3-4 cells (100X) (0-2/hpf); Promyelocytes 1 % (0-0); RBC Distribution Width 24.8 % (11.5-14.5); Red Blood Cell (RBC) Count 2.89 mill/uL (4.70-6.10); Target Cells SLIGHT = 2-5 cells (100X) (0-1/hpf); White Blood Cell (WBC) Count 5.4 thou/uL (4.8-10.8)
[2021-02-04] MEDS: HumaLOG 300 UNITS/3 ML VIAL SC PRN (17:45)
[2021-02-05 06:45] LABS: Hemoglobin 7.8 g/dL (14.0-18.0); Mean Corpuscular HGB CONC 35.5 g/dL (32.0-36.0); Mean Corpuscular Hemoglobin 25.7 pg (27.0-31.0); Mean Corpuscular Volume 72.2 fL (78.0-98.0); Mean Platelet Volume 6.3 fL (7.4-10.4); Platelet Count 39 thou/uL (130-400); RBC Distribution Width 25.5 % (11.5-14.5); Red Blood Cell (RBC) Count 3.03 mill/uL (4.70-6.10); White Blood Cell (WBC) Count 6.9 thou/uL (4.8-10.8)
[2021-02-05 07:05] LABS: Iron 61 ug/dL (65-175); Iron Binding Capacity, Total 113 mcg/dL (261-462)
[2021-02-05] MEDS: Rifaximin 550 MG TAB PO SCH ×2 (08:12→20:08)
[2021-02-05] MEDS: HumaLOG 300 UNITS/3 ML VIAL SC PRN ×2 (16:39→20:37)
[2021-02-05] MEDS ORDERED: Spironolactone 25 MG TAB PO SCH (18:45)
[2021-02-05 21:16] VITALS: BP 113/71; TEMP 98.5
[2021-02-06] MEDS: HumaLOG 300 UNITS/3 ML VIAL SC PRN (06:42)
[2021-02-06] MEDS ORDERED: Spironolactone 25 MG TAB PO SCH (08:00)
[2021-02-06] MEDS ORDERED: Lantus 1000 UNITS/10 ML VIAL SC SCH (08:15)
[2021-02-06] MEDS: Rifaximin 550 MG TAB PO SCH (08:26)
== END 2021-02-06 08:44 | DRG 871 ==
LOC: IMCU/EMU 18:06 → T4-A 01-31 21:55
PROVIDERS: ADMIT Internal Medicine; ATTEND Internal Medicine
PROC: 30233N1 Transfusion of Nonautologous Red Blood Cells into Peripheral Vein, Percutaneous Approach (ICD-10-PCS; 2021-01-31)
PROC: 0W3P8ZZ Control Bleeding in Gastrointestinal Tract, Via Natural or Artificial Opening Endoscopic (ICD-10-PCS; principal; 2021-02-01)
PROC: 0W9G3ZZ Drainage of Peritoneal Cavity, Percutaneous Approach (ICD-10-PCS; 2021-02-02)
DX: A41.9 Sepsis, unspecified organism (principal); K31.811 Angiodysplasia of stomach and duodenum with bleeding; I81 Portal vein thrombosis; K76.7 Hepatorenal syndrome; N17.9 Acute kidney failure, unspecified; R18.8 Other ascites; E87.1 Hypo-osmolality and hyponatremia; D62 Acute posthemorrhagic anemia; I85.10 Secondary esophageal varices without bleeding; K76.6 Portal hypertension; Z20.822 Contact with and (suspected) exposure to COVID-19; D58.2 Other hemoglobinopathies; E11.649 Type 2 diabetes mellitus with hypoglycemia without coma; K31.89 Other diseases of stomach and duodenum; T38.3X5A Adverse effect of insulin and oral hypoglycemic [antidiabetic] drugs, initial encounter; E53.8 Deficiency of other specified B group vitamins; F17.210 Nicotine dependence, cigarettes, uncomplicated; K72.90 Hepatic failure, unspecified without coma; K74.60 Unspecified cirrhosis of liver; Z79.4 Long term (current) use of insulin; Z79.899 Other long term (current) drug therapy; Z98.890 Other specified postprocedural states
CPT/HCPCS: 36415; 36416; 36430; 49083; 80048; 80053; 80202; 82728; 83540; 83550; 83605; 83735; 85025; 85027; 85610; 86850; 86900; 86901; C9113; J0692; J1815; J2704; J3370; J3490; P9016; P9047; U0002

== ENCOUNTER 2021-02-10 11:08 | Day surgery (SDC) | payer MEDICARE, MEDICAID ==
[2021-02-06 14:55] VITALS: BMI 27.2
[~2021-02-10 11:08] MED LIST changes: +Albumin 25% 0 ML ONE; -FLU VACC QS2021-22(6MOS UP)/PF 60 MCG/0.5 ML SYRINGE IM ONE; +Lidocaine 1% PF 5 ML VIAL ONE; +Sodium Bicarbonate 2.5 MEQ/5 ML VIAL ONE
[2021-02-10] MEDS ORDERED: Albumin 25% 100 ML ONE (11:12)
[2021-02-10] MEDS ORDERED: Sodium Bicarbonate 2.5 MEQ/5 ML VIAL ONE (11:12)
[2021-02-10] MEDS ORDERED: Lidocaine 1% PF 5 ML VIAL ONE (11:45)
[2021-02-10 12:44] VITALS: TEMP 97.8
[2021-02-10 12:49] VITALS: BP 100/51
== END 2021-02-10 13:15 ==
LOC: ULT 11:08
PROVIDERS: ATTEND Family Medicine
PROC: 0W9G3ZZ Drainage of Peritoneal Cavity, Percutaneous Approach (ICD-10-PCS; principal; 2021-02-10)
DX: K70.31 Alcoholic cirrhosis of liver with ascites (principal); E11.9 Type 2 diabetes mellitus without complications; F17.210 Nicotine dependence, cigarettes, uncomplicated; Z79.4 Long term (current) use of insulin; Z79.899 Other long term (current) drug therapy
CPT/HCPCS: 49083; P9047

== ENCOUNTER 2021-02-20 10:47 | Emergency (ER) | payer MEDICARE, MEDICAID ==
[2021-02-20 12:49] LABS: ALT (SGPT) 22 U/L (8-55); AST (SGOT) 30 U/L (5-34); Albumin 3.1 g/dL (3.4-4.8); Alkaline Phosphatase 196 U/L (40-110); Anion Gap 13 mmol/L (10-20); BUN (Urea Nitrogen) 55 mg/dL (8.4-25.7); Bilirubin, Total 3.8 mg/dL (0.2-1.2); Calc. Creatinine Clearance 0 mL/min (70-130); Calcium 8.4 mg/dL (7.8-10.44); Carbon Dioxide 21 mmol/L (23-31); Chloride 102 mmol/L (98-107); Globulin 2.9 g/dL (2.4-3.5); Glucose 264 mg/dL (80-115); Potassium 4.7 mmol/L (3.5-5.1); Sodium 131 mmol/L (136-145)
[2021-02-20 13:10] LABS: Anisocytosis MODERATE=16-30 cells (100X) (0-5/hpf); Band 1 % (5-11); Eosinophils 4 % (0-10); Hemoglobin 8.1 g/dL (14.0-18.0); Lymphocytes 16 % (21-51); MDiff Complete? YES; Mean Corpuscular HGB CONC 33.2 g/dL (32.0-36.0); Mean Corpuscular Volume 66.1 fL (78.0-98.0); Mean Platelet Volume 5.5 fL (7.4-10.4); Monocytes 12 % (0-10); Neutrophil 67 % (42-75); Nucleated RBC 2 % (0); Platelet Count 111 thou/uL (130-400); Platelet Morphology Comment Appears Decreased; Polychromasia SLIGHT = 2-3 cells (100X) (0-2/hpf); RBC Distribution Width 24.8 % (11.5-14.5); Red Blood Cell (RBC) Count 3.69 mill/uL (4.70-6.10); Target Cells MODERATE= 6-15 cells (100X) (0-1/hpf); White Blood Cell (WBC) Count 8.7 thou/uL (4.8-10.8)
== END 2021-02-20 14:23 | disposition home or self-care (01) ==
LOC: ERS 10:47
DX: D64.9 Anemia, unspecified (principal); K74.60 Unspecified cirrhosis of liver; R18.8 Other ascites; E11.9 Type 2 diabetes mellitus without complications; Z79.4 Long term (current) use of insulin; Z79.899 Other long term (current) drug therapy
CPT/HCPCS: 36415; 36416; 80053; 82140; 85025; 99284

== ENCOUNTER 2021-02-22 08:05 | Day surgery (SDC) | payer MEDICARE, MEDICAID ==
[2021-02-21 15:05] VITALS: BMI 25.0
[~2021-02-22 08:05] MED LIST changes: -Albumin 25% 0 ML ONE; +FLU VACC QS2021-22(6MOS UP)/PF 60 MCG/0.5 ML SYRINGE IM ONE; -Lidocaine 1% PF 5 ML VIAL ONE; -Sodium Bicarbonate 2.5 MEQ/5 ML VIAL ONE
[2021-02-22] MEDS ORDERED: Sodium Bicarbonate 2.5 MEQ/5 ML VIAL ONE (08:09)
[2021-02-22] MEDS ORDERED: Albumin 25% 200 ML ONE (08:09)
[2021-02-22] MEDS ORDERED: Lidocaine 1% PF 5 ML VIAL ONE (08:09)
[2021-02-22 09:48] VITALS: TEMP 98.2
== END 2021-02-22 09:35 ==
LOC: ULT 08:05
PROVIDERS: ATTEND Family Medicine
PROC: 0W9G3ZZ Drainage of Peritoneal Cavity, Percutaneous Approach (ICD-10-PCS; principal; 2021-02-22)
DX: K70.31 Alcoholic cirrhosis of liver with ascites (principal); E11.9 Type 2 diabetes mellitus without complications; E87.1 Hypo-osmolality and hyponatremia; I49.9 Cardiac arrhythmia, unspecified; F17.210 Nicotine dependence, cigarettes, uncomplicated; Z23 Encounter for immunization; Z79.4 Long term (current) use of insulin; Z79.899 Other long term (current) drug therapy
CPT/HCPCS: 49083; 90686; G0008; P9047; 90471

== ENCOUNTER → 2021-03-01 | Day surgery (SDC) | payer MEDICARE, MEDICAID ==
[~2021-03-01] MED LIST changes: +Albumin 25% 100 ML ONE; -FLU VACC QS2021-22(6MOS UP)/PF 60 MCG/0.5 ML SYRINGE IM ONE; +Lidocaine 1% PF 5 ML VIAL ONE; +Sodium Bicarbonate 2.5 MEQ/5 ML VIAL ONE; +Sodium Chloride 0.9% 10 ML ONE
== END ==
LOC: ULT 08:09
PROVIDERS: ATTEND Family Medicine
PROC: 0W9G3ZZ Drainage of Peritoneal Cavity, Percutaneous Approach (ICD-10-PCS; principal; 2021-03-01)
DX: K70.31 Alcoholic cirrhosis of liver with ascites (principal); I85.10 Secondary esophageal varices without bleeding; E80.6 Other disorders of bilirubin metabolism; D64.9 Anemia, unspecified; D69.6 Thrombocytopenia, unspecified; E11.9 Type 2 diabetes mellitus without complications; E87.1 Hypo-osmolality and hyponatremia; I49.9 Cardiac arrhythmia, unspecified; F17.210 Nicotine dependence, cigarettes, uncomplicated; Z79.4 Long term (current) use of insulin; Z79.899 Other long term (current) drug therapy
CPT/HCPCS: 49083; P9047

== ENCOUNTER 2021-03-08 08:05 | Day surgery (SDC) | payer MEDICARE, MEDICAID ==
[2021-03-06 13:07] VITALS: BMI 27.2
[2021-03-08] MEDS ORDERED: Lidocaine 1% PF 5 ML VIAL ONE (08:21)
[2021-03-08] MEDS ORDERED: Sodium Bicarbonate 2.5 MEQ/5 ML VIAL ONE (08:21)
[2021-03-08] MEDS ORDERED: Albumin 25% 100 ML ONE (08:21)
[2021-03-08 13:38] VITALS: BP 103/45
== END 2021-03-08 10:05 ==
LOC: ULT 08:05
PROVIDERS: ATTEND Family Medicine
PROC: 0W9G3ZZ Drainage of Peritoneal Cavity, Percutaneous Approach (ICD-10-PCS; principal; 2021-03-08)
DX: K74.60 Unspecified cirrhosis of liver (principal); R18.8 Other ascites
CPT/HCPCS: 49083; P9047

== ENCOUNTER 2021-03-15 11:15 | Day surgery (SDC) | payer MEDICARE, MEDICAID ==
[2021-03-14 14:22] VITALS: BMI 27.2
[2021-03-15] MEDS ORDERED: Sodium Bicarbonate 2.5 MEQ/5 ML VIAL ONE (11:52)
[2021-03-15] MEDS ORDERED: Lidocaine 1% PF 5 ML VIAL ONE (11:52)
[2021-03-15] MEDS ORDERED: Albumin 25% 100 ML ONE (11:52)
[2021-03-15 13:00] LABS: Band 4 % (5-11); Eosinophils 2 % (0-10); Hemoglobin 8.7 g/dL (14.0-18.0); Hemoglobin C Crystals MODERATE (None Seen); Hypochromia MODERATE=16-30 cells (100X) (0-5/hpf); Lymphocytes 9 % (21-51); MDiff Complete? YES; Mean Corpuscular HGB CONC 34.9 g/dL (32.0-36.0); Mean Corpuscular Hemoglobin 21.8 pg (27.0-31.0); Mean Corpuscular Volume 62.6 fL (78.0-98.0); Mean Platelet Volume 6.5 fL (7.4-10.4); Monocytes 11 % (0-10); Neutrophil 74 % (42-75); Nucleated RBC 14 % (0); Platelet Count 111 thou/uL (130-400); Polychromasia MODERATE = 3-4 cells (100X) (0-2/hpf); RBC Distribution Width 20.9 % (11.5-14.5); Red Blood Cell (RBC) Count 3.97 mill/uL (4.70-6.10); Target Cells MODERATE= 6-15 cells (100X) (0-1/hpf); White Blood Cell (WBC) Count 9.4 thou/uL (4.8-10.8)
[2021-03-15 13:35] VITALS: BP 88/52; TEMP 97.6
[2021-03-15 13:49] LABS: INR-International Normal Ratio 1.2; PTT 39.8 sec (22.9-36.1); Prothrombin Time 15.1 sec (12.0-14.7)
== END 2021-03-15 13:16 ==
LOC: ULT 11:15
PROVIDERS: ATTEND Family Medicine
PROC: 0W9G3ZZ Drainage of Peritoneal Cavity, Percutaneous Approach (ICD-10-PCS; principal; 2021-03-15)
DX: K74.60 Unspecified cirrhosis of liver (principal); R18.8 Other ascites
CPT/HCPCS: 49083; 85025; 85610; 85730; P9047

== ENCOUNTER 2021-03-22 08:10 | Day surgery (SDC) | payer MEDICARE, MEDICAID ==
[2021-03-22] MEDS ORDERED: Lidocaine 1% PF 5 ML VIAL ONE (08:15)
[2021-03-22] MEDS ORDERED: Sodium Bicarbonate 2.5 MEQ/5 ML VIAL ONE (08:15)
[2021-03-22] MEDS ORDERED: Albumin 25% 100 ML ONE (08:15)
[2021-03-22] MEDS ORDERED: Sodium Chloride 0.9% 10 ML ONE (08:19)
[2021-03-22 11:39] VITALS: BP 98/62; TEMP 97.9
== END 2021-03-22 09:54 | disposition home or self-care (01) ==
LOC: ULT 08:10
PROVIDERS: ATTEND Family Medicine
PROC: 0W9G3ZZ Drainage of Peritoneal Cavity, Percutaneous Approach (ICD-10-PCS; principal; 2021-03-22)
DX: K74.60 Unspecified cirrhosis of liver (principal); R18.8 Other ascites
CPT/HCPCS: 49083; P9047

== ENCOUNTER 2021-03-29 08:03 | Day surgery (SDC) | payer MEDICARE, MEDICAID ==
[2021-03-27 14:36] VITALS: BMI 25.0
[~2021-03-29 08:03] MED LIST changes: -Albumin 25% 100 ML ONE; +FLU VACC QS2021-22(6MOS UP)/PF 60 MCG/0.5 ML SYRINGE IM ONE; -Lidocaine 1% PF 5 ML VIAL ONE; -Sodium Bicarbonate 2.5 MEQ/5 ML VIAL ONE; -Sodium Chloride 0.9% 10 ML ONE
[2021-03-29] MEDS ORDERED: Sodium Bicarbonate 2.5 MEQ/5 ML VIAL ONE (08:24)
[2021-03-29] MEDS ORDERED: Albumin 25% 100 ML ONE (08:24)
[2021-03-29] MEDS ORDERED: Sodium Chloride 0.9% 10 ML ONE (09:47)
[2021-03-29 11:31] VITALS: TEMP 96.9
[2021-03-29 11:38] VITALS: BP 108/52
[2021-03-29] MEDS ORDERED: Albumin 25% 25 GM/100 ML BOT IVPB SCH (11:45)
[2021-03-29 11:51] LABS: Fluid, Protein 1.4 g/dL (Not Available)
[2021-03-29 12:35] LABS: RBC Count-Automated (BF) 221 /cu.mm; WBC/Nucleated-Auto (BF) 311 /cu.mm
[2021-03-29 14:02] LABS: BF Color Yellow; Body Fluid Source Ascites Body Fluid; Clarity Hazy (Clear); Tube # EDTA
[2021-03-29 14:16] LABS: BF Segmented Neutrophils 1 %; Cell Count Non Hematic 74 %; Lymphocytes 25 %
== END 2021-03-29 10:20 | disposition short-term general hospital (02) ==
LOC: ULT 08:03
PROVIDERS: ATTEND Family Medicine
PROC: 0W9G3ZX Drainage of Peritoneal Cavity, Percutaneous Approach, Diagnostic (ICD-10-PCS; principal; 2021-03-29)
DX: K74.60 Unspecified cirrhosis of liver (principal); R18.8 Other ascites; R41.0 Disorientation, unspecified; K76.6 Portal hypertension; Z79.899 Other long term (current) drug therapy
CPT/HCPCS: 49083; 82945; 84157; 87070; 87205; 89051; P9047; 85060

== ENCOUNTER 2021-03-29 10:14 | Inpatient (IN) | payer MEDICARE, MEDICAID ==
[2021-03-29 11:10] LABS: ALT (SGPT) 13 U/L (8-55); AST (SGOT) 19 U/L (5-34); Albumin 3.5 g/dL (3.4-4.8); Alkaline Phosphatase 125 U/L (40-110); Anion Gap 17 mmol/L (10-20); BUN (Urea Nitrogen) 59 mg/dL (8.4-25.7); Bilirubin, Total 6.2 mg/dL (0.2-1.2); Calc. Creatinine Clearance 0 mL/min (70-130); Carbon Dioxide 18 mmol/L (23-31); Chloride 102 mmol/L (98-107); Globulin 3.1 g/dL (2.4-3.5); Glucose 153 mg/dL (80-115); Lipase 105 U/L (8-78); Potassium 3.8 mmol/L (3.5-5.1); Protein, Total 6.6 g/dL (5.8-8.1); Sodium 133 mmol/L (136-145)
[2021-03-29 11:28] LABS: Anisocytosis MODERATE=16-30 cells (100X) (0-5/hpf); Band 7 % (5-11); Eosinophils 3 % (0-10); Hemoglobin 7.3 g/dL (14.0-18.0); Hemoglobin C Crystals MODERATE (None Seen); Lymphocytes 23 % (21-51); MDiff Complete? YES; Mean Corpuscular HGB CONC 34.9 g/dL (32.0-36.0); Mean Corpuscular Hemoglobin 21.8 pg (27.0-31.0); Mean Corpuscular Volume 62.5 fL (78.0-98.0); Mean Platelet Volume 6.3 fL (7.4-10.4); Metamyelocyte 3 % (0-0); Microcytosis MODERATE=15-30 cells (100X) (0-5/hpf); Monocytes 4 % (0-10); Myelocyte 4 % (0-0); Neutrophil 53 % (42-75); Nucleated RBC 6 % (0); Ovalocytes SLIGHT = 2-5 cells (100X) (0-1/hpf); Platelet Count 73 thou/uL (130-400); Platelet Morphology Comment Appears Decreased; Polychromasia SLIGHT = 2-3 cells (100X) (0-2/hpf); RBC Distribution Width 18.6 % (11.5-14.5); Reactive Lymphocytes 3 % (0-10); Red Blood Cell (RBC) Count 3.33 mill/uL (4.70-6.10); White Blood Cell (WBC) Count 6.6 thou/uL (4.8-10.8)
[2021-03-29 12:06] LABS: Actual Bicarbonate (HCO3v) 20 mEq/L (22-28); Analyzer IN Cardio ER; Base Excess -3.3 mEq/L (-2.0 to +3.0); Calcium, Ionized (venous) 1.07 mmol/L (1.16-1.32); Chloride (VBG) 100 mmol/L (98-106); Hemoglobin (Hb) 6.9 g/dL (13.1-17.2); Sodium 131.1 mmol/L (133-146); pH (venous) 7.45 (7.32-7.43)
[2021-03-29 12:07] LABS: Acetaminophen Less than 6.0 mcg/mL (10.0-30.0); Alcohol Less than 10 mg/dL (Less than 10); Salicylate Less than 8.0 mg/dL (15.0-30.0)
[2021-03-29] MEDS ORDERED: Cefepime 2 GM VIAL ONE (12:59)
[2021-03-29 13:40] LABS: Bilirubin Negative (Negative); Blood, Urine Negative (Negative); Clarity Clear (Clear); Glucose, Urine (Dipstick) Normal (Negative); Ketone, Urine Negative (Negative); Leukocyte Negative Leu/uL (Negative); Nitrite Negative (Negative); Protein, Urine (Dipstick) Negative (Neg-Trace); Specific Gravity, Urine 1.017 (1.002-1.036)
[2021-03-29 13:50] LABS: Amphetamine Not Detected (NotDetected); Barbiturates Screen Not Detected (NotDetected); Benzodiazepine Screen Not Detected (NotDetected); Cocaine Metabolite Screen Not Detected (NotDetected); Methadone Not Detected (NotDetected); Methamphetamine Not Detected (NotDetected); Opiate Screen Not Detected (NotDetected); Oxycodone Screen Not Detected (NotDetected); Phencyclidine (PCP) Not Detected (NotDetected); THC/Cannabinoid Screen Not Detected (NotDetected); Tricyclic Screen Not Detected (NotDetected)
[2021-03-29] MEDS ORDERED: Ondansetron PF 4 MG/2 ML Vial IVP PRN (15:01)
[2021-03-29] MEDS ORDERED: Vancomycin 1 GM/200 ML BAG ONE (15:06)
[2021-03-29] MEDS ORDERED: Dextrose 5% in Water 1,000 ML IV PRN (15:14)
[2021-03-29] MEDS ORDERED: Dextrose 50% Abboject 50 ML SYRINGE SLOW IVP PRN (15:14)
[2021-03-29] MEDS ORDERED: Morphine 4 MG/ML VIAL SLOW IVP PRN (15:26)
[2021-03-29 15:32] LABS: Lactic Acid 1.2 mmol/L (0.5-2.2)
[2021-03-29] MEDS ORDERED: cefTRIAXone\\ROCEPHIN 1 GM in Sodium Chloride 0.9% 100 ML IVPB SCH (16:00)
[2021-03-29 16:55] VITALS: BMI 21.7
[2021-03-29] MEDS ORDERED: FLU VACC QS2021-22(6MOS UP)/PF 60 MCG/0.5 ML SYRINGE IM ONE (17:15)
[2021-03-29] MEDS: Albumin 25% 25 GM/100 ML BOT IVPB SCH (17:36)
[2021-03-29] MEDS: Rifaximin 550 MG TAB PO SCH (21:05)
[2021-03-30] MEDS: Albumin 25% 25 GM/100 ML BOT IVPB SCH ×4 (00:15→17:08)
[2021-03-30 05:24] LABS: ALT (SGPT) 11 U/L (8-55); AST (SGOT) 19 U/L (5-34); Albumin 3.5 g/dL (3.4-4.8); Alkaline Phosphatase 94 U/L (40-110); Anion Gap 17 mmol/L (10-20); BUN (Urea Nitrogen) 51 mg/dL (8.4-25.7); Bilirubin, Total 6.6 mg/dL (0.2-1.2); Calc. Creatinine Clearance 45 mL/min (70-130); Calcium 8.6 mg/dL (7.8-10.44); Carbon Dioxide 17 mmol/L (23-31); Chloride 104 mmol/L (98-107); Globulin 2.4 g/dL (2.4-3.5); Glucose 157 mg/dL (80-115); Potassium 3.8 mmol/L (3.5-5.1); Protein, Total 5.9 g/dL (5.8-8.1); Sodium 134 mmol/L (136-145)
[2021-03-30] MEDS: Midodrine HCl 5 MG TAB PO SCH ×3 (08:25→20:04)
[2021-03-30] MEDS: Rifaximin 550 MG TAB PO SCH ×2 (08:26→20:04)
[2021-03-30] MEDS: Furosemide 20 MG TAB PO SCH (08:28)
[2021-03-30] MEDS: Spironolactone 25 MG TAB PO SCH (08:28)
[2021-03-30] MEDS: HumaLOG 300 UNITS/3 ML VIAL SC PRN ×2 (11:12→17:07)
[2021-03-30 11:17] LABS: Hemoglobin 5.9 g/dL (14.0-18.0); Mean Corpuscular HGB CONC 33.7 g/dL (32.0-36.0); Mean Corpuscular Hemoglobin 21.4 pg (27.0-31.0); Mean Corpuscular Volume 63.4 fL (78.0-98.0); Mean Platelet Volume 6.2 fL (7.4-10.4); Platelet Count 54 thou/uL (130-400); RBC Distribution Width 19.1 % (11.5-14.5); Red Blood Cell (RBC) Count 2.78 mill/uL (4.70-6.10); White Blood Cell (WBC) Count 5.3 thou/uL (4.8-10.8)
[2021-03-30 11:57] LABS: Anisocytosis MODERATE=16-30 cells (100X) (0-5/hpf); Band 15 % (5-11); Eosinophils 1 % (0-10); Hemoglobin C Crystals MODERATE (None Seen); Hypochromia MODERATE=16-30 cells (100X) (0-5/hpf); Lymphocytes 32 % (21-51); MDiff Complete? YES; Microcytosis MODERATE=15-30 cells (100X) (0-5/hpf); Monocytes 4 % (0-10); Neutrophil 42 % (42-75); Nucleated RBC 3 % (0); Platelet Morphology Comment Appears Decreased; Polychromasia MODERATE = 3-4 cells (100X) (0-2/hpf); Reactive Lymphocytes 5 % (0-10)
[2021-03-30 17:34] LABS: Glucose 287 mg/dL (80-115)
[2021-03-30 21:48] LABS: Glucose 178 mg/dL (80-115)
[2021-03-31 05:28] LABS: Anion Gap 15 mmol/L (10-20); BUN (Urea Nitrogen) 47 mg/dL (8.4-25.7); Calc. Creatinine Clearance 40 mL/min (70-130); Carbon Dioxide 18 mmol/L (23-31); Chloride 105 mmol/L (98-107); Potassium 3.9 mmol/L (3.5-5.1); Sodium 134 mmol/L (136-145)
[2021-03-31 05:29] LABS: ALT (SGPT) 10 U/L (8-55); AST (SGOT) 13 U/L (5-34); Albumin 3.8 g/dL (3.4-4.8); Alkaline Phosphatase 100 U/L (40-110); Bilirubin, Total 7.2 mg/dL (0.2-1.2); Calcium 9.2 mg/dL (7.8-10.44); Globulin 2.2 g/dL (2.4-3.5); Glucose 227 mg/dL (80-115)
[2021-03-31] MEDS: HumaLOG 300 UNITS/3 ML VIAL SC PRN ×4 (05:52→20:31)
[2021-03-31 05:59] LABS: Hemoglobin 6.6 g/dL (14.0-18.0); Mean Corpuscular Hemoglobin 24.1 pg (27.0-31.0); Mean Corpuscular Volume 68.8 fL (78.0-98.0); Mean Platelet Volume 5.5 fL (7.4-10.4); Platelet Count 41 thou/uL (130-400); RBC Distribution Width 23.7 % (11.5-14.5); Red Blood Cell (RBC) Count 2.75 mill/uL (4.70-6.10); White Blood Cell (WBC) Count 5.2 thou/uL (4.8-10.8)
[2021-03-31 06:24] LABS: Anisocytosis MODERATE=16-30 cells (100X) (0-5/hpf); Band 1 % (5-11); Eosinophils 4 % (0-10); Hemoglobin C Crystals MODERATE (None Seen); Lymphocytes 16 % (21-51); MDiff Complete? YES; Microcytosis MODERATE=15-30 cells (100X) (0-5/hpf); Monocytes 7 % (0-10); Neutrophil 72 % (42-75); Nucleated RBC 9 % (0); Target Cells SLIGHT = 2-5 cells (100X) (0-1/hpf)
[2021-03-31] MEDS: Rifaximin 550 MG TAB PO SCH ×2 (10:36→20:28)
[2021-03-31] MEDS: Midodrine HCl 5 MG TAB PO SCH ×3 (10:37→20:28)
[2021-03-31] MEDS: Spironolactone 25 MG TAB PO SCH (10:37)
[2021-03-31] MEDS: Furosemide 20 MG TAB PO SCH (10:39)
[2021-03-31] MEDS ORDERED: Lantus 1000 UNITS/10 ML VIAL SC SCH (17:30)
[2021-04-01 05:32] LABS: ALT (SGPT) 9 U/L (8-55); AST (SGOT) 14 U/L (5-34); Albumin 3.5 g/dL (3.4-4.8); Alkaline Phosphatase 114 U/L (40-110); Anion Gap 12 mmol/L (10-20); BUN (Urea Nitrogen) 47 mg/dL (8.4-25.7); Bilirubin, Total 6.6 mg/dL (0.2-1.2); Calc. Creatinine Clearance 44 mL/min (70-130); Calcium 8.9 mg/dL (7.8-10.44); Carbon Dioxide 22 mmol/L (23-31); Chloride 103 mmol/L (98-107); Globulin 2.2 g/dL (2.4-3.5); Glucose 237 mg/dL (80-115); Potassium 3.8 mmol/L (3.5-5.1); Protein, Total 5.7 g/dL (5.8-8.1); Sodium 133 mmol/L (136-145)
[2021-04-01] MEDS: HumaLOG 300 UNITS/3 ML VIAL SC PRN ×4 (05:42→20:20)
[2021-04-01 05:46] LABS: Band 7 % (5-11); Eosinophils 1 % (0-10); Hemoglobin 7.6 g/dL (14.0-18.0); Lymphocytes 13 % (21-51); MDiff Complete? YES; Mean Corpuscular HGB CONC 34.6 g/dL (32.0-36.0); Mean Corpuscular Hemoglobin 24.6 pg (27.0-31.0); Mean Corpuscular Volume 71.2 fL (78.0-98.0); Mean Platelet Volume 5.4 fL (7.4-10.4); Monocytes 12 % (0-10); Neutrophil 67 % (42-75); Platelet Count 37 thou/uL (130-400); Platelet Morphology Comment Appears Decreased; RBC Distribution Width 24.1 % (11.5-14.5); Red Blood Cell (RBC) Count 3.07 mill/uL (4.70-6.10); Stomatocytes SLIGHT = 2-5 cells (100X) (0-1/hpf); Target Cells SLIGHT = 2-5 cells (100X) (0-1/hpf); White Blood Cell (WBC) Count 6.2 thou/uL (4.8-10.8)
[2021-04-01] MEDS: Rifaximin 550 MG TAB PO SCH ×2 (08:55→20:18)
[2021-04-01] MEDS: Furosemide 20 MG TAB PO SCH (08:55)
[2021-04-01] MEDS: Spironolactone 25 MG TAB PO SCH (08:55)
[2021-04-01] MEDS: Midodrine HCl 5 MG TAB PO SCH ×3 (08:55→20:20)
[2021-04-01] MEDS: Lantus 1000 UNITS/10 ML VIAL SC SCH (08:56)
[2021-04-02] MEDS: HumaLOG 300 UNITS/3 ML VIAL SC PRN ×2 (05:51→12:52)
[2021-04-02 05:54] LABS: ALT (SGPT) 11 U/L (8-55); AST (SGOT) 14 U/L (5-34); Albumin 3.4 g/dL (3.4-4.8); Alkaline Phosphatase 120 U/L (40-110); Anion Gap 12 mmol/L (10-20); BUN (Urea Nitrogen) 49 mg/dL (8.4-25.7); Bilirubin, Total 6.3 mg/dL (0.2-1.2); Calc. Creatinine Clearance 48 mL/min (70-130); Calcium 8.8 mg/dL (7.8-10.44); Carbon Dioxide 20 mmol/L (23-31); Chloride 103 mmol/L (98-107); Globulin 2.5 g/dL (2.4-3.5); Glucose 212 mg/dL (80-115); Potassium 3.9 mmol/L (3.5-5.1); Protein, Total 5.9 g/dL (5.8-8.1); Sodium 131 mmol/L (136-145)
[2021-04-02 06:11] LABS: Anisocytosis MODERATE=16-30 cells (100X) (0-5/hpf); Band 3 % (5-11); Eosinophils 2 % (0-10); Hemoglobin 8.3 g/dL (14.0-18.0); Hemoglobin C Crystals MODERATE (None Seen); Lymphocytes 18 % (21-51); MDiff Complete? YES; Mean Corpuscular HGB CONC 35.4 g/dL (32.0-36.0); Mean Corpuscular Hemoglobin 25.3 pg (27.0-31.0); Mean Corpuscular Volume 71.5 fL (78.0-98.0); Mean Platelet Volume 5.7 fL (7.4-10.4); Microcytosis SLIGHT = 6-15 cells (100X) (0-5/hpf); Monocytes 10 % (0-10); Neutrophil 67 % (42-75); Nucleated RBC 7 % (0); Platelet Count 40 thou/uL (130-400); RBC Distribution Width 24.5 % (11.5-14.5); Red Blood Cell (RBC) Count 3.26 mill/uL (4.70-6.10); Target Cells SLIGHT = 2-5 cells (100X) (0-1/hpf); White Blood Cell (WBC) Count 7.2 thou/uL (4.8-10.8)
[2021-04-02] MEDS: Spironolactone 25 MG TAB PO SCH (09:28)
[2021-04-02] MEDS: Lantus 1000 UNITS/10 ML VIAL SC SCH (09:28)
[2021-04-02] MEDS: Rifaximin 550 MG TAB PO SCH (09:28)
[2021-04-02] MEDS: Furosemide 20 MG TAB PO SCH (09:28)
[2021-04-02] MEDS: Midodrine HCl 5 MG TAB PO SCH ×2 (09:28→15:12)
[2021-04-02 13:30] VITALS: BP 100/51; TEMP 97.9
== END 2021-04-02 16:10 | DRG 177 ==
LOC: ERS 10:14 → 2SW 14:49
PROVIDERS: ADMIT Internal Medicine; ATTEND Internal Medicine
PROC: 30233J1 Transfusion of Nonautologous Serum Albumin into Peripheral Vein, Percutaneous Approach (ICD-10-PCS; 2021-03-29)
PROC: 30233N1 Transfusion of Nonautologous Red Blood Cells into Peripheral Vein, Percutaneous Approach (ICD-10-PCS; principal; 2021-03-30)
DX: U07.1 COVID-19 (principal); K72.00 Acute and subacute hepatic failure without coma; K76.7 Hepatorenal syndrome; E11.22 Type 2 diabetes mellitus with diabetic chronic kidney disease; D69.59 Other secondary thrombocytopenia; D50.0 Iron deficiency anemia secondary to blood loss (chronic); K70.31 Alcoholic cirrhosis of liver with ascites; N18.2 Chronic kidney disease, stage 2 (mild); Z79.4 Long term (current) use of insulin; Z79.899 Other long term (current) drug therapy; Z87.891 Personal history of nicotine dependence
CPT/HCPCS: 36415; 36416; 36430; 70450; 80053; 80306; 80307; 81003; 82140; 82805; 83605; 83690; 85025; 86850; 86900; 86901; 87040; 87086; 93005; 96365; 96367; J0692; J1815; J2405; J3370; P9016; P9047

== ENCOUNTER 2021-04-05 08:14 | Day surgery (SDC) | payer MEDICARE, MEDICAID ==
[2021-04-04 11:36] VITALS: BMI 23.5
[2021-04-05] MEDS ORDERED: Albumin 25% 100 ML ONE (08:19)
[2021-04-05] MEDS ORDERED: Sodium Chloride 0.9% 20 ML ONE (08:21)
[2021-04-05] MEDS ORDERED: Sodium Bicarbonate 2.5 MEQ/5 ML VIAL ONE (09:02)
[2021-04-05] MEDS ORDERED: Lidocaine 1% PF 5 ML VIAL ONE (09:03)
[2021-04-05 12:50] VITALS: BP 119/65; TEMP 98.4
[2021-04-05] MEDS ORDERED: FLU VACC QS2021-22(6MOS UP)/PF 60 MCG/0.5 ML SYRINGE IM ONE (13:15)
== END 2021-04-05 09:41 ==
LOC: ULT 08:14
PROVIDERS: ATTEND Family Medicine
PROC: 0W9G3ZZ Drainage of Peritoneal Cavity, Percutaneous Approach (ICD-10-PCS; principal; 2021-04-05)
DX: K70.31 Alcoholic cirrhosis of liver with ascites (principal); K72.90 Hepatic failure, unspecified without coma; U07.1 COVID-19; E80.6 Other disorders of bilirubin metabolism; K76.7 Hepatorenal syndrome; E11.9 Type 2 diabetes mellitus without complications; F17.200 Nicotine dependence, unspecified, uncomplicated; Z23 Encounter for immunization; Z79.4 Long term (current) use of insulin; Z79.899 Other long term (current) drug therapy
CPT/HCPCS: 49083; 90686; G0008; P9047; 90471

== ENCOUNTER 2021-04-12 08:01 | Day surgery (SDC) | payer MEDICARE, MEDICAID ==
[2021-04-12] MEDS ORDERED: Albumin 25% 100 ML ONE (08:20)
[2021-04-12] MEDS ORDERED: Sodium Bicarbonate 2.5 MEQ/5 ML VIAL ONE (09:10)
[2021-04-12 10:19] VITALS: BP 99/31; BMI 27.2
== END 2021-04-12 10:10 | disposition home or self-care (01) ==
LOC: ULT 08:01
PROVIDERS: ATTEND Family Medicine
PROC: 0W9G3ZZ Drainage of Peritoneal Cavity, Percutaneous Approach (ICD-10-PCS; principal; 2021-04-12)
DX: K70.31 Alcoholic cirrhosis of liver with ascites (principal); K72.90 Hepatic failure, unspecified without coma; E80.6 Other disorders of bilirubin metabolism; D64.9 Anemia, unspecified; D69.6 Thrombocytopenia, unspecified; K76.7 Hepatorenal syndrome; E11.9 Type 2 diabetes mellitus without complications; F17.200 Nicotine dependence, unspecified, uncomplicated; U07.1 COVID-19; Z79.4 Long term (current) use of insulin; Z79.899 Other long term (current) drug therapy
CPT/HCPCS: 49083; P9047

== ENCOUNTER 2021-04-19 08:02 | Day surgery (SDC) | payer MEDICARE, OTHER ==
[2021-04-18 11:43] VITALS: BMI 26.2
[2021-04-19] MEDS ORDERED: Sodium Bicarbonate 2.5 MEQ/5 ML VIAL ONE (08:12)
[2021-04-19] MEDS ORDERED: Albumin 25% 100 ML ONE (08:12)
[2021-04-19] MEDS ORDERED: Lidocaine 1% PF 5 ML VIAL ONE (08:12)
[2021-04-19 08:18] LABS: Hemoglobin 7.5 g/dL (14.0-18.0); Mean Corpuscular HGB CONC 35.5 g/dL (32.0-36.0); Mean Corpuscular Hemoglobin 24.5 pg (27.0-31.0); Mean Corpuscular Volume 69.2 fL (78.0-98.0); Mean Platelet Volume 5.3 fL (7.4-10.4); Platelet Count 95 thou/uL (130-400); RBC Distribution Width 24.9 % (11.5-14.5); Red Blood Cell (RBC) Count 3.07 mill/uL (4.70-6.10); White Blood Cell (WBC) Count 9.3 thou/uL (4.8-10.8)
[2021-04-19] MEDS ORDERED: Sodium Chloride 0.9% 10 ML ONE (08:18)
[2021-04-19 08:45] LABS: INR-International Normal Ratio 1.2; PTT 38.6 sec (22.9-36.1); Prothrombin Time 15.2 sec (12.0-14.7)
[2021-04-19 09:01] LABS: Anisocytosis MODERATE=16-30 cells (100X) (0-5/hpf); Band 3 % (5-11); Eosinophils 1 % (0-10); Hemoglobin C Crystals MODERATE (None Seen); Hypochromia SLIGHT = 6-15 cells (100X) (0-5/hpf); Lymphocytes 25 % (21-51); MDiff Complete? YES; Metamyelocyte 1 % (0-0); Microcytosis MODERATE=15-30 cells (100X) (0-5/hpf); Monocytes 5 % (0-10); Neutrophil 65 % (42-75); Nucleated RBC 2 % (0); Polychromasia MODERATE = 3-4 cells (100X) (0-2/hpf)
[2021-04-19 09:11] VITALS: BP 89/52; TEMP 97.7
== END 2021-04-19 09:45 | disposition home or self-care (01) ==
LOC: ULT 08:02
PROVIDERS: ATTEND Family Medicine
PROC: 0W9G3ZZ Drainage of Peritoneal Cavity, Percutaneous Approach (ICD-10-PCS; principal; 2021-04-19)
DX: K70.31 Alcoholic cirrhosis of liver with ascites (principal); K72.90 Hepatic failure, unspecified without coma; E80.6 Other disorders of bilirubin metabolism; F17.200 Nicotine dependence, unspecified, uncomplicated; D64.9 Anemia, unspecified; D69.6 Thrombocytopenia, unspecified; K76.7 Hepatorenal syndrome; E11.9 Type 2 diabetes mellitus without complications; Z79.4 Long term (current) use of insulin; Z79.899 Other long term (current) drug therapy
CPT/HCPCS: 49083; 85025; 85610; 85730; P9047; 36415

== ENCOUNTER 2021-04-26 07:56 | Day surgery (SDC) | payer MEDICARE, MEDICAID ==
[2021-04-25 13:29] VITALS: BMI 25.8
[2021-04-26] MEDS ORDERED: Sodium Chloride 0.9% 10 ML ONE (08:12)
[2021-04-26] MEDS ORDERED: Albumin 25% 100 ML ONE (08:12)
[2021-04-26] MEDS ORDERED: Sodium Bicarbonate 2.5 MEQ/5 ML VIAL ONE (08:12)
[2021-04-26 12:44] VITALS: BP 88/51; TEMP 98.2
[2021-04-26] MEDS ORDERED: FLU VACC QS2021-22(6MOS UP)/PF 60 MCG/0.5 ML SYRINGE IM ONE (13:45)
== END 2021-04-26 09:40 | disposition home or self-care (01) ==
LOC: ULT 07:56
PROVIDERS: ATTEND Family Medicine
PROC: 0W9G3ZZ Drainage of Peritoneal Cavity, Percutaneous Approach (ICD-10-PCS; principal; 2021-04-26)
DX: K70.31 Alcoholic cirrhosis of liver with ascites (principal); K72.90 Hepatic failure, unspecified without coma; E80.6 Other disorders of bilirubin metabolism; K76.7 Hepatorenal syndrome; E11.9 Type 2 diabetes mellitus without complications; F17.200 Nicotine dependence, unspecified, uncomplicated; Z86.16 Personal history of COVID-19; Z79.4 Long term (current) use of insulin; Z79.899 Other long term (current) drug therapy
CPT/HCPCS: 49083; P9047; 90471; 90686; G0008

== ENCOUNTER 2021-05-03 08:03 | Day surgery (SDC) | payer MEDICARE, MEDICAID ==
[2021-05-01 12:31] VITALS: BMI 26.2
[2021-05-03] MEDS ORDERED: Lidocaine 1% PF 5 ML VIAL ONE (08:09)
[2021-05-03] MEDS ORDERED: Sodium Bicarbonate 2.5 MEQ/5 ML VIAL ONE (08:09)
[2021-05-03] MEDS ORDERED: Albumin 25% 100 ML ONE (08:09)
[2021-05-03] MEDS ORDERED: Sodium Chloride 0.9% 20 ML ONE (09:16)
[2021-05-03 11:55] VITALS: BP 97/52; TEMP 97.6
== END 2021-05-03 10:15 | disposition home or self-care (01) ==
LOC: ULT 08:03
PROVIDERS: ATTEND Family Medicine
PROC: 0W9G3ZZ Drainage of Peritoneal Cavity, Percutaneous Approach (ICD-10-PCS; principal; 2021-05-03)
DX: K74.60 Unspecified cirrhosis of liver (principal); R18.8 Other ascites
CPT/HCPCS: 49083; P9047

== ENCOUNTER 2021-06-14 07:12 | Day surgery (SDC) | payer MEDICARE, MEDICAID ==
[2021-06-09 10:20] VITALS: BMI 26.2
[2021-06-14] MEDS ORDERED: Sodium Bicarbonate 2.5 MEQ/5 ML VIAL ONE (07:29)
[2021-06-14] MEDS ORDERED: Lidocaine 1% PF 5 ML VIAL ONE (07:29)
[2021-06-14] MEDS ORDERED: Albumin 25% 100 ML ONE (07:29)
[2021-06-14] MEDS ORDERED: Albumin 25% 25 GM/100 ML BOT IVPB SCH (08:15)
[2021-06-14 10:52] VITALS: BP 110/36
== END 2021-06-14 09:50 ==
LOC: ULT 07:12
PROVIDERS: ATTEND Family Medicine
PROC: 0W9G3ZZ Drainage of Peritoneal Cavity, Percutaneous Approach (ICD-10-PCS; principal; 2021-06-14)
DX: K70.31 Alcoholic cirrhosis of liver with ascites (principal)
CPT/HCPCS: 49083; P9047

== ENCOUNTER 2021-06-28 07:22 | Day surgery (SDC) | payer MEDICARE, MEDICAID ==
[2021-06-26 14:39] VITALS: BMI 26.2
[2021-06-28] MEDS ORDERED: Sodium Bicarbonate 2.5 MEQ/5 ML VIAL ONE (07:27)
[2021-06-28] MEDS ORDERED: Lidocaine 1% PF 5 ML VIAL ONE (07:27)
[2021-06-28] MEDS ORDERED: Albumin 25% 100 ML ONE (07:27)
[2021-06-28 09:47] VITALS: BP 109/57; TEMP 98.1
== END 2021-06-28 09:38 ==
LOC: ULT 07:22
PROVIDERS: ATTEND Family Medicine
PROC: 0W9G3ZZ Drainage of Peritoneal Cavity, Percutaneous Approach (ICD-10-PCS; principal; 2021-06-28)
DX: K70.31 Alcoholic cirrhosis of liver with ascites (principal); R05.9 Cough, unspecified; R06.2 Wheezing; K72.90 Hepatic failure, unspecified without coma; E11.22 Type 2 diabetes mellitus with diabetic chronic kidney disease; N18.9 Chronic kidney disease, unspecified; F03.90 Unspecified dementia, unspecified severity, without behavioral disturbance, psychotic disturbance, mood disturbance, and anxiety; Z86.16 Personal history of COVID-19; Z79.4 Long term (current) use of insulin; Z79.899 Other long term (current) drug therapy
CPT/HCPCS: 49083; P9047

== ENCOUNTER 2021-07-05 07:21 | Day surgery (SDC) | payer MEDICARE, MEDICAID ==
[2021-07-04 07:19] VITALS: BMI 26.2
[2021-07-05] MEDS ORDERED: Albumin 25% 100 ML ONE (07:34)
[2021-07-05] MEDS ORDERED: Sodium Bicarbonate 2.5 MEQ/5 ML VIAL ONE (07:34)
[2021-07-05] MEDS ORDERED: Lidocaine 1% PF 5 ML VIAL ONE (07:34)
[2021-07-05] MEDS ORDERED: Albumin 25% 25 GM/100 ML BOT IVPB SCH (08:15)
[2021-07-05 09:42] VITALS: BP 92/39
== END 2021-07-05 09:30 ==
LOC: ULT 07:21
PROVIDERS: ATTEND Family Medicine
PROC: 0W9G3ZZ Drainage of Peritoneal Cavity, Percutaneous Approach (ICD-10-PCS; principal; 2021-07-05)
DX: K70.31 Alcoholic cirrhosis of liver with ascites (principal); E11.9 Type 2 diabetes mellitus without complications; Z86.16 Personal history of COVID-19; Z79.4 Long term (current) use of insulin; Z79.899 Other long term (current) drug therapy
CPT/HCPCS: 49083; P9047

== ENCOUNTER 2021-07-12 07:22 | Day surgery (SDC) | payer MEDICARE, MEDICAID ==
[2021-07-11 14:34] VITALS: BMI 26.2
[2021-07-12] MEDS ORDERED: Lidocaine 1% PF 5 ML VIAL ONE (07:34)
[2021-07-12] MEDS ORDERED: Albumin 25% 100 ML ONE (07:34)
[2021-07-12] MEDS ORDERED: Sodium Bicarbonate 2.5 MEQ/5 ML VIAL ONE (07:34)
[2021-07-12 15:21] VITALS: BP 104/42
== END 2021-07-12 10:00 ==
LOC: ULT 07:22
PROVIDERS: ATTEND Family Medicine
PROC: 0W9G3ZZ Drainage of Peritoneal Cavity, Percutaneous Approach (ICD-10-PCS; principal; 2021-07-12)
DX: K70.31 Alcoholic cirrhosis of liver with ascites (principal)
CPT/HCPCS: 49083; P9047

== ENCOUNTER 2021-07-19 07:51 | Day surgery (SDC) | payer MEDICARE, MEDICAID ==
[2021-07-17 15:18] VITALS: BMI 26.2
[2021-07-19] MEDS ORDERED: Sodium Bicarbonate 2.5 MEQ/5 ML VIAL ONE (08:33)
[2021-07-19] MEDS ORDERED: Lidocaine 1% PF 5 ML VIAL ONE (08:33)
[2021-07-19] MEDS ORDERED: Albumin 25% 100 ML ONE (08:33)
== END 2021-07-19 10:02 | disposition home or self-care (01) ==
LOC: ULT 07:51
PROVIDERS: ATTEND Family Medicine
PROC: 0W9G3ZZ Drainage of Peritoneal Cavity, Percutaneous Approach (ICD-10-PCS; principal; 2021-07-19)
DX: K70.31 Alcoholic cirrhosis of liver with ascites (principal); E11.9 Type 2 diabetes mellitus without complications
CPT/HCPCS: 49083; P9047

== ENCOUNTER 2021-07-26 07:54 | Day surgery (SDC) | payer MEDICARE, MEDICAID ==
[2021-07-21 14:43] VITALS: BMI 26.2
[2021-07-26] MEDS ORDERED: Albumin 25% 100 ML ONE (08:02)
[2021-07-26] MEDS ORDERED: Sodium Bicarbonate 2.5 MEQ/5 ML VIAL ONE (08:02)
[2021-07-26] MEDS ORDERED: Lidocaine 1% PF 5 ML VIAL ONE (08:02)
[2021-07-26 08:28] LABS: INR-International Normal Ratio 1.3; Prothrombin Time 15.9 sec (12.0-14.7)
[2021-07-26 08:40] LABS: Hemoglobin 7.8 g/dL (14.0-18.0); Mean Corpuscular HGB CONC 33.2 g/dL (32.0-36.0); Mean Corpuscular Hemoglobin 20.2 pg (27.0-31.0); Mean Corpuscular Volume 60.9 fL (78.0-98.0); Mean Platelet Volume 5.3 fL (7.4-10.4); Platelet Count 113 thou/uL (130-400); RBC Distribution Width 15.8 % (11.5-14.5); Red Blood Cell (RBC) Count 3.86 mill/uL (4.70-6.10); White Blood Cell (WBC) Count 11.9 thou/uL (4.8-10.8)
[2021-07-26 08:41] LABS: PTT 38.9 sec (22.9-36.1)
[2021-07-26 08:52] LABS: Band 8 % (5-11); Eosinophils 3 % (0-10); Hemoglobin C Crystals MODERATE (None Seen); Hypochromia MODERATE=16-30 cells (100X) (0-5/hpf); Lymphocytes 15 % (21-51); MDiff Complete? YES; Microcytosis MARKED = >30 cells (100X) (0-5/hpf); Monocytes 6 % (0-10); Neutrophil 68 % (42-75); Nucleated RBC 2 % (0); Platelet Morphology Comment Appears Decreased; Polychromasia MODERATE = 3-4 cells (100X) (0-2/hpf); Target Cells MODERATE= 6-15 cells (100X) (0-1/hpf)
[2021-07-26 09:45] VITALS: BP 100/46; TEMP 98.1
== END 2021-07-26 09:42 ==
LOC: ULT 07:54
PROVIDERS: ATTEND Family Medicine
PROC: 0W9G3ZZ Drainage of Peritoneal Cavity, Percutaneous Approach (ICD-10-PCS; principal; 2021-07-26)
DX: K70.31 Alcoholic cirrhosis of liver with ascites (principal); E11.9 Type 2 diabetes mellitus without complications; Z79.4 Long term (current) use of insulin; Z79.899 Other long term (current) drug therapy
CPT/HCPCS: 49083; 85025; 85610; 85730; P9047; 36415

== ENCOUNTER 2021-08-02 08:09 | Day surgery (SDC) | payer MEDICARE, MEDICAID ==
[2021-08-01 14:37] VITALS: BMI 26.2
[2021-08-02] MEDS ORDERED: Albumin 25% 100 ML ONE (08:12)
[2021-08-02] MEDS ORDERED: Sodium Bicarbonate 2.5 MEQ/5 ML VIAL ONE (08:12)
[2021-08-02] MEDS ORDERED: Lidocaine 1% PF 5 ML VIAL ONE (08:12)
[2021-08-02 12:49] VITALS: BP 105/61; TEMP 97.7
== END 2021-08-02 10:35 | disposition home or self-care (01) ==
LOC: ULT 08:09
PROVIDERS: ATTEND Family Medicine
PROC: 0W9G3ZZ Drainage of Peritoneal Cavity, Percutaneous Approach (ICD-10-PCS; principal; 2021-08-02)
DX: K74.60 Unspecified cirrhosis of liver (principal); R18.8 Other ascites; E78.5 Hyperlipidemia, unspecified; I10 Essential (primary) hypertension; I25.10 Atherosclerotic heart disease of native coronary artery without angina pectoris; M54.16 Radiculopathy, lumbar region; Z95.1 Presence of aortocoronary bypass graft; Z79.82 Long term (current) use of aspirin
CPT/HCPCS: 49083; P9047

== ENCOUNTER 2021-08-09 07:41 | Day surgery (SDC) | payer MEDICARE, MEDICAID ==
[2021-08-07 12:04] VITALS: BMI 26.2
[2021-08-09] MEDS ORDERED: Lidocaine 1% PF 5 ML VIAL ONE (07:51)
[2021-08-09] MEDS ORDERED: Sodium Bicarbonate 2.5 MEQ/5 ML VIAL ONE (07:51)
[2021-08-09] MEDS ORDERED: Albumin 25% 100 ML ONE (07:51)
[2021-08-09] MEDS ORDERED: Albumin 25% 25 GM/100 ML BOT IVPB SCH (08:15)
[2021-08-09 13:15] VITALS: BP 100/47
== END 2021-08-09 09:15 ==
LOC: ULT 07:41
PROVIDERS: ATTEND Family Medicine
PROC: 0W9G3ZZ Drainage of Peritoneal Cavity, Percutaneous Approach (ICD-10-PCS; principal; 2021-08-09)
DX: K70.31 Alcoholic cirrhosis of liver with ascites (principal); K72.90 Hepatic failure, unspecified without coma; E80.6 Other disorders of bilirubin metabolism; K76.7 Hepatorenal syndrome; E11.9 Type 2 diabetes mellitus without complications; F17.200 Nicotine dependence, unspecified, uncomplicated; Z86.16 Personal history of COVID-19; Z79.4 Long term (current) use of insulin; Z79.899 Other long term (current) drug therapy
CPT/HCPCS: 49083; P9047

== ENCOUNTER 2021-08-16 07:44 | Day surgery (SDC) | payer MEDICARE, MEDICAID ==
[2021-08-14 16:19] VITALS: BMI 25.8
[2021-08-16] MEDS ORDERED: Albumin 25% 100 ML ONE (07:58)
[2021-08-16] MEDS ORDERED: Sodium Bicarbonate 2.5 MEQ/5 ML VIAL ONE (07:58)
[2021-08-16] MEDS ORDERED: Lidocaine 1% PF 5 ML VIAL ONE (07:58)
[2021-08-16 09:19] VITALS: BP 114/63; TEMP 98.4
== END 2021-08-16 09:18 | disposition home or self-care (01) ==
LOC: ULT 07:44
PROVIDERS: ATTEND Family Medicine
PROC: 0W9G3ZZ Drainage of Peritoneal Cavity, Percutaneous Approach (ICD-10-PCS; principal; 2021-08-16)
DX: K74.60 Unspecified cirrhosis of liver (principal); R18.8 Other ascites; Z79.4 Long term (current) use of insulin; Z79.899 Other long term (current) drug therapy
CPT/HCPCS: 49083; P9047

== ENCOUNTER 2021-08-23 07:24 | Day surgery (SDC) | payer MEDICARE, MEDICAID ==
[2021-08-22 12:44] VITALS: BMI 26.2
[2021-08-23] MEDS ORDERED: Albumin 25% 200 ML ONE (07:58)
[2021-08-23] MEDS ORDERED: Sodium Bicarbonate 2.5 MEQ/5 ML VIAL ONE (07:59)
[2021-08-23] MEDS ORDERED: Lidocaine 1% PF 5 ML VIAL ONE (07:59)
[2021-08-23 09:19] VITALS: BP 94/63; TEMP 98.8
== END 2021-08-23 09:20 | disposition home or self-care (01) ==
LOC: ULT 07:24
PROVIDERS: ATTEND Family Medicine
PROC: 0W9G3ZZ Drainage of Peritoneal Cavity, Percutaneous Approach (ICD-10-PCS; principal; 2021-08-23)
DX: K74.60 Unspecified cirrhosis of liver (principal); R18.8 Other ascites
CPT/HCPCS: 49083; P9047

== ENCOUNTER 2021-08-25 11:55 | Inpatient (IN) | payer MEDICARE, MEDICAID ==
[2021-08-25 12:50] LABS: Hemoglobin 6.5 g/dL (14.0-18.0); Mean Corpuscular HGB CONC 34.4 g/dL (32.0-36.0); Mean Corpuscular Hemoglobin 21.2 pg (27.0-31.0); Mean Corpuscular Volume 61.5 fL (78.0-98.0); RBC Distribution Width 15.7 % (11.5-14.5); Red Blood Cell (RBC) Count 3.06 mill/uL (4.70-6.10)
[2021-08-25] MEDS ORDERED: Boostrix 0.5 ML (Tdap) VIAL ONE (12:52)
[2021-08-25 13:05] LABS: ALT (SGPT) 13 U/L (8-55); AST (SGOT) 15 U/L (5-34); Albumin 2.8 g/dL (3.4-4.8); Alkaline Phosphatase 124 U/L (40-110); Anion Gap 15 mmol/L (10-20); BUN (Urea Nitrogen) 51 mg/dL (8.4-25.7); Bilirubin, Total 3.3 mg/dL (0.2-1.2); Calc. Creatinine Clearance 0 mL/min (70-130); Calcium 7.8 mg/dL (7.8-10.44); Carbon Dioxide 18 mmol/L (23-31); Chloride 102 mmol/L (98-107); Globulin 2.4 g/dL (2.4-3.5); Glucose 303 mg/dL (80-115); Magnesium 2.3 mg/dL (1.6-2.6); Potassium 4.6 mmol/L (3.5-5.1); Protein, Total 5.2 g/dL (5.8-8.1); Sodium 130 mmol/L (136-145)
[2021-08-25 13:11] LABS: Anisocytosis SLIGHT = 6-15 cells (100X) (0-5/hpf); Band 2 % (5-11); Eosinophils 4 % (0-10); Hypochromia SLIGHT = 6-15 cells (100X) (0-5/hpf); Lymphocytes 13 % (21-51); MDiff Complete? YES; Mean Platelet Volume 5.4 fL (7.4-10.4); Microcytosis SLIGHT = 6-15 cells (100X) (0-5/hpf); Monocytes 4 % (0-10); Neutrophil 74 % (42-75); Nucleated RBC 12 % (0); Ovalocytes SLIGHT = 2-5 cells (100X) (0-1/hpf); Platelet Count 78 thou/uL (130-400); Platelet Morphology Comment Appears Decreased; Polychromasia MODERATE = 3-4 cells (100X) (0-2/hpf); Spherocytes SLIGHT = 1-5 cells (100X) (None Seen); Target Cells SLIGHT = 2-5 cells (100X) (0-1/hpf); White Blood Cell (WBC) Count 7.1 thou/uL (4.8-10.8)
[2021-08-25] MEDS ORDERED: Acetaminophen 325 MG TAB PO PRN (13:45)
[2021-08-25] MEDS ORDERED: Ondansetron PF 4 MG/2 ML Vial IVP PRN (13:45)
[2021-08-25] MEDS ORDERED: Dextrose 5% in Water 1,000 ML IV PRN (13:45)
[2021-08-25] MEDS ORDERED: HumaLOG 300 UNITS/3 ML VIAL SC PRN (13:45)
[2021-08-25] MEDS ORDERED: Ondansetron ODT 4 MG TAB PO PRN (13:45)
[2021-08-25] MEDS ORDERED: Dextrose 50% Abboject 50 ML SYRINGE SLOW IVP PRN (13:45)
[2021-08-25] MEDS ORDERED: Pantoprazole 40 MG VIAL ONE (13:54)
[2021-08-25] MEDS ORDERED: cefTRIAXone\\ROCEPHIN 2 GM VIAL ONE (13:54)
[2021-08-25] MEDS ORDERED: Octreotide Acetate 100 MCG/ML VIAL ONE (13:54)
[2021-08-25] MEDS ORDERED: Octreotide Acetate 1,250 MCG in Sodium Chloride 0.9% 250 ML 250 ML IVPB SCH (14:00)
[2021-08-25] MEDS ORDERED: Albumin 25% 25 GM/100 ML BOT IVPB SCH (14:15)
[2021-08-25 14:37] LABS: Hemoglobin A1c 4.5 % (4.0-6.0)
[2021-08-25 14:40] LABS: INR-International Normal Ratio 1.3; PTT 32.6 sec (22.9-36.1); Prothrombin Time 16.1 sec (12.0-14.7)
[2021-08-25] MEDS ORDERED: traMADol HCl 50 MG TAB PO PRN (16:12)
[2021-08-25 17:31] LABS: Actual Bicarbonate (HCO3v) 15 mEq/L (22-28); Analyzer IN Cardio ER; Base Excess -8.5 mEq/L (-2.0 to +3.0); Calcium, Ionized (venous) 1.01 mmol/L (1.16-1.32); Chloride (VBG) 102 mmol/L (98-106); Hemoglobin (Hb) 9.2 g/dL (13.1-17.2); Potassium (VBG) 4.65 mmol/L (3.70-5.30); pH (venous) 7.41 (7.32-7.43)
[2021-08-25 17:40] LABS: Hemoglobin 8.8 g/dL (14.0-18.0); Mean Corpuscular Hemoglobin 23.2 pg (27.0-31.0); Platelet Count 64 thou/uL (130-400); RBC Distribution Width 24.3 % (11.5-14.5); Red Blood Cell (RBC) Count 3.78 mill/uL (4.70-6.10)
[2021-08-25 17:47] LABS: Lactic Acid 1.7 mmol/L (0.5-2.2)
[2021-08-25 18:14] LABS: Mean Platelet Volume 5.3 fL (7.4-10.4); White Blood Cell (WBC) Count 14.6 thou/uL (4.8-10.8)
[2021-08-25 20:27] VITALS: BMI 26.3
[2021-08-25] MEDS ORDERED: Lactulose 10 GM/15 ML Oral Solution PR SCH (21:00)
[2021-08-25] MEDS: traMADol HCl 50 MG TAB PO SCH ×2 (21:15→23:58)
[2021-08-25] MEDS: Pantoprazole 40 MG VIAL IVP SCH (22:02)
[2021-08-25] MEDS: Rifaximin 550 MG TAB PO SCH (22:02)
[2021-08-25] MEDS: Albumin 25% 25 GM/100 ML BOT IVPB SCH (22:03)
[2021-08-25 22:58] LABS: Hemoglobin 8.7 g/dL (14.0-18.0); Mean Corpuscular HGB CONC 33.9 g/dL (32.0-36.0); Mean Corpuscular Hemoglobin 22.8 pg (27.0-31.0); Mean Corpuscular Volume 67.1 fL (78.0-98.0); Mean Platelet Volume 5.5 fL (7.4-10.4); Platelet Count 73 thou/uL (130-400); RBC Distribution Width 23.2 % (11.5-14.5); Red Blood Cell (RBC) Count 3.81 mill/uL (4.70-6.10); White Blood Cell (WBC) Count 12.1 thou/uL (4.8-10.8)
[2021-08-26] MEDS: Lactated Ringer's 1,000 ML IV SCH ×2 (00:18→14:51)
[2021-08-26 04:50] LABS: Actual Bicarbonate (HCO3v) 17 mEq/L (22-28); Analyzer IN Cardio ER; Calcium, Ionized (venous) 1.14 mmol/L (1.16-1.32); Chloride (VBG) 103 mmol/L (98-106); Hemoglobin (Hb) 8.5 g/dL (13.1-17.2); Potassium (VBG) 4.77 mmol/L (3.70-5.30); Sodium 127.3 mmol/L (133-146); pH (venous) 7.32 (7.32-7.43)
[2021-08-26 05:03] LABS: INR-International Normal Ratio 1.4; PTT 32.5 sec (22.9-36.1); Prothrombin Time 16.9 sec (12.0-14.7)
[2021-08-26 05:15] LABS: ALT (SGPT) 14 U/L (8-55); AST (SGOT) 15 U/L (5-34); Albumin 3.6 g/dL (3.4-4.8); Alkaline Phosphatase 107 U/L (40-110); Anion Gap 14 mmol/L (10-20); BUN (Urea Nitrogen) 47 mg/dL (8.4-25.7); Bilirubin, Total 3.9 mg/dL (0.2-1.2); Calc. Creatinine Clearance 54 mL/min (70-130); Calcium 8.7 mg/dL (7.8-10.44); Carbon Dioxide 18 mmol/L (23-31); Cardiac Risk 3.1 (Less than 4.5); Chloride 104 mmol/L (98-107); Cholesterol 89 mg/dl (< 200 Desired); Globulin 2.6 g/dL (2.4-3.5); Glucose 245 mg/dL (80-115); HDL Cholesterol 29 mg/dL (>60 Neg Risk); LDL Cholesterol, Calculated 42 mg/dL; Magnesium 2.3 mg/dL (1.6-2.6); Potassium 4.8 mmol/L (3.5-5.1); Protein, Total 6.2 g/dL (5.8-8.1); Sodium 131 mmol/L (136-145); Triglycerides 89 mg/dL (Less than 150)
[2021-08-26 05:42] LABS: Hemoglobin 8.3 g/dL (14.0-18.0); Mean Corpuscular HGB CONC 34.6 g/dL (32.0-36.0); Mean Corpuscular Volume 66.6 fL (78.0-98.0); Mean Platelet Volume 5.8 fL (7.4-10.4); Platelet Count 66 thou/uL (130-400); RBC Distribution Width 22.6 % (11.5-14.5); Red Blood Cell (RBC) Count 3.62 mill/uL (4.70-6.10); White Blood Cell (WBC) Count 9.2 thou/uL (4.8-10.8)
[2021-08-26 05:43] LABS: Band 6 % (5-11); Eosinophils 1 % (0-10); Hypochromia SLIGHT = 6-15 cells (100X) (0-5/hpf); Lymphocytes 10 % (21-51); MDiff Complete? YES; Monocytes 13 % (0-10); Neutrophil 70 % (42-75); Nucleated RBC 3 % (0); Platelet Morphology Comment Appears Decreased; Polychromasia SLIGHT = 2-3 cells (100X) (0-2/hpf); Target Cells SLIGHT = 2-5 cells (100X) (0-1/hpf)
[2021-08-26] MEDS: traMADol HCl 50 MG TAB PO SCH ×3 (06:02→17:43)
[2021-08-26] MEDS: Pantoprazole 40 MG VIAL IVP SCH ×2 (10:00→20:37)
[2021-08-26] MEDS: Albumin 25% 25 GM/100 ML BOT IVPB SCH (10:00)
[2021-08-26] MEDS: Rifaximin 550 MG TAB PO SCH ×2 (10:00→20:37)
[2021-08-26] MEDS: Ferrous Sulfate 325 MG TAB PO SCH ×2 (10:03→20:37)
[2021-08-26] MEDS: Thiamine 100 MG TAB PO SCH (10:05)
[2021-08-26 10:33] LABS: Bacteria/HPF None Seen HPF (None Seen); Bilirubin Negative (Negative); Blood, Urine Negative (Negative); Clarity Clear (Clear); Glucose, Urine (Dipstick) Normal (Negative); Ketone, Urine Negative (Negative); Leukocyte Negative Leu/uL (Negative); Nitrite Negative (Negative); Protein, Urine (Dipstick) Negative (Neg-Trace); RBC/HPF 0-3 HPF (0-3); Specific Gravity, Urine 1.018 (1.002-1.036); Squamous Epithelial None Seen HPF (0-3); Urobilinogen Normal mg/dL (Less than 2); WBC/HPF 0-3 HPF (0-3)
[2021-08-26 10:34] LABS: Urine Culture Reflex No No
[2021-08-26 10:40] LABS: Amphetamine Not Detected (NotDetected); Barbiturates Screen Not Detected (NotDetected); Benzodiazepine Screen Not Detected (NotDetected); Cocaine Metabolite Screen Not Detected (NotDetected); Methadone Not Detected (NotDetected); Methamphetamine Not Detected (NotDetected); Opiate Screen Not Detected (NotDetected); Oxycodone Screen Not Detected (NotDetected); Phencyclidine (PCP) Not Detected (NotDetected); THC/Cannabinoid Screen Not Detected (NotDetected); Tricyclic Screen Not Detected (NotDetected)
[2021-08-26] MEDS ORDERED: ceFAZolin 2 GM/Dextrose 50 ML 2 GM in Premix Bag 1 BAG IVPB SCH (13:00)
[2021-08-26] MEDS: cefTRIAXone\\ROCEPHIN 2 GM in Sodium Chloride 0.9% 100 ML IVPB SCH (13:22)
[2021-08-26] MEDS: Insulin Glargine 30 UNITS/0.3 ML VIAL SC SCH (20:41)
[2021-08-26] MEDS ORDERED: Non-Formulary Item 1 EACH (Ferrous Sulfate [Iron] 325 MG Tablet) PO SCH (21:00)
[2021-08-27] MEDS: traMADol HCl 50 MG TAB PO SCH ×4 (00:13→18:04)
[2021-08-27 05:10] LABS: ALT (SGPT) 13 U/L (8-55); AST (SGOT) 14 U/L (5-34); Albumin 3.6 g/dL (3.4-4.8); Alkaline Phosphatase 89 U/L (40-110); Anion Gap 14 mmol/L (10-20); BUN (Urea Nitrogen) 44 mg/dL (8.4-25.7); Bilirubin, Total 3.1 mg/dL (0.2-1.2); Calc. Creatinine Clearance 53 mL/min (70-130); Calcium 8.5 mg/dL (7.8-10.44); Carbon Dioxide 18 mmol/L (23-31); Chloride 105 mmol/L (98-107); Globulin 2.4 g/dL (2.4-3.5); Glucose 190 mg/dL (80-115); Magnesium 2.4 mg/dL (1.6-2.6); Potassium 4.8 mmol/L (3.5-5.1); Sodium 132 mmol/L (136-145)
[2021-08-27 05:24] LABS: Eosinophils 7 % (0-10); Hypochromia SLIGHT = 6-15 cells (100X) (0-5/hpf); Lymphocytes 14 % (21-51); MDiff Complete? YES; Mean Corpuscular HGB CONC 34.8 g/dL (32.0-36.0); Mean Corpuscular Volume 66.2 fL (78.0-98.0); Mean Platelet Volume 5.4 fL (7.4-10.4); Microcytosis MODERATE=15-30 cells (100X) (0-5/hpf); Monocytes 5 % (0-10); Neutrophil 72 % (42-75); Nucleated RBC 12 % (0); Ovalocytes SLIGHT = 2-5 cells (100X) (0-1/hpf); Platelet Count 73 thou/uL (130-400); Platelet Morphology Comment Appears Decreased; Polychromasia SLIGHT = 2-3 cells (100X) (0-2/hpf); RBC Distribution Width 22.9 % (11.5-14.5); Red Blood Cell (RBC) Count 3.46 mill/uL (4.70-6.10); Sickle Cells SLIGHT = 1-5 cells (100X) (None Seen); Target Cells MODERATE= 6-15 cells (100X) (0-1/hpf); White Blood Cell (WBC) Count 10.3 thou/uL (4.8-10.8)
[2021-08-27] MEDS ORDERED: Midazolam HCl 2 mg/2 ml Vial ONE (07:17)
[2021-08-27] MEDS ORDERED: fentaNYL Citrate/PF 100 MCG/2 ML SYRINGE ONE (07:17)
[2021-08-27] MEDS ORDERED: CEFAZOLIN 2 GM VIAL ONE (07:25)
[2021-08-27] MEDS ORDERED: Sodium Chloride 0.9% 100 ML ONE (07:25)
[2021-08-27] MEDS ORDERED: Ondansetron HCl/PF 4 MG/2 ML Vial IVP PRN (07:47)
[2021-08-27] MEDS ORDERED: Meperidine HCl/PF 25 MG/ML VIAL SLOW IVP PRN ×2 (07:47)
[2021-08-27] MEDS ORDERED: HYDROmorphone 2 MG/ML VIAL SLOW IVP PRN (07:47)
[2021-08-27] MEDS ORDERED: Promethazine HCl 25 MG/ML VIAL IVPB PRN (07:47)
[2021-08-27] MEDS ORDERED: Promethazine HCl 25 MG/ML VIAL IM PRN (07:47)
[2021-08-27] MEDS ORDERED: Glycopyrrolate 0.2 MG/ML 5 ML SYRINGE ONE (08:09)
[2021-08-27] MEDS ORDERED: Ondansetron PF 4 MG/2 ML Vial ONE (08:09)
[2021-08-27] MEDS ORDERED: ePHEDrine 50 MG/ML VIAL ONE (08:09)
[2021-08-27] MEDS ORDERED: Dexamethasone 20 MG/5 ML VIAL ONE (08:09)
[2021-08-27] MEDS ORDERED: PHENYLEPHRINE-NS 100 MCG/ML 10 ML SYRINGE ONE (08:09)
[2021-08-27] MEDS ORDERED: Rocuronium Bromide 10 MG/ML (10ML VIAL) ONE (08:09)
[2021-08-27] MEDS ORDERED: PROPOFOL 200 MG/20 ML VIAL ONE (08:09)
[2021-08-27] MEDS ORDERED: Lidocaine 1% PF 5 ML VIAL ONE (08:09)
[2021-08-27] MEDS: Pantoprazole 40 MG VIAL IVP SCH ×2 (08:15→20:47)
[2021-08-27] MEDS: Ferrous Sulfate 325 MG TAB PO SCH ×2 (08:15→20:47)
[2021-08-27] MEDS: Insulin Glargine 30 UNITS/0.3 ML VIAL SC SCH ×2 (08:15→20:49)
[2021-08-27] MEDS: Rifaximin 550 MG TAB PO SCH ×2 (08:15→20:47)
[2021-08-27] MEDS: Thiamine 100 MG TAB PO SCH (08:16)
[2021-08-27] MEDS ORDERED: THIAMINE HCL 100 MG PO SCH (09:00)
[2021-08-27] MEDS ORDERED: LACTULOSE 10 GM/15 ML PO SCH (09:00)
[2021-08-27] MEDS: HumaLOG 300 UNITS/3 ML VIAL SC PRN ×2 (12:12→18:04)
[2021-08-27] MEDS ORDERED: ceFAZolin 2 GM/Dextrose 50 ML 2 GM in Premix Bag 1 BAG IVPB SCH (14:00)
[2021-08-27] MEDS: cefTRIAXone\\ROCEPHIN 2 GM in Sodium Chloride 0.9% 100 ML IVPB SCH (15:27)
[2021-08-27 18:20] LABS: Hemoglobin 8.9 g/dL (14.0-18.0); Mean Corpuscular HGB CONC 34.7 g/dL (32.0-36.0); Mean Corpuscular Hemoglobin 24.7 pg (27.0-31.0); Mean Corpuscular Volume 71.2 fL (78.0-98.0); Platelet Count 77 thou/uL (130-400); RBC Distribution Width 25.5 % (11.5-14.5); Red Blood Cell (RBC) Count 3.62 mill/uL (4.70-6.10)
[2021-08-27 18:35] LABS: Anisocytosis MODERATE=16-30 cells (100X) (0-5/hpf); Band 3 % (5-11); Hypochromia SLIGHT = 6-15 cells (100X) (0-5/hpf); Lymphocytes 5 % (21-51); MDiff Complete? YES; Microcytosis SLIGHT = 6-15 cells (100X) (0-5/hpf); Monocytes 4 % (0-10); Neutrophil 87 % (42-75); Nucleated RBC 6 % (0); Platelet Morphology Comment Appears Decreased; Poikilocytosis SLIGHT = 6-15 cells (100X) (0-5/hpf); Polychromasia MODERATE = 3-4 cells (100X) (0-2/hpf); Reactive Lymphocytes 1 % (0-10); Target Cells SLIGHT = 2-5 cells (100X) (0-1/hpf); White Blood Cell (WBC) Count 8.9 thou/uL (4.8-10.8)
[2021-08-28] MEDS: traMADol HCl 50 MG TAB PO SCH ×4 (00:32→17:45)
[2021-08-28] MEDS: HumaLOG 300 UNITS/3 ML VIAL SC PRN ×4 (00:37→17:46)
[2021-08-28 04:24] LABS: #Lymphocytes 1.1 thou/uL (1.20-3.40); #Monocytes 1.2 thou/uL (0.11-0.59); #Neutrophils 9.2 thou/uL (1.40-6.50); %Basophils 0.2 % (0.0-1.0); %Eosinophils 0.1 % (0.0-10.0); %Lymphocytes 9.6 % (21.0-51.0); %Monocytes 10.1 % (0.0-10.0); %Neutrophils 79.9 % (42.0-75.0); Mean Corpuscular HGB CONC 33.4 g/dL (32.0-36.0); Mean Corpuscular Hemoglobin 23.5 pg (27.0-31.0); Mean Corpuscular Volume 70.4 fL (78.0-98.0); Mean Platelet Volume 6.4 fL (7.4-10.4); Platelet Count 90 thou/uL (130-400); RBC Distribution Width 25.2 % (11.5-14.5); White Blood Cell (WBC) Count 11.5 thou/uL (4.8-10.8)
[2021-08-28 04:37] LABS: Anion Gap 14 mmol/L (10-20); BUN (Urea Nitrogen) 53 mg/dL (8.4-25.7); Calc. Creatinine Clearance 43 mL/min (70-130); Calcium 8.6 mg/dL (7.8-10.44); Carbon Dioxide 18 mmol/L (23-31); Chloride 104 mmol/L (98-107); Glucose 175 mg/dL (80-115); Magnesium 2.3 mg/dL (1.6-2.6); Phosphorus 4.1 mg/dL (2.3-4.7); Potassium 5.4 mmol/L (3.5-5.1); Sodium 131 mmol/L (136-145)
[2021-08-28] MEDS ORDERED: Sotalol HCl 80 MG TAB PO SCH (09:00)
[2021-08-28] MEDS ORDERED: Sodium Chloride 0.9% 500 ML IV SCH (09:15)
[2021-08-28] MEDS: Thiamine 100 MG TAB PO SCH (09:15)
[2021-08-28] MEDS: Ferrous Sulfate 325 MG TAB PO SCH ×2 (09:16→21:55)
[2021-08-28] MEDS: Pantoprazole 40 MG VIAL IVP SCH ×2 (09:17→21:55)
[2021-08-28] MEDS: Rifaximin 550 MG TAB PO SCH ×2 (09:17→21:55)
[2021-08-28] MEDS: Insulin Glargine 30 UNITS/0.3 ML VIAL SC SCH ×2 (09:18→21:55)
[2021-08-28] MEDS: Sodium Chloride 0.9% 1,000 ML IV SCH ×2 (10:00→21:54)
[2021-08-28] MEDS: Sotalol HCl 80 MG TAB PO SCH (10:17)
[2021-08-29] MEDS: traMADol HCl 50 MG TAB PO SCH ×5 (00:59→23:55)
[2021-08-29 04:28] LABS: INR-International Normal Ratio 1.4; Prothrombin Time 17.3 sec (12.0-14.7)
[2021-08-29 04:29] LABS: PTT 45.9 sec (22.9-36.1)
[2021-08-29 04:44] LABS: Anion Gap 11 mmol/L (10-20); BUN (Urea Nitrogen) 50 mg/dL (8.4-25.7); Calc. Creatinine Clearance 45 mL/min (70-130); Calcium 8.3 mg/dL (7.8-10.44); Carbon Dioxide 19 mmol/L (23-31); Chloride 106 mmol/L (98-107); Glucose 166 mg/dL (80-115); Magnesium 2.3 mg/dL (1.6-2.6); Phosphorus 3.7 mg/dL (2.3-4.7); Potassium 4.2 mmol/L (3.5-5.1); Sodium 132 mmol/L (136-145)
[2021-08-29 04:45] LABS: Anisocytosis MODERATE=16-30 cells (100X) (0-5/hpf); Band 2 % (5-11); Eosinophils 1 % (0-10); Hemoglobin 7.3 g/dL (14.0-18.0); Hypochromia SLIGHT = 6-15 cells (100X) (0-5/hpf); Lymphocytes 14 % (21-51); MDiff Complete? YES; Mean Corpuscular HGB CONC 34.3 g/dL (32.0-36.0); Mean Corpuscular Hemoglobin 24.2 pg (27.0-31.0); Mean Corpuscular Volume 70.6 fL (78.0-98.0); Mean Platelet Volume 5.7 fL (7.4-10.4); Monocytes 5 % (0-10); Neutrophil 78 % (42-75); Nucleated RBC 17 % (0); Platelet Count 85 thou/uL (130-400); Platelet Morphology Comment Appears Decreased; Polychromasia SLIGHT = 2-3 cells (100X) (0-2/hpf); RBC Distribution Width 25.5 % (11.5-14.5); Red Blood Cell (RBC) Count 3.03 mill/uL (4.70-6.10); Target Cells SLIGHT = 2-5 cells (100X) (0-1/hpf); Tear Drops SLIGHT = 2-5 cells (100X) (0-1/hpf); White Blood Cell (WBC) Count 12.6 thou/uL (4.8-10.8)
[2021-08-29] MEDS ORDERED: Spironolactone 25 MG TAB PO SCH (08:00)
[2021-08-29] MEDS: Spironolactone 25 MG TAB PO SCH (08:41)
[2021-08-29] MEDS: Ferrous Sulfate 325 MG TAB PO SCH ×2 (08:41→21:03)
[2021-08-29] MEDS: Insulin Glargine 30 UNITS/0.3 ML VIAL SC SCH ×2 (08:42→21:03)
[2021-08-29] MEDS: Rifaximin 550 MG TAB PO SCH ×2 (08:44→21:03)
[2021-08-29] MEDS: Pantoprazole 40 MG VIAL IVP SCH ×2 (08:44→21:03)
[2021-08-29] MEDS: Thiamine 100 MG TAB PO SCH (08:45)
[2021-08-29] MEDS: Sotalol HCl 80 MG TAB PO SCH (08:45)
[2021-08-29] MEDS ORDERED: Furosemide 20 MG TAB PO SCH (09:00)
[2021-08-29] MEDS: HumaLOG 300 UNITS/3 ML VIAL SC PRN (12:14)
[2021-08-30 05:39] LABS: Band 8 % (5-11); Eosinophils 9 % (0-10); Hemoglobin 8.1 g/dL (14.0-18.0); Hypochromia SLIGHT = 6-15 cells (100X) (0-5/hpf); Lymphocytes 11 % (21-51); MDiff Complete? YES; Macrocytosis SLIGHT = 6-15 cells (100X) (0-5/hpf); Mean Corpuscular HGB CONC 33.5 g/dL (32.0-36.0); Mean Corpuscular Hemoglobin 24.8 pg (27.0-31.0); Mean Platelet Volume 5.8 fL (7.4-10.4); Monocytes 10 % (0-10); Neutrophil 62 % (42-75); Nucleated RBC 9 % (0); Platelet Count 80 thou/uL (130-400); Platelet Morphology Comment Appears Decreased; RBC Distribution Width 25.9 % (11.5-14.5); Red Blood Cell (RBC) Count 3.26 mill/uL (4.70-6.10); White Blood Cell (WBC) Count 12.3 thou/uL (4.8-10.8)
[2021-08-30] MEDS: traMADol HCl 50 MG TAB PO SCH ×3 (05:55→17:16)
[2021-08-30 06:22] LABS: ALT (SGPT) 8 U/L (8-55); AST (SGOT) 11 U/L (5-34); Albumin 3.1 g/dL (3.4-4.8); Alkaline Phosphatase 93 U/L (40-110); Anion Gap 15 mmol/L (10-20); BUN (Urea Nitrogen) 48 mg/dL (8.4-25.7); Bilirubin, Total 3.8 mg/dL (0.2-1.2); Calc. Creatinine Clearance 51 mL/min (70-130); Calcium 8.2 mg/dL (7.8-10.44); Carbon Dioxide 15 mmol/L (23-31); Chloride 106 mmol/L (98-107); Estimated GFR 48; Globulin 2.6 g/dL (2.4-3.5); Glucose 136 mg/dL (80-115); Magnesium 2.1 mg/dL (1.6-2.6); Phosphorus 2.9 mg/dL (2.3-4.7); Potassium 3.1 mmol/L (3.5-5.1); Protein, Total 5.7 g/dL (5.8-8.1); Sodium 133 mmol/L (136-145)
[2021-08-30] MEDS ORDERED: Albumin 25% 25 GM/100 ML BOT IVPB SCH (08:00)
[2021-08-30] MEDS ORDERED: Sodium Bicarbonate 2.5 MEQ/5 ML VIAL ONE (08:32)
[2021-08-30] MEDS ORDERED: Lidocaine 1% PF 5 ML VIAL ONE (08:32)
[2021-08-30] MEDS ORDERED: Albumin 25% 200 ML ONE (09:53)
[2021-08-30] MEDS: Spironolactone 25 MG TAB PO SCH (09:56)
[2021-08-30] MEDS: Ferrous Sulfate 325 MG TAB PO SCH ×2 (09:57→20:26)
[2021-08-30] MEDS: Insulin Glargine 30 UNITS/0.3 ML VIAL SC SCH ×2 (09:57→21:52)
[2021-08-30] MEDS: Pantoprazole 40 MG VIAL IVP SCH ×2 (10:00→20:27)
[2021-08-30] MEDS: Rifaximin 550 MG TAB PO SCH ×2 (10:01→20:26)
[2021-08-30] MEDS: Sotalol HCl 80 MG TAB PO SCH (10:02)
[2021-08-30] MEDS: Thiamine 100 MG TAB PO SCH (10:08)
[2021-08-30 10:11] LABS: RBC Count-Automated (BF) 792 /cu.mm; WBC/Nucleated-Auto (BF) 108 /cu.mm
[2021-08-30 10:31] LABS: BF Color Yellow; Body Fluid Source Ascites Body Fluid; Clarity Hazy (Clear); Tube # EDTA
[2021-08-30 10:36] LABS: BF Segmented Neutrophils 2 %; Cell Count Non Hematic 67 %; Lymphocytes 31 %
[2021-08-30] MEDS: HumaLOG 300 UNITS/3 ML VIAL SC PRN (17:16)
[2021-08-30] MEDS: Potassium Chloride 20 MEQ in Premix Bag 1 BAG IVPB SCH ×2 (20:26→21:52)
[2021-08-31] MEDS: traMADol HCl 50 MG TAB PO SCH ×4 (00:46→17:03)
[2021-08-31] MEDS: Spironolactone 25 MG TAB PO SCH (08:38)
[2021-08-31] MEDS: Ferrous Sulfate 325 MG TAB PO SCH (08:38)
[2021-08-31] MEDS: Sotalol HCl 80 MG TAB PO SCH (08:38)
[2021-08-31] MEDS: Pantoprazole 40 MG VIAL IVP SCH (08:38)
[2021-08-31] MEDS: Insulin Glargine 30 UNITS/0.3 ML VIAL SC SCH (08:38)
[2021-08-31] MEDS: Rifaximin 550 MG TAB PO SCH (08:38)
[2021-08-31] MEDS: Thiamine 100 MG TAB PO SCH (08:39)
[2021-08-31 15:24] VITALS: BP 120/71; TEMP 98.4
== END 2021-08-31 18:10 | DRG 492 ==
LOC: ERS 11:55 → ERHOLD 13:45 → 2NO 19:41 → SURG A 08-30 11:36
PROVIDERS: ADMIT Nurse Practitioner Acute Care; ATTEND Family Medicine
PROC: 30233N1 Transfusion of Nonautologous Red Blood Cells into Peripheral Vein, Percutaneous Approach (ICD-10-PCS; principal; 2021-08-25)
PROC: 0QHG36Z Insertion of Intramedullary Internal Fixation Device into Right Tibia, Percutaneous Approach (ICD-10-PCS; 2021-08-27)
PROC: 0W9G3ZZ Drainage of Peritoneal Cavity, Percutaneous Approach (ICD-10-PCS; 2021-08-30)
DX: S82.141A Displaced bicondylar fracture of right tibia, initial encounter for closed fracture (principal); K31.811 Angiodysplasia of stomach and duodenum with bleeding; I85.10 Secondary esophageal varices without bleeding; E72.20 Disorder of urea cycle metabolism, unspecified; E87.1 Hypo-osmolality and hyponatremia; D62 Acute posthemorrhagic anemia; E51.2 Wernicke's encephalopathy; N17.9 Acute kidney failure, unspecified; Z20.822 Contact with and (suspected) exposure to COVID-19; D69.6 Thrombocytopenia, unspecified; K70.31 Alcoholic cirrhosis of liver with ascites; K72.90 Hepatic failure, unspecified without coma; F10.26 Alcohol dependence with alcohol-induced persisting amnestic disorder; E11.22 Type 2 diabetes mellitus with diabetic chronic kidney disease; S82.831A Other fracture of upper and lower end of right fibula, initial encounter for closed fracture; W19.XXXA Unspecified fall, initial encounter; N18.30 Chronic kidney disease, stage 3 unspecified; E83.39 Other disorders of phosphorus metabolism; D63.1 Anemia in chronic kidney disease; Z79.4 Long term (current) use of insulin; Z79.899 Other long term (current) drug therapy; I48.91 Unspecified atrial fibrillation; E87.5 Hyperkalemia
CPT/HCPCS: 36415; 36416; 36430; 49083; 70450; 71045; 72125; 76000; 76705; 80048; 80053; 80061; 80306; 81001; 82140; 82274; 82607; 82746; 82805; 83036; 83605; 83735; 84100; 84443; 84484; 85025; 85060; 85610; 85730; 86850; 86900; 86901; 87040; 87070; 87205; 89051; 90715; 93005; 94760; 96365; 96375; C1713; C9113; J0690; J0696; J1100; J1815; J2250; J2354; J2405; J2704; J3480; J3490; J7030; J7050; J7120; P9016; P9047; U0003; U0005

== ENCOUNTER 2021-09-06 08:05 | Day surgery (SDC) | payer MEDICARE, MEDICAID ==
[2021-09-05 11:07] VITALS: BMI 26.2
[2021-09-06] MEDS ORDERED: Albumin 25% 100 ML ONE (08:19)
[2021-09-06] MEDS ORDERED: Lidocaine 1% PF 5 ML VIAL ONE (08:19)
[2021-09-06] MEDS ORDERED: Sodium Bicarbonate 2.5 MEQ/5 ML VIAL ONE (08:19)
[2021-09-06 13:34] VITALS: BP 102/58; TEMP 98.8
== END 2021-09-06 09:35 | disposition home or self-care (01) ==
LOC: ULT 08:05
PROVIDERS: ATTEND Family Medicine
PROC: 0W9G3ZZ Drainage of Peritoneal Cavity, Percutaneous Approach (ICD-10-PCS; principal; 2021-09-06)
DX: K70.31 Alcoholic cirrhosis of liver with ascites (principal); E11.22 Type 2 diabetes mellitus with diabetic chronic kidney disease; N18.30 Chronic kidney disease, stage 3 unspecified; D63.1 Anemia in chronic kidney disease; F10.21 Alcohol dependence, in remission; Z79.4 Long term (current) use of insulin; Z79.899 Other long term (current) drug therapy
CPT/HCPCS: 49083; P9047

== ENCOUNTER 2021-09-13 08:14 | Day surgery (SDC) | payer MEDICARE, MEDICAID ==
[2021-09-13] MEDS ORDERED: Sodium Bicarbonate 2.5 MEQ/5 ML VIAL ONE (08:17)
[2021-09-13] MEDS ORDERED: Lidocaine 1% PF 5 ML VIAL ONE (08:17)
[2021-09-13] MEDS ORDERED: Albumin 25% 100 ML ONE (08:17)
[2021-09-13 11:54] VITALS: BP 102/54; TEMP 97.9; BMI 26.2
== END 2021-09-13 09:55 ==
LOC: ULT 08:14
PROVIDERS: ATTEND Family Medicine
PROC: 0W9G3ZZ Drainage of Peritoneal Cavity, Percutaneous Approach (ICD-10-PCS; principal; 2021-09-13)
DX: K70.31 Alcoholic cirrhosis of liver with ascites (principal); E11.22 Type 2 diabetes mellitus with diabetic chronic kidney disease; N18.30 Chronic kidney disease, stage 3 unspecified; F10.21 Alcohol dependence, in remission; Z79.4 Long term (current) use of insulin; Z79.899 Other long term (current) drug therapy
CPT/HCPCS: 49083; P9047

== ENCOUNTER 2021-09-19 20:13 | Emergency (ER) | payer MEDICAID, MEDICARE, OTHER ==
[2021-09-19] MEDS ORDERED: Dextrose 50% Abboject 50 ML SYRINGE ONE ×2 (20:33→20:38)
[2021-09-19 21:58] LABS: ALT (SGPT) 11 U/L (8-55); AST (SGOT) 18 U/L (5-34); Albumin 2.4 g/dL (3.4-4.8); Alkaline Phosphatase 185 U/L (40-110); Anion Gap 12 mmol/L (10-20); BUN (Urea Nitrogen) 52 mg/dL (8.4-25.7); Bilirubin, Total 3.1 mg/dL (0.2-1.2); Calc. Creatinine Clearance 0 mL/min (70-130); Calcium 7.4 mg/dL (7.8-10.44); Carbon Dioxide 18 mmol/L (23-31); Chloride 106 mmol/L (98-107); Estimated GFR 62; Globulin 2.6 g/dL (2.4-3.5); Glucose 206 mg/dL (80-115); Potassium 4.9 mmol/L (3.5-5.1); Sodium 131 mmol/L (136-145)
[2021-09-19 22:07] LABS: Hemoglobin 7.6 g/dL (14.0-18.0); Mean Corpuscular HGB CONC 33.7 g/dL (32.0-36.0); Mean Corpuscular Hemoglobin 23.3 pg (27.0-31.0); Mean Corpuscular Volume 69.1 fL (78.0-98.0); RBC Distribution Width 23.7 % (11.5-14.5); Red Blood Cell (RBC) Count 3.25 mill/uL (4.70-6.10); White Blood Cell (WBC) Count 8.3 thou/uL (4.8-10.8)
[2021-09-19 22:22] LABS: Bilirubin Negative (Negative); Blood, Urine Negative (Negative); Clarity Clear (Clear); Glucose, Urine (Dipstick) Normal (Negative); Ketone, Urine Negative (Negative); Leukocyte Negative Leu/uL (Negative); Nitrite Negative (Negative); Protein, Urine (Dipstick) Negative (Neg-Trace); Specific Gravity, Urine 1.016 (1.002-1.036); Urobilinogen Normal mg/dL (Less than 2)
[2021-09-19 22:35] LABS: Mean Platelet Volume 5.3 fL (7.4-10.4); Platelet Count 95 thou/uL (130-400)
[2021-09-19 22:36] LABS: Anisocytosis MODERATE=16-30 cells (100X) (0-5/hpf); Band 18 % (5-11); Eosinophils 2 % (0-10); Lymphocytes 4 % (21-51); MDiff Complete? YES; Monocytes 8 % (0-10); Neutrophil 68 % (42-75); Platelet Morphology Comment Appears Decreased; Target Cells MODERATE= 6-15 cells (100X) (0-1/hpf)
== END 2021-09-20 01:12 | disposition home or self-care (01) ==
LOC: ERS 20:13
DX: E11.649 Type 2 diabetes mellitus with hypoglycemia without coma (principal); T68.XXXA Hypothermia, initial encounter; E11.22 Type 2 diabetes mellitus with diabetic chronic kidney disease; N18.9 Chronic kidney disease, unspecified; D64.9 Anemia, unspecified; R18.8 Other ascites; W19.XXXA Unspecified fall, initial encounter; Z79.4 Long term (current) use of insulin
CPT/HCPCS: 36415; 36416; 51701; 70450; 71045; 72125; 80053; 81003; 83605; 85025; 87040; 87086; 93005; 96374; J7999

== ENCOUNTER → 2021-09-20 | Day surgery (SDC) | payer MEDICARE, MEDICAID ==
[2021-09-18 15:04] VITALS: BMI 26.2
[~2021-09-20] MED LIST changes: +Albumin 25% 100 ML ONE; -FLU VACC QS2021-22(6MOS UP)/PF 60 MCG/0.5 ML SYRINGE IM ONE; +Lidocaine 1% PF 5 ML VIAL ONE; +Sodium Bicarbonate 2.5 MEQ/5 ML VIAL ONE
[2021-09-20 12:45] VITALS: BP 118/63; TEMP 97.7
== END | disposition home or self-care (01) ==
LOC: ULT 07:47
PROVIDERS: ATTEND Family Medicine
PROC: 0W9G3ZZ Drainage of Peritoneal Cavity, Percutaneous Approach (ICD-10-PCS; principal; 2021-09-20)
DX: K70.31 Alcoholic cirrhosis of liver with ascites (principal); E11.22 Type 2 diabetes mellitus with diabetic chronic kidney disease; N18.9 Chronic kidney disease, unspecified; F10.21 Alcohol dependence, in remission; Z79.4 Long term (current) use of insulin; Z79.899 Other long term (current) drug therapy
CPT/HCPCS: 49083; P9047

== ENCOUNTER 2021-09-25 17:12 | Inpatient (IN) | payer MEDICARE, MEDICAID ==
[2021-09-25 18:45] LABS: INR-International Normal Ratio 1.3; PTT 36.5 sec (22.9-36.1); Prothrombin Time 16.3 sec (12.0-14.7)
[2021-09-25 18:55] LABS: Acetaminophen Less than 10.0 mcg/mL (10.0-30.0); Alcohol Less than 10 mg/dL (Less than 10); Salicylate Less than 8.0 mg/dL (15.0-30.0)
[2021-09-25 18:56] LABS: CRP (Inflammatory) 3.61 mg/dL (= or < 0.5)
[2021-09-25 19:04] LABS: SARS-CoV-2 NAA Rapid Test Not Detected (NotDetected)
[2021-09-25 19:15] LABS: ALT (SGPT) 14 U/L (8-55); AST (SGOT) 41 U/L (5-34); Albumin 3.3 g/dL (3.4-4.8); Alkaline Phosphatase 195 U/L (40-110); Anion Gap 16 mmol/L (10-20); BUN (Urea Nitrogen) 59 mg/dL (8.4-25.7); Bilirubin, Total 4.8 mg/dL (0.2-1.2); Calc. Creatinine Clearance 0 mL/min (70-130); Calcium 8.4 mg/dL (7.8-10.44); Carbon Dioxide 20 mmol/L (23-31); Chloride 107 mmol/L (98-107); Estimated GFR 54; Globulin 3.6 g/dL (2.4-3.5); Glucose 33 mg/dL (80-115); Potassium 5.6 mmol/L (3.5-5.1); Protein, Total 6.9 g/dL (5.8-8.1); Sodium 137 mmol/L (136-145)
[2021-09-25] MEDS ORDERED: Dextrose 50% Abboject 50 ML SYRINGE ONE (19:20)
[2021-09-25 19:23] LABS: Bilirubin Negative (Negative); Blood, Urine Negative (Negative); Clarity Clear (Clear); Glucose, Urine (Dipstick) Normal (Negative); Ketone, Urine Negative (Negative); Leukocyte Negative Leu/uL (Negative); Nitrite Negative (Negative); Protein, Urine (Dipstick) Negative (Neg-Trace); Specific Gravity, Urine 1.015 (1.002-1.036); Urobilinogen Normal mg/dL (Less than 2)
[2021-09-25 19:31] LABS: Amphetamine Not Detected (NotDetected); Barbiturates Screen Not Detected (NotDetected); Benzodiazepine Screen Not Detected (NotDetected); Cocaine Metabolite Screen Not Detected (NotDetected); Methadone Not Detected (NotDetected); Methamphetamine Not Detected (NotDetected); Opiate Screen Detected (NotDetected); Oxycodone Screen Not Detected (NotDetected); Phencyclidine (PCP) Not Detected (NotDetected); THC/Cannabinoid Screen Not Detected (NotDetected); Tricyclic Screen Not Detected (NotDetected)
[2021-09-25] MEDS ORDERED: Sodium Chloride 77 MEQ in Dextrose 10% in Water 1,000 ML IV SCH (19:45)
[2021-09-25] MEDS ORDERED: Acetaminophen 325 MG TAB PO PRN (21:16)
[2021-09-25] MEDS ORDERED: Dextrose 5% in Water 1,000 ML IV PRN (21:16)
[2021-09-25] MEDS ORDERED: Ondansetron PF 4 MG/2 ML Vial IVP PRN (21:16)
[2021-09-25] MEDS ORDERED: HumaLOG 300 UNITS/3 ML VIAL SC PRN ×2 (21:16)
[2021-09-25] MEDS ORDERED: Ondansetron ODT 4 MG TAB PO PRN (21:16)
[2021-09-25] MEDS ORDERED: HYDROcodone/Acetaminophen 5/325 mg Tablet PO PRN (21:16)
[2021-09-25] MEDS ORDERED: Dextrose 50% Abboject 50 ML SYRINGE SLOW IVP PRN (21:16)
[2021-09-25] MEDS ORDERED: Dextrose 5% in Water 1,000 ML IV SCH (21:30)
[2021-09-25] MEDS ORDERED: Octreotide Acetate 1,250 MCG in Sodium Chloride 0.9% 250 ML 250 ML IVPB SCH (22:00)
[2021-09-25 22:14] LABS: Band 17 % (5-11); Eosinophils 1 % (0-10); Hemoglobin 9.1 g/dL (14.0-18.0); Hypochromia SLIGHT = 6-15 cells (100X) (0-5/hpf); Lymphocytes 6 % (21-51); MDiff Complete? YES; Mean Corpuscular HGB CONC 32.6 g/dL (32.0-36.0); Mean Corpuscular Hemoglobin 21.8 pg (27.0-31.0); Mean Corpuscular Volume 66.8 fL (78.0-98.0); Mean Platelet Volume 6.7 fL (7.4-10.4); Microcytosis SLIGHT = 6-15 cells (100X) (0-5/hpf); Monocytes 13 % (0-10); Neutrophil 62 % (42-75); Nucleated RBC 3 % (0); Platelet Count 164 thou/uL (130-400); Platelet Morphology Comment Appears Adequate; Polychromasia SLIGHT = 2-3 cells (100X) (0-2/hpf); RBC Distribution Width 22.8 % (11.5-14.5); Reactive Lymphocytes 1 % (0-10); Red Blood Cell (RBC) Count 4.18 mill/uL (4.70-6.10); Target Cells SLIGHT = 2-5 cells (100X) (0-1/hpf)
[2021-09-25] MEDS ORDERED: cefTRIAXone\\ROCEPHIN 2 GM in Sodium Chloride 0.9% 100 ML IVPB SCH (23:00)
[2021-09-26] MEDS ORDERED: Dextrose 10% in Water 1,000 ML IV SCH ×2 (02:00→08:45)
[2021-09-26 05:01] LABS: ALT (SGPT) 12 U/L (8-55); AST (SGOT) 24 U/L (5-34); Albumin 3.1 g/dL (3.4-4.8); Alkaline Phosphatase 174 U/L (40-110); Anion Gap 14 mmol/L (10-20); BUN (Urea Nitrogen) 58 mg/dL (8.4-25.7); Bilirubin, Total 3.6 mg/dL (0.2-1.2); Calc. Creatinine Clearance 49 mL/min (70-130); Calcium 8.6 mg/dL (7.8-10.44); Carbon Dioxide 20 mmol/L (23-31); Chloride 107 mmol/L (98-107); Estimated GFR 49; Globulin 3.2 g/dL (2.4-3.5); Glucose 83 mg/dL (80-115); Potassium 5.6 mmol/L (3.5-5.1); Protein, Total 6.3 g/dL (5.8-8.1); Sodium 135 mmol/L (136-145)
[2021-09-26 05:27] LABS: Eosinophils 1 % (0-10); Hemoglobin 8.2 g/dL (14.0-18.0); Hypochromia SLIGHT = 6-15 cells (100X) (0-5/hpf); Lymphocytes 11 % (21-51); MDiff Complete? YES; Mean Corpuscular Hemoglobin 22.9 pg (27.0-31.0); Mean Corpuscular Volume 67.2 fL (78.0-98.0); Mean Platelet Volume 5.3 fL (7.4-10.4); Monocytes 14 % (0-10); Neutrophil 74 % (42-75); Platelet Count 106 thou/uL (130-400); Platelet Morphology Comment Appears Decreased; Polychromasia SLIGHT = 2-3 cells (100X) (0-2/hpf); RBC Distribution Width 22.6 % (11.5-14.5); Red Blood Cell (RBC) Count 3.57 mill/uL (4.70-6.10); Target Cells SLIGHT = 2-5 cells (100X) (0-1/hpf); White Blood Cell (WBC) Count 10.1 thou/uL (4.8-10.8)
[2021-09-26] MEDS ORDERED: Acetaminophen 325 MG TAB PO PRN (08:41)
[2021-09-26] MEDS ORDERED: Dextrose 5% in Water 1,000 ML IV PRN (08:42)
[2021-09-26] MEDS ORDERED: HumaLOG 300 UNITS/3 ML VIAL SC PRN (08:43)
[2021-09-26] MEDS ORDERED: Dextrose 50% Abboject 50 ML SYRINGE SLOW IVP PRN (08:43)
[2021-09-26] MEDS ORDERED: Octreotide Acetate 1,250 MCG in Sodium Chloride 0.9% 250 ML 250 ML IVPB SCH (08:45)
[2021-09-26] MEDS ORDERED: Ondansetron PF 4 MG/2 ML Vial IVP PRN (08:45)
[2021-09-26] MEDS ORDERED: Ondansetron ODT 4 MG TAB PO PRN (08:45)
[2021-09-26] MEDS ORDERED: Pantoprazole 40 MG VIAL IVP SCH ×2 (09:00)
[2021-09-26] MEDS ORDERED: LOKELMA 10 GM PACKET PO SCH (09:00)
[2021-09-26] MEDS ORDERED: Thiamine 100 MG TAB PO SCH (09:00)
[2021-09-26] MEDS: Thiamine 100 MG TAB PO SCH (10:11)
[2021-09-26] MEDS: cefTRIAXone\\ROCEPHIN 2 GM in Sodium Chloride 0.9% 100 ML IVPB SCH (10:13)
[2021-09-26] MEDS ORDERED: VANCOMYCIN 2 GRAM/500 ML BAG 2 GM in Premix Bag 1 BAG IVPB SCH (14:00)
[2021-09-26 15:08] LABS: Anion Gap 14 mmol/L (10-20); Carbon Dioxide 20 mmol/L (23-31); Chloride 105 mmol/L (98-107); Potassium 4.8 mmol/L (3.5-5.1); Sodium 134 mmol/L (136-145)
[2021-09-26] MEDS: Pantoprazole 40 MG VIAL IVP SCH (20:28)
[2021-09-26] MEDS: Rifaximin 550 MG TAB PO SCH (20:28)
[2021-09-27] MEDS ORDERED: Sodium Bicarbonate 2.5 MEQ/5 ML VIAL ONE (07:50)
[2021-09-27] MEDS ORDERED: Lidocaine 1% PF 5 ML VIAL ONE (07:50)
[2021-09-27 08:57] LABS: Hemoglobin 8.2 g/dL (14.0-18.0); Mean Corpuscular HGB CONC 33.5 g/dL (32.0-36.0); Mean Corpuscular Hemoglobin 22.5 pg (27.0-31.0); Mean Corpuscular Volume 67.3 fL (78.0-98.0); Mean Platelet Volume 5.9 fL (7.4-10.4); Platelet Count 86 thou/uL (130-400); RBC Distribution Width 22.8 % (11.5-14.5); Red Blood Cell (RBC) Count 3.63 mill/uL (4.70-6.10)
[2021-09-27 09:08] LABS: Anion Gap 17 mmol/L (10-20); BUN (Urea Nitrogen) 56 mg/dL (8.4-25.7); Calc. Creatinine Clearance 43 mL/min (70-130); Calcium 8.4 mg/dL (7.8-10.44); Carbon Dioxide 17 mmol/L (23-31); Chloride 106 mmol/L (98-107); Estimated GFR 40; Glucose 215 mg/dL (80-115); Potassium 4.5 mmol/L (3.5-5.1); Sodium 135 mmol/L (136-145)
[2021-09-27] MEDS: cefTRIAXone\\ROCEPHIN 2 GM in Sodium Chloride 0.9% 100 ML IVPB SCH (09:41)
[2021-09-27] MEDS: Rifaximin 550 MG TAB PO SCH ×2 (09:42→21:05)
[2021-09-27] MEDS: Thiamine 100 MG TAB PO SCH (09:42)
[2021-09-27] MEDS: Pantoprazole 40 MG VIAL IVP SCH ×2 (09:43→21:05)
[2021-09-27 12:44] LABS: RBC Count-Automated (BF) 454 /cu.mm; WBC/Nucleated-Auto (BF) 86 /cu.mm
[2021-09-27 13:50] LABS: BF Color Yellow; Body Fluid Source Ascites Body Fluid; Clarity Hazy (Clear); Tube # EDTA
[2021-09-27 13:53] LABS: BF Segmented Neutrophils 9 %; Cell Count Non Hematic 67 %; Lymphocytes 23 %
[2021-09-27] MEDS: Vancomycin 1 GM in Premix Bag 1 BAG IVPB SCH (15:06)
[2021-09-27] MEDS: HumaLOG 300 UNITS/3 ML VIAL SC PRN (17:57)
[2021-09-28 04:29] LABS: Mean Corpuscular HGB CONC 33.7 g/dL (32.0-36.0); Mean Corpuscular Hemoglobin 22.7 pg (27.0-31.0); Mean Corpuscular Volume 67.2 fL (78.0-98.0); Mean Platelet Volume 5.4 fL (7.4-10.4); Platelet Count 91 thou/uL (130-400); RBC Distribution Width 22.5 % (11.5-14.5); Red Blood Cell (RBC) Count 3.54 mill/uL (4.70-6.10); White Blood Cell (WBC) Count 11.9 thou/uL (4.8-10.8)
[2021-09-28 04:43] LABS: Anion Gap 17 mmol/L (10-20); BUN (Urea Nitrogen) 59 mg/dL (8.4-25.7); Calc. Creatinine Clearance 40 mL/min (70-130); Calcium 8.5 mg/dL (7.8-10.44); Carbon Dioxide 17 mmol/L (23-31); Chloride 108 mmol/L (98-107); Estimated GFR 37; Glucose 152 mg/dL (80-115); Potassium 3.5 mmol/L (3.5-5.1); Sodium 138 mmol/L (136-145)
[2021-09-28] MEDS: cefTRIAXone\\ROCEPHIN 2 GM in Sodium Chloride 0.9% 100 ML IVPB SCH (08:52)
[2021-09-28] MEDS: Thiamine 100 MG TAB PO SCH (08:53)
[2021-09-28] MEDS: Rifaximin 550 MG TAB PO SCH ×2 (08:53→20:27)
[2021-09-28] MEDS: Pantoprazole 40 MG VIAL IVP SCH ×2 (08:53→20:27)
[2021-09-28 13:45] LABS: Vancomycin, Trough 30.8 ug/mL
[2021-09-28] MEDS: Vancomycin 1 GM in Premix Bag 1 BAG IVPB SCH (13:52)
[2021-09-28] MEDS ORDERED: Albumin 25% 25 GM/100 ML BOT IVPB SCH (14:15)
[2021-09-29 07:29] LABS: Anion Gap 17 mmol/L (10-20); BUN (Urea Nitrogen) 65 mg/dL (8.4-25.7); Calc. Creatinine Clearance 34 mL/min (70-130); Calcium 8.4 mg/dL (7.8-10.44); Carbon Dioxide 15 mmol/L (23-31); Chloride 108 mmol/L (98-107); Estimated GFR 33; Glucose 153 mg/dL (80-115); Potassium 3.1 mmol/L (3.5-5.1); Sodium 137 mmol/L (136-145)
[2021-09-29] MEDS: Rifaximin 550 MG TAB PO SCH ×2 (07:47→21:43)
[2021-09-29] MEDS: Pantoprazole 40 MG VIAL IVP SCH ×2 (07:47→21:43)
[2021-09-29] MEDS: Thiamine 100 MG TAB PO SCH (07:47)
[2021-09-29] MEDS: cefTRIAXone\\ROCEPHIN 2 GM in Sodium Chloride 0.9% 100 ML IVPB SCH (08:17)
[2021-09-29 08:55] VITALS: BMI 25.8
[2021-09-29] MEDS: Albumin 25% 25 GM/100 ML BOT IVPB SCH (11:02)
[2021-09-29] MEDS: Midodrine HCl 5 MG TAB PO SCH ×3 (11:03→21:43)
[2021-09-29] MEDS ORDERED: Octreotide Acetate 100 MCG/ML VIAL SC SCH (14:00)
[2021-09-29] MEDS ORDERED: Vancomycin HCl 500 MG in Sodium Chloride 0.9% 100 ML IVPB SCH (14:00)
[2021-09-29] MEDS: HYDROcodone/Acetaminophen 5/325 mg Tablet PO PRN (21:43)
[2021-09-29] MEDS: Octreotide Acetate 50 MCG/ML AMP SC SCH (21:44)
[2021-09-30 05:01] LABS: Anion Gap 19 mmol/L (10-20); BUN (Urea Nitrogen) 66 mg/dL (8.4-25.7); Calc. Creatinine Clearance 30 mL/min (70-130); Calcium 8.7 mg/dL (7.8-10.44); Carbon Dioxide 14 mmol/L (23-31); Chloride 108 mmol/L (98-107); Estimated GFR 28; Glucose 144 mg/dL (80-115); Potassium 3.3 mmol/L (3.5-5.1); Sodium 138 mmol/L (136-145)
[2021-09-30 05:09] LABS: Hemoglobin 6.6 g/dL (14.0-18.0); Mean Corpuscular Hemoglobin 22.7 pg (27.0-31.0); Mean Corpuscular Volume 66.7 fL (78.0-98.0); Platelet Count 56 thou/uL (130-400); Red Blood Cell (RBC) Count 2.91 mill/uL (4.70-6.10); White Blood Cell (WBC) Count 9.5 thou/uL (4.8-10.8)
[2021-09-30] MEDS: Octreotide Acetate 50 MCG/ML AMP SC SCH ×3 (05:37→21:27)
[2021-09-30 06:26] LABS: Hemoglobin 6.7 g/dL (14.0-18.0)
[2021-09-30] MEDS: cefTRIAXone\\ROCEPHIN 2 GM in Sodium Chloride 0.9% 100 ML IVPB SCH (08:12)
[2021-09-30] MEDS: Pantoprazole 40 MG VIAL IVP SCH ×2 (08:13→21:27)
[2021-09-30] MEDS: Midodrine HCl 5 MG TAB PO SCH ×3 (08:13→21:26)
[2021-09-30] MEDS: Rifaximin 550 MG TAB PO SCH ×2 (08:13→21:27)
[2021-09-30] MEDS: Thiamine 100 MG TAB PO SCH (08:13)
[2021-09-30] MEDS: Albumin 25% 25 GM/100 ML BOT IVPB SCH ×3 (08:14→21:27)
[2021-09-30] MEDS ORDERED: Potassium Chloride 20 MEQ TAB PO SCH (12:30)
[2021-09-30 13:35] LABS: Vancomycin, Random 22.4 ug/mL (See Comment)
[2021-09-30 13:37] LABS: ALT (SGPT) 8 U/L (8-55); AST (SGOT) 13 U/L (5-34); Albumin 3.9 g/dL (3.4-4.8); Alkaline Phosphatase 150 U/L (40-110); Bilirubin, Direct 1.8 mg/dL (0.1-0.3); Bilirubin, Total 3.6 mg/dL (0.2-1.2); Protein, Total 6.7 g/dL (5.8-8.1)
[2021-09-30] MEDS ORDERED: Sodium Bicarbonate Tab 325 MG TAB PO SCH (15:30)
[2021-09-30] MEDS ORDERED: Lorazepam 2 MG/ML VIAL SLOW IVP SCH (17:30)
[2021-09-30] MEDS ORDERED: Lorazepam 2 MG/ML VIAL SLOW IVP PRN (17:33)
[2021-09-30] MEDS: Sodium Bicarbonate Tab 325 MG TAB PO SCH (21:27)
[2021-09-30] MEDS: HYDROcodone/Acetaminophen 5/325 mg Tablet PO PRN (21:34)
[2021-10-01 00:13] LABS: Platelet Count 42 thou/uL (130-400)
[2021-10-01 05:10] LABS: ALT (SGPT) Less than 7 U/L (8-55); AST (SGOT) 11 U/L (5-34); Albumin 3.8 g/dL (3.4-4.8); Alkaline Phosphatase 125 U/L (40-110); Anion Gap 22 mmol/L (10-20); BUN (Urea Nitrogen) 72 mg/dL (8.4-25.7); Bilirubin, Total 4.2 mg/dL (0.2-1.2); Calc. Creatinine Clearance 25 mL/min (70-130); Calcium 8.9 mg/dL (7.8-10.44); Carbon Dioxide 12 mmol/L (23-31); Chloride 109 mmol/L (98-107); Estimated GFR 24; Globulin 2.5 g/dL (2.4-3.5); Glucose 162 mg/dL (80-115); Iron 82 ug/dL (65-175); Iron Binding Capacity, Total 81 mcg/dL (261-462); Potassium 3.4 mmol/L (3.5-5.1); Protein, Total 6.3 g/dL (5.8-8.1); Sodium 140 mmol/L (136-145)
[2021-10-01] MEDS: Octreotide Acetate 50 MCG/ML AMP SC SCH ×2 (05:12→14:25)
[2021-10-01] MEDS: Albumin 25% 25 GM/100 ML BOT IVPB SCH ×2 (05:12→13:47)
[2021-10-01 06:26] LABS: Anisocytosis MODERATE=16-30 cells (100X) (0-5/hpf); Band 9 % (5-11); Eosinophils 2 % (0-10); Hemoglobin 7.1 g/dL (14.0-18.0); Hypochromia SLIGHT = 6-15 cells (100X) (0-5/hpf); Lymphocytes 11 % (21-51); MDiff Complete? YES; Mean Corpuscular HGB CONC 34.9 g/dL (32.0-36.0); Mean Corpuscular Hemoglobin 24.8 pg (27.0-31.0); Mean Corpuscular Volume 71.1 fL (78.0-98.0); Mean Platelet Volume 5.7 fL (7.4-10.4); Monocytes 2 % (0-10); Neutrophil 76 % (42-75); Phosphorus 3.9 mg/dL (2.3-4.7); Platelet Count 43 thou/uL (130-400); Platelet Morphology Comment Appears Decreased; RBC Distribution Width 23.3 % (11.5-14.5); Red Blood Cell (RBC) Count 2.88 mill/uL (4.70-6.10); Target Cells SLIGHT = 2-5 cells (100X) (0-1/hpf); White Blood Cell (WBC) Count 7.4 thou/uL (4.8-10.8)
[2021-10-01 06:30] LABS: Magnesium 2.8 mg/dL (1.6-2.6)
[2021-10-01] MEDS ORDERED: Sodium Bicarbonate 150 MEQ in Dextrose 5% in Water 1,000 ML IV SCH (06:30)
[2021-10-01 06:31] LABS: CK (CPK) 42 U/L (30-200)
[2021-10-01] MEDS ORDERED: Epoetin (NON-ESRD) 20,000 UNITS/ML ML IVP SCH (07:00)
[2021-10-01] MEDS: cefTRIAXone\\ROCEPHIN 2 GM in Sodium Chloride 0.9% 100 ML IVPB SCH (08:41)
[2021-10-01] MEDS: Pantoprazole 40 MG VIAL IVP SCH ×2 (08:45→21:11)
[2021-10-01] MEDS: Rifaximin 550 MG TAB PO SCH ×2 (08:46→21:30)
[2021-10-01] MEDS: Thiamine 100 MG TAB PO SCH (08:46)
[2021-10-01] MEDS: Sodium Bicarbonate Tab 325 MG TAB PO SCH ×3 (08:46→21:30)
[2021-10-01] MEDS: Midodrine HCl 5 MG TAB PO SCH ×3 (08:47→21:30)
[2021-10-01] MEDS ORDERED: Epoetin (ESRD) 10,000 UNITS/ML VIAL IVP SCH (09:00)
[2021-10-01] MEDS ORDERED: Lacosamide 200 MG in Sodium Chloride 0.9% 50 ML IVPB SCH (12:00)
[2021-10-01] MEDS: Lacosamide 200 MG in Sodium Chloride 0.9% 50 ML IVPB SCH (21:11)
[2021-10-01] MEDS: Octreotide Acetate 100 MCG/ML VIAL SC SCH (21:12)
[2021-10-02 00:47] LABS: Bilirubin Negative (Negative); Blood, Urine Negative (Negative); Clarity Clear (Clear); Glucose, Urine (Dipstick) Normal (Negative); Ketone, Urine Trace mg/dL (Negative); Leukocyte 250 Leu/uL (Negative); Nitrite Negative (Negative); Protein, Urine (Dipstick) 30 mg/dL (Neg-Trace); Specific Gravity, Urine 1.022 (1.002-1.036); Urobilinogen Normal mg/dL (Less than 2); Yeast-Budding Rare HPF (None Seen)
[2021-10-02 00:48] LABS: Creatinine, Urine 114.55 mg/dL (63-166)
[2021-10-02 00:49] LABS: Bacteria/HPF Rare-Few HPF (None Seen)
[2021-10-02 00:51] LABS: Urine Culture Reflex No No
[2021-10-02 05:00] LABS: Hemoglobin 7.6 g/dL (14.0-18.0); Mean Corpuscular HGB CONC 34.1 g/dL (32.0-36.0); Mean Corpuscular Volume 70.3 fL (78.0-98.0); Platelet Count 36 thou/uL (130-400); RBC Distribution Width 23.3 % (11.5-14.5); Red Blood Cell (RBC) Count 3.18 mill/uL (4.70-6.10); White Blood Cell (WBC) Count 6.7 thou/uL (4.8-10.8)
[2021-10-02 05:09] LABS: Anion Gap 20 mmol/L (10-20); BUN (Urea Nitrogen) 74 mg/dL (8.4-25.7); Calc. Creatinine Clearance 25 mL/min (70-130); Calcium 9.1 mg/dL (7.8-10.44); Carbon Dioxide 17 mmol/L (23-31); Chloride 110 mmol/L (98-107); Estimated GFR 23; Glucose 198 mg/dL (80-115); Potassium 3.2 mmol/L (3.5-5.1); Sodium 144 mmol/L (136-145)
[2021-10-02] MEDS: Octreotide Acetate 100 MCG/ML VIAL SC SCH (05:44)
[2021-10-02] MEDS: Octreotide Acetate 500 MCG/ML VIAL SC SCH ×3 (06:39→21:22)
[2021-10-02] MEDS ORDERED: Sodium Bicarbonate 150 MEQ in Dextrose 5% in Water 1,000 ML IV SCH ×2 (08:30→18:45)
[2021-10-02] MEDS: Rifaximin 550 MG TAB PO SCH ×2 (09:22→20:59)
[2021-10-02] MEDS: Pantoprazole 40 MG VIAL IVP SCH ×2 (09:22→20:59)
[2021-10-02] MEDS: Midodrine HCl 5 MG TAB PO SCH ×3 (09:23→20:59)
[2021-10-02] MEDS: Thiamine 100 MG TAB PO SCH (09:23)
[2021-10-02] MEDS: Potassium Bicarbonate/Cit Ac 20 MEQ TAB PO SCH ×2 (09:23→12:41)
[2021-10-02] MEDS: Sodium Bicarbonate Tab 325 MG TAB PO SCH ×3 (09:23→20:58)
[2021-10-02] MEDS: cefTRIAXone\\ROCEPHIN 2 GM in Sodium Chloride 0.9% 100 ML IVPB SCH (09:25)
[2021-10-02] MEDS: Lacosamide 200 MG in Sodium Chloride 0.9% 50 ML IVPB SCH ×2 (09:42→22:13)
[2021-10-02] MEDS: Albumin 25% 25 GM/100 ML BOT IVPB SCH ×2 (10:04→16:39)
[2021-10-02] MEDS: HumaLOG 300 UNITS/3 ML VIAL SC PRN ×2 (12:41→16:31)
[2021-10-02] MEDS: HYDROcodone/Acetaminophen 5/325 mg Tablet PO PRN (20:58)
[2021-10-03] MEDS: Albumin 25% 25 GM/100 ML BOT IVPB SCH ×3 (01:20→15:53)
[2021-10-03 04:50] LABS: Hemoglobin 6.9 g/dL (14.0-18.0); Mean Corpuscular HGB CONC 33.6 g/dL (32.0-36.0); Mean Corpuscular Hemoglobin 23.8 pg (27.0-31.0); Mean Platelet Volume 6.4 fL (7.4-10.4); Platelet Count 31 thou/uL (130-400); RBC Distribution Width 23.6 % (11.5-14.5); Red Blood Cell (RBC) Count 2.89 mill/uL (4.70-6.10); White Blood Cell (WBC) Count 5.1 thou/uL (4.8-10.8)
[2021-10-03 04:51] LABS: Anion Gap 19 mmol/L (10-20); BUN (Urea Nitrogen) 70 mg/dL (8.4-25.7); Calc. Creatinine Clearance 22 mL/min (70-130); Calcium 9.3 mg/dL (7.8-10.44); Carbon Dioxide 23 mmol/L (23-31); Chloride 109 mmol/L (98-107); Estimated GFR 21; Glucose 261 mg/dL (80-115); Sodium 147 mmol/L (136-145)
[2021-10-03] MEDS: Octreotide Acetate 500 MCG/ML VIAL SC SCH ×2 (05:14→15:53)
[2021-10-03] MEDS: HumaLOG 300 UNITS/3 ML VIAL SC PRN ×2 (05:33→18:25)
[2021-10-03] MEDS ORDERED: Sodium Bicarbonate 150 MEQ in Dextrose 5% in Water 1,000 ML IV SCH (08:38)
[2021-10-03] MEDS ORDERED: Insulin Glargine 30 UNITS/0.3 ML VIAL SC SCH (09:00)
[2021-10-03] MEDS: Pantoprazole 40 MG VIAL IVP SCH (09:56)
[2021-10-03] MEDS: Lacosamide 200 MG in Sodium Chloride 0.9% 50 ML IVPB SCH (09:56)
[2021-10-03] MEDS: Rifaximin 550 MG TAB PO SCH (11:13)
[2021-10-03] MEDS: Midodrine HCl 5 MG TAB PO SCH ×2 (11:14→15:54)
[2021-10-03] MEDS: Sodium Bicarbonate Tab 325 MG TAB PO SCH ×2 (11:14→15:53)
[2021-10-03] MEDS: Thiamine 100 MG TAB PO SCH (11:14)
[2021-10-03] MEDS: HYDROcodone/Acetaminophen 5/325 mg Tablet PO PRN (15:55)
[2021-10-03 18:38] LABS: Hemoglobin 8.8 g/dL (14.0-18.0)
[2021-10-03 19:28] VITALS: BP 130/80; TEMP 97.2
== END 2021-10-03 19:25 | disposition short-term general hospital (02) | DRG 432 ==
LOC: ERS 17:12 → 2NO 20:23 → ERS 21:16
PROVIDERS: ADMIT Internal Medicine; ATTEND Internal Medicine
PROC: 0W9G3ZZ Drainage of Peritoneal Cavity, Percutaneous Approach (ICD-10-PCS; principal; 2021-09-27)
PROC: 30233N1 Transfusion of Nonautologous Red Blood Cells into Peripheral Vein, Percutaneous Approach (ICD-10-PCS; 2021-09-30)
DX: K70.31 Alcoholic cirrhosis of liver with ascites (principal); K72.00 Acute and subacute hepatic failure without coma; K76.7 Hepatorenal syndrome; G40.109 Localization-related (focal) (partial) symptomatic epilepsy and epileptic syndromes with simple partial seizures, not intractable, without status epilepticus; N17.9 Acute kidney failure, unspecified; K76.6 Portal hypertension; E51.2 Wernicke's encephalopathy; D62 Acute posthemorrhagic anemia; E87.2 Acidosis; I85.10 Secondary esophageal varices without bleeding; E87.0 Hyperosmolality and hypernatremia; Z51.5 Encounter for palliative care; Z20.822 Contact with and (suspected) exposure to COVID-19; F10.20 Alcohol dependence, uncomplicated; E11.22 Type 2 diabetes mellitus with diabetic chronic kidney disease; E11.649 Type 2 diabetes mellitus with hypoglycemia without coma; E87.5 Hyperkalemia; N18.30 Chronic kidney disease, stage 3 unspecified; E78.5 Hyperlipidemia, unspecified; D63.1 Anemia in chronic kidney disease; K31.89 Other diseases of stomach and duodenum; D69.59 Other secondary thrombocytopenia; D50.9 Iron deficiency anemia, unspecified; E87.6 Hypokalemia; E11.65 Type 2 diabetes mellitus with hyperglycemia; Z79.899 Other long term (current) drug therapy; Z79.4 Long term (current) use of insulin
CPT/HCPCS: 36415; 36416; 36430; 49083; 51701; 70450; 71045; 72125; 72170; 76770; 80048; 80053; 80076; 80202; 80306; 80307; 81001; 81003; 82040; 82140; 82550; 82570; 82728; 83540; 83550; 83605; 83735; 84100; 84156; 84300; 85025; 85027; 85060; 85610; 85730; 86140; 86850; 86900; 86901; 87040; 87070; 87077; 87086; 87149; 87205; 89051; 93005; 94760; 95712; 95816; 95819; 95957; 96374; 97139; C9113; C9254; J0696; J1815; J2060; J2354; J3370; J3490; J7050; J7070; J7999; P9016; P9047; Q4081; U0002; U0003; U0005